=== PATIENT | male | born 1940 | race American Indian/Alaskan Native ===

== ENCOUNTER 2017-05-09 15:19 | Inpatient (IN) | payer OTHER, MEDICARE, BC ==
[~2017-05-09] VITALS: Ht 185.4 cm; Wt 113.6 kg
[~2017-05-09 15:19] MED LIST: ALBU18HF2 INH; ALBU8.5H8 IH; ASPI81TA52 PO; ATOR-2 PO; BECL8.7A7 IH; DILT30TA5 PO; FURO-149 PO; GUAI600T45 PO; IPRA3AMP IH; MOME13HF3 PO; PANT-47 PO; PRED10TA PO
[2017-05-09 15:55] LABS: BASOPHILS # (AUTO) 0.1 X10'3 (0-0.2); BASOPHILS % (AUTO) 0.5 % (0-1); EOSINOPHILS # (AUTO) 0.6 X10'3 (0-0.9); EOSINOPHILS % (AUTO) 5.2 % (0-6); HEMOGLOBIN 15.1 g/dl (14.0-17.9); LYMPHOCYTES # (AUTO) 1.4 X10'3 (1.1-4.8); LYMPHOCYTES % (AUTO) 12.6 % (21-51); MEAN CORPUSCULAR HEMOGLOBIN 33.2 PG (27.0-31.0); MEAN CORPUSCULAR HGB CONC 35.2 % (33.0-36.5); MEAN CORPUSCULAR VOLUME 94.4 FL (78-98); MEAN PLATELET VOLUME 8.4 FL (7.4-10.4); MONOCYTES # (AUTO) 0.8 X10'3 (0-0.9); MONOCYTES % (AUTO) 7.3 % (2-12); NEUTROPHILS # (AUTO) 8.4 X10'3 (1.8-7.7); NEUTROPHILS % (AUTO) 74.4 % (42-75); PLATELET COUNT 335 X10'3 (140-440); RED BLOOD COUNT 4.56 X10'6 (4.70-6.10); RED CELL DISTRIBUTION WIDTH 14.9 % (11.5-14.5); WHITE BLOOD COUNT 11.4 X10'3 (4.5-11.0)
[2017-05-09 16:19] LABS: ALANINE AMINOTRANSFERASE 69 U/L (12-78); ALBUMIN 4.1 G/DL (3.4-5.0); ALBUMIN/GLOBULIN RATIO 1.1 (1.1-1.5); ALKALINE PHOSPHATASE 99 IU/L (46-116); ANION GAP 10 (8-16); ASPARTATE AMINO TRANSFERASE 41 U/L (10-37); BILIRUBIN,TOTAL 0.9 MG/DL (0.1-1.0); BLOOD UREA NITROGEN 12 MG/DL (7-18); BUN/CREATININE RATIO 11.5 (5.4-32.0); CALCIUM 9.4 MG/DL (8.5-10.1); CHLORIDE 100 MMOL/L (99-107); CREATININE 1.04 MG/DL (0.60-1.10); GLUCOSE 112 MG/DL (70-104); MAGNESIUM 1.9 MG/DL (1.5-2.4); PHOSPHORUS 2.4 MG/DL (2.3-4.5); SODIUM 139 MMOL/L (135-145); TOTAL CARBON DIOXIDE 29.1 MMOL/L (24-32); TOTAL PROTEIN 7.7 G/DL (6.4-8.2); eGFR 69 ML/MIN
[2017-05-09 16:27] LABS: INR 0.9 INR; PARTIAL THROMBOPLASTIN TIME 27 SECONDS (22-32); PROTHROMBIN TIME 9.8 SECONDS (9.0-12.0)
[2017-05-09] MEDS ORDERED: potassium Cl 20 mEq SR tablet PO STA (16:31)
[2017-05-09] MEDS ORDERED: ipratropium/albuterol 3ml nebule NEB ONE (16:35)
[2017-05-09] MEDS ORDERED: furosemide 10 MG/1 ML 10ml inj IV ONE (16:35)
[2017-05-09] MEDS ORDERED: furosemide 20 MG/2 ML vial IV ONE (16:35)
[2017-05-09] MEDS ORDERED: methylPREDNISolone sod succ 125mg/2ml vial IV ONE (17:05)
[2017-05-09] MEDS ORDERED: piperacillin/tazo 3.375gm/50ml 50 ML IV ONE (17:29)
[2017-05-09] MEDS ORDERED: ipratropium/albuterol 3ml nebule IH PRN (17:50)
[2017-05-09] MEDS ORDERED: diltiazem 5mg/ml 5ml inj. IV ONE (17:55)
[2017-05-09] MEDS ORDERED: ondansetron/PF 4mg/2ml inj IV PRN (18:00)
[2017-05-09] MEDS ORDERED: mag hydrox/Alum hydrox/simeth 30ml oral suspension PO PRN (18:00)
[2017-05-09] MEDS ORDERED: magnesium hydroxide 30ml (MOM) UD suspension PO PRN (18:00)
[2017-05-09] MEDS ORDERED: acetaminophen 325mg tablet PO PRN (18:00)
[2017-05-09] MEDS ORDERED: DILT120C62 PO (18:22)
[2017-05-09] MEDS ORDERED: MOME0.242 INH (18:34)
[2017-05-09] MEDS ORDERED: POTA20TA19 PO (18:34)
[2017-05-09] MEDS ORDERED: ATOR20TA PO (18:34)
[2017-05-09] MEDS ORDERED: MOME13HF2 INH (18:34)
[2017-05-09] MEDS ORDERED: FURO40TA4 PO (18:34)
[2017-05-09] MEDS ORDERED: ALB0.5UD IH (18:34)
[2017-05-09] MEDS ORDERED: GUAI400T12 PO (18:38)
[2017-05-09] MEDS ORDERED: guaiFENesin 200 MG/10 ML oral syrup UD cup PO PRN (19:05)
[2017-05-09] MEDS ORDERED: albuterol 2.5 MG/3 ML nebule NEB PRN (19:05)
[2017-05-09] MEDS ORDERED: MOMETASONE FUROATE PO SCH (20:00)
[2017-05-09] MEDS ORDERED: guaiFENesin ER 600mg tablet PO SCH (20:00)
[2017-05-09] MEDS ORDERED: diltiazem CD 120mg capsule (once-daily) PO SCH (20:00)
[2017-05-09] MEDS ORDERED: MOMETASONE FUROATE INH SCH (20:00)
[2017-05-09] MEDS ORDERED: iohexol 350MG/ML 100ml bottle IV ONE (20:01)
[2017-05-09] MEDS ORDERED: atorvastatin 20mg tablet PO SCH (21:00)
[2017-05-09 22:35] VITALS: BP 147/94
[2017-05-10] MEDS ORDERED: piperacillin/tazo 3.375gm/50ml 50 ML IV SCH
[2017-05-10] MEDS ORDERED: methylPREDNISolone sod succ 125mg/2ml vial IV SCH
[2017-05-10] MEDS ORDERED: aspirin 81mg tablet.DR PO SCH (08:00)
[2017-05-10] MEDS ORDERED: fluticasone furoate 200 MCG/puff inhaler IH SCH (08:00)
[2017-05-10] MEDS ORDERED: non-formulary drug (Atorvastatin Calcium 1 TABLET) PO SCH (08:00)
[2017-05-10] MEDS ORDERED: furosemide 20 MG/2 ML vial IV SCH (08:00)
[2017-05-10] MEDS ORDERED: furosemide 40mg tablet PO SCH (08:00)
[2017-05-10] MEDS ORDERED: atorvastatin 20mg tablet PO SCH (08:00)
[2017-05-10] MEDS ORDERED: pantoprazole 40mg Tablet.DR PO SCH (08:00)
[2017-05-10] MEDS ORDERED: rivaroxaban 20mg tablet PO SCH (08:00)
== END 2017-05-09 23:23 | disposition left against medical advice (07) | DRG 308 ==
LOC: ER 15:19 → ED HOLD 17:56
PROVIDERS: ADMIT Family Medicine; ATTEND Family Medicine
PROC: B32T1ZZ Computerized Tomography (CT Scan) of Left Pulmonary Artery using Low Osmolar Contrast (ICD-10-PCS; principal; 2017-05-09)
PROC: B3201ZZ Computerized Tomography (CT Scan) of Thoracic Aorta using Low Osmolar Contrast (ICD-10-PCS; 2017-05-09)
PROC: B32S1ZZ Computerized Tomography (CT Scan) of Right Pulmonary Artery using Low Osmolar Contrast (ICD-10-PCS; 2017-05-09)
DX: I48.91 Unspecified atrial fibrillation (principal); J18.9 Pneumonia, unspecified organism; J96.90 Respiratory failure, unspecified, unspecified whether with hypoxia or hypercapnia; I11.0 Hypertensive heart disease with heart failure; I27.20 Pulmonary hypertension, unspecified; I50.9 Heart failure, unspecified; J44.1 Chronic obstructive pulmonary disease with (acute) exacerbation; J44.0 Chronic obstructive pulmonary disease with (acute) lower respiratory infection; E78.00 Pure hypercholesterolemia, unspecified; Z53.21 Procedure and treatment not carried out due to patient leaving prior to being seen by health care provider; Z90.49 Acquired absence of other specified parts of digestive tract; Z88.8 Allergy status to other drugs, medicaments and biological substances; Z79.899 Other long term (current) drug therapy; Z87.891 Personal history of nicotine dependence; Z85.060 Personal history of malignant carcinoid tumor of small intestine
CPT/HCPCS: 36415; 71046; 71275; 80053; 83605; 83735; 83880; 84100; 84484; 85025; 85610; 85730; 87040; 87070; 93005; 94640; 94760; J1940; J2543; J2930; J3490; Q9967

== ENCOUNTER 2017-06-28 12:48 | Emergency (ER) | payer MEDICARE, BC, OTHER ==
[~2017-06-28] VITALS: Ht 180.3 cm; Wt 114.0 kg
[~2017-06-28 12:48] MED LIST changes: +ALB0.5UD IH; -ALBU18HF2 INH; -ALBU8.5H8 IH; -ATOR-2 PO; +ATOR20TA PO; -BECL8.7A7 IH; +DILT120C62 PO; -DILT30TA5 PO; -FURO-149 PO; +FURO40TA4 PO; +GUAI400T12 PO; -GUAI600T45 PO; +MOME0.242 INH; +MOME13HF2 INH; -MOME13HF3 PO; -PANT-47 PO; +POTA20TA19 PO; -PRED10TA PO
[2017-06-28] MEDS ORDERED: normal saline 1000ML IV soln IV ONE (12:50)
[2017-06-28 13:26] LABS: BASOPHILS % (AUTO) 0.3 % (0-1); EOSINOPHILS # (AUTO) 0.3 X10'3 (0-0.9); EOSINOPHILS % (AUTO) 2.8 % (0-6); HEMATOCRIT 40.7 % (42.0-52.0); HEMOGLOBIN 14.1 g/dl (14.0-17.9); LYMPHOCYTES # (AUTO) 1.2 X10'3 (1.1-4.8); LYMPHOCYTES % (AUTO) 13.2 % (21-51); MEAN CORPUSCULAR HEMOGLOBIN 33.5 PG (27.0-31.0); MEAN CORPUSCULAR HGB CONC 34.6 % (33.0-36.5); MEAN CORPUSCULAR VOLUME 96.8 FL (78-98); MEAN PLATELET VOLUME 8.4 FL (7.4-10.4); MONOCYTES # (AUTO) 0.6 X10'3 (0-0.9); NEUTROPHILS # (AUTO) 7.1 X10'3 (1.8-7.7); NEUTROPHILS % (AUTO) 76.7 % (42-75); PLATELET COUNT 241 X10'3 (140-440); RED CELL DISTRIBUTION WIDTH 13.8 % (11.5-14.5); WHITE BLOOD COUNT 9.2 X10'3 (4.5-11.0)
[2017-06-28 13:36] LABS: PARTIAL THROMBOPLASTIN TIME 27 SECONDS (22-32); PROTHROMBIN TIME 10.3 SECONDS (9.0-12.0)
[2017-06-28 13:39] LABS: ALANINE AMINOTRANSFERASE 41 U/L (12-78); ALBUMIN 3.7 G/DL (3.4-5.0); ALBUMIN/GLOBULIN RATIO 1.2 (1.1-1.5); ALKALINE PHOSPHATASE 103 IU/L (46-116); ANION GAP 10 (8-16); ASPARTATE AMINO TRANSFERASE 37 U/L (10-37); BILIRUBIN,TOTAL 0.9 MG/DL (0.1-1.0); BLOOD UREA NITROGEN 14 MG/DL (7-18); BUN/CREATININE RATIO 12.4 (5.4-32.0); CALCIUM 9.1 MG/DL (8.5-10.1); CHLORIDE 100 MMOL/L (99-107); CREATININE 1.13 MG/DL (0.60-1.10); GLUCOSE 110 MG/DL (70-104); MAGNESIUM 1.9 MG/DL (1.5-2.4); POTASSIUM 3.6 MMOL/L (3.5-5.1); SODIUM 140 MMOL/L (135-145); TOTAL CARBON DIOXIDE 29.9 MMOL/L (24-32); TOTAL PROTEIN 6.9 G/DL (6.4-8.2); eGFR 63 ML/MIN
[2017-06-28 15:31] LABS: COLOR,URINE YELLOW (Yellow); GLUCOSE, URINE NEGATIVE (Neg); KETONES,URINE TRACE mg/dl (Neg); LEUKOCYTE ESTERASE ,URINE NEGATIVE (Neg); NITRITES, URINE NEGATIVE (Neg); OCCULT BLOOD,URINE NEGATIVE (Neg); PROTEIN,URINE TRACE mg/dl (Neg)
[2017-06-28 15:35] LABS: CLARITY,URINE SLIGHTLY CLOUDY (Clear)
[2017-06-28 15:38] LABS: BACTERIA,URINE 1+ /HPF (Neg); MUCUS STRANDS MODERATE /LPF (Neg); RBC,URINE 0-2 /HPF (0-2); SQUAMOUS EPITHELIAL CELL,UR FEW /LPF (FEW); WBC,URINE 0-4 /HPF (0-4)
[2017-06-28 15:41] LABS: UA COLLECTION TYPE NON-SPECIFIED
[2017-06-28] MEDS ORDERED: ONDA4TAB12 PO (15:49)
[2017-06-28 16:06] VITALS: BP 120/70
== END 2017-06-28 16:07 | disposition home or self-care (01) ==
LOC: ER 12:48
DX: E86.0 Dehydration (principal); I48.91 Unspecified atrial fibrillation; I10 Essential (primary) hypertension; E78.00 Pure hypercholesterolemia, unspecified; J44.9 Chronic obstructive pulmonary disease, unspecified; Z98.890 Other specified postprocedural states; Z88.8 Allergy status to other drugs, medicaments and biological substances; Z79.82 Long term (current) use of aspirin; Z79.899 Other long term (current) drug therapy
CPT/HCPCS: 36415; 71045; 80053; 81001; 83605; 83735; 84145; 85025; 85610; 85730; 87040; 93005; 96360; 99285; J7030

== ENCOUNTER 2017-08-31 11:57 | Emergency (ER) | payer MEDICARE, BC, OTHER ==
[~2017-08-31] VITALS: Ht 182.9 cm; Wt 108.0 kg
[~2017-08-31 11:57] MED LIST changes: +ONDA4TAB12 PO
[2017-08-31] MEDS ORDERED: nitroGLYCERIN 0.4mg SUBLingual tab SL PRN (12:05)
[2017-08-31 12:20] LABS: BASOPHILS # (AUTO) 0.1 X10'3 (0-0.2); EOSINOPHILS # (AUTO) 0.2 X10'3 (0-0.9); EOSINOPHILS % (AUTO) 1.4 % (0-6); HEMATOCRIT 39.9 % (42.0-52.0); HEMOGLOBIN 13.8 g/dl (14.0-17.9); LYMPHOCYTES # (AUTO) 1.3 X10'3 (1.1-4.8); LYMPHOCYTES % (AUTO) 11.1 % (21-51); MEAN CORPUSCULAR HEMOGLOBIN 33.9 PG (27.0-31.0); MEAN CORPUSCULAR HGB CONC 34.6 % (33.0-36.5); MEAN CORPUSCULAR VOLUME 97.8 FL (78-98); MEAN PLATELET VOLUME 8.9 FL (7.4-10.4); MONOCYTES % (AUTO) 8.9 % (2-12); NEUTROPHILS # (AUTO) 8.8 X10'3 (1.8-7.7); NEUTROPHILS % (AUTO) 77.6 % (42-75); PLATELET COUNT 199 X10'3 (140-440); RED BLOOD COUNT 4.08 X10'6 (4.70-6.10); RED CELL DISTRIBUTION WIDTH 14.5 % (11.5-14.5); WHITE BLOOD COUNT 11.4 X10'3 (4.5-11.0)
[2017-08-31 12:29] LABS: PARTIAL THROMBOPLASTIN TIME 27 SECONDS (22-32); PROTHROMBIN TIME 10.6 SECONDS (9.0-12.0)
[2017-08-31 12:34] LABS: ALANINE AMINOTRANSFERASE 58 U/L (12-78); ALBUMIN 3.4 G/DL (3.4-5.0); ALKALINE PHOSPHATASE 127 IU/L (46-116); ANION GAP 8 (8-16); ASPARTATE AMINO TRANSFERASE 43 U/L (10-37); BLOOD UREA NITROGEN 16 MG/DL (7-18); BUN/CREATININE RATIO 14.8 (5.4-32.0); CALCIUM 9.4 MG/DL (8.5-10.1); CHLORIDE 101 MMOL/L (99-107); CREATININE 1.08 MG/DL (0.60-1.10); GLUCOSE 99 MG/DL (70-104); POTASSIUM 3.4 MMOL/L (3.5-5.1); SODIUM 136 MMOL/L (135-145); TOTAL CARBON DIOXIDE 26.7 MMOL/L (24-32); TOTAL PROTEIN 6.8 G/DL (6.4-8.2); eGFR 66 ML/MIN
[2017-08-31 14:30] VITALS: BP 160/79
== END 2017-08-31 14:32 | disposition home or self-care (01) ==
LOC: ER 11:58
DX: R55 Syncope and collapse (principal); I48.91 Unspecified atrial fibrillation; E78.00 Pure hypercholesterolemia, unspecified; I10 Essential (primary) hypertension; J44.9 Chronic obstructive pulmonary disease, unspecified; Z98.890 Other specified postprocedural states; Z79.82 Long term (current) use of aspirin; Z79.899 Other long term (current) drug therapy
CPT/HCPCS: 36415; 71045; 80053; 84484; 85025; 85610; 85730; 93005; 99285

== ENCOUNTER 2017-09-01 09:40 | Observation (INO) | payer MEDICARE, BC, OTHER ==
[~2017-09-01] VITALS: Ht 188 cm; Wt 109.0 kg
[2017-09-01] MEDS ORDERED: nitroGLYCERIN 0.4mg SUBLingual tab SL PRN ×2 (11:15→12:50)
[2017-09-01] MEDS ORDERED: aspirin 81mg tab.chew PO ONE (11:15)
[2017-09-01 11:40] LABS: BASOPHILS # (AUTO) 0.1 X10'3 (0-0.2); BASOPHILS % (AUTO) 0.9 % (0-1); EOSINOPHILS # (AUTO) 0.2 X10'3 (0-0.9); EOSINOPHILS % (AUTO) 2.3 % (0-6); HEMATOCRIT 39.1 % (42.0-52.0); HEMOGLOBIN 13.7 g/dl (14.0-17.9); LYMPHOCYTES # (AUTO) 1.2 X10'3 (1.1-4.8); LYMPHOCYTES % (AUTO) 12.2 % (21-51); MEAN CORPUSCULAR HEMOGLOBIN 34.2 PG (27.0-31.0); MEAN CORPUSCULAR HGB CONC 35.1 % (33.0-36.5); MEAN CORPUSCULAR VOLUME 97.4 FL (78-98); MEAN PLATELET VOLUME 9.1 FL (7.4-10.4); MONOCYTES # (AUTO) 0.8 X10'3 (0-0.9); MONOCYTES % (AUTO) 8.1 % (2-12); NEUTROPHILS # (AUTO) 7.8 X10'3 (1.8-7.7); NEUTROPHILS % (AUTO) 76.5 % (42-75); PLATELET COUNT 203 X10'3 (140-440); RED BLOOD COUNT 4.01 X10'6 (4.70-6.10); RED CELL DISTRIBUTION WIDTH 14.6 % (11.5-14.5); WHITE BLOOD COUNT 10.2 X10'3 (4.5-11.0)
[2017-09-01 11:55] LABS: ALANINE AMINOTRANSFERASE 60 U/L (12-78); ALBUMIN 3.5 G/DL (3.4-5.0); ALBUMIN/GLOBULIN RATIO 1.1 (1.1-1.5); ALKALINE PHOSPHATASE 126 IU/L (46-116); ANION GAP 9 (8-16); ASPARTATE AMINO TRANSFERASE 46 U/L (10-37); BILIRUBIN,TOTAL 1.3 MG/DL (0.1-1.0); BLOOD UREA NITROGEN 16 MG/DL (7-18); BUN/CREATININE RATIO 13.2 (5.4-32.0); CALCIUM 8.8 MG/DL (8.5-10.1); CHLORIDE 99 MMOL/L (99-107); CREATININE 1.21 MG/DL (0.60-1.10); GLUCOSE 122 MG/DL (70-104); POTASSIUM 3.6 MMOL/L (3.5-5.1); SODIUM 135 MMOL/L (135-145); TOTAL CARBON DIOXIDE 27.1 MMOL/L (24-32); TOTAL PROTEIN 6.7 G/DL (6.4-8.2); eGFR 58 ML/MIN
[2017-09-01 12:02] LABS: MAGNESIUM 1.6 MG/DL (1.5-2.4)
[2017-09-01] MEDS ORDERED: magnesium hydroxide 30ml (MOM) UD suspension PO PRN (12:50)
[2017-09-01] MEDS ORDERED: metoprolol tartrate 1mg/ml inj IV PRN (12:50)
[2017-09-01] MEDS ORDERED: potassium Cl 40MEQ/NS 500ml 500 ML IV PRN ×2 (12:50)
[2017-09-01] MEDS ORDERED: magnesium 4gm in 100ml NS 100 ML IV PRN (12:50)
[2017-09-01] MEDS ORDERED: ondansetron/PF 4mg/2ml inj IV PRN (12:50)
[2017-09-01] MEDS ORDERED: CAFFEINE CITRATE 60 MG/3 ML injection vial IV PRN (12:50)
[2017-09-01] MEDS ORDERED: regadenoson 0.4mg/5ml syringe IV PRN (12:50)
[2017-09-01] MEDS ORDERED: magnesium 1gm/100ml D5W IVPB 100 ML IV PRN (12:50)
[2017-09-01] MEDS ORDERED: mag hydrox/Alum hydrox/simeth 30ml oral suspension PO PRN (12:50)
[2017-09-01] MEDS ORDERED: acetaminophen 325mg tablet PO PRN (12:50)
[2017-09-01] MEDS ORDERED: potassium Cl 20 mEq SR tablet PO PRN (12:50)
[2017-09-01] MEDS ORDERED: GUAIFENESIN PO PRN (12:55)
[2017-09-01] MEDS ORDERED: guaiFENesin ER 600mg tablet PO PRN (13:10)
[2017-09-01] MEDS ORDERED: haloperidol lactate 5mg/ml inj IM PRN (14:10)
[2017-09-01] MEDS ORDERED: haloperidol 5mg tablet PO PRN (14:10)
[2017-09-01] MEDS ORDERED: LORazepam 2 mg/ml vial IV PRN (14:10)
[2017-09-01] MEDS ORDERED: thiamine inj. 100 MG in normal saline 100ml IV soln 100 ML IV ONE (14:10)
[2017-09-01] MEDS: ipratropium/albuterol 3ml nebule IH SCH ×2 (14:18→20:28)
[2017-09-01] MEDS ORDERED: folic acid inj. 2 MG, thiamine inj. 100 MG, MVI, adult No.4 with vit. K 10 ML in dextro... IV SCH ×4 (14:20)
[2017-09-01 18:00] VITALS: BP 131/77
[2017-09-01 20:00] VITALS: BP_SYST 118; BP_SYST 131; BP_SYST 135; BP_DIAS 71; BP_DIAS 77
[2017-09-01] MEDS ORDERED: MOMETASONE FUROATE INH SCH (20:00)
[2017-09-01] MEDS ORDERED: non-formulary drug (Mometasone/Formoterol (Dulera 100 Mcg/5 Mcg Inhaler) 2 PUFFS) INH SCH (20:00)
[2017-09-01] MEDS: budesonide 0.5mg/2ml UD nebule IH SCH (20:28)
[2017-09-01] MEDS: diltiazem SR 60mg capsule (twice daily) PO SCH (20:28)
[2017-09-01] MEDS: MOMETASONE IH SCH (21:00)
[2017-09-01] MEDS ORDERED: atorvastatin 20mg tablet PO SCH (21:00)
[2017-09-01] MEDS: FORMOTEROL IH SCH (21:00)
[2017-09-02] VITALS (11 sets, daily range): BP systolic 120–149; BP diastolic 59–98
[2017-09-02] MEDS: ipratropium/albuterol 3ml nebule IH SCH ×3 (03:03→14:44)
[2017-09-02 05:19] LABS: BASOPHILS # (AUTO) 0.1 X10'3 (0-0.2); EOSINOPHILS # (AUTO) 0.2 X10'3 (0-0.9); EOSINOPHILS % (AUTO) 2.7 % (0-6); HEMATOCRIT 38.1 % (42.0-52.0); HEMOGLOBIN 13.3 g/dl (14.0-17.9); LYMPHOCYTES # (AUTO) 1.4 X10'3 (1.1-4.8); LYMPHOCYTES % (AUTO) 14.7 % (21-51); MEAN CORPUSCULAR HEMOGLOBIN 34.1 PG (27.0-31.0); MEAN CORPUSCULAR VOLUME 97.5 FL (78-98); MEAN PLATELET VOLUME 10.6 FL (7.4-10.4); MONOCYTES # (AUTO) 0.7 X10'3 (0-0.9); MONOCYTES % (AUTO) 7.1 % (2-12); NEUTROPHILS # (AUTO) 6.9 X10'3 (1.8-7.7); NEUTROPHILS % (AUTO) 74.5 % (42-75); PLATELET COUNT 181 X10'3 (140-440); RED BLOOD COUNT 3.91 X10'6 (4.70-6.10); RED CELL DISTRIBUTION WIDTH 14.4 % (11.5-14.5); WHITE BLOOD COUNT 9.3 X10'3 (4.5-11.0)
[2017-09-02 05:45] LABS: ALANINE AMINOTRANSFERASE 50 U/L (12-78); ALBUMIN 3.3 G/DL (3.4-5.0); ALBUMIN/GLOBULIN RATIO 0.9 (1.1-1.5); ALKALINE PHOSPHATASE 125 IU/L (46-116); ANION GAP 10 (8-16); ASPARTATE AMINO TRANSFERASE 38 U/L (10-37); BILIRUBIN,TOTAL 1.3 MG/DL (0.1-1.0); BLOOD UREA NITROGEN 13 MG/DL (7-18); BUN/CREATININE RATIO 12.9 (5.4-32.0); CALCIUM 8.5 MG/DL (8.5-10.1); CHLORIDE 101 MMOL/L (99-107); CHOL/HDL RATIO 4.7 (0.00-4.99); CHOLESTEROL 165 MG/DL (0-200); CREATININE 1.01 MG/DL (0.60-1.10); GLUCOSE 118 MG/DL (70-104); HDL CHOLESTEROL 35 MG/DL (35-60); LDL CHOLESTEROL 111 MG/DL (50-100); MAGNESIUM 1.7 MG/DL (1.5-2.4); PHOSPHORUS 3.1 MG/DL (2.3-4.5); POTASSIUM 3.2 MMOL/L (3.5-5.1); SODIUM 138 MMOL/L (135-145); TOTAL CARBON DIOXIDE 26.8 MMOL/L (24-32); TRIGLYCERIDES 136 MG/DL (20-135); eGFR 72 ML/MIN
[2017-09-02] MEDS: potassium Cl 20 mEq SR tablet PO PRN ×2 (07:11→13:16)
[2017-09-02 07:33] LABS: LARGE PLATELETS FEW; PLATELET ESTIMATE NORMAL
[2017-09-02] MEDS ORDERED: K and/or MAG REPLACEMENT MC SCH (08:00)
[2017-09-02] MEDS ORDERED: folic acid 1mg tablet PO SCH (08:00)
[2017-09-02] MEDS ORDERED: aspirin 81mg tablet.DR PO SCH (08:00)
[2017-09-02] MEDS ORDERED: enoxaparin 40mg/0.4ml syringe SQ SCH (08:00)
[2017-09-02] MEDS ORDERED: furosemide 40mg tablet PO SCH (08:00)
[2017-09-02] MEDS ORDERED: multivitamins, therapeutics tablet PO SCH (08:00)
[2017-09-02] MEDS ORDERED: thiamine 100mg tablet PO SCH (08:00)
[2017-09-02] MEDS: budesonide 0.5mg/2ml UD nebule IH SCH (08:21)
[2017-09-02] MEDS: FORMOTEROL IH SCH (09:00)
[2017-09-02] MEDS: MOMETASONE IH SCH (09:00)
[2017-09-02] MEDS ORDERED: CAFFEINE CITRATE 60 MG/3 ML injection vial IV ONE (09:35)
[2017-09-02] MEDS ORDERED: regadenoson 0.4mg/5ml syringe IV ONE (09:35)
[2017-09-02] MEDS: diltiazem SR 60mg capsule (twice daily) PO SCH (13:16)
[2017-09-02] MEDS ORDERED: atorvastatin 20mg tablet PO SCH (21:00)
[2017-09-03] MEDS ORDERED: LORazepam 1 MG tablet PO PRN (14:10)
[2017-09-03] MEDS ORDERED: LORazepam 2 mg/ml vial IV PRN (14:10)
[2017-09-05] MEDS ORDERED: LORazepam 2 mg/ml vial IV PRN (14:10)
[2017-09-05] MEDS ORDERED: LORazepam 1 MG tablet PO PRN (14:10)
== END 2017-09-02 17:58 | disposition home or self-care (01) ==
LOC: ER 09:41 → ED HOLD 12:46 → SUR 3N 14:22
PROVIDERS: ADMIT Family Medicine; ATTEND Family Medicine
DX: R55 Syncope and collapse (principal); I48.0 Paroxysmal atrial fibrillation; E78.5 Hyperlipidemia, unspecified; J44.9 Chronic obstructive pulmonary disease, unspecified; I11.0 Hypertensive heart disease with heart failure; I50.9 Heart failure, unspecified; E78.00 Pure hypercholesterolemia, unspecified; Z77.120 Contact with and (suspected) exposure to mold (toxic); Z79.51 Long term (current) use of inhaled steroids; Z79.82 Long term (current) use of aspirin; Z79.899 Other long term (current) drug therapy; Z85.068 Personal history of other malignant neoplasm of small intestine; Z85.828 Personal history of other malignant neoplasm of skin
CPT/HCPCS: 36415; 78451; 80053; 80061; 82948; 83735; 83880; 84100; 84484; 85025; 87070; 93005; 93017; 93306; 94640; 94760; 99285; A9500; G0378; J7626; J1650; J3411; J3490; J7030; J7060

== ENCOUNTER 2017-09-15 11:55 | Emergency (ER) | payer MEDICARE, BC, OTHER ==
[~2017-09-15] VITALS: Ht 185.4 cm; Wt 109.5 kg
[~2017-09-15 11:55] MED LIST changes: -ONDA4TAB12 PO
[2017-09-15 12:31] LABS: BASOPHILS # (AUTO) 0.1 X10'3 (0-0.2); BASOPHILS % (AUTO) 0.8 % (0-1); EOSINOPHILS # (AUTO) 0.3 X10'3 (0-0.9); EOSINOPHILS % (AUTO) 2.4 % (0-6); HEMATOCRIT 43.5 % (42.0-52.0); LYMPHOCYTES # (AUTO) 1.8 X10'3 (1.1-4.8); LYMPHOCYTES % (AUTO) 15.1 % (21-51); MEAN CORPUSCULAR HEMOGLOBIN 33.6 PG (27.0-31.0); MEAN CORPUSCULAR HGB CONC 34.4 % (33.0-36.5); MEAN CORPUSCULAR VOLUME 97.7 FL (78-98); MEAN PLATELET VOLUME 9.3 FL (7.4-10.4); MONOCYTES # (AUTO) 0.3 X10'3 (0-0.9); MONOCYTES % (AUTO) 2.5 % (2-12); NEUTROPHILS # (AUTO) 9.4 X10'3 (1.8-7.7); NEUTROPHILS % (AUTO) 79.2 % (42-75); PLATELET COUNT 253 X10'3 (140-440); RED BLOOD COUNT 4.46 X10'6 (4.70-6.10); RED CELL DISTRIBUTION WIDTH 14.8 % (11.5-14.5); WHITE BLOOD COUNT 11.9 X10'3 (4.5-11.0)
[2017-09-15 12:42] LABS: PARTIAL THROMBOPLASTIN TIME 28 SECONDS (22-32); PROTHROMBIN TIME 10.7 SECONDS (9.0-12.0)
[2017-09-15 12:47] LABS: ALANINE AMINOTRANSFERASE 62 U/L (12-78); ALBUMIN 3.8 G/DL (3.4-5.0); ALKALINE PHOSPHATASE 182 IU/L (46-116); ANION GAP 11 (8-16); ASPARTATE AMINO TRANSFERASE 55 U/L (10-37); BLOOD UREA NITROGEN 11 MG/DL (7-18); BUN/CREATININE RATIO 10.1 (5.4-32.0); CALCIUM 9.1 MG/DL (8.5-10.1); CHLORIDE 98 MMOL/L (99-107); CREATININE 1.09 MG/DL (0.60-1.10); GLUCOSE 125 MG/DL (70-104); POTASSIUM 3.5 MMOL/L (3.5-5.1); SODIUM 136 MMOL/L (135-145); TOTAL CARBON DIOXIDE 26.9 MMOL/L (24-32); TOTAL PROTEIN 7.5 G/DL (6.4-8.2); eGFR 66 ML/MIN
[2017-09-15] MEDS ORDERED: albuterol 2.5 MG/3 ML nebule NEB ONE (13:15)
[2017-09-15] MEDS ORDERED: methylPREDNISolone sod succ 125mg/2ml vial IV ONE (13:15)
[2017-09-15] MEDS ORDERED: magnesium oxide 400mg tablet PO ONE (13:15)
[2017-09-15] MEDS ORDERED: diltiazem 5mg/ml 5ml inj. IV ONE (13:15)
[2017-09-15 13:43] LABS: ETHANOL < 0.010 GM/DL (0.0-0.010); MAGNESIUM 1.6 MG/DL (1.5-2.4)
[2017-09-15] MEDS ORDERED: apixaban 5mg tablet PO SCH (14:10)
[2017-09-15] MEDS ORDERED: PRED20TA PO (16:26)
[2017-09-15 16:50] VITALS: BP 152/92
== END 2017-09-15 16:52 | disposition home or self-care (01) ==
LOC: ER 11:56
DX: J44.1 Chronic obstructive pulmonary disease with (acute) exacerbation (principal); I42.6 Alcoholic cardiomyopathy; I48.91 Unspecified atrial fibrillation; E78.00 Pure hypercholesterolemia, unspecified; I10 Essential (primary) hypertension; F10.10 Alcohol abuse, uncomplicated; Z98.890 Other specified postprocedural states; Z88.8 Allergy status to other drugs, medicaments and biological substances; Z79.82 Long term (current) use of aspirin; Z79.899 Other long term (current) drug therapy
CPT/HCPCS: 36415; 71045; 80053; 80320; 83735; 83880; 84484; 85025; 85610; 85730; 93005; 94640; 94760; 96374; 99285; J2930; J3490

== ENCOUNTER 2017-10-04 11:33 | Outpatient (CLI) | payer MEDICARE, BC, OTHER ==
[2017-10-04] VITALS (19 sets, daily range): BP systolic 111–154; BP diastolic 68–106
[~2017-10-04 11:33] MED LIST changes: -IPRA3AMP IH; +IPRA3AMP31 IH; +PRED20TA PO
== END 2017-10-04 23:59 | disposition home or self-care (01) ==
LOC: CARD DIAG 11:33
PROVIDERS: ATTEND Internal Medicine Cardiovascular Disease
DX: R55 Syncope and collapse (principal); J44.9 Chronic obstructive pulmonary disease, unspecified; I10 Essential (primary) hypertension; F10.10 Alcohol abuse, uncomplicated; Z98.890 Other specified postprocedural states; Z79.82 Long term (current) use of aspirin; Z72.89 Other problems related to lifestyle
CPT/HCPCS: 93660

== ENCOUNTER 2017-10-11 10:44 | Outpatient (CLI) | payer MEDICARE, BC, OTHER | END 2017-10-11 23:59 | disposition home or self-care (01) | LOC: RAD 10:44 | PROVIDERS: ATTEND Internal Medicine Cardiovascular Disease | DX: R55 Syncope and collapse (principal); R40.0 Somnolence; F10.10 Alcohol abuse, uncomplicated; I10 Essential (primary) hypertension; J44.9 Chronic obstructive pulmonary disease, unspecified; Z79.82 Long term (current) use of aspirin; Z98.890 Other specified postprocedural states; W19.XXXA Unspecified fall, initial encounter | CPT/HCPCS: 95816 ==

== ENCOUNTER 2017-11-10 19:52 | Emergency (ER) | payer MEDICARE, BC, OTHER ==
[~2017-11-10] VITALS: Ht 185.4 cm; Wt 109.0 kg
[~2017-11-10 19:52] MED LIST changes: -PRED20TA PO
[2017-11-10 23:36] VITALS: BP 113/64
== END 2017-11-10 21:00 | disposition home or self-care (01) ==
LOC: ER 19:52
DX: S51.811A Laceration without foreign body of right forearm, initial encounter (principal); S81.811A Laceration without foreign body, right lower leg, initial encounter; I10 Essential (primary) hypertension; E78.00 Pure hypercholesterolemia, unspecified; I48.91 Unspecified atrial fibrillation; J44.9 Chronic obstructive pulmonary disease, unspecified; Z88.8 Allergy status to other drugs, medicaments and biological substances; Z79.82 Long term (current) use of aspirin; W01.0XXA Fall on same level from slipping, tripping and stumbling without subsequent striking against object, initial encounter; Y93.89 Activity, other specified; Y92.89 Other specified places as the place of occurrence of the external cause; Y99.8 Other external cause status
CPT/HCPCS: 99284; A6255; A6446

== ENCOUNTER 2018-01-30 10:06 | Observation (INO) | payer MEDICARE, BC, OTHER ==
[~2018-01-30] VITALS: Ht 185.4 cm; Wt 106.8 kg
[2018-01-30] MEDS ORDERED: nitroGLYCERIN 0.4mg/hour patch TD ONE (10:50)
[2018-01-30 10:59] LABS: BASOPHILS # (AUTO) 0.1 X10'3 (0-0.2); BASOPHILS % (AUTO) 0.8 % (0-1); EOSINOPHILS # (AUTO) 0.2 X10'3 (0-0.9); EOSINOPHILS % (AUTO) 2.5 % (0-6); HEMATOCRIT 41.9 % (42.0-52.0); HEMOGLOBIN 14.1 g/dl (14.0-17.9); LYMPHOCYTES # (AUTO) 1.4 X10'3 (1.1-4.8); MEAN CORPUSCULAR HEMOGLOBIN 32.8 PG (27.0-31.0); MEAN CORPUSCULAR HGB CONC 33.7 % (33.0-36.5); MEAN CORPUSCULAR VOLUME 97.2 FL (78-98); MEAN PLATELET VOLUME 9.6 FL (7.4-10.4); MONOCYTES # (AUTO) 0.8 X10'3 (0-0.9); MONOCYTES % (AUTO) 8.5 % (2-12); NEUTROPHILS # (AUTO) 6.5 X10'3 (1.8-7.7); NEUTROPHILS % (AUTO) 72.2 % (42-75); PLATELET COUNT 169 X10'3 (140-440); RED BLOOD COUNT 4.31 X10'6 (4.70-6.10); WHITE BLOOD COUNT 9.1 X10'3 (4.5-11.0)
[2018-01-30 11:11] LABS: INR 1.1 INR; PARTIAL THROMBOPLASTIN TIME 33 SECONDS (22-32); PROTHROMBIN TIME 11.2 SECONDS (9.0-12.0)
[2018-01-30 11:13] LABS: ALANINE AMINOTRANSFERASE 40 U/L (12-78); ALBUMIN 3.4 G/DL (3.4-5.0); ALKALINE PHOSPHATASE 161 IU/L (46-116); ANION GAP 12 (8-16); ASPARTATE AMINO TRANSFERASE 41 U/L (10-37); BILIRUBIN,TOTAL 0.6 MG/DL (0.1-1.0); BLOOD UREA NITROGEN 11 MG/DL (7-18); BUN/CREATININE RATIO 10.5 (5.4-32.0); CALCIUM 8.7 MG/DL (8.5-10.1); CHLORIDE 101 MMOL/L (99-107); CREATININE 1.05 MG/DL (0.60-1.10); GLUCOSE 108 MG/DL (70-104); POTASSIUM 3.3 MMOL/L (3.5-5.1); SODIUM 140 MMOL/L (135-145); TOTAL CARBON DIOXIDE 26.9 MMOL/L (24-32); TOTAL PROTEIN 6.9 G/DL (6.4-8.2); eGFR 68 ML/MIN
[2018-01-30] MEDS ORDERED: DOXY-1 PO (11:55)
[2018-01-30] MEDS ORDERED: DILT240C PO (11:55)
[2018-01-30] MEDS ORDERED: MOME13HF2 INH (11:57)
[2018-01-30] MEDS ORDERED: FLEC100T2 PO (11:58)
[2018-01-30] MEDS ORDERED: FURO-150 PO (11:59)
[2018-01-30] MEDS ORDERED: METO-411 PO (12:01)
[2018-01-30] MEDS ORDERED: PANT-47 PO (12:02)
[2018-01-30] MEDS ORDERED: SUCR1TAB PO (12:04)
[2018-01-30] MEDS ORDERED: APIX5TAB3 PO (12:09)
[2018-01-30] MEDS ORDERED: ondansetron/PF 4mg/2ml inj IV PRN (15:20)
[2018-01-30] MEDS ORDERED: mag hydrox/Alum hydrox/simeth 30ml oral suspension PO PRN (15:20)
[2018-01-30] MEDS ORDERED: ipratropium/albuterol 3ml nebule NEB PRN (15:20)
[2018-01-30] MEDS ORDERED: potassium Cl 40MEQ/NS 500ml 500 ML IV PRN ×2 (15:20)
[2018-01-30] MEDS ORDERED: potassium Cl 20 mEq SR tablet PO PRN (15:20)
[2018-01-30] MEDS ORDERED: acetaminophen 325mg tablet PO PRN ×2 (15:20)
[2018-01-30] MEDS ORDERED: magnesium 4gm in 100ml NS 100 ML IV PRN (15:20)
[2018-01-30] MEDS ORDERED: haloperidol lactate 5mg/ml inj IM PRN (16:20)
[2018-01-30] MEDS ORDERED: LORazepam 2 mg/ml vial IV PRN (16:20)
[2018-01-30] MEDS ORDERED: thiamine inj. 100 MG in normal saline 100ml IV soln 100 ML IV ONE (16:20)
[2018-01-30] MEDS ORDERED: LORazepam 1 MG tablet PO PRN (16:20)
[2018-01-30 16:41] VITALS: BP 149/78
[2018-01-30] MEDS: folic acid 1mg tablet PO SCH (17:38)
[2018-01-30] MEDS: thiamine 100mg tablet PO SCH (17:38)
[2018-01-30] MEDS: multivitamins, therapeutics tablet PO SCH (17:38)
[2018-01-30 18:00] VITALS: BP 143/72
[2018-01-30] MEDS: docusate sod 100mg capsule PO SCH (19:44)
[2018-01-30] MEDS: sucralfate 1 gm tablet PO SCH (19:45)
[2018-01-30] MEDS: metoprolol succinate 25mg (24-HOUR) SR. Tablet PO SCH (19:45)
[2018-01-30] MEDS: apixaban 5mg tablet PO SCH (19:46)
[2018-01-30] MEDS: flecainide 50mg tablet PO SCH (19:47)
[2018-01-30] MEDS: furosemide 10 MG/1 ML 10ml inj IV SCH (19:56)
[2018-01-30] MEDS: BUDESONIDE 0.25 MG/2 ML AMPUL.NEB IH SCH (19:58)
[2018-01-30] MEDS ORDERED: atorvastatin 20mg tablet PO SCH (21:00)
[2018-01-30 22:00] VITALS: BP 132/66
[2018-01-30] MEDS: potassium Cl 20 mEq SR tablet PO PRN (23:07)
[2018-01-31 02:00] VITALS: BP 130/65
[2018-01-31 05:34] LABS: BASOPHILS # (AUTO) 0.1 X10'3 (0-0.2); BASOPHILS % (AUTO) 0.7 % (0-1); EOSINOPHILS # (AUTO) 0.3 X10'3 (0-0.9); EOSINOPHILS % (AUTO) 2.7 % (0-6); HEMATOCRIT 41.4 % (42.0-52.0); HEMOGLOBIN 13.9 g/dl (14.0-17.9); LYMPHOCYTES # (AUTO) 1.4 X10'3 (1.1-4.8); LYMPHOCYTES % (AUTO) 14.6 % (21-51); MEAN CORPUSCULAR HEMOGLOBIN 32.6 PG (27.0-31.0); MEAN CORPUSCULAR HGB CONC 33.5 % (33.0-36.5); MEAN CORPUSCULAR VOLUME 97.4 FL (78-98); MEAN PLATELET VOLUME 11.1 FL (7.4-10.4); MONOCYTES # (AUTO) 0.7 X10'3 (0-0.9); MONOCYTES % (AUTO) 7.7 % (2-12); NEUTROPHILS % (AUTO) 74.3 % (42-75); PLATELET COUNT 166 X10'3 (140-440); RED BLOOD COUNT 4.25 X10'6 (4.70-6.10); WHITE BLOOD COUNT 9.4 X10'3 (4.5-11.0)
[2018-01-31 05:58] LABS: ALANINE AMINOTRANSFERASE 34 U/L (12-78); ALBUMIN/GLOBULIN RATIO 0.9 (1.1-1.5); ALKALINE PHOSPHATASE 151 IU/L (46-116); AMYLASE 32 U/L (25-115); ANION GAP 8 (8-16); ASPARTATE AMINO TRANSFERASE 35 U/L (10-37); BILIRUBIN,TOTAL 1.2 MG/DL (0.1-1.0); BLOOD UREA NITROGEN 15 MG/DL (7-18); CALCIUM 8.1 MG/DL (8.5-10.1); CHLORIDE 100 MMOL/L (99-107); CHOL/HDL RATIO 4.8 (0.00-4.99); CHOLESTEROL 182 MG/DL (0-200); CREATININE 1.15 MG/DL (0.60-1.10); GLUCOSE 96 MG/DL (70-104); HDL CHOLESTEROL 38 MG/DL (35-60); LDL CHOLESTEROL 121 MG/DL (50-100); LIPASE 128 U/L (73-393); MAGNESIUM 1.5 MG/DL (1.5-2.4); PHOSPHORUS 2.7 MG/DL (2.3-4.5); POTASSIUM 3.4 MMOL/L (3.5-5.1); SODIUM 137 MMOL/L (135-145); TOTAL CARBON DIOXIDE 28.6 MMOL/L (24-32); TOTAL PROTEIN 6.2 G/DL (6.4-8.2); TRIGLYCERIDES 181 MG/DL (20-135); eGFR 62 ML/MIN
[2018-01-31 06:31] LABS: LARGE PLATELETS FEW; PLATELET ESTIMATE NORMAL
[2018-01-31 07:03] VITALS: BP 140/74
[2018-01-31] MEDS: furosemide 10 MG/1 ML 10ml inj IV SCH (07:50)
[2018-01-31] MEDS: multivitamins, therapeutics tablet PO SCH (07:51)
[2018-01-31] MEDS: thiamine 100mg tablet PO SCH (07:51)
[2018-01-31] MEDS: metoprolol succinate 25mg (24-HOUR) SR. Tablet PO SCH (07:51)
[2018-01-31] MEDS: flecainide 50mg tablet PO SCH (07:51)
[2018-01-31] MEDS: folic acid 1mg tablet PO SCH (07:52)
[2018-01-31] MEDS: sucralfate 1 gm tablet PO SCH (07:52)
[2018-01-31] MEDS: apixaban 5mg tablet PO SCH (07:52)
[2018-01-31] MEDS: potassium Cl 20 mEq SR tablet PO PRN ×2 (07:58→11:46)
[2018-01-31] MEDS: docusate sod 100mg capsule PO SCH (08:00)
[2018-01-31] MEDS ORDERED: pantoprazole 40mg Tablet.DR PO SCH (08:00)
[2018-01-31] MEDS ORDERED: K and/or MAG REPLACEMENT MC SCH (08:00)
[2018-01-31] MEDS ORDERED: diltiazem CD 120mg capsule (once-daily) PO SCH (08:00)
[2018-01-31] MEDS: BUDESONIDE 0.25 MG/2 ML AMPUL.NEB IH SCH (08:35)
[2018-01-31] MEDS ORDERED: ATOR20TA66 PO (09:55)
[2018-01-31 11:00] VITALS: BP 106/67
[2018-01-31] MEDS ORDERED: atorvastatin 20mg tablet PO SCH (21:00)
== END 2018-01-31 12:18 | disposition home or self-care (01) ==
LOC: ER 10:07 → ED HOLD 15:19 → PCU 3S 16:35
PROVIDERS: ADMIT Family Medicine; ATTEND Family Medicine
DX: R07.89 Other chest pain (principal); E78.2 Mixed hyperlipidemia; I11.0 Hypertensive heart disease with heart failure; I50.9 Heart failure, unspecified; J44.9 Chronic obstructive pulmonary disease, unspecified; I48.0 Paroxysmal atrial fibrillation; I48.2 Chronic atrial fibrillation; Z79.01 Long term (current) use of anticoagulants; Z85.068 Personal history of other malignant neoplasm of small intestine; Z85.828 Personal history of other malignant neoplasm of skin; Z90.49 Acquired absence of other specified parts of digestive tract; Z79.51 Long term (current) use of inhaled steroids; Z77.120 Contact with and (suspected) exposure to mold (toxic)
CPT/HCPCS: 36415; 71045; 80053; 80061; 82150; 83690; 83735; 84100; 84484; 85025; 85610; 85730; 87070; 93005; 94640; 94760; 96374; 96376; 99284; G0378; J1940; J3411; J7030

== ENCOUNTER 2018-05-04 20:07 | Emergency (ER) | payer MEDICARE, BC, OTHER ==
[~2018-05-04] VITALS: Ht 185.4 cm; Wt 106.0 kg
[~2018-05-04 20:07] MED LIST changes: +APIX5TAB3 PO; -ASPI81TA52 PO; -ATOR20TA PO; +ATOR20TA66 PO; -DILT120C62 PO; +DILT240C PO; +FLEC100T2 PO; +FURO-150 PO; -GUAI400T12 PO; -IPRA3AMP31 IH; +METO-411 PO
[2018-05-04] MEDS ORDERED: ipratropium/albuterol 3ml nebule NEB ONE (20:25)
[2018-05-04 20:35] LABS: BASOPHILS # (AUTO) 0.1 X10'3 (0-0.2); BASOPHILS % (AUTO) 0.4 % (0-1); EOSINOPHILS # (AUTO) 0.2 X10'3 (0-0.9); EOSINOPHILS % (AUTO) 1.7 % (0-6); HEMATOCRIT 41.1 % (42.0-52.0); HEMOGLOBIN 13.6 g/dl (14.0-17.9); LYMPHOCYTES # (AUTO) 1.8 X10'3 (1.1-4.8); LYMPHOCYTES % (AUTO) 14.1 % (21-51); MEAN CORPUSCULAR HEMOGLOBIN 32.4 PG (27.0-31.0); MEAN CORPUSCULAR HGB CONC 33.2 g/dL (33.0-36.5); MEAN CORPUSCULAR VOLUME 97.7 FL (78-98); MEAN PLATELET VOLUME 10.3 FL (7.4-10.4); MONOCYTES % (AUTO) 7.8 % (2-12); NEUTROPHILS # (AUTO) 9.8 X10'3 (1.8-7.7); PLATELET COUNT 213 X10'3 (140-440); RED BLOOD COUNT 4.21 X10'6 (4.70-6.10); RED CELL DISTRIBUTION WIDTH 14.9 % (11.5-14.5); WHITE BLOOD COUNT 12.9 X10'3 (4.5-11.0)
[2018-05-04 20:48] LABS: ALANINE AMINOTRANSFERASE 31 U/L (12-78); ALBUMIN 3.6 G/DL (3.4-5.0); ALKALINE PHOSPHATASE 177 IU/L (46-116); ANION GAP 11 (8-16); ASPARTATE AMINO TRANSFERASE 37 U/L (10-37); BLOOD UREA NITROGEN 15 MG/DL (7-18); BUN/CREATININE RATIO 11.9 (5.4-32.0); CHLORIDE 99 MMOL/L (99-107); CREATININE 1.26 MG/DL (0.60-1.10); GLUCOSE 110 MG/DL (70-104); INR 1.2 INR; PARTIAL THROMBOPLASTIN TIME 36 SECONDS (22-32); POTASSIUM 4.1 MMOL/L (3.5-5.1); SODIUM 134 MMOL/L (135-145); TOTAL CARBON DIOXIDE 24.2 MMOL/L (24-32); TOTAL PROTEIN 7.1 G/DL (6.4-8.2); eGFR 55 ML/MIN
[2018-05-04 23:43] VITALS: BP 145/80
== END 2018-05-04 23:45 | disposition home or self-care (01) ==
LOC: ER 20:08
DX: R00.1 Bradycardia, unspecified (principal); R53.1 Weakness; R06.02 Shortness of breath; R05 Cough; I49.9 Cardiac arrhythmia, unspecified; I48.91 Unspecified atrial fibrillation; E78.00 Pure hypercholesterolemia, unspecified; I10 Essential (primary) hypertension; J44.9 Chronic obstructive pulmonary disease, unspecified; Z90.49 Acquired absence of other specified parts of digestive tract; Z98.890 Other specified postprocedural states; Z88.8 Allergy status to other drugs, medicaments and biological substances; Z79.899 Other long term (current) drug therapy
CPT/HCPCS: 36415; 71045; 80053; 83880; 84484; 85025; 85610; 85730; 93005; 94640; 94760; 99284

== ENCOUNTER 2018-05-24 11:37 | Inpatient (IN) | payer MEDICARE, BC, OTHER | END 2018-05-27 15:40 | disposition home or self-care (01) | LOC: PCU 3S 05-25 00:47 → ER 11:37 | DX: J18.1 Lobar pneumonia, unspecified organism (principal); J44.0 Chronic obstructive pulmonary disease with (acute) lower respiratory infection; I48.0 Paroxysmal atrial fibrillation ==

== ENCOUNTER 2018-06-29 15:19 | Emergency (ER) | payer MEDICARE, BC, OTHER ==
[~2018-06-29] VITALS: Ht 185.4 cm; Wt 104.5 kg
[~2018-06-29 15:19] MED LIST changes: -ATOR20TA66 PO; +ATOR40TA71 PO; +GUAI600T45 PO; +LEVO750T46 PO
[2018-06-29 16:07] LABS: BASOPHILS # (AUTO) 0.1 X10'3 (0-0.2); BASOPHILS % (AUTO) 0.9 % (0-1); EOSINOPHILS # (AUTO) 0.1 X10'3 (0-0.9); EOSINOPHILS % (AUTO) 0.5 % (0-6); HEMATOCRIT 41.7 % (42.0-52.0); LYMPHOCYTES # (AUTO) 1.6 X10'3 (1.1-4.8); LYMPHOCYTES % (AUTO) 12.1 % (21-51); MEAN CORPUSCULAR HEMOGLOBIN 32.4 PG (27.0-31.0); MEAN CORPUSCULAR HGB CONC 33.5 g/dL (33.0-36.5); MEAN CORPUSCULAR VOLUME 96.7 FL (78-98); MEAN PLATELET VOLUME 10.1 FL (7.4-10.4); MONOCYTES # (AUTO) 1.2 X10'3 (0-0.9); MONOCYTES % (AUTO) 8.7 % (2-12); NEUTROPHILS # (AUTO) 10.4 X10'3 (1.8-7.7); NEUTROPHILS % (AUTO) 77.8 % (42-75); PLATELET COUNT 220 X10'3 (140-440); RED BLOOD COUNT 4.32 X10'6 (4.70-6.10); WHITE BLOOD COUNT 13.3 X10'3 (4.5-11.0)
[2018-06-29 16:19] LABS: ALANINE AMINOTRANSFERASE 28 U/L (12-78); ALBUMIN 3.6 G/DL (3.4-5.0); ALKALINE PHOSPHATASE 200 IU/L (46-116); ANION GAP 10 (8-16); ASPARTATE AMINO TRANSFERASE 37 U/L (10-37); BLOOD UREA NITROGEN 16 MG/DL (7-18); CALCIUM 9.2 MG/DL (8.5-10.1); CHLORIDE 100 MMOL/L (99-107); CREATININE 1.07 MG/DL (0.60-1.10); GLUCOSE 97 MG/DL (70-104); POTASSIUM 4.1 MMOL/L (3.5-5.1); SODIUM 136 MMOL/L (135-145); TOTAL PROTEIN 7.2 G/DL (6.4-8.2); eGFR 67 ML/MIN
[2018-06-29 16:32] LABS: INR 1.1 INR; PARTIAL THROMBOPLASTIN TIME 36 SECONDS (22-32)
[2018-06-29 22:25] VITALS: BP 123/73
--- NOTE | 2018-06-29 22:25 | NUR ---
provider talking with pt and reprots he is ok to be discharged. pt is agreeable to this plan
== END 2018-06-29 22:32 | disposition home or self-care (01) ==
LOC: ER 15:20
DX: R06.02 Shortness of breath (principal); R10.31 Right lower quadrant pain; R53.1 Weakness; I48.91 Unspecified atrial fibrillation; E78.00 Pure hypercholesterolemia, unspecified; I10 Essential (primary) hypertension; J44.9 Chronic obstructive pulmonary disease, unspecified; Z90.49 Acquired absence of other specified parts of digestive tract; Z88.8 Allergy status to other drugs, medicaments and biological substances; Z79.899 Other long term (current) drug therapy; Z98.890 Other specified postprocedural states
CPT/HCPCS: 36415; 71045; 80053; 83880; 84484; 85025; 85610; 85730; 93005; 99284

== ENCOUNTER 2018-07-11 13:03 | Emergency (ER) | payer MEDICARE, BC, OTHER ==
[~2018-07-11] VITALS: Ht 180.3 cm; Wt 105.0 kg
[2018-07-11 13:20] VITALS: BP 140/75
[2018-07-11] MEDS ORDERED: thiamine 100mg/ml 2ml inj. IV ONE (13:25)
[2018-07-11] MEDS ORDERED: normal saline 1000ML IV soln IVB ONE (13:25)
[2018-07-11] MEDS ORDERED: LORazepam 2 mg/ml vial IV ONE ×2 (13:25→14:25)
[2018-07-11] MEDS ORDERED: magnesium 2GM in 50ml NS 50 ML IV ONE (13:25)
[2018-07-11] MEDS ORDERED: folic acid 1mg/0.2ml inj IV ONE (13:25)
[2018-07-11] MEDS ORDERED: potassium Cl oral solution 20 MEQ/15 ML PO ONE (13:25)
[2018-07-11 14:13] LABS: BASOPHILS # (AUTO) 0.1 X10'3 (0-0.2); BASOPHILS % (AUTO) 0.7 % (0-1); EOSINOPHILS # (AUTO) 0.1 X10'3 (0-0.9); EOSINOPHILS % (AUTO) 0.9 % (0-6); HEMATOCRIT 42.3 % (42.0-52.0); LYMPHOCYTES # (AUTO) 0.9 X10'3 (1.1-4.8); LYMPHOCYTES % (AUTO) 9.7 % (21-51); MEAN CORPUSCULAR HEMOGLOBIN 32.2 PG (27.0-31.0); MEAN CORPUSCULAR HGB CONC 33.1 g/dL (33.0-36.5); MEAN CORPUSCULAR VOLUME 97.2 FL (78-98); MEAN PLATELET VOLUME 10.1 FL (7.4-10.4); MONOCYTES # (AUTO) 0.9 X10'3 (0-0.9); MONOCYTES % (AUTO) 8.8 % (2-12); NEUTROPHILS # (AUTO) 7.8 X10'3 (1.8-7.7); NEUTROPHILS % (AUTO) 79.9 % (42-75); PLATELET COUNT 200 X10'3 (140-440); RED BLOOD COUNT 4.35 X10'6 (4.70-6.10); RED CELL DISTRIBUTION WIDTH 14.8 % (11.5-14.5); WHITE BLOOD COUNT 9.7 X10'3 (4.5-11.0)
[2018-07-11 14:20] LABS: ALANINE AMINOTRANSFERASE 40 U/L (12-78); ALBUMIN 3.4 G/DL (3.4-5.0); ALBUMIN/GLOBULIN RATIO 0.9 (1.1-1.5); ALKALINE PHOSPHATASE 184 IU/L (46-116); ANION GAP 10 (8-16); ASPARTATE AMINO TRANSFERASE 54 U/L (10-37); BILIRUBIN,TOTAL 0.8 MG/DL (0.1-1.0); BLOOD UREA NITROGEN 10 MG/DL (7-18); CALCIUM 8.9 MG/DL (8.5-10.1); CHLORIDE 105 MMOL/L (99-107); GLUCOSE 98 MG/DL (70-104); POTASSIUM 4.2 MMOL/L (3.5-5.1); SODIUM 140 MMOL/L (135-145); TOTAL CARBON DIOXIDE 25.1 MMOL/L (24-32); TOTAL PROTEIN 7.1 G/DL (6.4-8.2); eGFR 72 ML/MIN
[2018-07-11 14:23] LABS: ETHANOL < 0.010 GM/DL (0.0-0.010); TROPONIN I < 0.04 NG/ML (0.0-0.05)
--- NOTE | 2018-07-11 14:28 | NUR ---
GLUCOSE 99
[2018-07-11] MEDS ORDERED: LORA-269 PO (14:42)
[2018-07-11] MEDS ORDERED: GABA300C PO (14:42)
[2018-07-11 14:57] LABS: CLARITY,URINE SLIGHTLY CLOUDY (Clear); COLOR,URINE YELLOW (Yellow); GLUCOSE, URINE NEGATIVE (Neg); KETONES,URINE NEGATIVE (Neg); LEUKOCYTE ESTERASE ,URINE NEGATIVE (Neg); NITRITES, URINE NEGATIVE (Neg); OCCULT BLOOD,URINE NEGATIVE (Neg); PROTEIN,URINE NEGATIVE (Neg); UROBILINOGEN,URINE 0.2 E.U/dL (0.2-1.0)
[2018-07-11 14:59] LABS: UA COLLECTION TYPE CLN CATCH MIDSTREAM
[2018-07-11 15:06] LABS: HYALINE CASTS 0-3 /LPF (NEGATIVE); MUCUS STRANDS FEW /LPF (Neg); SQUAMOUS EPITHELIAL CELL,UR FEW /LPF (FEW)
[2018-07-11 15:07] LABS: BACTERIA,URINE FEW /HPF (Neg); RBC,URINE 0-2 /HPF (0-2); SPERM MODERATE /HPF (NEGATIVE); WBC,URINE 0-4 /HPF (0-4)
== END 2018-07-11 16:10 | disposition home or self-care (01) ==
LOC: ER 13:04
DX: F10.239 Alcohol dependence with withdrawal, unspecified (principal); R53.1 Weakness; R25.1 Tremor, unspecified; I48.91 Unspecified atrial fibrillation; I11.0 Hypertensive heart disease with heart failure; I50.9 Heart failure, unspecified; E78.00 Pure hypercholesterolemia, unspecified; J44.9 Chronic obstructive pulmonary disease, unspecified; Z90.49 Acquired absence of other specified parts of digestive tract; Z98.890 Other specified postprocedural states; Z87.01 Personal history of pneumonia (recurrent); Z88.8 Allergy status to other drugs, medicaments and biological substances; Z79.899 Other long term (current) drug therapy; Y90.9 Presence of alcohol in blood, level not specified
CPT/HCPCS: 36415; 71045; 80053; 80320; 81001; 82140; 82948; 84484; 85025; 85610; 93005; 96365; 96375; 96376; 99284; J2060; J3411; J3475; J3490; J7030

== ENCOUNTER 2018-07-21 17:12 | Emergency (ER) | payer MEDICARE, BC, OTHER ==
[~2018-07-21] VITALS: Ht 185.4 cm; Wt 109.1 kg
[~2018-07-21 17:12] MED LIST changes: +GABA300C PO; +LORA-269 PO
[2018-07-21 17:54] LABS: ALANINE AMINOTRANSFERASE 39 U/L (12-78); ALKALINE PHOSPHATASE 194 IU/L (46-116); ANION GAP 11 (8-16); ASPARTATE AMINO TRANSFERASE 53 U/L (10-37); BILIRUBIN,TOTAL 0.8 MG/DL (0.1-1.0); BLOOD UREA NITROGEN 25 MG/DL (7-18); BUN/CREATININE RATIO 12.2 (5.4-32.0); CALCIUM 9.8 MG/DL (8.5-10.1); CHLORIDE 100 MMOL/L (99-107); CREATININE 2.05 MG/DL (0.60-1.10); GLUCOSE 103 MG/DL (70-104); POTASSIUM 4.3 MMOL/L (3.5-5.1); SODIUM 135 MMOL/L (135-145); TOTAL CARBON DIOXIDE 23.7 MMOL/L (24-32); eGFR 32 ML/MIN
[2018-07-21 17:55] LABS: PARTIAL THROMBOPLASTIN TIME 37 SECONDS (22-32)
[2018-07-21 18:00] LABS: BASOPHILS # (AUTO) 0.1 X10'3 (0-0.2); BASOPHILS % (AUTO) 0.9 % (0-1); EOSINOPHILS # (AUTO) 0.2 X10'3 (0-0.9); EOSINOPHILS % (AUTO) 1.8 % (0-6); HEMOGLOBIN 14.3 g/dl (14.0-17.9); LYMPHOCYTES # (AUTO) 1.1 X10'3 (1.1-4.8); LYMPHOCYTES % (AUTO) 11.6 % (21-51); MEAN CORPUSCULAR HEMOGLOBIN 33.2 PG (27.0-31.0); MEAN CORPUSCULAR VOLUME 97.7 FL (78-98); MEAN PLATELET VOLUME 9.8 FL (7.4-10.4); MONOCYTES # (AUTO) 0.8 X10'3 (0-0.9); NEUTROPHILS # (AUTO) 7.4 X10'3 (1.8-7.7); NEUTROPHILS % (AUTO) 77.7 % (42-75); PLATELET COUNT 239 X10'3 (140-440); RED CELL DISTRIBUTION WIDTH 14.4 % (11.5-14.5); WHITE BLOOD COUNT 9.5 X10'3 (4.5-11.0)
[2018-07-21] MEDS ORDERED: LORazepam 1 MG tablet PO ONE (19:30)
[2018-07-21 21:13] VITALS: BP 160/85
== END 2018-07-21 21:22 | disposition home or self-care (01) ==
LOC: ER 17:13
DX: R10.31 Right lower quadrant pain (principal); F10.239 Alcohol dependence with withdrawal, unspecified; R11.2 Nausea with vomiting, unspecified; I48.91 Unspecified atrial fibrillation; E78.00 Pure hypercholesterolemia, unspecified; I10 Essential (primary) hypertension; J44.9 Chronic obstructive pulmonary disease, unspecified; Z98.890 Other specified postprocedural states; Z88.8 Allergy status to other drugs, medicaments and biological substances; Z79.2 Long term (current) use of antibiotics; Z79.899 Other long term (current) drug therapy
CPT/HCPCS: 36415; 71046; 74176; 80053; 84484; 85025; 85610; 85730; 93005; 99284

== ENCOUNTER 2018-09-17 10:58 | Emergency (ER) | payer MEDICARE, BC, OTHER ==
[~2018-09-17] VITALS: Ht 185.4 cm; Wt 104.5 kg
[~2018-09-17 10:58] MED LIST changes: +DILT-96 PO; -DILT240C PO; +HYDR-4383 PO
[2018-09-17 11:38] LABS: BASOPHILS # (AUTO) 0.1 X10'3 (0-0.2); BASOPHILS % (AUTO) 1.1 % (0-1); EOSINOPHILS # (AUTO) 0.2 X10'3 (0-0.9); EOSINOPHILS % (AUTO) 1.7 % (0-6); HEMATOCRIT 41.7 % (42.0-52.0); HEMOGLOBIN 14.2 g/dl (14.0-17.9); LYMPHOCYTES # (AUTO) 1.9 X10'3 (1.1-4.8); LYMPHOCYTES % (AUTO) 17.8 % (21-51); MEAN CORPUSCULAR HEMOGLOBIN 33.3 PG (27.0-31.0); MEAN CORPUSCULAR HGB CONC 33.9 g/dL (33.0-36.5); MEAN CORPUSCULAR VOLUME 98.1 FL (78-98); MONOCYTES # (AUTO) 0.8 X10'3 (0-0.9); MONOCYTES % (AUTO) 7.8 % (2-12); NEUTROPHILS # (AUTO) 7.6 X10'3 (1.8-7.7); NEUTROPHILS % (AUTO) 71.6 % (42-75); PLATELET COUNT 252 X10'3 (140-440); RED BLOOD COUNT 4.25 X10'6 (4.70-6.10); RED CELL DISTRIBUTION WIDTH 14.9 % (11.5-14.5); WHITE BLOOD COUNT 10.5 X10'3 (4.5-11.0)
[2018-09-17 11:52] LABS: ALANINE AMINOTRANSFERASE 38 U/L (12-78); ALBUMIN 3.7 G/DL (3.4-5.0); ALKALINE PHOSPHATASE 216 IU/L (46-116); ANION GAP 13 (8-16); ASPARTATE AMINO TRANSFERASE 39 U/L (10-37); BILIRUBIN,TOTAL 1.1 MG/DL (0.1-1.0); BLOOD UREA NITROGEN 16 MG/DL (7-18); BUN/CREATININE RATIO 14.5 (5.4-32.0); CALCIUM 9.2 MG/DL (8.5-10.1); CHLORIDE 101 MMOL/L (99-107); GLUCOSE 104 MG/DL (70-104); POTASSIUM 4.3 MMOL/L (3.5-5.1); SODIUM 137 MMOL/L (135-145); TOTAL CARBON DIOXIDE 22.8 MMOL/L (24-32); TOTAL PROTEIN 7.5 G/DL (6.4-8.2); eGFR 65 ML/MIN
[2018-09-17 12:20] LABS: PARTIAL THROMBOPLASTIN TIME 34 SECONDS (22-32)
[2018-09-17 12:30] LABS: MAGNESIUM 1.7 MG/DL (1.5-2.4); PHOSPHORUS 2.8 MG/DL (2.3-4.5)
[2018-09-17 13:39] VITALS: BP 129/80
[2018-09-17 14:00] LABS: CLARITY,URINE SLIGHTLY CLOUDY (Clear); COLOR,URINE YELLOW (Yellow); GLUCOSE, URINE NEGATIVE (Neg); KETONES,URINE TRACE mg/dl (Neg); LEUKOCYTE ESTERASE ,URINE NEGATIVE (Neg); NITRITES, URINE NEGATIVE (Neg); OCCULT BLOOD,URINE NEGATIVE (Neg); PROTEIN,URINE 30 mg/dl (Neg)
[2018-09-17 14:01] LABS: UA COLLECTION TYPE CLN CATCH MIDSTREAM
[2018-09-17 14:12] LABS: BACTERIA,URINE FEW /HPF (Neg); MUCUS STRANDS MODERATE /LPF (Neg); RBC,URINE 0-2 /HPF (0-2); SQUAMOUS EPITHELIAL CELL,UR FEW /LPF (FEW)
[2018-09-17 14:13] LABS: CAL OXALATE CRYSTALS FEW /HPF (NEGATIVE); FINE GRANULAR CAST 0-3 /LPF (NEGATIVE); WBC,URINE 0-4 /HPF (0-4)
== END 2018-09-17 15:17 | disposition home or self-care (01) ==
LOC: ER 10:58
DX: R53.1 Weakness (principal); R42 Dizziness and giddiness; R06.02 Shortness of breath; I48.91 Unspecified atrial fibrillation; E78.00 Pure hypercholesterolemia, unspecified; I10 Essential (primary) hypertension; F41.9 Anxiety disorder, unspecified; F32.9 Major depressive disorder, single episode, unspecified; Z90.49 Acquired absence of other specified parts of digestive tract; Z98.890 Other specified postprocedural states; Z85.038 Personal history of other malignant neoplasm of large intestine; Z88.8 Allergy status to other drugs, medicaments and biological substances; Z79.2 Long term (current) use of antibiotics; Z79.899 Other long term (current) drug therapy
CPT/HCPCS: 36415; 71045; 80053; 81001; 83735; 83880; 84100; 84484; 85025; 85610; 85730; 93005; 99284

== ENCOUNTER 2018-09-19 06:44 | Day surgery (SDC) | payer MEDICARE, BC ==
[2018-09-18 10:53] LABS: BASOPHILS # (AUTO) 0.1 X10'3 (0-0.2); BASOPHILS % (AUTO) 0.8 % (0-1); EOSINOPHILS # (AUTO) 0.1 X10'3 (0-0.9); EOSINOPHILS % (AUTO) 1.1 % (0-6); HEMATOCRIT 42.4 % (42.0-52.0); HEMOGLOBIN 14.1 g/dl (14.0-17.9); LYMPHOCYTES # (AUTO) 1.6 X10'3 (1.1-4.8); LYMPHOCYTES % (AUTO) 13.6 % (21-51); MEAN CORPUSCULAR HEMOGLOBIN 32.8 PG (27.0-31.0); MEAN CORPUSCULAR HGB CONC 33.2 g/dL (33.0-36.5); MEAN CORPUSCULAR VOLUME 98.8 FL (78-98); MEAN PLATELET VOLUME 9.9 FL (7.4-10.4); MONOCYTES % (AUTO) 8.3 % (2-12); NEUTROPHILS # (AUTO) 8.9 X10'3 (1.8-7.7); NEUTROPHILS % (AUTO) 76.2 % (42-75); PLATELET COUNT 264 X10'3 (140-440); RED BLOOD COUNT 4.29 X10'6 (4.70-6.10); RED CELL DISTRIBUTION WIDTH 14.7 % (11.5-14.5); WHITE BLOOD COUNT 11.7 X10'3 (4.5-11.0)
[2018-09-18 10:59] LABS: ALBUMIN 3.9 G/DL (3.4-5.0); ANION GAP 9 (8-16); BLOOD UREA NITROGEN 20 MG/DL (7-18); BUN/CREATININE RATIO 16.1 (5.4-32.0); CALCIUM 9.6 MG/DL (8.5-10.1); CHLORIDE 101 MMOL/L (99-107); CREATININE 1.24 MG/DL (0.60-1.10); GLUCOSE 115 MG/DL (70-104); POTASSIUM 4.8 MMOL/L (3.5-5.1); SODIUM 136 MMOL/L (135-145); eGFR 56 ML/MIN
[~2018-09-19] VITALS: Ht 185.4 cm; Wt 107.8 kg
[2018-09-19] VITALS (13 sets, daily range): BP systolic 114–150; BP diastolic 60–91
[2018-09-19] MEDS ORDERED: diphenhydrAMINE 25mg capsule PO ONE (07:05)
[2018-09-19] MEDS ORDERED: normal saline 1000ml 1,000 ML IV SCH (07:05)
[2018-09-19] MEDS ORDERED: LORazepam 0.5 MG tablet PO ONE (07:05)
[2018-09-19] MEDS ORDERED: morphine 10mg/ml inj. IV ONE (08:30)
[2018-09-19] MEDS ORDERED: atropine 0.1mg/ml 10ml syringe IV ONE (08:30)
[2018-09-19] MEDS ORDERED: MIDAZolam 5mg/ml 2ml vial IV ONE (08:30)
[2018-09-19] MEDS ORDERED: amiodarone in dextrose, iso-osm 150mg/100ml bag IV ONE (08:30)
[2018-09-19] MEDS ORDERED: enoxaparin 100mg/ml syringe SQ ONE (08:50)
== END 2018-09-19 13:10 | disposition home or self-care (01) ==
LOC: SSTAY O 06:44
PROVIDERS: ATTEND Internal Medicine Cardiovascular Disease
DX: I48.1 Persistent atrial fibrillation (principal); I10 Essential (primary) hypertension; E78.5 Hyperlipidemia, unspecified; G47.30 Sleep apnea, unspecified; J44.9 Chronic obstructive pulmonary disease, unspecified; Z98.890 Other specified postprocedural states; Z79.899 Other long term (current) drug therapy
CPT/HCPCS: 36415; 80048; 85025; 85610; 92960; 93005; J0282; J0461; J2250; J2270; J7030; J1650

== ENCOUNTER 2018-10-10 14:46 | Emergency (ER) | payer MEDICARE, BC ==
[~2018-10-10] VITALS: Ht 175.3 cm; Wt 90.0 kg
[~2018-10-10 14:46] MED LIST changes: -FURO-150 PO; -GABA300C PO; -GUAI600T45 PO; -HYDR-4383 PO; -LEVO750T46 PO; -LORA-269 PO
[2018-10-10 15:17] LABS: BASOPHILS # (AUTO) 0.1 X10'3 (0-0.2); BASOPHILS % (AUTO) 0.6 % (0-1); EOSINOPHILS # (AUTO) 0.3 X10'3 (0-0.9); EOSINOPHILS % (AUTO) 2.4 % (0-6); HEMATOCRIT 40.4 % (42.0-52.0); HEMOGLOBIN 13.5 g/dl (14.0-17.9); LYMPHOCYTES # (AUTO) 1.5 X10'3 (1.1-4.8); LYMPHOCYTES % (AUTO) 12.9 % (21-51); MEAN CORPUSCULAR HEMOGLOBIN 33.3 PG (27.0-31.0); MEAN CORPUSCULAR HGB CONC 33.3 g/dL (33.0-36.5); MEAN CORPUSCULAR VOLUME 99.9 FL (78-98); MEAN PLATELET VOLUME 10.7 FL (7.4-10.4); MONOCYTES # (AUTO) 1.2 X10'3 (0-0.9); NEUTROPHILS # (AUTO) 8.7 X10'3 (1.8-7.7); NEUTROPHILS % (AUTO) 74.1 % (42-75); PLATELET COUNT 205 X10'3 (140-440); RED BLOOD COUNT 4.04 X10'6 (4.70-6.10); RED CELL DISTRIBUTION WIDTH 14.3 % (11.5-14.5); WHITE BLOOD COUNT 11.8 X10'3 (4.5-11.0)
[2018-10-10 15:27] LABS: ALANINE AMINOTRANSFERASE 32 U/L (12-78); ALBUMIN 3.5 G/DL (3.4-5.0); ALBUMIN/GLOBULIN RATIO 0.9 (1.1-1.5); ALKALINE PHOSPHATASE 234 IU/L (46-116); ANION GAP 11 (8-16); ASPARTATE AMINO TRANSFERASE 45 U/L (10-37); BILIRUBIN,TOTAL 1.3 MG/DL (0.1-1.0); BLOOD UREA NITROGEN 21 MG/DL (7-18); BUN/CREATININE RATIO 15.9 (5.4-32.0); CALCIUM 9.6 MG/DL (8.5-10.1); CHLORIDE 105 MMOL/L (99-107); CREATININE 1.32 MG/DL (0.60-1.10); GLUCOSE 102 MG/DL (70-104); POTASSIUM 4.2 MMOL/L (3.5-5.1); SODIUM 140 MMOL/L (135-145); TOTAL PROTEIN 7.3 G/DL (6.4-8.2); eGFR 52 ML/MIN
[2018-10-10 15:35] LABS: MAGNESIUM 2.1 MG/DL (1.5-2.4)
[2018-10-10] MEDS ORDERED: ondansetron/PF 4mg/2ml inj IV ONE (15:55)
[2018-10-10] MEDS ORDERED: glycopyrrolate 0.2mg/ml inj IV ONE (15:55)
[2018-10-10] MEDS: glucagon, human recombinant 1mg kit IV ONE ×2 (16:06→16:12)
[2018-10-10 19:16] VITALS: BP 142/62
== END 2018-10-10 19:26 | disposition home or self-care (01) ==
LOC: ER 14:46
DX: R00.1 Bradycardia, unspecified (principal); I48.91 Unspecified atrial fibrillation; E78.00 Pure hypercholesterolemia, unspecified; I10 Essential (primary) hypertension; J44.9 Chronic obstructive pulmonary disease, unspecified; F41.9 Anxiety disorder, unspecified; F32.9 Major depressive disorder, single episode, unspecified; Z90.49 Acquired absence of other specified parts of digestive tract; Z98.890 Other specified postprocedural states; Z87.891 Personal history of nicotine dependence; Z88.8 Allergy status to other drugs, medicaments and biological substances; Z79.899 Other long term (current) drug therapy
CPT/HCPCS: 36415; 71045; 80053; 83735; 83880; 84145; 84484; 85025; 93005; 96374; 96375; 99284; J1610; J2405; J3490

== ENCOUNTER 2018-10-18 18:12 | Inpatient (IN) | payer MEDICARE, BC ==
[~2018-10-18] VITALS: Ht 185.4 cm; Wt 109.1 kg
[2018-10-18] MEDS ORDERED: ipratropium/albuterol 3ml nebule NEB ONE (18:55)
[2018-10-18] MEDS ORDERED: furosemide 40mg/4ml inj IV ONE (18:55)
[2018-10-18] MEDS ORDERED: methylPREDNISolone sod succ 125mg/2ml vial IV ONE (18:55)
[2018-10-18 19:34] LABS: BASOPHILS % (AUTO) 0.3 % (0-1); EOSINOPHILS # (AUTO) 0.1 X10'3 (0-0.9); EOSINOPHILS % (AUTO) 1.1 % (0-6); HEMATOCRIT 40.1 % (42.0-52.0); HEMOGLOBIN 13.6 g/dl (14.0-17.9); LYMPHOCYTES # (AUTO) 1.2 X10'3 (1.1-4.8); LYMPHOCYTES % (AUTO) 9.3 % (21-51); MEAN CORPUSCULAR HEMOGLOBIN 33.6 PG (27.0-31.0); MEAN CORPUSCULAR HGB CONC 33.9 g/dL (33.0-36.5); MEAN PLATELET VOLUME 10.6 FL (7.4-10.4); MONOCYTES % (AUTO) 8.1 % (2-12); NEUTROPHILS # (AUTO) 10.2 X10'3 (1.8-7.7); NEUTROPHILS % (AUTO) 81.2 % (42-75); PLATELET COUNT 216 X10'3 (140-440); RED BLOOD COUNT 4.05 X10'6 (4.70-6.10); RED CELL DISTRIBUTION WIDTH 14.1 % (11.5-14.5); WHITE BLOOD COUNT 12.5 X10'3 (4.5-11.0)
[2018-10-18 19:35] LABS: ALANINE AMINOTRANSFERASE 39 U/L (12-78); ALBUMIN 3.9 G/DL (3.4-5.0); ALKALINE PHOSPHATASE 271 IU/L (46-116); ANION GAP 12 (8-16); ASPARTATE AMINO TRANSFERASE 51 U/L (10-37); BLOOD UREA NITROGEN 16 MG/DL (7-18); CALCIUM 9.3 MG/DL (8.5-10.1); CHLORIDE 98 MMOL/L (99-107); CREATININE 1.23 MG/DL (0.60-1.10); GLUCOSE 112 MG/DL (70-104); POTASSIUM 4.3 MMOL/L (3.5-5.1); SODIUM 135 MMOL/L (135-145); TOTAL CARBON DIOXIDE 25.1 MMOL/L (24-32); eGFR 57 ML/MIN
[2018-10-18 19:42] LABS: TROPONIN I < 0.04 NG/ML (0.0-0.05)
[2018-10-18] MEDS ORDERED: CefTRIAXone 2gm/D5W 50ml 50 ML IV ONE (20:05)
[2018-10-18] MEDS ORDERED: normal saline 1000ML IV soln IV ONE (20:05)
[2018-10-18] MEDS ORDERED: azithromycin/NS 500mg/250ml 250 ML IV ONE (20:05)
--- NOTE | 2018-10-18 20:09 | NUR ---
CALLED PT SISTER FOR MED LIST, SHE IS CALLING WARRANTY MANAGER TO CALL AND GIVE US LIST, PT DOES NOT REMEMBER WHAT HE TAKES
--- NOTE | 2018-10-18 20:34 | NUR ---
pt was cardioverted 3 weeks ago, they have been adjusting his medications stopped taking metropolol 7 days ago
[2018-10-18] MEDS ORDERED: acetaminophen 325mg tablet PO PRN ×2 (23:10)
[2018-10-18] MEDS ORDERED: HYDROcodone/acetaminophen 10/325mg tab PO PRN (23:10)
[2018-10-18] MEDS ORDERED: HYDROcodone/acetaminophen 5mg/325mg tablet PO PRN (23:10)
[2018-10-18] MEDS ORDERED: albuterol 2.5 MG/3 ML nebule NEB PRN (23:10)
[2018-10-18] MEDS ORDERED: mag hydrox/Alum hydrox/simeth 30ml oral suspension PO PRN (23:10)
[2018-10-18] MEDS ORDERED: ondansetron/PF 4mg/2ml inj IV PRN (23:10)
--- NOTE | 2018-10-18 23:30 | NUR ---
pt urinated in urinal emptied the urinal 1400 ml output.
--- NOTE | 2018-10-19 00:25 | NUR ---
Received report from ship's electronic warfare officer and patient to foloow shortly.
--- NOTE | 2018-10-19 00:35 | NUR ---
Patient arrive to floor via w/c.Patient A&O,in no pain or respiratory distress at this time. Patient walked to bed using FWW. PATIENT VERY shaky and needed 2 person assist. ONce in bed, VS taken and MRSA swab collected..
[2018-10-19 00:45] VITALS: BP 121/82
[2018-10-19] MEDS: albuterol 2.5 MG/3 ML nebule NEB SCH ×4 (02:51→20:18)
--- NOTE | 2018-10-19 06:11 | NUR ---
Problems reprioritized. Patient report given, questions answered & plan of care reviewed with Lynn GAINES.
[2018-10-19 06:26] LABS: ALBUMIN 3.3 G/DL (3.4-5.0); ANION GAP 11 (8-16); BLOOD UREA NITROGEN 14 MG/DL (7-18); BUN/CREATININE RATIO 14.6 (5.4-32.0); CALCIUM 8.3 MG/DL (8.5-10.1); CHLORIDE 101 MMOL/L (99-107); CREATININE 0.96 MG/DL (0.60-1.10); GLUCOSE 168 MG/DL (70-104); POTASSIUM 4.1 MMOL/L (3.5-5.1); SODIUM 137 MMOL/L (135-145); TOTAL CARBON DIOXIDE 24.6 MMOL/L (24-32); eGFR 76 ML/MIN
[2018-10-19 06:27] LABS: BASOPHILS % (AUTO) 0.1 % (0-1); EOSINOPHILS % (AUTO) 0 % (0-6); HEMATOCRIT 42.8 % (42.0-52.0); HEMOGLOBIN 14.2 g/dl (14.0-17.9); LYMPHOCYTES # (AUTO) 0.4 X10'3 (1.1-4.8); LYMPHOCYTES % (AUTO) 3.5 % (21-51); MEAN CORPUSCULAR HEMOGLOBIN 33.2 PG (27.0-31.0); MEAN CORPUSCULAR HGB CONC 33.3 g/dL (33.0-36.5); MEAN CORPUSCULAR VOLUME 99.7 FL (78-98); MEAN PLATELET VOLUME 10.7 FL (7.4-10.4); MONOCYTES # (AUTO) 0.1 X10'3 (0-0.9); NEUTROPHILS # (AUTO) 11.5 X10'3 (1.8-7.7); NEUTROPHILS % (AUTO) 95.4 % (42-75); PLATELET COUNT 171 X10'3 (140-440); RED CELL DISTRIBUTION WIDTH 14.4 % (11.5-14.5)
--- NOTE | 2018-10-19 06:30 | NUR ---
Problems reprioritized. Patient report given, questions answered & plan of care reviewed with Calderon.
--- NOTE | 2018-10-19 06:57 | NUR ---
Patient in room FRANKO 359. I have received report from Hilary GAINES and had the opportunity to ask questions and assume patient care.
[2018-10-19 07:00] VITALS: BP 128/70
[2018-10-19] MEDS ORDERED: methylPREDNISolone sod succ 125mg/2ml vial IV ONE (08:00)
[2018-10-19] MEDS ORDERED: MOMETASONE FUROATE INH SCH (08:00)
[2018-10-19] MEDS: budesonide 0.5mg/2ml UD nebule IH SCH ×2 (08:34→20:18)
[2018-10-19] MEDS: potassium Cl 20 mEq SR tablet PO SCH (09:36)
[2018-10-19] MEDS: furosemide 40mg tablet PO SCH (09:36)
[2018-10-19] MEDS: apixaban 5mg tablet PO SCH ×2 (09:36→21:59)
[2018-10-19] MEDS: enoxaparin 40mg/0.4ml syringe SUBCUT SCH (09:36)
[2018-10-19] MEDS: flecainide 50mg tablet PO SCH ×2 (09:36→22:00)
--- NOTE | 2018-10-19 10:55 | NUR ---
Positive blood culture result relayed to Dr. Medina in person
[2018-10-19 11:00] VITALS: BP 146/70
[2018-10-19 18:00] VITALS: BP 143/85
--- NOTE | 2018-10-19 18:39 | NUR ---
Patient in room FRANKO 359. I have received report from Lynn GAINES and had the opportunity to ask questions and assume patient care.
--- NOTE | 2018-10-19 18:39 | NUR ---
Problems reprioritized. Patient report given, questions answered & plan of care reviewed with Hilary GAINES.
[2018-10-19] MEDS ORDERED: azithromycin/NS 500mg/250ml 250 ML IV SCH ×2 (20:00→22:24)
[2018-10-19] MEDS ORDERED: CefTRIAXone/D5W-Rocephin 1gm 50 ML IV SCH ×2 (20:00→22:23)
[2018-10-19] MEDS: atorvastatin 20mg tablet PO SCH (22:00)
[2018-10-19] MEDS: lactobacillus rhamnosus 10,000 MMU CELLS/CAPSULE PO SCH (22:00)
[2018-10-19] MEDS ORDERED: azithromycin/NS 500mg/250ml 250 ML IV ONE (23:35)
[2018-10-20 00:43] VITALS: BP 134/65
[2018-10-20] MEDS: albuterol 2.5 MG/3 ML nebule NEB SCH ×4 (02:36→20:50)
--- NOTE | 2018-10-20 06:38 | NUR ---
Patient in room FRANKO 359. I have received report from neal hodges and had the opportunity to ask questions and assume patient care.
[2018-10-20 06:42] LABS: ALBUMIN 3.3 G/DL (3.4-5.0); ANION GAP 13 (8-16); BLOOD UREA NITROGEN 21 MG/DL (7-18); BUN/CREATININE RATIO 20.4 (5.4-32.0); CALCIUM 8.4 MG/DL (8.5-10.1); CHLORIDE 100 MMOL/L (99-107); CREATININE 1.03 MG/DL (0.60-1.10); GLUCOSE 149 MG/DL (70-104); POTASSIUM 4.1 MMOL/L (3.5-5.1); SODIUM 137 MMOL/L (135-145); TOTAL CARBON DIOXIDE 24.1 MMOL/L (24-32); eGFR 70 ML/MIN
--- NOTE | 2018-10-20 06:44 | NUR ---
Patient in room FRANKO 359. I have received report from Hilary GAINES and had the opportunity to ask questions and assume patient care.
[2018-10-20 07:00] VITALS: BP 116/54
[2018-10-20] MEDS: budesonide 0.5mg/2ml UD nebule IH SCH ×2 (07:12→20:50)
[2018-10-20] MEDS: lactobacillus rhamnosus 10,000 MMU CELLS/CAPSULE PO SCH ×2 (07:30→19:57)
[2018-10-20] MEDS: flecainide 50mg tablet PO SCH ×2 (07:31→19:57)
[2018-10-20] MEDS: predniSONE 20 mg tablet PO SCH (07:31)
[2018-10-20] MEDS: furosemide 40mg tablet PO SCH (07:31)
[2018-10-20] MEDS: potassium Cl 20 mEq SR tablet PO SCH (07:31)
[2018-10-20] MEDS: apixaban 5mg tablet PO SCH ×2 (07:31→19:57)
[2018-10-20 09:19] LABS: BASOPHILS % (AUTO) 0.1 % (0-1); EOSINOPHILS % (AUTO) 0 % (0-6); HEMATOCRIT 41.7 % (42.0-52.0); LYMPHOCYTES # (AUTO) 0.8 X10'3 (1.1-4.8); LYMPHOCYTES % (AUTO) 4.2 % (21-51); MEAN CORPUSCULAR HEMOGLOBIN 33.5 PG (27.0-31.0); MEAN CORPUSCULAR HGB CONC 33.6 g/dL (33.0-36.5); MEAN CORPUSCULAR VOLUME 99.7 FL (78-98); MEAN PLATELET VOLUME 10.1 FL (7.4-10.4); MONOCYTES # (AUTO) 0.7 X10'3 (0-0.9); MONOCYTES % (AUTO) 3.5 % (2-12); NEUTROPHILS # (AUTO) 17.8 X10'3 (1.8-7.7); NEUTROPHILS % (AUTO) 92.2 % (42-75); PLATELET COUNT 225 X10'3 (140-440); RED BLOOD COUNT 4.18 X10'6 (4.70-6.10); RED CELL DISTRIBUTION WIDTH 14.3 % (11.5-14.5); WHITE BLOOD COUNT 19.3 X10'3 (4.5-11.0)
[2018-10-20] MEDS: enoxaparin 40mg/0.4ml syringe SUBCUT SCH (10:28)
[2018-10-20 11:00] VITALS: BP 114/60
--- NOTE | 2018-10-20 18:25 | NUR ---
Problems reprioritized. Patient report given, questions answered & plan of care reviewed with Grisel GAINES.
[2018-10-20 19:00] VITALS: BP 131/66
[2018-10-20] MEDS: atorvastatin 20mg tablet PO SCH (19:56)
[2018-10-21] VITALS: BP 118/68
[2018-10-21] MEDS: albuterol 2.5 MG/3 ML nebule NEB SCH ×4 (02:38→20:00)
[2018-10-21 05:38] LABS: BASOPHILS # (AUTO) 0.1 X10'3 (0-0.2); BASOPHILS % (AUTO) 0.6 % (0-1); EOSINOPHILS % (AUTO) 0 % (0-6); HEMATOCRIT 41.1 % (42.0-52.0); HEMOGLOBIN 13.8 g/dl (14.0-17.9); LYMPHOCYTES # (AUTO) 1.2 X10'3 (1.1-4.8); LYMPHOCYTES % (AUTO) 10.8 % (21-51); MEAN CORPUSCULAR HEMOGLOBIN 33.7 PG (27.0-31.0); MEAN CORPUSCULAR HGB CONC 33.4 g/dL (33.0-36.5); MEAN CORPUSCULAR VOLUME 100.7 FL (78-98); MONOCYTES # (AUTO) 0.9 X10'3 (0-0.9); MONOCYTES % (AUTO) 8.1 % (2-12); NEUTROPHILS % (AUTO) 80.5 % (42-75); PLATELET COUNT 144 X10'3 (140-440); RED BLOOD COUNT 4.09 X10'6 (4.70-6.10); WHITE BLOOD COUNT 11.1 X10'3 (4.5-11.0)
[2018-10-21 06:03] LABS: ALBUMIN 3.6 G/DL (3.4-5.0); ANION GAP 9 (8-16); BLOOD UREA NITROGEN 26 MG/DL (7-18); BUN/CREATININE RATIO 24.3 (5.4-32.0); CALCIUM 8.7 MG/DL (8.5-10.1); CHLORIDE 104 MMOL/L (99-107); CREATININE 1.07 MG/DL (0.60-1.10); GLUCOSE 106 MG/DL (70-104); POTASSIUM 3.9 MMOL/L (3.5-5.1); SODIUM 140 MMOL/L (135-145); TOTAL CARBON DIOXIDE 27.4 MMOL/L (24-32); eGFR 67 ML/MIN
--- NOTE | 2018-10-21 06:27 | NUR ---
Patient in room FRANKO 359. I have received report from LIANA Recinos and had the opportunity to ask questions and assume patient care.
--- NOTE | 2018-10-21 06:34 | NUR ---
Problems reprioritized. Patient report given, questions answered & plan of care reviewed with Filomena Simon. Addendum: 10/21/18 at 0634 by Grisel Alaniz RN Amended: Links added.
[2018-10-21 07:00] VITALS: BP 148/83
[2018-10-21] MEDS: budesonide 0.5mg/2ml UD nebule IH SCH ×2 (07:32→20:00)
[2018-10-21] MEDS: predniSONE 20 mg tablet PO SCH (07:41)
[2018-10-21] MEDS: lactobacillus rhamnosus 10,000 MMU CELLS/CAPSULE PO SCH ×2 (07:41→20:21)
[2018-10-21] MEDS: potassium Cl 20 mEq SR tablet PO SCH (07:41)
[2018-10-21] MEDS: apixaban 5mg tablet PO SCH ×2 (07:41→20:21)
[2018-10-21] MEDS: flecainide 50mg tablet PO SCH ×2 (07:41→20:21)
[2018-10-21] MEDS: furosemide 40mg tablet PO SCH (07:41)
[2018-10-21] MEDS: enoxaparin 40mg/0.4ml syringe SUBCUT SCH (07:42)
[2018-10-21] MEDS: magnesium hydroxide 30ml (MOM) UD suspension PO PRN (07:45)
[2018-10-21 11:00] VITALS: BP 131/88
--- NOTE | 2018-10-21 18:32 | NUR ---
Problems reprioritized. Patient report given, questions answered & plan of care reviewed with LIANA Ackerman.
--- NOTE | 2018-10-21 18:42 | NUR ---
Received report from Filomena GAINES pt is awake and alert, on RA, getting ready to go for a walk, in no apparent distress
[2018-10-21 19:15] VITALS: BP 157/83
[2018-10-21] MEDS: atorvastatin 20mg tablet PO SCH (20:20)
[2018-10-22 00:04] VITALS: BP 154/92
[2018-10-22] MEDS: albuterol 2.5 MG/3 ML nebule NEB SCH ×4 (03:04→20:22)
[2018-10-22 05:46] LABS: BASOPHILS % (AUTO) 0.4 % (0-1); EOSINOPHILS % (AUTO) 0.3 % (0-6); HEMATOCRIT 39.7 % (42.0-52.0); HEMOGLOBIN 13.3 g/dl (14.0-17.9); LYMPHOCYTES # (AUTO) 1.2 X10'3 (1.1-4.8); LYMPHOCYTES % (AUTO) 14.2 % (21-51); MEAN CORPUSCULAR HEMOGLOBIN 33.8 PG (27.0-31.0); MEAN CORPUSCULAR HGB CONC 33.6 g/dL (33.0-36.5); MEAN CORPUSCULAR VOLUME 100.8 FL (78-98); MEAN PLATELET VOLUME 9.5 FL (7.4-10.4); MONOCYTES # (AUTO) 0.8 X10'3 (0-0.9); MONOCYTES % (AUTO) 9.9 % (2-12); NEUTROPHILS # (AUTO) 6.3 X10'3 (1.8-7.7); NEUTROPHILS % (AUTO) 75.2 % (42-75); PLATELET COUNT 106 X10'3 (140-440); RED BLOOD COUNT 3.94 X10'6 (4.70-6.10); RED CELL DISTRIBUTION WIDTH 14.1 % (11.5-14.5); WHITE BLOOD COUNT 8.4 X10'3 (4.5-11.0)
--- NOTE | 2018-10-22 06:10 | NUR ---
Problems reprioritized. Patient report given, questions answered & plan of care reviewed with LIANA Velasquez.
[2018-10-22 06:12] LABS: ALBUMIN 3.2 G/DL (3.4-5.0); ANION GAP 8 (8-16); BLOOD UREA NITROGEN 20 MG/DL (7-18); BUN/CREATININE RATIO 22.2 (5.4-32.0); CALCIUM 8.4 MG/DL (8.5-10.1); CHLORIDE 104 MMOL/L (99-107); GLUCOSE 94 MG/DL (70-104); SODIUM 138 MMOL/L (135-145); TOTAL CARBON DIOXIDE 26.1 MMOL/L (24-32); eGFR 82 ML/MIN
--- NOTE | 2018-10-22 06:14 | NUR ---
Gave report to Filomena GAINES pt is resting on RA breaths even and unlabored, call light and items of freq use within reach.
--- NOTE | 2018-10-22 06:28 | NUR ---
Patient in room FRANKO 359. I have received report from LIANA Ackerman and had the opportunity to ask questions and assume patient care.
[2018-10-22 07:00] VITALS: BP 153/72
[2018-10-22] MEDS: budesonide 0.5mg/2ml UD nebule IH SCH ×2 (07:23→20:22)
[2018-10-22] MEDS: potassium Cl 20 mEq SR tablet PO SCH (08:45)
[2018-10-22] MEDS: lactobacillus rhamnosus 10,000 MMU CELLS/CAPSULE PO SCH ×2 (08:45→20:23)
[2018-10-22] MEDS: furosemide 40mg tablet PO SCH (08:45)
[2018-10-22] MEDS: apixaban 5mg tablet PO SCH ×2 (08:45→20:23)
[2018-10-22] MEDS: flecainide 50mg tablet PO SCH ×2 (08:45→20:23)
[2018-10-22] MEDS: predniSONE 20 mg tablet PO SCH (08:46)
[2018-10-22 11:00] VITALS: BP_SYST 142; BP_SYST 157; BP_DIAS 92
[2018-10-22 18:00] VITALS: BP 134/83
--- NOTE | 2018-10-22 18:15 | NUR ---
Received report from LIANA Butt. Patient is awake and alert on room air, in no apparent distress. Call light and items of frequent use within reach. Will continue to monitor.
[2018-10-22] MEDS: atorvastatin 20mg tablet PO SCH (20:23)
[2018-10-22] MEDS: magnesium hydroxide 30ml (MOM) UD suspension PO PRN (20:36)
[2018-10-22] MEDS ORDERED: VANCOMYCIN LEVEL IV ONE (23:30)
[2018-10-23] VITALS: BP 139/86
[2018-10-23] MEDS: albuterol 2.5 MG/3 ML nebule NEB SCH ×2 (03:05→07:24)
[2018-10-23 05:31] LABS: BASOPHILS % (AUTO) 0.1 % (0-1); EOSINOPHILS # (AUTO) 0.1 X10'3 (0-0.9); EOSINOPHILS % (AUTO) 0.6 % (0-6); HEMATOCRIT 40.7 % (42.0-52.0); HEMOGLOBIN 13.7 g/dl (14.0-17.9); LYMPHOCYTES # (AUTO) 1.4 X10'3 (1.1-4.8); LYMPHOCYTES % (AUTO) 14.8 % (21-51); MEAN CORPUSCULAR HEMOGLOBIN 33.7 PG (27.0-31.0); MEAN CORPUSCULAR HGB CONC 33.8 g/dL (33.0-36.5); MEAN CORPUSCULAR VOLUME 99.8 FL (78-98); MEAN PLATELET VOLUME 10.3 FL (7.4-10.4); MONOCYTES # (AUTO) 0.8 X10'3 (0-0.9); NEUTROPHILS # (AUTO) 6.9 X10'3 (1.8-7.7); NEUTROPHILS % (AUTO) 75.5 % (42-75); PLATELET COUNT 114 X10'3 (140-440); RED BLOOD COUNT 4.08 X10'6 (4.70-6.10); RED CELL DISTRIBUTION WIDTH 14.3 % (11.5-14.5); WHITE BLOOD COUNT 9.2 X10'3 (4.5-11.0)
[2018-10-23 05:39] LABS: ALBUMIN 3.3 G/DL (3.4-5.0); ANION GAP 10 (8-16); BLOOD UREA NITROGEN 22 MG/DL (7-18); BUN/CREATININE RATIO 24.7 (5.4-32.0); CALCIUM 8.8 MG/DL (8.5-10.1); CHLORIDE 102 MMOL/L (99-107); CREATININE 0.89 MG/DL (0.60-1.10); GLUCOSE 98 MG/DL (70-104); POTASSIUM 3.8 MMOL/L (3.5-5.1); SODIUM 138 MMOL/L (135-145); eGFR 83 ML/MIN
--- NOTE | 2018-10-23 06:25 | NUR ---
Patient in room FRANKO 359. I have received report from LIANA Velasquez and had the opportunity to ask questions and assume patient care.
[2018-10-23] MEDS: budesonide 0.5mg/2ml UD nebule IH SCH (07:24)
[2018-10-23 08:00] VITALS: BP 132/83
[2018-10-23] MEDS: flecainide 50mg tablet PO SCH (09:05)
[2018-10-23] MEDS: apixaban 5mg tablet PO SCH (09:05)
[2018-10-23] MEDS: potassium Cl 20 mEq SR tablet PO SCH (09:05)
[2018-10-23] MEDS: furosemide 40mg tablet PO SCH (09:05)
[2018-10-23] MEDS: lactobacillus rhamnosus 10,000 MMU CELLS/CAPSULE PO SCH (09:06)
[2018-10-23] MEDS: predniSONE 20 mg tablet PO SCH (09:06)
[2018-10-23] MEDS ORDERED: LINE600T11 PO (10:45)
[2018-10-23 11:00] VITALS: BP 151/81
== END 2018-10-23 14:13 | disposition home or self-care (01) | DRG 871 ==
LOC: ER 18:13 → SUR 3N 10-19 00:55 → CMPBEDREQ 10-19 02:13
PROVIDERS: ADMIT Hospitalist; ATTEND Internal Medicine
DX: A40.9 Streptococcal sepsis, unspecified (principal); J18.1 Lobar pneumonia, unspecified organism; J44.1 Chronic obstructive pulmonary disease with (acute) exacerbation; E87.2 Acidosis; J44.0 Chronic obstructive pulmonary disease with (acute) lower respiratory infection; E78.00 Pure hypercholesterolemia, unspecified; E78.5 Hyperlipidemia, unspecified; F32.9 Major depressive disorder, single episode, unspecified; F41.9 Anxiety disorder, unspecified; I45.81 Long QT syndrome; G47.33 Obstructive sleep apnea (adult) (pediatric); I10 Essential (primary) hypertension; I48.0 Paroxysmal atrial fibrillation; Z79.01 Long term (current) use of anticoagulants; Z79.899 Other long term (current) drug therapy; Z85.038 Personal history of other malignant neoplasm of large intestine; Z90.49 Acquired absence of other specified parts of digestive tract; Z88.8 Allergy status to other drugs, medicaments and biological substances; Z91.018 Allergy to other foods
CPT/HCPCS: 36415; 71046; 80048; 80053; 80202; 82948; 83605; 83880; 84484; 85025; 85610; 87040; 87077; 87081; 87186; 93005; 93306; 94640; 94667; 94668; 94760; 96365; 96375; 99285; G0378; J0456; J0696; J1650; J1940; J2930; J3370; J7512; J7626

== ENCOUNTER 2019-01-07 20:19 | Emergency (ER) | payer MEDICARE, BC ==
[~2019-01-07] VITALS: Ht 185.4 cm; Wt 104.5 kg
[~2019-01-07 20:19] MED LIST changes: -METO-411 PO
[2019-01-07] MEDS ORDERED: furosemide 10 MG/1 ML 10ml inj IV ONE (20:40)
[2019-01-07 21:12] LABS: BASOPHILS # (AUTO) 0.1 X10'3 (0-0.2); BASOPHILS % (AUTO) 0.5 % (0-1); EOSINOPHILS # (AUTO) 0.2 X10'3 (0-0.9); EOSINOPHILS % (AUTO) 2.1 % (0-6); HEMOGLOBIN 13.9 g/dl (14.0-17.9); LYMPHOCYTES # (AUTO) 1.7 X10'3 (1.1-4.8); MEAN CORPUSCULAR HEMOGLOBIN 32.8 PG (27.0-31.0); MEAN CORPUSCULAR HGB CONC 33.8 g/dL (33.0-36.5); MEAN PLATELET VOLUME 11.1 FL (7.4-10.4); MONOCYTES # (AUTO) 0.9 X10'3 (0-0.9); MONOCYTES % (AUTO) 8.5 % (2-12); NEUTROPHILS # (AUTO) 7.8 X10'3 (1.8-7.7); NEUTROPHILS % (AUTO) 72.9 % (42-75); PLATELET COUNT 143 X10'3 (140-440); RED BLOOD COUNT 4.23 X10'6 (4.70-6.10); RED CELL DISTRIBUTION WIDTH 15.7 % (11.5-14.5); WHITE BLOOD COUNT 10.7 X10'3 (4.5-11.0)
[2019-01-07 21:26] LABS: ALANINE AMINOTRANSFERASE 41 U/L (12-78); ALBUMIN 3.6 G/DL (3.4-5.0); ALBUMIN/GLOBULIN RATIO 0.9 (1.1-1.5); ALKALINE PHOSPHATASE 241 IU/L (46-116); ANION GAP 12 (8-16); ASPARTATE AMINO TRANSFERASE 58 U/L (10-37); BILIRUBIN,TOTAL 0.5 MG/DL (0.1-1.0); BLOOD UREA NITROGEN 14 MG/DL (7-18); BUN/CREATININE RATIO 15.4 (5.4-32.0); CALCIUM 8.9 MG/DL (8.5-10.1); CHLORIDE 99 MMOL/L (99-107); CREATININE 0.91 MG/DL (0.60-1.10); GLUCOSE 112 MG/DL (70-104); POTASSIUM 4.1 MMOL/L (3.5-5.1); SODIUM 136 MMOL/L (135-145); TOTAL CARBON DIOXIDE 25.5 MMOL/L (24-32); TOTAL PROTEIN 7.5 G/DL (6.4-8.2); eGFR 81 ML/MIN
[2019-01-07] MEDS ORDERED: POTASSIUM BICARB 20meq eff tab 20 MEQ TABLET.EFF PO ONE (21:50)
[2019-01-07 22:30] VITALS: BP 145/85
== END 2019-01-07 22:30 | disposition home or self-care (01) ==
LOC: ER 20:20
DX: R60.0 Localized edema (principal); J44.9 Chronic obstructive pulmonary disease, unspecified; I48.91 Unspecified atrial fibrillation; E78.00 Pure hypercholesterolemia, unspecified; I10 Essential (primary) hypertension; F41.9 Anxiety disorder, unspecified; F32.9 Major depressive disorder, single episode, unspecified; F17.200 Nicotine dependence, unspecified, uncomplicated; Z88.8 Allergy status to other drugs, medicaments and biological substances; Z79.899 Other long term (current) drug therapy; Z90.49 Acquired absence of other specified parts of digestive tract; Z90.89 Acquired absence of other organs; Z98.890 Other specified postprocedural states; Z85.038 Personal history of other malignant neoplasm of large intestine; Z87.19 Personal history of other diseases of the digestive system
CPT/HCPCS: 36415; 71045; 80053; 83880; 84484; 85025; 93005; 96374; 99284; J1940

== ENCOUNTER 2019-01-20 20:50 | Emergency (ER) | payer MEDICARE, BC ==
[~2019-01-20] VITALS: Ht 185.4 cm; Wt 109.1 kg
[2019-01-20 21:16] LABS: BASOPHILS # (AUTO) 0.1 X10'3 (0-0.2); EOSINOPHILS # (AUTO) 0.1 X10'3 (0-0.9); EOSINOPHILS % (AUTO) 0.5 % (0-6); LYMPHOCYTES # (AUTO) 1.4 X10'3 (1.1-4.8); MEAN CORPUSCULAR HGB CONC 33.6 g/dL (33.0-36.5); MEAN PLATELET VOLUME 11.3 FL (7.4-10.4); RED BLOOD COUNT 4.17 X10'6 (4.70-6.10)
[2019-01-20 21:18] LABS: BASOPHILS % (AUTO) 0.8 % (0-1); HEMATOCRIT 40.8 % (42.0-52.0); HEMOGLOBIN 13.7 g/dl (14.0-17.9); LYMPHOCYTES % (AUTO) 11.5 % (21-51); MEAN CORPUSCULAR HEMOGLOBIN 32.9 PG (27.0-31.0); MEAN CORPUSCULAR VOLUME 97.9 FL (78-98); MONOCYTES # (AUTO) 1.1 X10'3 (0-0.9); MONOCYTES % (AUTO) 9.1 % (2-12); NEUTROPHILS # (AUTO) 9.6 X10'3 (1.8-7.7); NEUTROPHILS % (AUTO) 78.1 % (42-75); PLATELET COUNT 170 X10'3 (140-440); RED CELL DISTRIBUTION WIDTH 16.1 % (11.5-14.5); WHITE BLOOD COUNT 12.3 X10'3 (4.5-11.0)
[2019-01-20 21:21] LABS: ALANINE AMINOTRANSFERASE 48 U/L (12-78); ALBUMIN 3.5 G/DL (3.4-5.0); ALBUMIN/GLOBULIN RATIO 0.9 (1.1-1.5); ALKALINE PHOSPHATASE 249 IU/L (46-116); ANION GAP 10 (8-16); ASPARTATE AMINO TRANSFERASE 66 U/L (10-37); BILIRUBIN,TOTAL 0.7 MG/DL (0.1-1.0); BLOOD UREA NITROGEN 10 MG/DL (7-18); BUN/CREATININE RATIO 8.9 (5.4-32.0); CHLORIDE 101 MMOL/L (99-107); CREATININE 1.12 MG/DL (0.60-1.10); GLUCOSE 124 MG/DL (70-104); POTASSIUM 3.7 MMOL/L (3.5-5.1); SODIUM 138 MMOL/L (135-145); TOTAL CARBON DIOXIDE 27.5 MMOL/L (24-32); TOTAL PROTEIN 7.2 G/DL (6.4-8.2); eGFR 63 ML/MIN
[2019-01-20 21:28] LABS: ETHANOL < 0.010 GM/DL (0.0-0.010)
--- NOTE | 2019-01-20 21:40 | NUR ---
Pt. transferred to CT scan by tech at this time.
--- NOTE | 2019-01-20 21:53 | NUR ---
Pt. back to ED room [address] scan.
[2019-01-20 22:03] LABS: ANISOCYTOSIS 1+; LARGE PLATELETS FEW; PLATELET ESTIMATE NORMAL; TOTAL CELLS COUNTED 100
[2019-01-20 23:53] VITALS: BP 114/58
== END 2019-01-20 23:55 | disposition home or self-care (01) ==
LOC: ER 20:51
DX: K74.69 Other cirrhosis of liver (principal); K76.0 Fatty (change of) liver, not elsewhere classified; F41.9 Anxiety disorder, unspecified; I48.91 Unspecified atrial fibrillation; E78.00 Pure hypercholesterolemia, unspecified; I10 Essential (primary) hypertension; J44.9 Chronic obstructive pulmonary disease, unspecified; F32.9 Major depressive disorder, single episode, unspecified; F10.99 Alcohol use, unspecified with unspecified alcohol-induced disorder; Z86.2 Personal history of diseases of the blood and blood-forming organs and certain disorders involving the immune mechanism; Z90.49 Acquired absence of other specified parts of digestive tract; Z98.890 Other specified postprocedural states; Z90.89 Acquired absence of other organs; Z85.038 Personal history of other malignant neoplasm of large intestine; Z88.8 Allergy status to other drugs, medicaments and biological substances; Z79.899 Other long term (current) drug therapy; Z79.01 Long term (current) use of anticoagulants; Y90.9 Presence of alcohol in blood, level not specified
CPT/HCPCS: 36415; 71045; 74176; 80053; 80320; 83880; 84443; 84484; 85025; 85610; 93005; 99284

== ENCOUNTER 2019-02-13 16:41 | Emergency (ER) | payer MEDICARE, BC ==
[~2019-02-13] VITALS: Ht 185.4 cm; Wt 109.1 kg
[2019-02-13] MEDS ORDERED: normal saline 1000ML IV soln IVB ONE (17:10)
[2019-02-13] MEDS ORDERED: ondansetron/PF 4mg/2ml inj IV ONE (17:10)
[2019-02-13] MEDS ORDERED: FURO40TA4 PO (17:13)
[2019-02-13 18:43] LABS: BASOPHILS # (AUTO) 0.1 X10'3 (0-0.2); BASOPHILS % (AUTO) 0.8 % (0-1); EOSINOPHILS # (AUTO) 0.2 X10'3 (0-0.9); EOSINOPHILS % (AUTO) 1.5 % (0-6); HEMATOCRIT 40.8 % (42.0-52.0); HEMOGLOBIN 13.7 g/dl (14.0-17.9); LYMPHOCYTES # (AUTO) 1.1 X10'3 (1.1-4.8); LYMPHOCYTES % (AUTO) 10.5 % (21-51); MEAN CORPUSCULAR HEMOGLOBIN 32.8 PG (27.0-31.0); MEAN CORPUSCULAR HGB CONC 33.7 g/dL (33.0-36.5); MEAN CORPUSCULAR VOLUME 97.4 FL (78-98); MEAN PLATELET VOLUME 10.3 FL (7.4-10.4); MONOCYTES % (AUTO) 9.3 % (2-12); NEUTROPHILS # (AUTO) 8.1 X10'3 (1.8-7.7); NEUTROPHILS % (AUTO) 77.9 % (42-75); PLATELET COUNT 121 X10'3 (140-440); RED BLOOD COUNT 4.19 X10'6 (4.70-6.10); RED CELL DISTRIBUTION WIDTH 15.1 % (11.5-14.5); WHITE BLOOD COUNT 10.4 X10'3 (4.5-11.0)
[2019-02-13 18:56] LABS: ALANINE AMINOTRANSFERASE 33 U/L (12-78); ALBUMIN 3.5 G/DL (3.4-5.0); ALKALINE PHOSPHATASE 240 IU/L (46-116); ANION GAP 13 (8-16); ASPARTATE AMINO TRANSFERASE 43 U/L (10-37); BILIRUBIN,TOTAL 1.5 MG/DL (0.1-1.0); BLOOD UREA NITROGEN 13 MG/DL (7-18); BUN/CREATININE RATIO 10.7 (5.4-32.0); CHLORIDE 103 MMOL/L (99-107); CREATININE 1.21 MG/DL (0.60-1.10); GLUCOSE 114 MG/DL (70-104); POTASSIUM 3.5 MMOL/L (3.5-5.1); SODIUM 141 MMOL/L (135-145); TOTAL CARBON DIOXIDE 25.5 MMOL/L (24-32); TOTAL PROTEIN 7.1 G/DL (6.4-8.2); eGFR 58 ML/MIN
[2019-02-13 19:04] LABS: MAGNESIUM 1.8 MG/DL (1.5-2.4)
[2019-02-13 19:48] VITALS: BP 120/73
== END 2019-02-13 19:50 | disposition home or self-care (01) ==
LOC: ER 16:41
DX: R06.00 Dyspnea, unspecified (principal); I48.91 Unspecified atrial fibrillation; E78.00 Pure hypercholesterolemia, unspecified; I11.0 Hypertensive heart disease with heart failure; I50.9 Heart failure, unspecified; J44.9 Chronic obstructive pulmonary disease, unspecified; Z87.891 Personal history of nicotine dependence; Z90.49 Acquired absence of other specified parts of digestive tract; Z98.890 Other specified postprocedural states; Z85.038 Personal history of other malignant neoplasm of large intestine; Z88.8 Allergy status to other drugs, medicaments and biological substances; Z79.899 Other long term (current) drug therapy
CPT/HCPCS: 36415; 71045; 80053; 83735; 83880; 84484; 85025; 93005; 96374; 99284; J2405; J7040

== ENCOUNTER 2019-03-06 15:47 | Emergency (ER) | payer MEDICARE, BC ==
[~2019-03-06] VITALS: Ht 185.4 cm; Wt 108.8 kg
[2019-03-06 16:42] LABS: EOSINOPHILS # (AUTO) 0.1 X10'3 (0-0.9); HEMATOCRIT 44.5 % (42.0-52.0); MONOCYTES # (AUTO) 1.1 X10'3 (0-0.9)
[2019-03-06 16:44] LABS: BASOPHILS % (AUTO) 0.2 % (0-1); EOSINOPHILS % (AUTO) 0.5 % (0-6); LYMPHOCYTES # (AUTO) 1.3 X10'3 (1.1-4.8); MEAN CORPUSCULAR HGB CONC 33.8 g/dL (33.0-36.5); MEAN CORPUSCULAR VOLUME 94.8 FL (78-98); MEAN PLATELET VOLUME 10.8 FL (7.4-10.4); MONOCYTES % (AUTO) 8.8 % (2-12); NEUTROPHILS # (AUTO) 10.2 X10'3 (1.8-7.7); NEUTROPHILS % (AUTO) 80.5 % (42-75); PLATELET COUNT 210 X10'3 (140-440); RED BLOOD COUNT 4.69 X10'6 (4.70-6.10); RED CELL DISTRIBUTION WIDTH 15.2 % (11.5-14.5); WHITE BLOOD COUNT 12.7 X10'3 (4.5-11.0)
[2019-03-06 16:58] LABS: ALANINE AMINOTRANSFERASE 48 U/L (12-78); ALBUMIN 4.1 G/DL (3.4-5.0); ALBUMIN/GLOBULIN RATIO 1.1 (1.1-1.5); ALKALINE PHOSPHATASE 322 IU/L (46-116); ANION GAP 12 (8-16); ASPARTATE AMINO TRANSFERASE 76 U/L (10-37); BILIRUBIN,TOTAL 1.5 MG/DL (0.1-1.0); BLOOD UREA NITROGEN 12 MG/DL (7-18); BUN/CREATININE RATIO 10.6 (5.4-32.0); CALCIUM 8.9 MG/DL (8.5-10.1); CHLORIDE 100 MMOL/L (99-107); CREATININE 1.13 MG/DL (0.60-1.10); GLUCOSE 105 MG/DL (70-104); POTASSIUM 3.6 MMOL/L (3.5-5.1); SODIUM 138 MMOL/L (135-145); TOTAL PROTEIN 7.9 G/DL (6.4-8.2); eGFR 63 ML/MIN
[2019-03-06] MEDS ORDERED: LORazepam 2 mg/ml vial IV ONE (18:00)
[2019-03-06 19:17] LABS: CLARITY,URINE CLEAR (Clear); COLOR,URINE YELLOW (Yellow); GLUCOSE, URINE NEGATIVE (Neg); KETONES,URINE NEGATIVE (Neg); LEUKOCYTE ESTERASE ,URINE NEGATIVE (Neg); NITRITES, URINE NEGATIVE (Neg); OCCULT BLOOD,URINE NEGATIVE (Neg); PH,URINE 7.5 (4.8-8.0); PROTEIN,URINE NEGATIVE (Neg)
[2019-03-06 19:23] LABS: UA COLLECTION TYPE URINAL
[2019-03-06] MEDS ORDERED: normal saline 1000ML IV soln IVB ONE (20:00)
[2019-03-06 21:40] VITALS: BP 109/53
[2019-03-07] MEDS ORDERED: HYDR-4383 PO (21:27)
[2019-03-07] MEDS ORDERED: METR500T PO (21:27)
== END 2019-03-06 21:52 | disposition home or self-care (01) ==
LOC: ER 15:48
DX: G89.29 Other chronic pain (principal); R10.9 Unspecified abdominal pain; R06.02 Shortness of breath; R51 Headache; R05 Cough; I48.91 Unspecified atrial fibrillation; E78.00 Pure hypercholesterolemia, unspecified; I10 Essential (primary) hypertension; J44.9 Chronic obstructive pulmonary disease, unspecified; F41.9 Anxiety disorder, unspecified; F32.9 Major depressive disorder, single episode, unspecified; F10.99 Alcohol use, unspecified with unspecified alcohol-induced disorder; Z90.49 Acquired absence of other specified parts of digestive tract; Z98.890 Other specified postprocedural states; Z85.038 Personal history of other malignant neoplasm of large intestine; Z88.8 Allergy status to other drugs, medicaments and biological substances; Z79.899 Other long term (current) drug therapy; Y90.9 Presence of alcohol in blood, level not specified
CPT/HCPCS: 36415; 71045; 80053; 81003; 83605; 83880; 84484; 85025; 85610; 87040; 93005; 96374; 99284; J2060; J7040

== ENCOUNTER 2019-03-07 15:44 | Emergency (ER) | payer MEDICARE, BC ==
[~2019-03-07] VITALS: Ht 185.4 cm; Wt 108.0 kg
[2019-03-07] MEDS ORDERED: LORazepam 2 mg/ml vial IV ONE (18:55)
[2019-03-07] MEDS ORDERED: iohexol 300mg/ml 100ml inj. ONE (19:14)
[2019-03-07 19:23] LABS: EOSINOPHILS # (AUTO) 0.1 X10'3 (0-0.9); HEMATOCRIT 44.4 % (42.0-52.0); LYMPHOCYTES # (AUTO) 1.2 X10'3 (1.1-4.8); MEAN CORPUSCULAR HEMOGLOBIN 32.2 PG (27.0-31.0); MEAN PLATELET VOLUME 11.1 FL (7.4-10.4); MONOCYTES # (AUTO) 0.8 X10'3 (0-0.9)
[2019-03-07 19:24] LABS: BASOPHILS # (AUTO) 0.1 X10'3 (0-0.2); BASOPHILS % (AUTO) 0.6 % (0-1); LYMPHOCYTES % (AUTO) 11.3 % (21-51); MEAN CORPUSCULAR HGB CONC 33.7 g/dL (33.0-36.5); MEAN CORPUSCULAR VOLUME 95.6 FL (78-98); MONOCYTES % (AUTO) 7.8 % (2-12); NEUTROPHILS # (AUTO) 8.4 X10'3 (1.8-7.7); NEUTROPHILS % (AUTO) 79.3 % (42-75); PLATELET COUNT 155 X10'3 (140-440); RED BLOOD COUNT 4.64 X10'6 (4.70-6.10); RED CELL DISTRIBUTION WIDTH 14.7 % (11.5-14.5); WHITE BLOOD COUNT 10.6 X10'3 (4.5-11.0)
[2019-03-07 19:40] LABS: ALANINE AMINOTRANSFERASE 42 U/L (12-78); ALBUMIN 4.2 G/DL (3.4-5.0); ALBUMIN/GLOBULIN RATIO 1.1 (1.1-1.5); ALKALINE PHOSPHATASE 317 IU/L (46-116); ANION GAP 12 (8-16); ASPARTATE AMINO TRANSFERASE 57 U/L (10-37); BILIRUBIN,TOTAL 1.9 MG/DL (0.1-1.0); BLOOD UREA NITROGEN 8 MG/DL (7-18); BUN/CREATININE RATIO 7.8 (5.4-32.0); CHLORIDE 101 MMOL/L (99-107); CREATININE 1.03 MG/DL (0.60-1.10); GLUCOSE 105 MG/DL (70-104); POTASSIUM 3.7 MMOL/L (3.5-5.1); SODIUM 138 MMOL/L (135-145); TOTAL CARBON DIOXIDE 24.9 MMOL/L (24-32); TOTAL PROTEIN 7.9 G/DL (6.4-8.2); eGFR 70 ML/MIN
[2019-03-07 19:42] LABS: ETHANOL < 0.010 GM/DL (0.0-0.010)
[2019-03-07 20:21] LABS: CLARITY,URINE CLEAR (Clear); COLOR,URINE YELLOW (Yellow); GLUCOSE, URINE NEGATIVE (Neg); KETONES,URINE NEGATIVE (Neg); LEUKOCYTE ESTERASE ,URINE NEGATIVE (Neg); NITRITES, URINE NEGATIVE (Neg); OCCULT BLOOD,URINE NEGATIVE (Neg); PROTEIN,URINE NEGATIVE (Neg)
[2019-03-07 20:43] LABS: UA COLLECTION TYPE CLN CATCH MIDSTREAM
[2019-03-07] MEDS ORDERED: morphine 4 MG/ML inj SYRINge IV ONE (21:20)
[2019-03-07] MEDS ORDERED: metroNIDAZOLE-Flagyl 500mg/NS 100 ML IV STA (21:22)
[2019-03-07] MEDS ORDERED: METR500T PO (21:27)
[2019-03-07] MEDS ORDERED: HYDR-4383 PO (21:27)
[2019-03-07] MEDS: ringers solution, lacted 1,000 ML IV ONE ×2 (21:39→21:50)
--- NOTE | 2019-03-07 22:13 | NUR ---
pt employee nayan will pick patient up phone#[phone]
[2019-03-07 23:32] LABS: LARGE PLATELETS FEW; PLATELET ESTIMATE NORMAL
[2019-03-08 00:29] VITALS: BP 120/94
== END 2019-03-08 00:33 | disposition home or self-care (01) ==
LOC: ER 15:46
DX: K52.9 Noninfective gastroenteritis and colitis, unspecified (principal); I48.91 Unspecified atrial fibrillation; E78.00 Pure hypercholesterolemia, unspecified; J44.9 Chronic obstructive pulmonary disease, unspecified; F41.9 Anxiety disorder, unspecified; F32.9 Major depressive disorder, single episode, unspecified; F10.99 Alcohol use, unspecified with unspecified alcohol-induced disorder; Z85.038 Personal history of other malignant neoplasm of large intestine; Z90.49 Acquired absence of other specified parts of digestive tract; Z98.890 Other specified postprocedural states; Z88.8 Allergy status to other drugs, medicaments and biological substances; Z79.01 Long term (current) use of anticoagulants; Z79.899 Other long term (current) drug therapy; Y90.9 Presence of alcohol in blood, level not specified
CPT/HCPCS: 36415; 71045; 74177; 80053; 80320; 81003; 84484; 85025; 93005; 96365; 99284; J2060; J2270; J3490; Q9967; J7120

== ENCOUNTER 2019-04-30 15:31 | Emergency (ER) | payer MEDICARE, BC ==
[~2019-04-30] VITALS: Ht 182.9 cm; Wt 104.5 kg
[~2019-04-30 15:31] MED LIST changes: +HYDR-4383 PO
[2019-04-30 15:55] LABS: BASOPHILS # (AUTO) 0.1 X10'3 (0-0.2); MONOCYTES # (AUTO) 0.7 X10'3 (0-0.9); WHITE BLOOD COUNT 8.8 X10'3 (4.5-11.0)
[2019-04-30 15:57] LABS: BASOPHILS % (AUTO) 0.6 % (0-1); EOSINOPHILS # (AUTO) 0.2 X10'3 (0-0.9); EOSINOPHILS % (AUTO) 1.9 % (0-6); HEMATOCRIT 43.4 % (42.0-52.0); HEMOGLOBIN 14.9 g/dl (14.0-17.9); LYMPHOCYTES # (AUTO) 1.8 X10'3 (1.1-4.8); LYMPHOCYTES % (AUTO) 20.3 % (21-51); MEAN CORPUSCULAR HEMOGLOBIN 31.9 PG (27.0-31.0); MEAN CORPUSCULAR HGB CONC 34.4 g/dL (33.0-36.5); MEAN CORPUSCULAR VOLUME 92.6 FL (78-98); MEAN PLATELET VOLUME 10.1 FL (7.4-10.4); MONOCYTES % (AUTO) 7.4 % (2-12); NEUTROPHILS # (AUTO) 6.1 X10'3 (1.8-7.7); NEUTROPHILS % (AUTO) 69.8 % (42-75); PLATELET COUNT 155 X10'3 (140-440); RED BLOOD COUNT 4.69 X10'6 (4.70-6.10); RED CELL DISTRIBUTION WIDTH 14.9 % (11.5-14.5)
[2019-04-30 16:04] LABS: PARTIAL THROMBOPLASTIN TIME 30 SECONDS (22-32)
[2019-04-30 16:09] LABS: ALANINE AMINOTRANSFERASE 38 U/L (12-78); ALBUMIN 3.6 G/DL (3.4-5.0); ALBUMIN/GLOBULIN RATIO 0.9 (1.1-1.5); ALKALINE PHOSPHATASE 267 IU/L (46-116); ANION GAP 13 (8-16); ASPARTATE AMINO TRANSFERASE 69 U/L (10-37); BILIRUBIN,TOTAL 1.1 MG/DL (0.1-1.0); BLOOD UREA NITROGEN 11 MG/DL (7-18); CALCIUM 9.1 MG/DL (8.5-10.1); CHLORIDE 101 MMOL/L (99-107); CREATININE 0.92 MG/DL (0.60-1.10); GLUCOSE 96 MG/DL (70-104); POTASSIUM 3.2 MMOL/L (3.5-5.1); SODIUM 137 MMOL/L (135-145); TOTAL PROTEIN 7.4 G/DL (6.4-8.2); eGFR 80 ML/MIN
[2019-04-30] MEDS ORDERED: potassium Cl 20 mEq SR tablet PO ONE (17:55)
[2019-04-30] MEDS ORDERED: magnesium oxide 400mg tablet PO ONE (18:10)
[2019-04-30 19:07] VITALS: BP 163/94
== END 2019-04-30 19:10 | disposition home or self-care (01) ==
LOC: ER 15:32
DX: I44.0 Atrioventricular block, first degree (principal); E87.6 Hypokalemia; R06.00 Dyspnea, unspecified; R53.1 Weakness; R42 Dizziness and giddiness; I48.91 Unspecified atrial fibrillation; E78.00 Pure hypercholesterolemia, unspecified; I10 Essential (primary) hypertension; J44.9 Chronic obstructive pulmonary disease, unspecified; F41.9 Anxiety disorder, unspecified; F32.9 Major depressive disorder, single episode, unspecified; Z85.038 Personal history of other malignant neoplasm of large intestine; Z90.89 Acquired absence of other organs; Z98.890 Other specified postprocedural states; Z72.89 Other problems related to lifestyle; Z88.8 Allergy status to other drugs, medicaments and biological substances; Z79.899 Other long term (current) drug therapy
CPT/HCPCS: 71045; 80053; 83880; 85025; 85610; 85730; 87502; 87503; 93005; 99285

== ENCOUNTER 2019-05-05 19:31 | Emergency (ER) | payer MEDICARE, BC ==
[~2019-05-05] VITALS: Ht 185.4 cm; Wt 100.9 kg
[2019-05-05 20:02] LABS: BASOPHILS # (AUTO) 0.1 X10'3 (0-0.2); BASOPHILS % (AUTO) 0.6 % (0-1); EOSINOPHILS % (AUTO) 0.1 % (0-6); HEMATOCRIT 43.9 % (42.0-52.0); HEMOGLOBIN 15.2 g/dl (14.0-17.9); LYMPHOCYTES # (AUTO) 1.2 X10'3 (1.1-4.8); LYMPHOCYTES % (AUTO) 9.5 % (21-51); MEAN CORPUSCULAR HEMOGLOBIN 31.8 PG (27.0-31.0); MEAN CORPUSCULAR HGB CONC 34.5 g/dL (33.0-36.5); MEAN CORPUSCULAR VOLUME 92.1 FL (78-98); MEAN PLATELET VOLUME 10.4 FL (7.4-10.4); MONOCYTES # (AUTO) 1.2 X10'3 (0-0.9); MONOCYTES % (AUTO) 9.7 % (2-12); NEUTROPHILS # (AUTO) 10.3 X10'3 (1.8-7.7); NEUTROPHILS % (AUTO) 80.1 % (42-75); PLATELET COUNT 141 X10'3 (140-440); RED BLOOD COUNT 4.77 X10'6 (4.70-6.10); RED CELL DISTRIBUTION WIDTH 14.9 % (11.5-14.5); WHITE BLOOD COUNT 12.9 X10'3 (4.5-11.0)
[2019-05-05 20:06] LABS: ALANINE AMINOTRANSFERASE 40 U/L (12-78); ALBUMIN 3.8 G/DL (3.4-5.0); ALKALINE PHOSPHATASE 271 IU/L (46-116); ANION GAP 9 (8-16); ASPARTATE AMINO TRANSFERASE 69 U/L (10-37); BILIRUBIN,TOTAL 1.9 MG/DL (0.1-1.0); BLOOD UREA NITROGEN 16 MG/DL (7-18); BUN/CREATININE RATIO 12.5 (5.4-32.0); CALCIUM 8.7 MG/DL (8.5-10.1); CHLORIDE 100 MMOL/L (99-107); CREATININE 1.28 MG/DL (0.60-1.10); GLUCOSE 115 MG/DL (70-104); LIPASE 157 U/L (73-393); POTASSIUM 3.8 MMOL/L (3.5-5.1); SODIUM 137 MMOL/L (135-145); TOTAL CARBON DIOXIDE 28.3 MMOL/L (24-32); TOTAL PROTEIN 7.6 G/DL (6.4-8.2); eGFR 54 ML/MIN
[2019-05-05] MEDS ORDERED: ondansetron/PF 4mg/2ml inj IV ONE (20:15)
[2019-05-05] MEDS ORDERED: normal saline 1000ML IV soln IVB ONE (20:15)
[2019-05-05 20:51] LABS: CLARITY,URINE CLEAR (Clear); COLOR,URINE AMBER (Yellow); GLUCOSE, URINE NEGATIVE (Neg); KETONES,URINE NEGATIVE (Neg); LEUKOCYTE ESTERASE ,URINE NEGATIVE (Neg); NITRITES, URINE NEGATIVE (Neg); OCCULT BLOOD,URINE NEGATIVE (Neg); PH,URINE 8.5 (4.8-8.0); PROTEIN,URINE NEGATIVE (Neg); UROBILINOGEN,URINE >=8.0 E.U/dL (0.2-1.0)
[2019-05-05 21:00] LABS: UA COLLECTION TYPE CLN CATCH MIDSTREAM
[2019-05-05] MEDS ORDERED: PROC-8 PO (21:15)
[2019-05-05 21:50] VITALS: BP 151/74
== END 2019-05-05 21:51 | disposition home or self-care (01) ==
LOC: ER 19:31
DX: E86.0 Dehydration (principal); R19.7 Diarrhea, unspecified; R10.31 Right lower quadrant pain; I10 Essential (primary) hypertension; E78.00 Pure hypercholesterolemia, unspecified; I48.91 Unspecified atrial fibrillation; J44.9 Chronic obstructive pulmonary disease, unspecified; D64.9 Anemia, unspecified; F41.9 Anxiety disorder, unspecified; F32.9 Major depressive disorder, single episode, unspecified; Z90.89 Acquired absence of other organs; Z93.3 Colostomy status; Z88.8 Allergy status to other drugs, medicaments and biological substances; Z79.899 Other long term (current) drug therapy
CPT/HCPCS: 36415; 74176; 80053; 81003; 83690; 85025; 96361; 96374; 99284; J2405; J7030

== ENCOUNTER 2019-06-01 12:29 | Emergency (ER) | payer MEDICARE, BC ==
[~2019-06-01] VITALS: Ht 182.9 cm; Wt 85.3 kg
[~2019-06-01 12:29] MED LIST changes: +PROC-8 PO
[2019-06-01 15:25] LABS: ALANINE AMINOTRANSFERASE 38 U/L (12-78); ALBUMIN 3.9 G/DL (3.4-5.0); ALKALINE PHOSPHATASE 314 IU/L (46-116); ANION GAP 9 (8-16); ASPARTATE AMINO TRANSFERASE 61 U/L (10-37); BILIRUBIN,TOTAL 2.7 MG/DL (0.1-1.0); BLOOD UREA NITROGEN 16 MG/DL (7-18); BUN/CREATININE RATIO 14.2 (5.4-32.0); CALCIUM 9.4 MG/DL (8.5-10.1); CHLORIDE 97 MMOL/L (99-107); CREATININE 1.13 MG/DL (0.60-1.10); GLUCOSE 106 MG/DL (70-104); POTASSIUM 3.3 MMOL/L (3.5-5.1); SODIUM 134 MMOL/L (135-145); TOTAL CARBON DIOXIDE 28.1 MMOL/L (24-32); TOTAL PROTEIN 7.7 G/DL (6.4-8.2); eGFR 63 ML/MIN
[2019-06-01 15:33] LABS: ETHANOL < 0.010 GM/DL (0.0-0.010)
--- NOTE | 2019-06-01 16:08 | NUR ---
pt gave stool sample was sent to lab, will continue to monitor
[2019-06-01 16:16] LABS: HEMATOCRIT 46.1 % (42.0-52.0); HEMOGLOBIN 15.3 g/dl (14.0-17.9); MEAN CORPUSCULAR HEMOGLOBIN 31.9 PG (27.0-31.0); MEAN CORPUSCULAR HGB CONC 33.1 g/dL (33.0-36.5); MEAN CORPUSCULAR VOLUME 96.3 FL (78-98); RED BLOOD COUNT 4.78 X10'6 (4.70-6.10); RED CELL DISTRIBUTION WIDTH 15.3 % (11.5-14.5)
[2019-06-01 16:17] LABS: MEAN PLATELET VOLUME 8.1 FL (7.4-10.4); PLATELET COUNT 121 X10'3 (140-440); WHITE BLOOD COUNT 10.2 X10'3 (4.5-11.0)
[2019-06-01 16:44] LABS: ANISOCYTOSIS FEW; PLATELET ESTIMATE DECREASED; TOTAL CELLS COUNTED 100
--- NOTE | 2019-06-01 16:49 | NUR ---
UPdated provider that stool sample was collected and sent to lab, just awaiting results
[2019-06-01 17:11] VITALS: BP 139/58
[2019-06-02 10:11] LABS: C DIFF ANTIGEN NEGATIVE (NEGATIVE); C DIFF SPECIMEN=DIARRHEA? ACCEPTABLE; C DIFFICILE TOXINS A&B NEGATIVE (Neg)
== END 2019-06-01 17:36 | disposition home or self-care (01) ==
LOC: ER 12:29
DX: R19.7 Diarrhea, unspecified (principal); K74.60 Unspecified cirrhosis of liver; R74.8 Abnormal levels of other serum enzymes; I48.91 Unspecified atrial fibrillation; E78.00 Pure hypercholesterolemia, unspecified; I10 Essential (primary) hypertension; J44.9 Chronic obstructive pulmonary disease, unspecified; F41.9 Anxiety disorder, unspecified; F32.9 Major depressive disorder, single episode, unspecified; Z85.038 Personal history of other malignant neoplasm of large intestine; Z90.49 Acquired absence of other specified parts of digestive tract; Z98.890 Other specified postprocedural states; Z88.8 Allergy status to other drugs, medicaments and biological substances; Z79.01 Long term (current) use of anticoagulants; Z79.899 Other long term (current) drug therapy
CPT/HCPCS: 36415; 80053; 80320; 85025; 87324; 87449; 99283

== ENCOUNTER 2019-07-19 12:36 | Emergency (ER) | payer MEDICARE, BC ==
[~2019-07-19] VITALS: Ht 185.4 cm; Wt 100.3 kg
[2019-07-19 13:34] LABS: BASOPHILS % (AUTO) 0.4 % (0-1); EOSINOPHILS % (AUTO) 0.4 % (0-6); HEMOGLOBIN 13.8 g/dl (14.0-17.9); LYMPHOCYTES % (AUTO) 12.8 % (21-51); MEAN CORPUSCULAR HEMOGLOBIN 32.4 PG (27.0-31.0); MEAN CORPUSCULAR HGB CONC 33.7 g/dL (33.0-36.5); MEAN PLATELET VOLUME 11.3 FL (7.4-10.4); MONOCYTES # (AUTO) 0.7 X10'3 (0-0.9); MONOCYTES % (AUTO) 9.7 % (2-12); NEUTROPHILS # (AUTO) 5.8 X10'3 (1.8-7.7); NEUTROPHILS % (AUTO) 76.7 % (42-75); PLATELET COUNT 157 X10'3 (140-440); RED BLOOD COUNT 4.27 X10'6 (4.70-6.10); RED CELL DISTRIBUTION WIDTH 13.9 % (11.5-14.5); WHITE BLOOD COUNT 7.5 X10'3 (4.5-11.0)
[2019-07-19 13:49] LABS: ALANINE AMINOTRANSFERASE 40 U/L (12-78); ALBUMIN 3.6 G/DL (3.4-5.0); ALBUMIN/GLOBULIN RATIO 1.1 (1.1-1.5); ALKALINE PHOSPHATASE 290 IU/L (46-116); ANION GAP 11 (8-16); ASPARTATE AMINO TRANSFERASE 59 U/L (10-37); BLOOD UREA NITROGEN 11 MG/DL (7-18); BUN/CREATININE RATIO 10.5 (5.4-32.0); CHLORIDE 104 MMOL/L (99-107); CREATININE 1.05 MG/DL (0.60-1.10); GLUCOSE 112 MG/DL (70-104); LIPASE 140 U/L (73-393); POTASSIUM 4.2 MMOL/L (3.5-5.1); SODIUM 138 MMOL/L (135-145); TOTAL CARBON DIOXIDE 22.9 MMOL/L (24-32); eGFR 68 ML/MIN
[2019-07-19 13:58] LABS: LARGE PLATELETS FEW; PLATELET ESTIMATE NORMAL
[2019-07-19] MEDS ORDERED: LIDOcaine Viscous 15ml cup MM STA (14:11)
[2019-07-19] MEDS ORDERED: mag hydrox/Alum hydrox/simeth 30ml oral suspension PO ONE (14:15)
[2019-07-19] MEDS ORDERED: famotidine 20mg tablet PO ONE (14:15)
[2019-07-19 14:51] VITALS: BP 130/71
--- NOTE | 2019-07-19 14:52 | NUR ---
pt states his abd feels better after the GI Cocktail.
[2019-07-19] MEDS ORDERED: DICY10CA88 PO (15:39)
[2019-07-19] MEDS ORDERED: MAG355OR18 PO (15:39)
[2019-07-19] MEDS ORDERED: OMEP40CA13 PO (15:39)
== END 2019-07-19 15:48 | disposition home or self-care (01) ==
LOC: ER 12:37
DX: R10.31 Right lower quadrant pain (principal); R19.7 Diarrhea, unspecified; I48.91 Unspecified atrial fibrillation; E78.00 Pure hypercholesterolemia, unspecified; I10 Essential (primary) hypertension; J44.9 Chronic obstructive pulmonary disease, unspecified; F41.9 Anxiety disorder, unspecified; F32.9 Major depressive disorder, single episode, unspecified; Z87.01 Personal history of pneumonia (recurrent); Z86.2 Personal history of diseases of the blood and blood-forming organs and certain disorders involving the immune mechanism; Z85.038 Personal history of other malignant neoplasm of large intestine; Z90.89 Acquired absence of other organs; Z98.890 Other specified postprocedural states; Z88.8 Allergy status to other drugs, medicaments and biological substances; Z79.899 Other long term (current) drug therapy
CPT/HCPCS: 36415; 80053; 83690; 85025; 99284

== ENCOUNTER 2019-07-23 08:46 | Day surgery (SDC) | payer MEDICARE, BC ==
[~2019-07-23] VITALS: Ht 182.9 cm; Wt 97.7 kg
[2019-07-23] VITALS (8 sets, daily range): BP systolic 125–164; BP diastolic 55–78
[~2019-07-23 08:46] MED LIST changes: +DICY10CA88 PO; +MAG355OR18 PO; +OMEP40CA13 PO
[2019-07-23] MEDS ORDERED: normal saline 1000ml 1,000 ML IV SCH ×2 (09:55→11:55)
[2019-07-23] MEDS ORDERED: fentaNYL/PF 50MCG/1 ML 2ML syringe IV ONE (09:55)
[2019-07-23] MEDS ORDERED: MIDAZolam 1mg/ml 10ml vial IV ONE (09:55)
--- NOTE | 2019-07-23 12:30 | NUR ---
Pt bx completed, pt did not have sedation medication, local only.
[2019-07-23] MEDS ORDERED: morphine 2 MG/ML inj. syringe IV ONE (12:40)
[2019-07-23] MEDS ORDERED: morphine 2 MG/ML inj. syringe IV PRN (12:45)
== END 2019-07-23 14:50 | disposition home or self-care (01) ==
LOC: SSTAY O 08:46
PROVIDERS: ATTEND Radiology Diagnostic Radiology
DX: K76.0 Fatty (change of) liver, not elsewhere classified (principal); K74.69 Other cirrhosis of liver; K74.0 Hepatic fibrosis; I48.91 Unspecified atrial fibrillation; E78.00 Pure hypercholesterolemia, unspecified; I10 Essential (primary) hypertension; J44.9 Chronic obstructive pulmonary disease, unspecified; D64.9 Anemia, unspecified; F41.9 Anxiety disorder, unspecified; F32.9 Major depressive disorder, single episode, unspecified; Z11.59 Encounter for screening for other viral diseases; Z85.038 Personal history of other malignant neoplasm of large intestine; Z87.01 Personal history of pneumonia (recurrent); Z72.89 Other problems related to lifestyle; Z88.8 Allergy status to other drugs, medicaments and biological substances; Z79.899 Other long term (current) drug therapy
CPT/HCPCS: 36415; 47000; 76942; U0003; 88307; 88313

== ENCOUNTER 2019-08-13 16:10 | Emergency (ER) | payer OTHER, MEDICARE, BC ==
[~2019-08-13] VITALS: Ht 185.4 cm; Wt 98.0 kg
[~2019-08-13 16:10] MED LIST changes: -DICY10CA88 PO; -HYDR-4383 PO; -MAG355OR18 PO; -OMEP40CA13 PO; -PROC-8 PO
[2019-08-13] MEDS ORDERED: ondansetron/PF 4mg/2ml inj IV ONE (16:25)
[2019-08-13] MEDS ORDERED: normal saline 1000ML IV soln IVB ONE ×2 (16:25→17:45)
[2019-08-13 16:54] LABS: BASOPHILS % (AUTO) 0.5 % (0-1); EOSINOPHILS % (AUTO) 0.4 % (0-6); HEMATOCRIT 44.4 % (42.0-52.0); HEMOGLOBIN 14.9 g/dl (14.0-17.9); LYMPHOCYTES # (AUTO) 0.9 X10'3 (1.1-4.8); LYMPHOCYTES % (AUTO) 11.1 % (21-51); MEAN CORPUSCULAR HEMOGLOBIN 32.2 PG (27.0-31.0); MEAN CORPUSCULAR HGB CONC 33.6 g/dL (33.0-36.5); MEAN CORPUSCULAR VOLUME 95.8 FL (78-98); MEAN PLATELET VOLUME 10.4 FL (7.4-10.4); MONOCYTES # (AUTO) 0.6 X10'3 (0-0.9); MONOCYTES % (AUTO) 7.3 % (2-12); NEUTROPHILS # (AUTO) 6.7 X10'3 (1.8-7.7); NEUTROPHILS % (AUTO) 80.7 % (42-75); PLATELET COUNT 136 X10'3 (140-440); RED BLOOD COUNT 4.63 X10'6 (4.70-6.10); RED CELL DISTRIBUTION WIDTH 13.9 % (11.5-14.5); WHITE BLOOD COUNT 8.4 X10'3 (4.5-11.0)
--- NOTE | 2019-08-13 16:55 | NUR ---
Patient up to bedside commode at this time, instructed to provide urine sample per MD order, verbalized understanding.
[2019-08-13 17:05] LABS: ALANINE AMINOTRANSFERASE 42 U/L (12-78); ALBUMIN 3.7 G/DL (3.4-5.0); ALKALINE PHOSPHATASE 269 IU/L (46-116); ANION GAP 15 (8-16); ASPARTATE AMINO TRANSFERASE 89 U/L (10-37); BILIRUBIN,TOTAL 1.4 MG/DL (0.1-1.0); BLOOD UREA NITROGEN 10 MG/DL (7-18); BUN/CREATININE RATIO 10.6 (5.4-32.0); CALCIUM 8.7 MG/DL (8.5-10.1); CHLORIDE 104 MMOL/L (99-107); CREATININE 0.94 MG/DL (0.60-1.10); GLUCOSE 119 MG/DL (70-104); LIPASE 183 U/L (73-393); POTASSIUM 3.9 MMOL/L (3.5-5.1); SODIUM 142 MMOL/L (135-145); TOTAL PROTEIN 7.3 G/DL (6.4-8.2); eGFR 78 ML/MIN
[2019-08-13] MEDS ORDERED: ONDA4TAB6 PO (17:45)
[2019-08-13 17:49] LABS: CLARITY,URINE CLEAR (Clear); COLOR,URINE STRAW (Yellow); GLUCOSE, URINE NEGATIVE (Neg); KETONES,URINE NEGATIVE (Neg); LEUKOCYTE ESTERASE ,URINE NEGATIVE (Neg); NITRITES, URINE NEGATIVE (Neg); OCCULT BLOOD,URINE NEGATIVE (Neg); PH,URINE 7.5 (4.8-8.0); PROTEIN,URINE NEGATIVE (Neg)
[2019-08-13 17:50] LABS: UA COLLECTION TYPE VOIDED
[2019-08-13 18:51] VITALS: BP 155/80
== END 2019-08-13 18:50 | disposition home or self-care (01) ==
LOC: ER 16:11
DX: R11.2 Nausea with vomiting, unspecified (principal); R53.1 Weakness; R19.7 Diarrhea, unspecified; R06.02 Shortness of breath; I48.91 Unspecified atrial fibrillation; E78.00 Pure hypercholesterolemia, unspecified; I10 Essential (primary) hypertension; J44.9 Chronic obstructive pulmonary disease, unspecified; F41.9 Anxiety disorder, unspecified; F32.9 Major depressive disorder, single episode, unspecified; Z90.49 Acquired absence of other specified parts of digestive tract; Z90.89 Acquired absence of other organs; Z98.890 Other specified postprocedural states; Z88.8 Allergy status to other drugs, medicaments and biological substances; Z79.01 Long term (current) use of anticoagulants; Z79.899 Other long term (current) drug therapy
CPT/HCPCS: 36415; 74176; 80053; 81003; 83690; 84145; 85025; 85610; 93005; 96361; 96374; 99285; J2405; J7030

== ENCOUNTER 2019-09-13 13:50 | Emergency (ER) | payer OTHER, MEDICARE, BC ==
[~2019-09-13] VITALS: Ht 185.4 cm; Wt 98.0 kg
[~2019-09-13 13:50] MED LIST changes: +ONDA4TAB6 PO
--- NOTE | 2019-09-13 14:06 | NUR ---
assisting RN with pt care, pt is in CT
[2019-09-13 14:38] LABS: BASOPHILS # (AUTO) 0.1 X10'3 (0-0.2); BASOPHILS % (AUTO) 0.9 % (0-1); EOSINOPHILS # (AUTO) 0.1 X10'3 (0-0.9); EOSINOPHILS % (AUTO) 1.4 % (0-6); HEMATOCRIT 42.9 % (42.0-52.0); HEMOGLOBIN 14.4 g/dl (14.0-17.9); LYMPHOCYTES # (AUTO) 1.8 X10'3 (1.1-4.8); LYMPHOCYTES % (AUTO) 21.3 % (21-51); MEAN CORPUSCULAR HEMOGLOBIN 31.8 PG (27.0-31.0); MEAN CORPUSCULAR HGB CONC 33.6 g/dL (33.0-36.5); MEAN CORPUSCULAR VOLUME 94.8 FL (78-98); MEAN PLATELET VOLUME 10.3 FL (7.4-10.4); MONOCYTES # (AUTO) 0.7 X10'3 (0-0.9); MONOCYTES % (AUTO) 8.1 % (2-12); NEUTROPHILS # (AUTO) 5.6 X10'3 (1.8-7.7); NEUTROPHILS % (AUTO) 68.3 % (42-75); PLATELET COUNT 276 X10'3 (140-440); RED BLOOD COUNT 4.52 X10'6 (4.70-6.10); WHITE BLOOD COUNT 8.2 X10'3 (4.5-11.0)
[2019-09-13 14:59] LABS: ALBUMIN 3.9 G/DL (3.4-5.0); ANION GAP 11 (8-16); BLOOD UREA NITROGEN 18 MG/DL (7-18); CHLORIDE 102 MMOL/L (99-107); GLUCOSE 90 MG/DL (70-104); POTASSIUM 4.3 MMOL/L (3.5-5.1); SODIUM 138 MMOL/L (135-145); TOTAL CARBON DIOXIDE 24.8 MMOL/L (24-32); TROPONIN I < 0.04 NG/ML (0.0-0.05); eGFR 81 ML/MIN
--- NOTE | 2019-09-13 15:28 | NUR ---
SENT PACEMAKER REPORT FOR PT. VIDES TALKING ON PHONE WITH CASSIA FROM [facility]
[2019-09-13 15:36] LABS: ETHANOL 0.132 GM/DL (0.0-0.010)
--- NOTE | 2019-09-13 15:47 | NUR ---
updated pts vitals and gathered supplies to dress pts wounds
--- NOTE | 2019-09-13 16:07 | NUR ---
pacemaker tech is in with pt
[2019-09-13] MEDS ORDERED: METO100T7 PO (16:32)
[2019-09-13] MEDS ORDERED: BUDE10.2 INH (16:32)
[2019-09-13] MEDS ORDERED: FLEC50TA28 PO (16:32)
[2019-09-13] MEDS ORDERED: CARB15DR58 EACHEYE (16:32)
[2019-09-13] MEDS ORDERED: TIOT4MIS5 IH (16:32)
[2019-09-13] MEDS ORDERED: ROSU40TA PO (16:32)
[2019-09-13] MEDS ORDERED: CEPH-571 PO (16:32)
[2019-09-13 16:50] VITALS: BP 167/78
== END 2019-09-13 16:55 | disposition home or self-care (01) ==
LOC: ER 13:51
DX: F10.129 Alcohol abuse with intoxication, unspecified (principal); R55 Syncope and collapse; I48.91 Unspecified atrial fibrillation; E78.00 Pure hypercholesterolemia, unspecified; I10 Essential (primary) hypertension; J44.9 Chronic obstructive pulmonary disease, unspecified; F41.9 Anxiety disorder, unspecified; F32.9 Major depressive disorder, single episode, unspecified; Z90.49 Acquired absence of other specified parts of digestive tract; Z90.89 Acquired absence of other organs; Z85.9 Personal history of malignant neoplasm, unspecified; Z98.890 Other specified postprocedural states; Z88.8 Allergy status to other drugs, medicaments and biological substances; Z79.01 Long term (current) use of anticoagulants; Z79.899 Other long term (current) drug therapy; Y90.0 Blood alcohol level of less than 20 mg/100 ml
CPT/HCPCS: 36415; 70450; 71046; 72125; 80048; 80320; 84484; 85025; 85610; 93005; 99285

== ENCOUNTER 2019-10-15 13:04 | Emergency (ER) | payer OTHER, MEDICARE, BC ==
[~2019-10-15] VITALS: Ht 185.4 cm; Wt 95.0 kg
[~2019-10-15 13:04] MED LIST changes: -ATOR40TA71 PO; +ATOR80TA PO; +BUDE10.2 INH; +CARB15DR58 EACHEYE; -DILT-96 PO; -FLEC100T2 PO; +FLEC50TA28 PO; -FURO40TA4 PO; +METO100T7 PO; -MOME0.242 INH; -MOME13HF2 INH; -ONDA4TAB6 PO; -POTA20TA19 PO; +TIOT4MIS5 IH
[2019-10-15] MEDS ORDERED: ondansetron/PF 4mg/2ml inj IV ONE (13:15)
[2019-10-15] MEDS ORDERED: normal saline 1000ML IV soln IVB ONE (13:15)
[2019-10-15 13:41] LABS: BASOPHILS # (AUTO) 0.1 X10'3 (0-0.2); BASOPHILS % (AUTO) 0.9 % (0-1); EOSINOPHILS # (AUTO) 0.1 X10'3 (0-0.9); EOSINOPHILS % (AUTO) 1.9 % (0-6); HEMOGLOBIN 12.4 g/dl (14.0-17.9); LYMPHOCYTES # (AUTO) 1.1 X10'3 (1.1-4.8); LYMPHOCYTES % (AUTO) 15.3 % (21-51); MEAN CORPUSCULAR HGB CONC 33.7 g/dL (33.0-36.5); MEAN PLATELET VOLUME 10.3 FL (7.4-10.4); MONOCYTES # (AUTO) 0.9 X10'3 (0-0.9); MONOCYTES % (AUTO) 12.2 % (2-12); NEUTROPHILS % (AUTO) 69.7 % (42-75); PLATELET COUNT 200 X10'3 (140-440); RED BLOOD COUNT 3.89 X10'6 (4.70-6.10); WHITE BLOOD COUNT 7.2 X10'3 (4.5-11.0)
--- NOTE | 2019-10-15 13:48 | NUR ---
interrogated pacemaker.
[2019-10-15 14:05] LABS: ALANINE AMINOTRANSFERASE 51 U/L (12-78); ALBUMIN 3.4 G/DL (3.4-5.0); ALKALINE PHOSPHATASE 292 IU/L (46-116); ANION GAP 11 (8-16); ASPARTATE AMINO TRANSFERASE 75 U/L (10-37); BILIRUBIN,TOTAL 0.5 MG/DL (0.1-1.0); BLOOD UREA NITROGEN 23 MG/DL (7-18); BUN/CREATININE RATIO 12.5 (5.4-32.0); CALCIUM 8.2 MG/DL (8.5-10.1); CHLORIDE 110 MMOL/L (99-107); CREATININE 1.84 MG/DL (0.60-1.10); GLUCOSE 116 MG/DL (70-104); SODIUM 140 MMOL/L (135-145); TOTAL CARBON DIOXIDE 19.4 MMOL/L (24-32); TOTAL PROTEIN 6.7 G/DL (6.4-8.2); eGFR 36 ML/MIN
[2019-10-15 14:11] LABS: POTASSIUM 2.7 MMOL/L (3.5-5.1)
[2019-10-15] MEDS ORDERED: potassium Cl 20 mEq SR tablet PO STA (14:21)
[2019-10-15] MEDS ORDERED: magnesium 2GM in 50ml NS 50 ML IV ONE (14:25)
[2019-10-15] MEDS ORDERED: potassium Cl 10 mEq/100mL bag IV ONE (14:25)
[2019-10-15 16:32] VITALS: BP 141/75
== END 2019-10-15 16:34 | disposition home or self-care (01) ==
LOC: ER 13:04
DX: F10.229 Alcohol dependence with intoxication, unspecified (principal); N28.9 Disorder of kidney and ureter, unspecified; E87.6 Hypokalemia; R55 Syncope and collapse; I48.91 Unspecified atrial fibrillation; E78.00 Pure hypercholesterolemia, unspecified; I10 Essential (primary) hypertension; J44.9 Chronic obstructive pulmonary disease, unspecified; F41.9 Anxiety disorder, unspecified; F32.9 Major depressive disorder, single episode, unspecified; Z90.49 Acquired absence of other specified parts of digestive tract; Z95.0 Presence of cardiac pacemaker; Z98.890 Other specified postprocedural states; Z88.8 Allergy status to other drugs, medicaments and biological substances; Z79.01 Long term (current) use of anticoagulants; Z79.899 Other long term (current) drug therapy; Y90.0 Blood alcohol level of less than 20 mg/100 ml
CPT/HCPCS: 36415; 70450; 71045; 80053; 80320; 83880; 84484; 85025; 93005; 96365; 96366; 96368; 99285; J3475; J3480; J7030

== ENCOUNTER 2019-11-15 09:30 | Emergency (ER) | payer OTHER, MEDICARE, BC ==
[~2019-11-15] VITALS: Ht 185.4 cm; Wt 91.8 kg
[~2019-11-15 09:30] MED LIST changes: +ATI1T PO; +MULT-25 PO; +SERT25TA PO; +folic acid tablet PO; +thiamine tablet PO
[2019-11-15] MEDS ORDERED: normal saline 1000ML IV soln IVB ONE (10:05)
[2019-11-15] MEDS ORDERED: ondansetron/PF 4mg/2ml inj IV ONE (10:05)
[2019-11-15 10:32] LABS: ALANINE AMINOTRANSFERASE 42 U/L (12-78); ALBUMIN 3.5 G/DL (3.4-5.0); ALBUMIN/GLOBULIN RATIO 1.1 (1.1-1.5); ALKALINE PHOSPHATASE 279 IU/L (46-116); ANION GAP 11 (8-16); ASPARTATE AMINO TRANSFERASE 45 U/L (10-37); BILIRUBIN,TOTAL 2.3 MG/DL (0.1-1.0); BLOOD UREA NITROGEN 13 MG/DL (7-18); BUN/CREATININE RATIO 10.7 (5.4-32.0); CALCIUM 8.8 MG/DL (8.5-10.1); CHLORIDE 99 MMOL/L (99-107); CREATININE 1.21 MG/DL (0.60-1.10); GLUCOSE 110 MG/DL (70-104); POTASSIUM 3.6 MMOL/L (3.5-5.1); SODIUM 132 MMOL/L (135-145); TOTAL CARBON DIOXIDE 22.3 MMOL/L (24-32); TOTAL PROTEIN 6.7 G/DL (6.4-8.2); eGFR 58 ML/MIN
[2019-11-15 10:46] VITALS: BP 132/74
[2019-11-15 10:58] LABS: BASOPHILS % (AUTO) 0.6 % (0-1); EOSINOPHILS % (AUTO) 0.4 % (0-6); HEMATOCRIT 36.4 % (42.0-52.0); HEMOGLOBIN 12.3 g/dl (14.0-17.9); LYMPHOCYTES # (AUTO) 0.6 X10'3 (1.1-4.8); LYMPHOCYTES % (AUTO) 10.4 % (21-51); MEAN CORPUSCULAR HEMOGLOBIN 32.7 PG (27.0-31.0); MEAN CORPUSCULAR HGB CONC 33.8 g/dL (33.0-36.5); MEAN CORPUSCULAR VOLUME 96.8 FL (78-98); MEAN PLATELET VOLUME 10.5 FL (7.4-10.4); MONOCYTES # (AUTO) 0.6 X10'3 (0-0.9); MONOCYTES % (AUTO) 10.2 % (2-12); NEUTROPHILS # (AUTO) 4.7 X10'3 (1.8-7.7); NEUTROPHILS % (AUTO) 78.4 % (42-75); RED BLOOD COUNT 3.76 X10'6 (4.70-6.10); RED CELL DISTRIBUTION WIDTH 15.6 % (11.5-14.5)
[2019-11-15 11:01] LABS: PLATELET COUNT 118 X10'3 (140-440)
[2019-11-15] MEDS ORDERED: AMOX-422 PO (11:19)
[2019-11-15] MEDS ORDERED: TRAM50TA2 PO (11:19)
[2019-11-15] MEDS ORDERED: ONDA4TAB6 PO (11:19)
== END 2019-11-15 12:09 | disposition home or self-care (01) ==
LOC: ER 09:30
DX: K52.9 Noninfective gastroenteritis and colitis, unspecified (principal); R11.2 Nausea with vomiting, unspecified; I48.91 Unspecified atrial fibrillation; E78.00 Pure hypercholesterolemia, unspecified; I10 Essential (primary) hypertension; J44.9 Chronic obstructive pulmonary disease, unspecified; F41.9 Anxiety disorder, unspecified; F32.9 Major depressive disorder, single episode, unspecified; Z90.49 Acquired absence of other specified parts of digestive tract; Z95.0 Presence of cardiac pacemaker; Z98.890 Other specified postprocedural states; Z88.8 Allergy status to other drugs, medicaments and biological substances; Z79.01 Long term (current) use of anticoagulants; Z79.899 Other long term (current) drug therapy
CPT/HCPCS: 36415; 71045; 74176; 80053; 83880; 84484; 85025; 93005; 96361; 96374; 99285; J2405; J7030

== ENCOUNTER 2019-11-24 17:38 | Emergency (ER) | payer OTHER, MEDICARE, BC ==
[~2019-11-24] VITALS: Ht 185.4 cm; Wt 91.8 kg
[~2019-11-24 17:38] MED LIST changes: +AMOX-422 PO; +ONDA4TAB6 PO; +TRAM50TA2 PO
[2019-11-24] MEDS ORDERED: LORazepam 2 mg/ml vial IV ONE (18:15)
[2019-11-24 18:36] LABS: BASOPHILS % (AUTO) 0.7 % (0-1); EOSINOPHILS % (AUTO) 0.1 % (0-6); HEMATOCRIT 39.8 % (42.0-52.0); HEMOGLOBIN 13.1 g/dl (14.0-17.9); LYMPHOCYTES # (AUTO) 0.8 X10'3 (1.1-4.8); MEAN CORPUSCULAR HEMOGLOBIN 31.6 PG (27.0-31.0); MEAN CORPUSCULAR HGB CONC 32.9 g/dL (33.0-36.5); MEAN CORPUSCULAR VOLUME 95.9 FL (78-98); MEAN PLATELET VOLUME 11.4 FL (7.4-10.4); MONOCYTES # (AUTO) 0.9 X10'3 (0-0.9); MONOCYTES % (AUTO) 12.6 % (2-12); NEUTROPHILS # (AUTO) 5.1 X10'3 (1.8-7.7); NEUTROPHILS % (AUTO) 74.6 % (42-75); PLATELET COUNT 118 X10'3 (140-440); RED BLOOD COUNT 4.15 X10'6 (4.70-6.10); RED CELL DISTRIBUTION WIDTH 15.4 % (11.5-14.5); WHITE BLOOD COUNT 6.8 X10'3 (4.5-11.0)
[2019-11-24 18:46] LABS: ALANINE AMINOTRANSFERASE 47 U/L (12-78); ALBUMIN 3.7 G/DL (3.4-5.0); ALKALINE PHOSPHATASE 303 IU/L (46-116); ANION GAP 11 (8-16); ASPARTATE AMINO TRANSFERASE 77 U/L (10-37); BILIRUBIN,TOTAL 1.2 MG/DL (0.1-1.0); BLOOD UREA NITROGEN 12 MG/DL (7-18); BUN/CREATININE RATIO 9.8 (5.4-32.0); CALCIUM 9.4 MG/DL (8.5-10.1); CHLORIDE 102 MMOL/L (99-107); CREATININE 1.22 MG/DL (0.60-1.10); GLUCOSE 124 MG/DL (70-104); POTASSIUM 3.9 MMOL/L (3.5-5.1); SODIUM 138 MMOL/L (135-145); TOTAL CARBON DIOXIDE 25.3 MMOL/L (24-32); TOTAL PROTEIN 7.4 G/DL (6.4-8.2); eGFR 57 ML/MIN
[2019-11-24 19:15] LABS: TROPONIN I < 0.04 NG/ML (0.0-0.05)
[2019-11-24 19:42] LABS: CLARITY,URINE CLEAR (Clear); COLOR,URINE YELLOW (Yellow); GLUCOSE, URINE NEGATIVE (Neg); KETONES,URINE TRACE mg/dl (Neg); LEUKOCYTE ESTERASE ,URINE NEGATIVE (Neg); NITRITES, URINE NEGATIVE (Neg); OCCULT BLOOD,URINE NEGATIVE (Neg); PH,URINE >=9.0 (4.8-8.0); PROTEIN,URINE 30 mg/dl (Neg)
[2019-11-24 19:49] LABS: UA COLLECTION TYPE URINAL
[2019-11-24 19:50] LABS: BACTERIA,URINE FEW /HPF (Neg); RBC,URINE 0-2 /HPF (0-2); SQUAMOUS EPITHELIAL CELL,UR FEW /LPF (FEW); WBC,URINE 0-4 /HPF (0-4)
[2019-11-24 22:00] VITALS: BP 169/78
== END 2019-11-24 22:01 | disposition home or self-care (01) ==
LOC: ER 17:39
DX: R25.1 Tremor, unspecified (principal); R53.1 Weakness; K59.00 Constipation, unspecified; I48.91 Unspecified atrial fibrillation; I10 Essential (primary) hypertension; J44.9 Chronic obstructive pulmonary disease, unspecified; F41.9 Anxiety disorder, unspecified; F32.9 Major depressive disorder, single episode, unspecified; Z87.01 Personal history of pneumonia (recurrent); Z86.2 Personal history of diseases of the blood and blood-forming organs and certain disorders involving the immune mechanism; Z85.038 Personal history of other malignant neoplasm of large intestine; Z90.89 Acquired absence of other organs; Z95.0 Presence of cardiac pacemaker; Z98.890 Other specified postprocedural states; Z88.8 Allergy status to other drugs, medicaments and biological substances; Z79.2 Long term (current) use of antibiotics; Z79.899 Other long term (current) drug therapy
CPT/HCPCS: 36415; 71045; 80053; 81001; 82948; 84484; 85025; 93005; 96374; 99285; J2060

== ENCOUNTER 2019-12-15 12:49 | Emergency (ER) | payer OTHER, MEDICARE, BC ==
[~2019-12-15] VITALS: Ht 185.4 cm; Wt 94.7 kg
[~2019-12-15 12:49] MED LIST changes: -AMOX-422 PO
[2019-12-15 13:37] VITALS: BP 139/78
--- NOTE | 2019-12-15 14:16 | NUR ---
Pt to CT
== END 2019-12-15 15:15 | disposition home or self-care (01) ==
LOC: ER 12:49
DX: S46.221A Laceration of muscle, fascia and tendon of other parts of biceps, right arm, initial encounter (principal); I48.91 Unspecified atrial fibrillation; E78.00 Pure hypercholesterolemia, unspecified; I10 Essential (primary) hypertension; J44.9 Chronic obstructive pulmonary disease, unspecified; F41.9 Anxiety disorder, unspecified; F32.9 Major depressive disorder, single episode, unspecified; Z90.49 Acquired absence of other specified parts of digestive tract; Z95.0 Presence of cardiac pacemaker; Z98.890 Other specified postprocedural states; Z88.8 Allergy status to other drugs, medicaments and biological substances; Z79.01 Long term (current) use of anticoagulants; Z79.899 Other long term (current) drug therapy; W01.0XXA Fall on same level from slipping, tripping and stumbling without subsequent striking against object, initial encounter; Y93.89 Activity, other specified; Y92.89 Other specified places as the place of occurrence of the external cause; Y99.8 Other external cause status
CPT/HCPCS: 70450; 72125; 99285

== ENCOUNTER 2019-12-28 20:56 | Emergency (ER) | payer OTHER, MEDICARE, BC ==
[~2019-12-28] VITALS: Ht 185.4 cm; Wt 95.0 kg
[~2019-12-28 20:56] MED LIST changes: -TRAM50TA2 PO
[2019-12-28 22:05] LABS: ALANINE AMINOTRANSFERASE 43 U/L (12-78); ALBUMIN 3.7 G/DL (3.4-5.0); ALKALINE PHOSPHATASE 280 IU/L (46-116); ANION GAP 14 (8-16); ASPARTATE AMINO TRANSFERASE 105 U/L (10-37); BILIRUBIN,TOTAL 1.1 MG/DL (0.1-1.0); CALCIUM 8.9 MG/DL (8.5-10.1); CHLORIDE 103 MMOL/L (99-107); CREATININE 1.05 MG/DL (0.60-1.10); GLUCOSE 99 MG/DL (70-104); POTASSIUM 3.5 MMOL/L (3.5-5.1); SODIUM 139 MMOL/L (135-145); TOTAL CARBON DIOXIDE 21.8 MMOL/L (24-32); TOTAL PROTEIN 7.4 G/DL (6.4-8.2); eGFR 68 ML/MIN
[2019-12-28 22:09] LABS: BLOOD UREA NITROGEN 13 MG/DL (7-18); BUN/CREATININE RATIO 12.4 (5.4-32.0)
[2019-12-28] MEDS ORDERED: iohexol 350MG/ML 100ml bottle IV ONE (23:05)
[2019-12-28 23:51] LABS: BASOPHILS % (AUTO) 0.6 % (0-1); EOSINOPHILS # (AUTO) 0.1 X10'3 (0-0.9); HEMATOCRIT 40.5 % (42.0-52.0); HEMOGLOBIN 13.4 g/dl (14.0-17.9); LYMPHOCYTES # (AUTO) 1.1 X10'3 (1.1-4.8); LYMPHOCYTES % (AUTO) 14.5 % (21-51); MEAN CORPUSCULAR HEMOGLOBIN 32.2 PG (27.0-31.0); MEAN CORPUSCULAR HGB CONC 33.1 g/dL (33.0-36.5); MEAN CORPUSCULAR VOLUME 97.1 FL (78-98); MONOCYTES # (AUTO) 0.8 X10'3 (0-0.9); MONOCYTES % (AUTO) 10.3 % (2-12); NEUTROPHILS # (AUTO) 5.8 X10'3 (1.8-7.7); NEUTROPHILS % (AUTO) 73.6 % (42-75); RED BLOOD COUNT 4.17 X10'6 (4.70-6.10); RED CELL DISTRIBUTION WIDTH 15.1 % (11.5-14.5); WHITE BLOOD COUNT 7.9 X10'3 (4.5-11.0)
[2019-12-29 00:40] LABS: MEAN PLATELET VOLUME 8.4 FL (7.4-10.4); PLATELET COUNT 145 X10'3 (140-440)
[2019-12-29 02:55] VITALS: BP 138/85
== END 2019-12-29 03:02 | disposition home or self-care (01) ==
LOC: ER 20:57
DX: R06.02 Shortness of breath (principal); I48.91 Unspecified atrial fibrillation; E78.00 Pure hypercholesterolemia, unspecified; I10 Essential (primary) hypertension; F41.9 Anxiety disorder, unspecified; F32.9 Major depressive disorder, single episode, unspecified; J44.9 Chronic obstructive pulmonary disease, unspecified; Z87.01 Personal history of pneumonia (recurrent); Z86.2 Personal history of diseases of the blood and blood-forming organs and certain disorders involving the immune mechanism; Z85.038 Personal history of other malignant neoplasm of large intestine; Z90.89 Acquired absence of other organs; Z95.0 Presence of cardiac pacemaker; Z98.890 Other specified postprocedural states; Z88.8 Allergy status to other drugs, medicaments and biological substances; Z79.899 Other long term (current) drug therapy
CPT/HCPCS: 36415; 71045; 71275; 80053; 83880; 84484; 85025; 85379; 93005; 99285; Q9967

== ENCOUNTER 2020-01-09 12:09 | Emergency (ER) | payer OTHER, MEDICARE, BC ==
[~2020-01-09] VITALS: Ht 185.4 cm; Wt 209.0 kg
[2020-01-09] MEDS ORDERED: LORazepam 2 mg/ml vial IV ONE (13:05)
[2020-01-09 13:57] LABS: PARTIAL THROMBOPLASTIN TIME 29 SECONDS (22-32)
[2020-01-09 14:09] LABS: ALANINE AMINOTRANSFERASE 40 U/L (12-78); ALBUMIN 3.8 G/DL (3.4-5.0); ALKALINE PHOSPHATASE 299 IU/L (46-116); ANION GAP 14 (8-16); ASPARTATE AMINO TRANSFERASE 98 U/L (10-37); BILIRUBIN,TOTAL 1.4 MG/DL (0.1-1.0); BLOOD UREA NITROGEN 15 MG/DL (7-18); BUN/CREATININE RATIO 15.6 (5.4-32.0); CALCIUM 9.1 MG/DL (8.5-10.1); CHLORIDE 104 MMOL/L (99-107); CREATININE 0.96 MG/DL (0.60-1.10); GLUCOSE 110 MG/DL (70-104); MAGNESIUM 1.5 MG/DL (1.5-2.4); POTASSIUM 3.8 MMOL/L (3.5-5.1); SODIUM 141 MMOL/L (135-145); TOTAL CARBON DIOXIDE 23.5 MMOL/L (24-32); TOTAL PROTEIN 7.6 G/DL (6.4-8.2); eGFR 76 ML/MIN
[2020-01-09 14:20] LABS: ETHANOL < 0.010 GM/DL (0.0-0.010)
[2020-01-09] MEDS ORDERED: folic acid 1mg tablet PO ONE (14:25)
[2020-01-09] MEDS ORDERED: normal saline 1000ml 1,000 ML IV ONE (14:25)
[2020-01-09] MEDS ORDERED: thiamine 100mg/ml 2ml inj. IV ONE (14:25)
[2020-01-09 14:36] LABS: BASOPHILS % (AUTO) 0.4 % (0-1); EOSINOPHILS % (AUTO) 0 % (0-6); HEMATOCRIT 42.9 % (42.0-52.0); HEMOGLOBIN 14.5 g/dl (14.0-17.9); LYMPHOCYTES # (AUTO) 0.7 X10'3 (1.1-4.8); LYMPHOCYTES % (AUTO) 8.7 % (21-51); MEAN CORPUSCULAR HEMOGLOBIN 32.4 PG (27.0-31.0); MEAN CORPUSCULAR HGB CONC 33.7 g/dL (33.0-36.5); MEAN CORPUSCULAR VOLUME 96.1 FL (78-98); MONOCYTES # (AUTO) 0.5 X10'3 (0-0.9); MONOCYTES % (AUTO) 6.3 % (2-12); NEUTROPHILS # (AUTO) 6.9 X10'3 (1.8-7.7); NEUTROPHILS % (AUTO) 84.6 % (42-75); RED BLOOD COUNT 4.47 X10'6 (4.70-6.10); RED CELL DISTRIBUTION WIDTH 14.6 % (11.5-14.5); WHITE BLOOD COUNT 8.1 X10'3 (4.5-11.0)
[2020-01-09 14:48] LABS: PLATELET COUNT 147.4 X10'3 (140-440)
[2020-01-09 14:50] LABS: MEAN PLATELET VOLUME 8.7 FL (7.4-10.4)
--- NOTE | 2020-01-09 15:09 | NUR ---
PATIENT RECEIVED IN BED 16 FROM FAST TRACK.
[2020-01-09] MEDS ORDERED: ondansetron/PF 4mg/2ml inj IV ONE (15:20)
[2020-01-09] MEDS ORDERED: ONDA4TAB6 PO (15:27)
[2020-01-09 16:11] VITALS: BP 167/84
== END 2020-01-09 16:13 | disposition home or self-care (01) ==
LOC: ER 12:09
DX: R25.1 Tremor, unspecified (principal); R11.2 Nausea with vomiting, unspecified; R19.7 Diarrhea, unspecified; R06.02 Shortness of breath; Z88.8 Allergy status to other drugs, medicaments and biological substances; Z79.899 Other long term (current) drug therapy; E78.00 Pure hypercholesterolemia, unspecified; I10 Essential (primary) hypertension; J44.9 Chronic obstructive pulmonary disease, unspecified; F41.9 Anxiety disorder, unspecified; F32.9 Major depressive disorder, single episode, unspecified; D64.9 Anemia, unspecified
CPT/HCPCS: 36415; 71045; 80053; 80320; 83735; 83880; 84484; 85025; 85610; 85730; 93005; 96361; 96374; 96375; 99285; J2060; J3411; J7030

== ENCOUNTER 2020-01-12 20:19 | Emergency (ER) | payer OTHER, MEDICARE, BC ==
[~2020-01-12] VITALS: Ht 185.4 cm; Wt 95.5 kg
[2020-01-12] MEDS ORDERED: LORazepam 1 MG tablet PO ONE ×2 (21:25→22:30)
--- NOTE | 2020-01-12 21:44 | NUR ---
MAGIGE BURT AT BEDSIDE, ORDER FOR ATIVAN.
[2020-01-12] MEDS ORDERED: ONDA4TAB6 PO (21:50)
[2020-01-12] MEDS ORDERED: LORA-269 PO (22:22)
--- NOTE | 2020-01-12 22:36 | NUR ---
MAGGIE BURT TO DC PT AFTER ANOTHER DOSE OF ATIVAN 1 MG TAB. PT TO BE PROVIDED A HOSPITAL PAY CAB RIDE HOME. HE REPORTS HE WILL HAVE A CAREGIVER COME SEE HIM A FEW TIMES A WEEK, HE HAS A NEW WC RAMP AT HIS HOME AND THAT HE USES A WALKE AND A CARE TO GET AROUND HIS HOUSE. HE LIVES ALONE. STATES HIS NEIGHBORS CHECK ON HIM ALSO. PT IS AGREEABLE TO THE DC PLAN. GAIT TESTED USING WALKER WITH NO ASSISTANCE. VSS.
--- NOTE | 2020-01-12 22:48 | NUR ---
CALLED [facility] FOR RIDE HOME ETA 30 MINS
--- NOTE | 2020-01-12 23:08 | NUR ---
PT STATES HE FEELS LIKE HIS FIRST DOSE OF ATIVAN IS STARTING TO KICK IN. HE APPEARS MORE RELAXED, IS NO LONGER TREMBLING. 2ND DOSE HELD. PT AGREEABLE TO FILLING PRESCRIPTION AND TAKING ANOTHER DOSE TOMORROW IF NEEDED.
[2020-01-12 23:09] VITALS: BP 141/76
== END 2020-01-12 23:10 | disposition home or self-care (01) ==
LOC: ER 20:20
DX: F41.9 Anxiety disorder, unspecified (principal); I48.91 Unspecified atrial fibrillation; E78.00 Pure hypercholesterolemia, unspecified; I10 Essential (primary) hypertension; J44.9 Chronic obstructive pulmonary disease, unspecified; D64.9 Anemia, unspecified; F32.9 Major depressive disorder, single episode, unspecified; Z88.8 Allergy status to other drugs, medicaments and biological substances; Z79.899 Other long term (current) drug therapy
CPT/HCPCS: 99284

== ENCOUNTER 2020-01-23 15:21 | Emergency (ER) | payer OTHER, MEDICARE, BC ==
[~2020-01-23] VITALS: Ht 185.4 cm; Wt 95.5 kg
[~2020-01-23 15:21] MED LIST changes: +LORA-269 PO
[2020-01-23] MEDS ORDERED: HYDROcodone/acetaminophen 5mg/325mg tablet PO ONE (16:35)
[2020-01-23] MEDS ORDERED: LORazepam 1 MG tablet PO ONE (16:35)
[2020-01-23 16:40] LABS: ALANINE AMINOTRANSFERASE 52 U/L (12-78); ALKALINE PHOSPHATASE 356 IU/L (46-116); ANION GAP 16 (8-16); ASPARTATE AMINO TRANSFERASE 132 U/L (10-37); BILIRUBIN,TOTAL 1.4 MG/DL (0.1-1.0); BLOOD UREA NITROGEN 15 MG/DL (7-18); BUN/CREATININE RATIO 14.2 (5.4-32.0); CALCIUM 9.2 MG/DL (8.5-10.1); CHLORIDE 106 MMOL/L (99-107); CREATININE 1.06 MG/DL (0.60-1.10); GLUCOSE 98 MG/DL (70-104); POTASSIUM 3.8 MMOL/L (3.5-5.1); SODIUM 143 MMOL/L (135-145); TOTAL CARBON DIOXIDE 21.1 MMOL/L (24-32); TOTAL PROTEIN 8.1 G/DL (6.4-8.2); eGFR 67 ML/MIN
[2020-01-23 16:51] LABS: ETHANOL 0.203 GM/DL (0.0-0.010)
--- NOTE | 2020-01-23 17:45 | NUR ---
pt is speaking with [facility]
--- NOTE | 2020-01-23 17:57 | NUR ---
LAB CALLED, PT NEEDS TO BE REDRAWN DUE TO BEING A PLATELETT CLUMPER. PT'S RN NOTIFIED
[2020-01-23] MEDS ORDERED: LORA-269 PO (18:01)
[2020-01-23] MEDS ORDERED: SERT25TA PO (18:02)
[2020-01-23] MEDS ORDERED: MULT-1074 PO (18:04)
[2020-01-23] MEDS ORDERED: folic acid PO (18:06)
[2020-01-23] MEDS ORDERED: THIA100T70 PO (18:06)
[2020-01-23] MEDS ORDERED: FOLI0.4T14 PO (18:44)
[2020-01-23] MEDS ORDERED: albuterol 2.5 MG/3 ML nebule NEB PRN (18:45)
[2020-01-23] MEDS ORDERED: PEG 400/HYPROMELLOSE/GLYCERIN 15ml bottle EACHEYE PRN (18:45)
[2020-01-23 19:00] LABS: BASOPHILS % (AUTO) 0.6 % (0-1); EOSINOPHILS % (AUTO) 0.6 % (0-6); HEMATOCRIT 41.7 % (42.0-52.0); HEMOGLOBIN 14.1 g/dl (14.0-17.9); LYMPHOCYTES # (AUTO) 1.2 X10'3 (1.1-4.8); LYMPHOCYTES % (AUTO) 16.7 % (21-51); MEAN CORPUSCULAR HGB CONC 33.9 g/dL (33.0-36.5); MEAN CORPUSCULAR VOLUME 97.3 FL (78-98); MONOCYTES # (AUTO) 0.5 X10'3 (0-0.9); MONOCYTES % (AUTO) 6.7 % (2-12); NEUTROPHILS # (AUTO) 5.4 X10'3 (1.8-7.7); NEUTROPHILS % (AUTO) 75.4 % (42-75); RED BLOOD COUNT 4.28 X10'6 (4.70-6.10); RED CELL DISTRIBUTION WIDTH 14.7 % (11.5-14.5); WHITE BLOOD COUNT 7.2 X10'3 (4.5-11.0)
[2020-01-23 19:01] LABS: MEAN PLATELET VOLUME 7.5 FL (7.4-10.4)
[2020-01-23 19:04] LABS: PLATELET COUNT 154 X10'3 (140-440)
--- NOTE | 2020-01-23 19:14 | NUR ---
pt sitting on edge of bed eating dinner. [facility] came and assessed pt and stated they will reassess pt in am due to current etoh level >0.08. pt calm and cooperative, talkitive and interacting with staff appropriately.
--- NOTE | 2020-01-23 19:41 | NUR ---
pt is resting comfortably in bed with no complaints. pt denies any si/sh/hi/avh at this time. pt reports recent loss of support system as pt has had many friends pass away recently. 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 also reports chronic neck and right shoulder pain which has recently been getting worse "probably from getting old." pt reports feeling depressed and lonely as COVID has made him have to isolate at home and has been unable to participate in his normal group activities with his friends.
[2020-01-23] MEDS: apixaban 5mg tablet PO SCH (20:35)
[2020-01-23] MEDS: flecainide 50mg tablet PO SCH (20:35)
[2020-01-23] MEDS: metoprolol succinate 25mg (24-HOUR) SR. Tablet PO SCH (20:36)
[2020-01-23] MEDS: LORazepam 1 MG tablet PO SCH (20:39)
--- NOTE | 2020-01-23 20:50 | NUR ---
spoke with pt sister juana ([phone]) who states that she lives next door to pt and has been acting as caregiver for pt up until 2 weeks ago due to pt becoming verbally aggressive towards her and threatening to hit her. sister states that one of the pt's close friends from [facility] committed suicide 6 months ago and since then pt behavior and affect has changed dramatically. states pt began drinking more than usual, seeing more doctors to obtain more medications, has become verbally aggressive, has not been eating, and pt sister is scared to help pt any more due to his aggression. states they have had multiple caregivers attempt to provide care to pt but have all quit. she reports that pt has multiple loaded guns at his house but has never made any statements of intent to hurt himself or others regarding the guns. sister said she is availble for calls to provide information if necessary
[2020-01-23] MEDS ORDERED: atorvastatin 20mg tablet PO SCH (21:00)
[2020-01-23] MEDS: budesonide 0.5mg/2ml UD nebule IH SCH (21:15)
[2020-01-23 21:31] LABS: CLARITY,URINE CLEAR (Clear); GLUCOSE, URINE NEGATIVE (Neg); KETONES,URINE TRACE mg/dl (Neg); LEUKOCYTE ESTERASE ,URINE NEGATIVE (Neg); NITRITES, URINE NEGATIVE (Neg); OCCULT BLOOD,URINE TRACE-INTACT (Neg); PROTEIN,URINE 100 mg/dl (Neg)
[2020-01-23 21:32] LABS: COLOR,URINE Amber (Yellow); UA COLLECTION TYPE VOIDED
[2020-01-23 21:41] LABS: BACTERIA,URINE FEW /HPF (Neg); MUCUS STRANDS MANY /LPF (Neg); RBC,URINE 0-2 /HPF (0-2); SQUAMOUS EPITHELIAL CELL,UR MODERATE /LPF (FEW)
[2020-01-23 21:42] LABS: FINE GRANULAR CAST 0-3 /LPF (NEGATIVE); WBC,URINE 0-4 /HPF (0-4)
[2020-01-23 22:23] LABS: URINE AMPHETAMINE SCREEN NEGATIVE (Neg); URINE BARBITUATE SCREEN NEGATIVE (Neg); URINE BENZODIAZEPINES SCREEN NEGATIVE (Neg); URINE CANNABINOID SCREEN POSITIVE (Neg); URINE COCAINE SCREEN NEGATIVE (Neg); URINE METHADONE SCREEN NEGATIVE (Neg); URINE OPIATE SCREEN POSITIVE (Neg); URINE PHENCYCLIDINE SCREEN NEGATIVE (Neg)
--- NOTE | 2020-01-23 23:56 | NUR ---
PATIENT MOVED OVER FROM OVERFLOW TO BED # 10 DUE TO STAFF SHORTAGE
[2020-01-24] MEDS ORDERED: multivitamins, therapeutics tablet PO SCH (08:00)
[2020-01-24] MEDS ORDERED: sertraline 25mg tablet PO SCH (08:00)
[2020-01-24] MEDS ORDERED: ipratropium 0.5 MG/2.5ML nebule NEB PRN (08:00)
[2020-01-24] MEDS ORDERED: folic acid 1mg tablet PO SCH (08:00)
[2020-01-24] MEDS ORDERED: thiamine 100mg tablet PO SCH (08:00)
[2020-01-24] MEDS: metoprolol succinate 25mg (24-HOUR) SR. Tablet PO SCH (08:29)
[2020-01-24] MEDS: LORazepam 1 MG tablet PO SCH (08:29)
[2020-01-24] MEDS: apixaban 5mg tablet PO SCH (08:32)
[2020-01-24] MEDS: flecainide 50mg tablet PO SCH (08:32)
[2020-01-24] MEDS ORDERED: ondansetron 4mg rapidly disintigrating tab PO ONE (08:40)
--- NOTE | 2020-01-24 08:40 | NUR ---
[facility] bedside beginning psychosocial assessment. Discussed pt' nausea w/ edmd baehr; new order for Zofran odt received.
--- NOTE | 2020-01-24 09:20 | NUR ---
BEDSIDE REPORT FROM LIANA DELGADILLO PATIENT MOVED TO ER OVERFLOW ROOM 24 PER MENTAL TESTER. PATIENT DENIES SI/HI.
--- NOTE | 2020-01-24 09:21 | NUR ---
RILEY MOVED TO ROOM 24 IN HIS BED
--- NOTE | 2020-01-24 10:00 | NUR ---
[facility] IN ROOM WITH PATIENT. AND PATIENT IS OK TO GO HOME. PATIENT'S FRIEND JENNIFER [phone] TOLD [facility] THAT HE WILL TAKE ALL OF THE PATIENTS GUNS FROM HIS HOME TODAY.
--- NOTE | 2020-01-24 10:15 | NUR ---
CALLED PATIENT'S CAREGIVER CELESTINO AND LEFT MESSAGE [phone]
--- NOTE | 2020-01-24 10:35 | NUR ---
PAGED RESPIRATORY TO ADMINISTER PATIENT NEBULIZER CAITLIN STATES THAT "I WOULD FEEL BETTER AFTER" A NEBULIZER
--- NOTE | 2020-01-24 11:00 | NUR ---
PATIENT ORIENTED X 4, DENIES HI/SI. AFFECT FLAT, PATIENT IS EAGER TO GO HOME.
[2020-01-24] MEDS: budesonide 0.5mg/2ml UD nebule IH SCH (11:04)
--- NOTE | 2020-01-24 11:12 | NUR ---
SPOKE WITH MD JOAQUIN ABOUT PATIENT'S TREMORS. MD WILL SEE PATIENT PRIOR TO DISCHARGE. RESPIRATORY TREATMENT IN PROGRESS
[2020-01-24] MEDS ORDERED: LORazepam 1 MG tablet PO ONE (11:15)
--- NOTE | 2020-01-24 11:28 | NUR ---
Dr. Dawn at bedside,passed gait test,ambulated 60 feet using personal cane.
--- NOTE | 2020-01-24 11:32 | NUR ---
called [facility] cab,spoke to Daily,30-minute eta.
[2020-01-24 11:46] VITALS: BP 145/82
== END 2020-01-24 11:42 ==
LOC: ER 15:22
DX: F41.9 Anxiety disorder, unspecified (principal); F43.10 Post-traumatic stress disorder, unspecified; F32.9 Major depressive disorder, single episode, unspecified; M54.5 Low back pain; G89.29 Other chronic pain; I48.91 Unspecified atrial fibrillation; I10 Essential (primary) hypertension; E78.00 Pure hypercholesterolemia, unspecified; J44.9 Chronic obstructive pulmonary disease, unspecified; Z86.2 Personal history of diseases of the blood and blood-forming organs and certain disorders involving the immune mechanism; Z85.038 Personal history of other malignant neoplasm of large intestine; Z88.8 Allergy status to other drugs, medicaments and biological substances; Z79.899 Other long term (current) drug therapy
CPT/HCPCS: 36415; 80053; 80305; 80320; 81001; 84443; 85025; 94640; 94760; 99285; J7626

== ENCOUNTER 2020-04-25 12:31 | Emergency (ER) | payer OTHER, MEDICARE, BC ==
[~2020-04-25] VITALS: Ht 185.4 cm; Wt 90.9 kg
[~2020-04-25 12:31] MED LIST changes: -ATI1T PO; +ESOM40CA54 PO; +FOLI0.4T14 PO; +MULT-1074 PO; -MULT-25 PO; -ONDA4TAB6 PO; +THIA100T70 PO; -folic acid tablet PO; -thiamine tablet PO
[2020-04-25] MEDS ORDERED: ROSU20TA2 PO (13:03)
[2020-04-25 13:17] LABS: ALANINE AMINOTRANSFERASE 47 U/L (12-78); ALBUMIN 3.3 G/DL (3.4-5.0); ALBUMIN/GLOBULIN RATIO 0.9 (1.1-1.5); ALKALINE PHOSPHATASE 489 IU/L (46-116); ANION GAP 15 (8-16); ASPARTATE AMINO TRANSFERASE 146 U/L (10-37); BILIRUBIN,TOTAL 2.8 MG/DL (0.1-1.0); BLOOD UREA NITROGEN 17 MG/DL (7-18); CALCIUM 8.5 MG/DL (8.5-10.1); CHLORIDE 102 MMOL/L (99-107); CREATININE 1.06 MG/DL (0.60-1.10); GLUCOSE 95 MG/DL (70-104); POTASSIUM 3.1 MMOL/L (3.5-5.1); SODIUM 138 MMOL/L (135-145); TOTAL CARBON DIOXIDE 21.1 MMOL/L (24-32); eGFR 67 ML/MIN
[2020-04-25 13:26] LABS: BASOPHILS # (AUTO) 0.1 X10'3 (0-0.2); BASOPHILS % (AUTO) 0.9 % (0-1); EOSINOPHILS # (AUTO) 0.1 X10'3 (0-0.9); EOSINOPHILS % (AUTO) 0.7 % (0-6); HEMATOCRIT 40.6 % (42.0-52.0); HEMOGLOBIN 13.9 g/dl (14.0-17.9); LYMPHOCYTES # (AUTO) 1.7 X10'3 (1.1-4.8); LYMPHOCYTES % (AUTO) 22.5 % (21-51); MEAN CORPUSCULAR HEMOGLOBIN 33.5 PG (27.0-31.0); MEAN CORPUSCULAR HGB CONC 34.1 g/dL (33.0-36.5); MEAN CORPUSCULAR VOLUME 98.2 FL (78-98); MONOCYTES # (AUTO) 0.6 X10'3 (0-0.9); MONOCYTES % (AUTO) 7.7 % (2-12); NEUTROPHILS # (AUTO) 5.1 X10'3 (1.8-7.7); NEUTROPHILS % (AUTO) 68.2 % (42-75); RED BLOOD COUNT 4.14 X10'6 (4.70-6.10); RED CELL DISTRIBUTION WIDTH 14.6 % (11.5-14.5); WHITE BLOOD COUNT 7.5 X10'3 (4.5-11.0)
[2020-04-25 13:28] LABS: MEAN PLATELET VOLUME 8.3 FL (7.4-10.4); PLATELET COUNT 122 X10'3 (140-440)
[2020-04-25 13:30] VITALS: BP 120/69
[2020-04-25 13:54] LABS: TROPONIN I < 0.04 NG/ML (0.0-0.05)
== END 2020-04-25 14:23 | disposition home or self-care (01) ==
LOC: ER 12:32
DX: R19.7 Diarrhea, unspecified (principal); R53.1 Weakness; R06.02 Shortness of breath; E78.00 Pure hypercholesterolemia, unspecified; I10 Essential (primary) hypertension; J44.9 Chronic obstructive pulmonary disease, unspecified; I48.91 Unspecified atrial fibrillation; F41.9 Anxiety disorder, unspecified; F32.9 Major depressive disorder, single episode, unspecified; F10.10 Alcohol abuse, uncomplicated; Z86.2 Personal history of diseases of the blood and blood-forming organs and certain disorders involving the immune mechanism; Z90.49 Acquired absence of other specified parts of digestive tract; Z95.0 Presence of cardiac pacemaker; Z85.038 Personal history of other malignant neoplasm of large intestine; Z88.8 Allergy status to other drugs, medicaments and biological substances; Z79.01 Long term (current) use of anticoagulants; Z79.899 Other long term (current) drug therapy; Y90.9 Presence of alcohol in blood, level not specified
CPT/HCPCS: 36415; 71045; 80053; 83880; 84484; 85025; 85610; 93005; 99285

== ENCOUNTER 2020-05-29 00:19 | Emergency (ER) | payer OTHER, MEDICARE, BC ==
[~2020-05-29] VITALS: Ht 188 cm; Wt 91.2 kg
[~2020-05-29 00:19] MED LIST changes: -ATOR80TA PO; +ROSU20TA2 PO
[2020-05-29 02:00] LABS: ALANINE AMINOTRANSFERASE 48 U/L (12-78); ALBUMIN 3.1 G/DL (3.4-5.0); ALBUMIN/GLOBULIN RATIO 0.8 (1.1-1.5); ALKALINE PHOSPHATASE 533 IU/L (46-116); ANION GAP 15 (8-16); ASPARTATE AMINO TRANSFERASE 157 U/L (10-37); BILIRUBIN,TOTAL 1.1 MG/DL (0.1-1.0); BLOOD UREA NITROGEN 11 MG/DL (7-18); BUN/CREATININE RATIO 10.9 (5.4-32.0); CALCIUM 8.2 MG/DL (8.5-10.1); CHLORIDE 103 MMOL/L (99-107); CREATININE 1.01 MG/DL (0.60-1.10); GLUCOSE 97 MG/DL (70-104); POTASSIUM 3.1 MMOL/L (3.5-5.1); SODIUM 141 MMOL/L (135-145); TOTAL CARBON DIOXIDE 22.6 MMOL/L (24-32); eGFR 71 ML/MIN
[2020-05-29 02:03] LABS: TROPONIN I < 0.04 NG/ML (0.0-0.05)
[2020-05-29 03:16] LABS: BASOPHILS # (AUTO) 0.1 X10'3 (0-0.2); EOSINOPHILS # (AUTO) 0.1 X10'3 (0-0.9); LYMPHOCYTES # (AUTO) 1.9 X10'3 (1.1-4.8); RED BLOOD COUNT 4.04 X10'6 (4.70-6.10)
[2020-05-29 03:17] LABS: BASOPHILS % (AUTO) 0.7 % (0-1); HEMATOCRIT 39.9 % (42.0-52.0); HEMOGLOBIN 13.7 g/dl (14.0-17.9); LYMPHOCYTES % (AUTO) 21.6 % (21-51); MEAN CORPUSCULAR HEMOGLOBIN 33.9 PG (27.0-31.0); MEAN CORPUSCULAR HGB CONC 34.2 g/dL (33.0-36.5); MEAN PLATELET VOLUME 10.4 FL (7.4-10.4); MONOCYTES # (AUTO) 0.9 X10'3 (0-0.9); NEUTROPHILS % (AUTO) 66.7 % (42-75); RED CELL DISTRIBUTION WIDTH 15.1 % (11.5-14.5)
[2020-05-29 03:24] LABS: PLATELET COUNT 202 X10'3 (140-440)
--- NOTE | 2020-05-29 05:10 | NUR ---
Called Pt sister, Daphne, no answer at this time.
--- NOTE | 2020-05-29 05:11 | NUR ---
Pt showed he could safely ambulate down the [place] and back.
[2020-05-29 05:51] VITALS: BP 134/78
--- NOTE | 2020-05-29 05:57 | NUR ---
Called Pt's sister to come get him. No answer, left a message.
--- NOTE | 2020-05-29 06:17 | NUR ---
Pt sister Daphne states she does not want to come get him becuase he is violent with her because she is hard on him about his drinking. She states she will call his friends and call us back in 15 minutes.
--- NOTE | 2020-05-29 06:33 | NUR ---
pt daughter called back stated there is no one to pick him up. pt wants us to call a taxi for him. taxi called 30 min eta.
== END 2020-05-29 07:12 | disposition home or self-care (01) ==
LOC: ER 00:20
DX: S09.90XA Unspecified injury of head, initial encounter (principal); S60.511A Abrasion of right hand, initial encounter; S80.211A Abrasion, right knee, initial encounter; F10.129 Alcohol abuse with intoxication, unspecified; I48.91 Unspecified atrial fibrillation; E78.00 Pure hypercholesterolemia, unspecified; I10 Essential (primary) hypertension; J44.9 Chronic obstructive pulmonary disease, unspecified; F41.9 Anxiety disorder, unspecified; F32.9 Major depressive disorder, single episode, unspecified; Z86.2 Personal history of diseases of the blood and blood-forming organs and certain disorders involving the immune mechanism; Z87.01 Personal history of pneumonia (recurrent); Z85.038 Personal history of other malignant neoplasm of large intestine; Z90.89 Acquired absence of other organs; Z95.0 Presence of cardiac pacemaker; Z98.890 Other specified postprocedural states; Z72.89 Other problems related to lifestyle; Z88.8 Allergy status to other drugs, medicaments and biological substances; Z79.899 Other long term (current) drug therapy; W19.XXXA Unspecified fall, initial encounter; Y93.89 Activity, other specified; Y92.89 Other specified places as the place of occurrence of the external cause; Y99.8 Other external cause status; Y90.0 Blood alcohol level of less than 20 mg/100 ml
CPT/HCPCS: 36415; 70450; 72125; 80053; 80320; 82948; 84484; 85025; 93005; 99285

== ENCOUNTER 2020-06-04 09:49 | Emergency (ER) | payer OTHER, MEDICARE, BC ==
[~2020-06-04] VITALS: Ht 185.4 cm; Wt 90.9 kg
[2020-06-04] MEDS ORDERED: gabapentin 300mg capsule PO ONE (11:55)
[2020-06-04] MEDS ORDERED: GABA300C PO (12:01)
[2020-06-04 12:22] VITALS: BP 145/79
== END 2020-06-04 12:25 | disposition home or self-care (01) ==
LOC: ER 09:50
DX: F10.239 Alcohol dependence with withdrawal, unspecified (principal); I48.91 Unspecified atrial fibrillation; E78.00 Pure hypercholesterolemia, unspecified; I10 Essential (primary) hypertension; J44.9 Chronic obstructive pulmonary disease, unspecified; R42 Dizziness and giddiness; F32.9 Major depressive disorder, single episode, unspecified; F41.9 Anxiety disorder, unspecified; Z86.2 Personal history of diseases of the blood and blood-forming organs and certain disorders involving the immune mechanism; Z90.49 Acquired absence of other specified parts of digestive tract; Z90.89 Acquired absence of other organs; Z95.0 Presence of cardiac pacemaker; Z98.890 Other specified postprocedural states; Z85.038 Personal history of other malignant neoplasm of large intestine; Z88.8 Allergy status to other drugs, medicaments and biological substances; Z79.01 Long term (current) use of anticoagulants; Z79.899 Other long term (current) drug therapy; Y90.9 Presence of alcohol in blood, level not specified
CPT/HCPCS: 99284

== ENCOUNTER 2020-06-20 11:54 | Emergency (ER) | payer OTHER, MEDICARE, BC ==
[~2020-06-20] VITALS: Ht 185.4 cm; Wt 90.9 kg
[~2020-06-20 11:54] MED LIST changes: +GABA300C PO
[2020-06-20] MEDS ORDERED: pantoprazole 40 MG vial IV ONE (12:40)
[2020-06-20] MEDS ORDERED: diazepam inj 5 MG/ML inj. IV ONE ×2 (12:45→14:15)
[2020-06-20 13:23] LABS: BASOPHILS % (AUTO) 0.2 % (0-1); EOSINOPHILS % (AUTO) 0.1 % (0-6); HEMATOCRIT 42.2 % (42.0-52.0); HEMOGLOBIN 14.1 g/dl (14.0-17.9); LYMPHOCYTES # (AUTO) 0.4 X10'3 (1.1-4.8); LYMPHOCYTES % (AUTO) 5.1 % (21-51); MEAN CORPUSCULAR HEMOGLOBIN 33.1 PG (27.0-31.0); MEAN CORPUSCULAR HGB CONC 33.4 g/dL (33.0-36.5); MEAN CORPUSCULAR VOLUME 98.9 FL (78-98); MONOCYTES # (AUTO) 0.4 X10'3 (0-0.9); MONOCYTES % (AUTO) 4.9 % (2-12); NEUTROPHILS # (AUTO) 7.5 X10'3 (1.8-7.7); NEUTROPHILS % (AUTO) 89.7 % (42-75); RED BLOOD COUNT 4.27 X10'6 (4.70-6.10); RED CELL DISTRIBUTION WIDTH 15.4 % (11.5-14.5); WHITE BLOOD COUNT 8.3 X10'3 (4.5-11.0)
[2020-06-20 13:25] LABS: MEAN PLATELET VOLUME 8.8 FL (7.4-10.4); PLATELET COUNT 205 X10'3 (140-440)
[2020-06-20 13:31] LABS: ALANINE AMINOTRANSFERASE 38 U/L (12-78); ALBUMIN 3.4 G/DL (3.4-5.0); ALBUMIN/GLOBULIN RATIO 0.9 (1.1-1.5); ALKALINE PHOSPHATASE 449 IU/L (46-116); ANION GAP 14 (8-16); ASPARTATE AMINO TRANSFERASE 84 U/L (10-37); BLOOD UREA NITROGEN 14 MG/DL (7-18); CALCIUM 8.9 MG/DL (8.5-10.1); CHLORIDE 101 MMOL/L (99-107); CREATININE 1.08 MG/DL (0.60-1.10); GLUCOSE 116 MG/DL (70-104); LIPASE 106 U/L (73-393); SODIUM 139 MMOL/L (135-145); TOTAL CARBON DIOXIDE 23.8 MMOL/L (24-32); TOTAL PROTEIN 7.3 G/DL (6.4-8.2); eGFR 66 ML/MIN
[2020-06-20 13:33] LABS: ETHANOL < 0.010 GM/DL (0.0-0.010); POTASSIUM 4.1 MMOL/L (3.5-5.1)
--- NOTE | 2020-06-20 13:38 | NUR ---
PATIENT UP TO BEDSIDE COMMODE AT THIS TIME, 1 PERSON STANDBY ASSIST NEEDED, PATIENT MALLY, UNABLE TO PROVIDE UA SAMPLE, SAFELY TRANSFERED INDEPENDENTLY BACK TO BED.
[2020-06-20] MEDS ORDERED: CHLO25CA10 PO (17:39)
[2020-06-20 17:49] VITALS: BP 139/72
== END 2020-06-20 17:50 | disposition home or self-care (01) ==
LOC: ER 11:55
DX: F10.239 Alcohol dependence with withdrawal, unspecified (principal); R53.1 Weakness; I48.91 Unspecified atrial fibrillation; E78.00 Pure hypercholesterolemia, unspecified; I10 Essential (primary) hypertension; J44.9 Chronic obstructive pulmonary disease, unspecified; F41.9 Anxiety disorder, unspecified; F32.9 Major depressive disorder, single episode, unspecified; Z87.01 Personal history of pneumonia (recurrent); Z86.2 Personal history of diseases of the blood and blood-forming organs and certain disorders involving the immune mechanism; Z85.038 Personal history of other malignant neoplasm of large intestine; Z90.89 Acquired absence of other organs; Z95.0 Presence of cardiac pacemaker; Z98.890 Other specified postprocedural states; Z72.89 Other problems related to lifestyle; Z88.8 Allergy status to other drugs, medicaments and biological substances; Z79.899 Other long term (current) drug therapy; Y90.0 Blood alcohol level of less than 20 mg/100 ml
CPT/HCPCS: 36415; 71045; 80053; 80320; 82140; 83690; 84484; 85025; 85610; 96374; 96375; 96376; 99285; C9113; J3360

== ENCOUNTER 2020-06-30 08:24 | Emergency (ER) | payer OTHER, MEDICARE, BC ==
[~2020-06-30] VITALS: Ht 182.9 cm; Wt 100.0 kg
[~2020-06-30 08:24] MED LIST changes: +CHLO25CA10 PO
[2020-06-30 09:36] LABS: BASOPHILS % (AUTO) 0.5 % (0-1); EOSINOPHILS # (AUTO) 0.2 X10'3 (0-0.9); HEMATOCRIT 40.5 % (42.0-52.0); HEMOGLOBIN 13.4 g/dl (14.0-17.9); LYMPHOCYTES # (AUTO) 1.5 X10'3 (1.1-4.8); LYMPHOCYTES % (AUTO) 19.4 % (21-51); MEAN CORPUSCULAR HEMOGLOBIN 33.4 PG (27.0-31.0); MONOCYTES # (AUTO) 0.8 X10'3 (0-0.9); NEUTROPHILS % (AUTO) 66.1 % (42-75); RED CELL DISTRIBUTION WIDTH 15.9 % (11.5-14.5); WHITE BLOOD COUNT 7.6 X10'3 (4.5-11.0)
[2020-06-30 09:43] LABS: PARTIAL THROMBOPLASTIN TIME 32 SECONDS (22-32)
[2020-06-30 09:45] LABS: ALANINE AMINOTRANSFERASE 33 U/L (12-78); ALBUMIN 3.3 G/DL (3.4-5.0); ALBUMIN/GLOBULIN RATIO 0.8 (1.1-1.5); ALKALINE PHOSPHATASE 273 IU/L (46-116); ANION GAP 12 (8-16); ASPARTATE AMINO TRANSFERASE 70 U/L (10-37); BLOOD UREA NITROGEN 17 MG/DL (7-18); BUN/CREATININE RATIO 18.3 (5.4-32.0); CHLORIDE 105 MMOL/L (99-107); CREATININE 0.93 MG/DL (0.60-1.10); GLUCOSE 100 MG/DL (70-104); POTASSIUM 3.6 MMOL/L (3.5-5.1); SODIUM 141 MMOL/L (135-145); TOTAL CARBON DIOXIDE 24.3 MMOL/L (24-32); TOTAL PROTEIN 7.3 G/DL (6.4-8.2); eGFR 78 ML/MIN
[2020-06-30 09:53] LABS: ETHANOL 0.134 GM/DL (0.0-0.010)
[2020-06-30 10:47] VITALS: BP 118/76
== END 2020-06-30 10:50 | disposition home or self-care (01) ==
LOC: ER 08:25
DX: M25.552 Pain in left hip (principal); M54.5 Low back pain; R42 Dizziness and giddiness; R22.43 Localized swelling, mass and lump, lower limb, bilateral; I48.91 Unspecified atrial fibrillation; E78.00 Pure hypercholesterolemia, unspecified; I10 Essential (primary) hypertension; J44.9 Chronic obstructive pulmonary disease, unspecified; Z85.038 Personal history of other malignant neoplasm of large intestine; Z86.2 Personal history of diseases of the blood and blood-forming organs and certain disorders involving the immune mechanism; Z87.01 Personal history of pneumonia (recurrent); Z90.49 Acquired absence of other specified parts of digestive tract; Z79.899 Other long term (current) drug therapy; Z95.5 Presence of coronary angioplasty implant and graft; Z98.890 Other specified postprocedural states; Z88.8 Allergy status to other drugs, medicaments and biological substances; W19.XXXA Unspecified fall, initial encounter; Y93.89 Activity, other specified; Y92.89 Other specified places as the place of occurrence of the external cause; Y99.8 Other external cause status
CPT/HCPCS: 36415; 71045; 73502; 80053; 80320; 83735; 83880; 84484; 85025; 85610; 85730; 93005; 99285

== ENCOUNTER 2020-07-28 14:22 | Emergency (ER) | payer OTHER, MEDICARE, BC ==
[~2020-07-28] VITALS: Ht 185.4 cm; Wt 100.0 kg
[2020-07-28 14:24] VITALS: BP 120/59
[2020-07-28 15:27] LABS: BASOPHILS # (AUTO) 0.1 X10'3 (0-0.2); EOSINOPHILS # (AUTO) 0.1 X10'3 (0-0.9); EOSINOPHILS % (AUTO) 0.6 % (0-6); HEMOGLOBIN 12.1 g/dl (14.0-17.9); LYMPHOCYTES # (AUTO) 1.1 X10'3 (1.1-4.8); LYMPHOCYTES % (AUTO) 13.3 % (21-51); MEAN CORPUSCULAR HEMOGLOBIN 32.9 PG (27.0-31.0); MEAN CORPUSCULAR HGB CONC 33.5 g/dL (33.0-36.5); MEAN CORPUSCULAR VOLUME 98.2 FL (78-98); MEAN PLATELET VOLUME 11.1 FL (7.4-10.4); MONOCYTES # (AUTO) 1.1 X10'3 (0-0.9); MONOCYTES % (AUTO) 13.1 % (2-12); NEUTROPHILS # (AUTO) 6.2 X10'3 (1.8-7.7); RED BLOOD COUNT 3.67 X10'6 (4.70-6.10); RED CELL DISTRIBUTION WIDTH 14.6 % (11.5-14.5); WHITE BLOOD COUNT 8.6 X10'3 (4.5-11.0)
[2020-07-28 15:45] LABS: ALANINE AMINOTRANSFERASE 30 U/L (12-78); ALBUMIN 3.3 G/DL (3.4-5.0); ALBUMIN/GLOBULIN RATIO 0.8 (1.1-1.5); ALKALINE PHOSPHATASE 282 IU/L (46-116); ANION GAP 9 (8-16); ASPARTATE AMINO TRANSFERASE 62 U/L (10-37); BILIRUBIN,TOTAL 1.9 MG/DL (0.1-1.0); BLOOD UREA NITROGEN 18 MG/DL (7-18); CALCIUM 8.5 MG/DL (8.5-10.1); CHLORIDE 101 MMOL/L (99-107); CREATININE 1.29 MG/DL (0.60-1.10); GLUCOSE 109 MG/DL (70-104); POTASSIUM 3.9 MMOL/L (3.5-5.1); SODIUM 139 MMOL/L (135-145); TOTAL CARBON DIOXIDE 29.4 MMOL/L (24-32); TOTAL PROTEIN 7.2 G/DL (6.4-8.2); eGFR 54 ML/MIN
[2020-07-28 15:47] LABS: ETHANOL < 0.010 GM/DL (0.0-0.010); LIPASE 151 U/L (73-393)
[2020-07-28 15:53] LABS: LARGE PLATELETS FEW
[2020-07-28 15:59] LABS: PLATELET COUNT 190 X10'3 (140-440)
[2020-07-28 16:00] LABS: PLATELET ESTIMATE NORMAL
== END 2020-07-28 16:28 | disposition home or self-care (01) ==
LOC: ER 14:23
DX: F10.20 Alcohol dependence, uncomplicated (principal); K70.30 Alcoholic cirrhosis of liver without ascites; I50.9 Heart failure, unspecified; S41.111D Laceration without foreign body of right upper arm, subsequent encounter; I48.91 Unspecified atrial fibrillation; E78.00 Pure hypercholesterolemia, unspecified; I11.0 Hypertensive heart disease with heart failure; J44.9 Chronic obstructive pulmonary disease, unspecified; Z85.038 Personal history of other malignant neoplasm of large intestine; Z90.49 Acquired absence of other specified parts of digestive tract; Z79.899 Other long term (current) drug therapy; Z95.5 Presence of coronary angioplasty implant and graft; Z72.89 Other problems related to lifestyle; Z87.01 Personal history of pneumonia (recurrent); Z88.8 Allergy status to other drugs, medicaments and biological substances; Y90.5 Blood alcohol level of 100-119 mg/100 ml; W19.XXXD Unspecified fall, subsequent encounter
CPT/HCPCS: 36415; 71045; 80053; 80320; 83690; 83880; 85008; 85025; 99284

== ENCOUNTER 2020-08-31 09:53 | Inpatient (IN) | payer OTHER, MEDICARE, BC ==
[~2020-08-31] VITALS: Ht 175.3 cm; Wt 109.1 kg
[~2020-08-31 09:53] MED LIST changes: +AMIT50TA3 PO; +CEFD300C3 PO; -CHLO25CA10 PO; +CHOL10006 PO; +CLON0.1T51 PO; +CYAN-51 PO; -ESOM40CA54 PO; +FURO40TA4 PO; +HYDR50TA65 PO; +LORA-268 PO; -LORA-269 PO; +NALT50TA PO; +PANT40TA54 PO; +POLY1DRO2 OP; +POTA10TA36 PO; -SERT25TA PO
[2020-08-31] MEDS ORDERED: HYDROcodone/acetaminophen 5mg/325mg tablet PO ONE (10:25)
[2020-08-31] MEDS ORDERED: ondansetron 4mg rapidly disintigrating tab PO ONE (10:25)
[2020-08-31] MEDS ORDERED: normal saline 1000ML IV soln IVB ONE (11:10)
--- NOTE | 2020-08-31 11:11 | NUR ---
DR MERA MADE AWARE PATIENT UNABLE TO GET UP TO BEDSIDE COMMODE ON OWN, PAT IS TWO PERSON ASSIST.
[2020-08-31 11:58] LABS: MEAN CORPUSCULAR HGB CONC 33.2 g/dL (33.0-36.5); WHITE BLOOD COUNT 8.1 X10'3 (4.5-11.0)
[2020-08-31 11:59] LABS: BASOPHILS # (AUTO) 0.1 X10'3 (0-0.2); EOSINOPHILS # (AUTO) 0.1 X10'3 (0-0.9); EOSINOPHILS % (AUTO) 0.9 % (0-6); HEMATOCRIT 42.6 % (42.0-52.0); HEMOGLOBIN 14.2 g/dl (14.0-17.9); LYMPHOCYTES # (AUTO) 1.2 X10'3 (1.1-4.8); MEAN CORPUSCULAR HEMOGLOBIN 31.4 PG (27.0-31.0); MEAN CORPUSCULAR VOLUME 94.6 FL (78-98); MONOCYTES # (AUTO) 0.5 X10'3 (0-0.9); MONOCYTES % (AUTO) 5.9 % (2-12); NEUTROPHILS # (AUTO) 6.2 X10'3 (1.8-7.7); NEUTROPHILS % (AUTO) 77.2 % (42-75); RED BLOOD COUNT 4.51 X10'6 (4.70-6.10); RED CELL DISTRIBUTION WIDTH 15.3 % (11.5-14.5)
[2020-08-31 12:07] LABS: PLATELET COUNT 243 X10'3 (140-440)
[2020-08-31 12:17] LABS: ALANINE AMINOTRANSFERASE 46 U/L (12-78); ALBUMIN 3.7 G/DL (3.4-5.0); ALBUMIN/GLOBULIN RATIO 0.9 (1.1-1.5); ALKALINE PHOSPHATASE 399 IU/L (46-116); ANION GAP 17 (8-16); ASPARTATE AMINO TRANSFERASE 94 U/L (10-37); BLOOD UREA NITROGEN 12 MG/DL (7-18); BUN/CREATININE RATIO 8.3 (5.4-32.0); CALCIUM 8.7 MG/DL (8.5-10.1); CHLORIDE 100 MMOL/L (99-107); CREATININE 1.44 MG/DL (0.60-1.10); GLUCOSE 103 MG/DL (70-104); POTASSIUM 3.3 MMOL/L (3.5-5.1); SODIUM 140 MMOL/L (135-145); TOTAL CARBON DIOXIDE 22.9 MMOL/L (24-32); TOTAL PROTEIN 7.9 G/DL (6.4-8.2); eGFR 47 ML/MIN
[2020-08-31 13:19] LABS: ETHANOL 0.161 GM/DL (0.0-0.010)
[2020-08-31] MEDS ORDERED: haloperidol 5mg tablet PO PRN (13:30)
[2020-08-31] MEDS ORDERED: LORazepam 2 mg/ml vial IV PRN (13:30)
[2020-08-31] MEDS ORDERED: haloperidol lactate 5mg/ml inj IM PRN (13:30)
[2020-08-31] MEDS ORDERED: magnesium 4gm in 100ml NS 100 ML IV PRN (13:35)
[2020-08-31] MEDS ORDERED: docusate sod 100mg capsule PO PRN (13:35)
[2020-08-31] MEDS ORDERED: acetaminophen 325mg tablet PO PRN (13:35)
[2020-08-31] MEDS ORDERED: potassium Cl 40MEQ/1/2NS 520ml 520 ML IV PRN ×2 (13:35)
[2020-08-31] MEDS ORDERED: ondansetron/PF 4mg/2ml inj IV PRN (13:35)
[2020-08-31] MEDS ORDERED: potassium Cl 20 mEq SR tablet PO PRN (13:35)
[2020-08-31] MEDS ORDERED: albuterol 2.5 MG/3 ML nebule NEB PRN ×2 (13:35→14:35)
[2020-08-31] MEDS ORDERED: magnesium 2GM in 50ml NS 50 ML IV PRN (13:35)
[2020-08-31] MEDS ORDERED: ipratropium/albuterol 3ml nebule NEB PRN (13:35)
[2020-08-31] MEDS ORDERED: PEG 400/HYPROMELLOSE/GLYCERIN 15ml bottle EACHEYE PRN (14:15)
[2020-08-31] MEDS ORDERED: hydrOXYzine 25 MG tablet PO PRN (14:15)
[2020-08-31] MEDS ORDERED: cloNIDine 0.1 mg tablet PO PRN (14:15)
[2020-08-31] MEDS ORDERED: POVIDONE OP PRN (14:15)
[2020-08-31] MEDS ORDERED: amitriptyline 50mg tablet PO PRN (14:15)
[2020-08-31] MEDS ORDERED: POLYVINYL ALCOHOL OP PRN (14:15)
[2020-08-31] MEDS: albuterol 2.5 MG/3 ML nebule NEB SCH ×2 (15:57→21:19)
[2020-08-31] MEDS: gabapentin 300mg capsule PO SCH ×2 (16:57→23:58)
[2020-08-31] MEDS: K and/or MAG REPLACEMENT MC SCH (20:00)
[2020-08-31] MEDS ORDERED: non-formulary drug (Budesonide/Formoterol Fumarate (Symbicort 160-4.5 Mcg Inhaler) 2 PUFFS INH SCH (20:00)
[2020-08-31] MEDS ORDERED: furosemide 40mg tablet PO SCH (20:00)
[2020-08-31] MEDS: cholecalciferol (vitamin D3) 1,000 unit (25mcg) tablet PO SCH (20:20)
[2020-08-31] MEDS: metoprolol succinate 25mg (24-HOUR) SR. Tablet PO SCH (20:20)
[2020-08-31] MEDS: flecainide 50mg tablet PO SCH (20:21)
[2020-08-31] MEDS: enoxaparin 40mg/0.4ml syringe SQ SCH (20:22)
[2020-08-31] MEDS: budesonide 0.5mg/2ml UD nebule IH SCH (21:19)
[2020-09-01] MEDS: albuterol 2.5 MG/3 ML nebule NEB SCH ×4 (02:10→21:39)
[2020-09-01 07:53] LABS: ALANINE AMINOTRANSFERASE 32 U/L (12-78); ALBUMIN 3.1 G/DL (3.4-5.0); ALBUMIN/GLOBULIN RATIO 0.8 (1.1-1.5); ALKALINE PHOSPHATASE 329 IU/L (46-116); AMYLASE 33 U/L (25-115); ANION GAP 11 (8-16); ASPARTATE AMINO TRANSFERASE 55 U/L (10-37); BILIRUBIN,TOTAL 1.6 MG/DL (0.1-1.0); BLOOD UREA NITROGEN 15 MG/DL (7-18); BUN/CREATININE RATIO 11.7 (5.4-32.0); CALCIUM 8.1 MG/DL (8.5-10.1); CHLORIDE 103 MMOL/L (99-107); CREATININE 1.28 MG/DL (0.60-1.10); GLUCOSE 94 MG/DL (70-104); LIPASE 97 U/L (73-393); MAGNESIUM 1.6 MG/DL (1.5-2.4); PHOSPHORUS 3.7 MG/DL (2.3-4.5); SODIUM 140 MMOL/L (135-145); TOTAL CARBON DIOXIDE 26.4 MMOL/L (24-32); TOTAL PROTEIN 6.8 G/DL (6.4-8.2); eGFR 54 ML/MIN
[2020-09-01 08:00] VITALS: BP 127/60
[2020-09-01] MEDS: K and/or MAG REPLACEMENT MC SCH ×2 (08:00→20:00)
[2020-09-01] MEDS ORDERED: non-formulary drug (Thiamine Mononitrate (Vitamin B-1) 1 TAB) PO SCH (08:00)
[2020-09-01] MEDS ORDERED: multivitamins, therapeutics tablet PO SCH (08:00)
[2020-09-01] MEDS ORDERED: folic acid 1mg tablet PO SCH (08:00)
[2020-09-01 08:05] LABS: POTASSIUM 2.8 MMOL/L (3.5-5.1)
--- NOTE | 2020-09-01 08:08 | NUR ---
Page Sent PAGER ID: [phone] MESSAGE: Rica Montanez [phone] Regarding 4020a, Pepito Nicolas K+ 2.8. Will replace per protocol.
[2020-09-01] MEDS: potassium Cl 20 mEq SR tablet PO PRN ×3 (08:24→16:42)
[2020-09-01] MEDS: multivitamins, therapeutics tablet PO SCH (08:26)
[2020-09-01] MEDS: cyanocobalamin 500mcg tablet PO SCH (08:26)
[2020-09-01] MEDS: thiamine 100mg tablet PO SCH (08:26)
[2020-09-01] MEDS: folic acid 1mg tablet PO SCH (08:27)
[2020-09-01] MEDS: gabapentin 300mg capsule PO SCH ×3 (08:27→23:48)
[2020-09-01] MEDS: pantoprazole 40mg Tablet.DR PO SCH (08:27)
[2020-09-01] MEDS: atorvastatin 20mg tablet PO SCH (08:28)
[2020-09-01] MEDS: cholecalciferol (vitamin D3) 1,000 unit (25mcg) tablet PO SCH ×2 (08:28→20:08)
[2020-09-01] MEDS: metoprolol succinate 25mg (24-HOUR) SR. Tablet PO SCH ×2 (08:28→20:08)
[2020-09-01] MEDS: budesonide 0.5mg/2ml UD nebule IH SCH ×2 (09:00→21:38)
[2020-09-01 09:12] LABS: BASOPHILS # (AUTO) 0.1 X10'3 (0-0.2); BASOPHILS % (AUTO) 0.9 % (0-1); EOSINOPHILS # (AUTO) 0.1 X10'3 (0-0.9); EOSINOPHILS % (AUTO) 1.1 % (0-6); HEMATOCRIT 41.2 % (42.0-52.0); HEMOGLOBIN 13.4 g/dl (14.0-17.9); LYMPHOCYTES # (AUTO) 1.4 X10'3 (1.1-4.8); LYMPHOCYTES % (AUTO) 15.7 % (21-51); MEAN CORPUSCULAR HGB CONC 32.6 g/dL (33.0-36.5); MEAN CORPUSCULAR VOLUME 95.2 FL (78-98); MEAN PLATELET VOLUME 11.5 FL (7.4-10.4); MONOCYTES # (AUTO) 0.8 X10'3 (0-0.9); MONOCYTES % (AUTO) 8.7 % (2-12); NEUTROPHILS # (AUTO) 6.4 X10'3 (1.8-7.7); NEUTROPHILS % (AUTO) 73.6 % (42-75); RED BLOOD COUNT 4.33 X10'6 (4.70-6.10); RED CELL DISTRIBUTION WIDTH 15.6 % (11.5-14.5); WHITE BLOOD COUNT 8.7 X10'3 (4.5-11.0)
[2020-09-01 09:14] LABS: PLATELET COUNT 160 X10'3 (140-440)
[2020-09-01 10:00] VITALS: BP 109/54
[2020-09-01] MEDS: flecainide 50mg tablet PO SCH ×2 (12:48→20:08)
[2020-09-01] MEDS ORDERED: magnesium 2GM in 50ml NS 50 ML IV ONE (12:50)
--- NOTE | 2020-09-01 12:58 | NUR ---
Paged EKG for 09/01 and 09/[address] sal.
[2020-09-01] MEDS ORDERED: ondansetron 4mg rapidly disintigrating tab PO PRN (15:45)
--- NOTE | 2020-09-01 17:23 | NUR ---
Orthostatic vitals not done this shift due to pt not being stable and very shaky. Will await physical therapy assessment.
--- NOTE | 2020-09-01 17:59 | NUR ---
Orientee documentation: I have reviewed and agree with all interventions, assessments performed and documented by LIANA Strauss.
[2020-09-01 18:00] VITALS: BP 105/58
--- NOTE | 2020-09-01 18:18 | NUR ---
Problems reprioritized. Patient report given LIANA BHAT questions answered & plan of care reviewed with .
--- NOTE | 2020-09-01 18:20 | NUR ---
Patient in room ORTHO 4020. I have received report from Pretty RN and had the opportunity to ask questions and assume patient care.
[2020-09-01 20:06] VITALS: BP 110/59
[2020-09-01] MEDS: enoxaparin 40mg/0.4ml syringe SQ SCH (20:08)
[2020-09-01 22:00] VITALS: BP 126/67
[2020-09-01 22:43] LABS: MAGNESIUM 1.7 MG/DL (1.5-2.4)
[2020-09-01 23:03] LABS: POTASSIUM 4.8 MMOL/L (3.5-5.1)
[2020-09-01] MEDS: magnesium Cl slow-release 64mg tablet PO PRN (23:49)
[2020-09-02] MEDS: albuterol 2.5 MG/3 ML nebule NEB SCH ×4 (03:00→21:31)
[2020-09-02 06:00] VITALS: BP 118/70
--- NOTE | 2020-09-02 06:26 | NUR ---
Problems reprioritized. Patient report given, questions answered & plan of care reviewed with Pretty RN's.
--- NOTE | 2020-09-02 06:31 | NUR ---
Patient in room ORTHO 4020. I have received report from LIANA BHAT and had the opportunity to ask questions and assume patient care.
--- NOTE | 2020-09-02 06:34 | NUR ---
Patient in room ORTHO 4020A. I have received report from LIANA BHAT and had the opportunity to ask questions and assume patient care. LEONARD RICHARDS RN WILL PROVIDE PRIMARY CARE. I WILL MONITOR ALL CARE AND ASSIST WHEN NEEDED.
[2020-09-02 07:06] LABS: BASOPHILS % (AUTO) 0.6 % (0-1); EOSINOPHILS # (AUTO) 0.3 X10'3 (0-0.9); EOSINOPHILS % (AUTO) 4.5 % (0-6); HEMATOCRIT 41.1 % (42.0-52.0); HEMOGLOBIN 13.6 g/dl (14.0-17.9); LYMPHOCYTES # (AUTO) 1.7 X10'3 (1.1-4.8); LYMPHOCYTES % (AUTO) 25.8 % (21-51); MEAN CORPUSCULAR HEMOGLOBIN 31.3 PG (27.0-31.0); MEAN CORPUSCULAR HGB CONC 33.2 g/dL (33.0-36.5); MEAN CORPUSCULAR VOLUME 94.4 FL (78-98); MEAN PLATELET VOLUME 12.7 FL (7.4-10.4); MONOCYTES # (AUTO) 0.4 X10'3 (0-0.9); MONOCYTES % (AUTO) 6.8 % (2-12); NEUTROPHILS # (AUTO) 4.1 X10'3 (1.8-7.7); NEUTROPHILS % (AUTO) 62.3 % (42-75); RED BLOOD COUNT 4.35 X10'6 (4.70-6.10); RED CELL DISTRIBUTION WIDTH 15.4 % (11.5-14.5); WHITE BLOOD COUNT 6.6 X10'3 (4.5-11.0)
[2020-09-02 07:07] LABS: PLATELET COUNT 132 X10'3 (140-440)
[2020-09-02 07:23] LABS: ANION GAP 10 (8-16); BLOOD UREA NITROGEN 15 MG/DL (7-18); BUN/CREATININE RATIO 11.3 (5.4-32.0); CALCIUM 8.7 MG/DL (8.5-10.1); CHLORIDE 102 MMOL/L (99-107); CREATININE 1.33 MG/DL (0.60-1.10); GLUCOSE 86 MG/DL (70-104); POTASSIUM 4.7 MMOL/L (3.5-5.1); SODIUM 138 MMOL/L (135-145); eGFR 52 ML/MIN
[2020-09-02 07:24] LABS: ALANINE AMINOTRANSFERASE 27 U/L (12-78); ALBUMIN 3.2 G/DL (3.4-5.0); ALBUMIN/GLOBULIN RATIO 0.9 (1.1-1.5); ALKALINE PHOSPHATASE 330 IU/L (46-116); AMYLASE 44 U/L (25-115); ASPARTATE AMINO TRANSFERASE 55 U/L (10-37); BILIRUBIN,TOTAL 1.9 MG/DL (0.1-1.0); LIPASE 172 U/L (73-393); MAGNESIUM 1.9 MG/DL (1.5-2.4); PHOSPHORUS 2.5 MG/DL (2.3-4.5); TOTAL PROTEIN 6.9 G/DL (6.4-8.2)
[2020-09-02] MEDS: folic acid 1mg tablet PO SCH (07:54)
[2020-09-02] MEDS: cholecalciferol (vitamin D3) 1,000 unit (25mcg) tablet PO SCH ×2 (07:54→20:21)
[2020-09-02] MEDS: gabapentin 300mg capsule PO SCH (07:54)
[2020-09-02] MEDS: multivitamins, therapeutics tablet PO SCH (07:54)
[2020-09-02] MEDS: metoprolol succinate 25mg (24-HOUR) SR. Tablet PO SCH ×2 (07:55→20:20)
[2020-09-02] MEDS: atorvastatin 20mg tablet PO SCH (07:55)
[2020-09-02] MEDS: flecainide 50mg tablet PO SCH ×2 (07:55→20:20)
[2020-09-02] MEDS: pantoprazole 40mg Tablet.DR PO SCH (07:55)
[2020-09-02] MEDS: cyanocobalamin 500mcg tablet PO SCH (07:56)
[2020-09-02] MEDS: thiamine 100mg tablet PO SCH (07:56)
[2020-09-02 08:00] VITALS: BP_SYST 108; BP_SYST 112; BP_SYST 120; BP_DIAS 100; BP_DIAS 54; BP_DIAS 63
[2020-09-02] MEDS: K and/or MAG REPLACEMENT MC SCH ×2 (08:00→20:00)
[2020-09-02] MEDS: budesonide 0.5mg/2ml UD nebule IH SCH ×2 (09:22→21:31)
[2020-09-02 10:00] VITALS: BP 102/59
[2020-09-02] MEDS: magnesium Cl slow-release 64mg tablet PO PRN ×2 (11:17→20:20)
[2020-09-02] MEDS ORDERED: LORazepam 1 MG tablet PO PRN (13:30)
[2020-09-02] MEDS ORDERED: LORazepam 2 mg/ml vial IV PRN (13:30)
--- NOTE | 2020-09-02 16:29 | NUR ---
Page Sent PAGER ID: [phone] MESSAGE: Rica [id number]- [id number] Pepito Nicolas Pt did well with PT, ambulated around fourth floor w/out issue, contact guard.
[2020-09-02 18:00] VITALS: BP 99/50
--- NOTE | 2020-09-02 18:31 | NUR ---
Problems reprioritized. Patient report given to LIANA MAHAN questions answered & plan of care reviewed with .
--- NOTE | 2020-09-02 18:34 | NUR ---
Orientee documentation: I have reviewed and agree with all interventions, assessments performed and documented by LIANA Strauss.
--- NOTE | 2020-09-02 19:27 | NUR ---
PAGER ID: [phone] MESSAGE: Mariyl [phone]- Niko Fidencio [id number]. c/o new onset R arm weak and numb. hx afib, off eloquis because he is here for a fall to R side.
--- NOTE | 2020-09-02 19:31 | NUR ---
CALL BACK FROM DR. MITCHELL. STAT CT CANDICE ORDERED.
[2020-09-02 20:00] VITALS: BP_SYST 119; BP_SYST 120; BP_SYST 99; BP_DIAS 50; BP_DIAS 65; BP_DIAS 68
[2020-09-02] MEDS: gabapentin 400mg capsule PO SCH (20:20)
[2020-09-02] MEDS: enoxaparin 40mg/0.4ml syringe SQ SCH (20:21)
[2020-09-02 22:00] VITALS: BP 115/65
[2020-09-03] MEDS: albuterol 2.5 MG/3 ML nebule NEB SCH ×2 (05:08→08:40)
[2020-09-03 05:58] LABS: BASOPHILS # (AUTO) 0.1 X10'3 (0-0.2); BASOPHILS % (AUTO) 1.1 % (0-1); EOSINOPHILS # (AUTO) 0.6 X10'3 (0-0.9); EOSINOPHILS % (AUTO) 7.5 % (0-6); HEMATOCRIT 38.2 % (42.0-52.0); HEMOGLOBIN 12.7 g/dl (14.0-17.9); LYMPHOCYTES # (AUTO) 1.6 X10'3 (1.1-4.8); LYMPHOCYTES % (AUTO) 20.7 % (21-51); MEAN CORPUSCULAR HEMOGLOBIN 31.3 PG (27.0-31.0); MEAN CORPUSCULAR HGB CONC 33.2 g/dL (33.0-36.5); MEAN CORPUSCULAR VOLUME 94.3 FL (78-98); MEAN PLATELET VOLUME 11.9 FL (7.4-10.4); MONOCYTES # (AUTO) 0.6 X10'3 (0-0.9); MONOCYTES % (AUTO) 7.2 % (2-12); NEUTROPHILS % (AUTO) 63.5 % (42-75); RED BLOOD COUNT 4.06 X10'6 (4.70-6.10); RED CELL DISTRIBUTION WIDTH 15.1 % (11.5-14.5); WHITE BLOOD COUNT 7.9 X10'3 (4.5-11.0)
[2020-09-03 06:00] VITALS: BP 147/78
[2020-09-03 06:28] LABS: ALBUMIN 3.2 G/DL (3.4-5.0); BILIRUBIN,TOTAL 1.5 MG/DL (0.1-1.0); BLOOD UREA NITROGEN 16 MG/DL (7-18); BUN/CREATININE RATIO 15.1 (5.4-32.0); CALCIUM 8.8 MG/DL (8.5-10.1); CREATININE 1.06 MG/DL (0.60-1.10); GLUCOSE 83 MG/DL (70-104); MAGNESIUM 1.7 MG/DL (1.5-2.4); PHOSPHORUS 2.2 MG/DL (2.3-4.5); TOTAL CARBON DIOXIDE 24.2 MMOL/L (24-32); TOTAL PROTEIN 6.7 G/DL (6.4-8.2); eGFR 67 ML/MIN
[2020-09-03 06:29] LABS: ALANINE AMINOTRANSFERASE 27 U/L (12-78); ALBUMIN/GLOBULIN RATIO 0.9 (1.1-1.5); ALKALINE PHOSPHATASE 303 IU/L (46-116); AMYLASE 49 U/L (25-115); ASPARTATE AMINO TRANSFERASE 48 U/L (10-37); LIPASE 191 U/L (73-393)
[2020-09-03 06:51] LABS: ANION GAP 10 (8-16); CHLORIDE 101 MMOL/L (99-107); POTASSIUM 4.7 MMOL/L (3.5-5.1); SODIUM 135 MMOL/L (135-145)
[2020-09-03 07:03] LABS: PLATELET COUNT 141 X10'3 (140-440)
[2020-09-03] MEDS: K and/or MAG REPLACEMENT MC SCH (08:00)
[2020-09-03] MEDS: budesonide 0.5mg/2ml UD nebule IH SCH (08:40)
[2020-09-03] MEDS: gabapentin 400mg capsule PO SCH (10:19)
[2020-09-03] MEDS: thiamine 100mg tablet PO SCH (10:19)
[2020-09-03] MEDS: metoprolol succinate 25mg (24-HOUR) SR. Tablet PO SCH (10:19)
[2020-09-03] MEDS: pantoprazole 40mg Tablet.DR PO SCH (10:19)
[2020-09-03] MEDS: folic acid 1mg tablet PO SCH (10:19)
[2020-09-03] MEDS: multivitamins, therapeutics tablet PO SCH (10:19)
[2020-09-03] MEDS: cyanocobalamin 500mcg tablet PO SCH (10:19)
[2020-09-03] MEDS: flecainide 50mg tablet PO SCH (10:19)
[2020-09-03] MEDS: cholecalciferol (vitamin D3) 1,000 unit (25mcg) tablet PO SCH (10:20)
[2020-09-03] MEDS: atorvastatin 20mg tablet PO SCH (13:45)
[2020-09-03 14:49] VITALS: BP 101/51
== END 2020-09-03 14:10 | DRG 683 ==
LOC: ER 09:54 → ED HOLD 13:33 → EDBEDREQ 09-01 06:40 → ORTHO 4S 09-01 07:30
PROVIDERS: ADMIT Family Medicine; ATTEND Family Medicine
DX: N17.9 Acute kidney failure, unspecified (principal); F10.231 Alcohol dependence with withdrawal delirium; I42.0 Dilated cardiomyopathy; E86.0 Dehydration; E87.6 Hypokalemia; E78.00 Pure hypercholesterolemia, unspecified; E78.5 Hyperlipidemia, unspecified; I10 Essential (primary) hypertension; I48.0 Paroxysmal atrial fibrillation; J44.9 Chronic obstructive pulmonary disease, unspecified; E83.39 Other disorders of phosphorus metabolism; F32.9 Major depressive disorder, single episode, unspecified; Z60.2 Problems related to living alone; W08.XXXA Fall from other furniture, initial encounter; I49.5 Sick sinus syndrome; R29.6 Repeated falls; G47.33 Obstructive sleep apnea (adult) (pediatric); F41.9 Anxiety disorder, unspecified; Y90.6 Blood alcohol level of 120-199 mg/100 ml; Z85.038 Personal history of other malignant neoplasm of large intestine; Z85.068 Personal history of other malignant neoplasm of small intestine; Z90.49 Acquired absence of other specified parts of digestive tract; Z95.0 Presence of cardiac pacemaker; Y93.89 Activity, other specified; Y92.098 Other place in other non-institutional residence as the place of occurrence of the external cause; Y99.8 Other external cause status; Z88.8 Allergy status to other drugs, medicaments and biological substances; Z79.899 Other long term (current) drug therapy; Z71.41 Alcohol abuse counseling and surveillance of alcoholic
CPT/HCPCS: 36415; 70450; 71045; 80053; 80320; 82150; 82948; 83690; 83735; 83880; 84100; 84132; 84443; 84484; 85025; 85610; 87081; 93005; 94640; 94760; 97116; 97161; 97530; 99285; G0378; J1650; J2060; J2405; J3475; J7030; J7626

== ENCOUNTER 2021-12-27 10:38 | Emergency (ER) | payer OTHER, MEDICARE, BC ==
[~2021-12-27] VITALS: Ht 185.4 cm; Wt 90.9 kg
[~2021-12-27 10:38] MED LIST changes: -CEFD300C3 PO; -LORA-268 PO; +POTA-206 PO; -POTA10TA36 PO
--- NOTE | 2021-12-27 11:28 | NUR ---
PT HAS A PACEMAKER
[2021-12-27 11:55] LABS: ALANINE AMINOTRANSFERASE 28 U/L (12-78); ALBUMIN 4.1 G/DL (3.4-5.0); ALBUMIN/GLOBULIN RATIO 1.1 (1.1-1.5); ALKALINE PHOSPHATASE 100 IU/L (46-116); ANION GAP 15 (8-16); ASPARTATE AMINO TRANSFERASE 35 U/L (10-37); BILIRUBIN,TOTAL 1.1 MG/DL (0.1-1.0); BLOOD UREA NITROGEN 19 MG/DL (7-18); BUN/CREATININE RATIO 19.6 (5.4-32.0); CHLORIDE 103 MMOL/L (99-107); CREATININE 0.97 MG/DL (0.60-1.10); GLUCOSE 115 MG/DL (70-104); POTASSIUM 3.8 MMOL/L (3.5-5.1); SODIUM 140 MMOL/L (135-145); TOTAL CARBON DIOXIDE 21.8 MMOL/L (24-32); TOTAL PROTEIN 7.8 G/DL (6.4-8.2); eGFR 74 ML/MIN
[2021-12-27 13:23] LABS: HEMOGLOBIN 15.4 g/dl (14.0-17.9); MONOCYTES # (AUTO) 0.3 X10'3 (0-0.9)
[2021-12-27 13:25] LABS: BASOPHILS % (AUTO) 0.4 % (0-1); EOSINOPHILS % (AUTO) 0.2 % (0-6); HEMATOCRIT 44.9 % (42.0-52.0); LYMPHOCYTES # (AUTO) 1.3 X10'3 (1.1-4.8); LYMPHOCYTES % (AUTO) 18.8 % (21-51); MEAN CORPUSCULAR HEMOGLOBIN 29.5 PG (27.0-31.0); MEAN CORPUSCULAR HGB CONC 34.2 g/dL (33.0-36.5); MEAN CORPUSCULAR VOLUME 86.3 FL (78-98); MONOCYTES % (AUTO) 4.9 % (2-12); NEUTROPHILS # (AUTO) 5.2 X10'3 (1.8-7.7); NEUTROPHILS % (AUTO) 75.7 % (42-75)
[2021-12-27 13:34] LABS: MEAN PLATELET VOLUME 7.7 FL (7.4-10.4); PLATELET COUNT 160 X10'3 (140-440)
[2021-12-27 13:35] LABS: WHITE BLOOD COUNT 6.4 X10'3 (4.5-11.0)
[2021-12-27 15:47] LABS: CLARITY,URINE CLEAR (Clear); COLOR,URINE YELLOW (Yellow); GLUCOSE, URINE NEGATIVE (Neg); KETONES,URINE 15 mg/dl (Neg); LEUKOCYTE ESTERASE ,URINE NEGATIVE (Neg); NITRITES, URINE NEGATIVE (Neg); OCCULT BLOOD,URINE TRACE-INTACT (Neg); PROTEIN,URINE 30 mg/dl (Neg); UROBILINOGEN,URINE 0.2 E.U/dL (0.2-1.0)
[2021-12-27 15:59] LABS: UA COLLECTION TYPE CLN CATCH MIDSTREAM
[2021-12-27 16:00] LABS: RBC,URINE 0-2 /HPF (0-2); WBC,URINE NONE SEEN /HPF (0-4)
[2021-12-27 16:01] LABS: BACTERIA,URINE NONE SEEN /HPF (Neg); MUCUS STRANDS FEW /LPF (Neg); SQUAMOUS EPITHELIAL CELL,UR NONE SEEN /LPF (FEW)
[2021-12-27] MEDS ORDERED: LORazepam 2 mg/ml vial IV ONE (16:45)
[2021-12-27] MEDS ORDERED: normal saline 1000ml 1,000 ML IV ONE (16:45)
[2021-12-27 16:54] LABS: ETHANOL 0.06 GM/DL (0.0-0.010)
[2021-12-27 17:07] LABS: URINE AMPHETAMINE SCREEN NEGATIVE (Neg); URINE BARBITUATE SCREEN NEGATIVE (Neg); URINE BENZODIAZEPINES SCREEN NEGATIVE (Neg); URINE CANNABINOID SCREEN POSITIVE (Neg); URINE COCAINE SCREEN NEGATIVE (Neg); URINE METHADONE SCREEN NEGATIVE (Neg); URINE OPIATE SCREEN NEGATIVE (Neg); URINE PHENCYCLIDINE SCREEN NEGATIVE (Neg)
[2021-12-27] MEDS ORDERED: ATI1T PO (17:31)
[2021-12-27] MEDS ORDERED: ONDA4TAB12 PO (17:31)
[2021-12-27 17:46] VITALS: BP 144/77
== END 2021-12-27 17:55 | disposition home or self-care (01) ==
LOC: ER 10:39
DX: F10.129 Alcohol abuse with intoxication, unspecified (principal); Z20.822 Contact with and (suspected) exposure to COVID-19; H93.19 Tinnitus, unspecified ear; E78.00 Pure hypercholesterolemia, unspecified; I10 Essential (primary) hypertension; J44.9 Chronic obstructive pulmonary disease, unspecified; Y90.9 Presence of alcohol in blood, level not specified; Z88.8 Allergy status to other drugs, medicaments and biological substances; Z98.890 Other specified postprocedural states
CPT/HCPCS: 36415; 71045; 80053; 80305; 80320; 81001; 83880; 84145; 84484; 85025; 87502; 87503; 87635; 93005; 96374; 99285; C9803; J2060; J7030

== ENCOUNTER 2022-02-28 11:31 | Emergency (ER) | payer OTHER, MEDICARE, BC ==
[~2022-02-28] VITALS: Ht 185.4 cm; Wt 96.4 kg
[~2022-02-28 11:31] MED LIST changes: +ATI1T PO; +ONDA4TAB12 PO
[2022-02-28 14:15] LABS: APTT 34 SECONDS (22-32)
[2022-02-28 14:25] LABS: CLARITY,URINE CLEAR (Clear); COLOR,URINE YELLOW (Yellow); GLUCOSE, URINE NEGATIVE (Neg); KETONES,URINE 15 mg/dl (Neg); LEUKOCYTE ESTERASE ,URINE NEGATIVE (Neg); NITRITES, URINE NEGATIVE (Neg); OCCULT BLOOD,URINE NEGATIVE (Neg); PROTEIN,URINE NEGATIVE (Neg)
[2022-02-28 14:26] LABS: ALANINE AMINOTRANSFERASE 25 U/L (12-78); ALBUMIN 4.6 G/DL (3.4-5.0); ALBUMIN/GLOBULIN RATIO 1.4 (1.1-1.5); ALKALINE PHOSPHATASE 86 IU/L (46-116); ANION GAP 9 (8-16); ASPARTATE AMINO TRANSFERASE 28 U/L (10-37); BILIRUBIN,TOTAL 2.2 MG/DL (0.1-1.0); BLOOD UREA NITROGEN 24 MG/DL (7-18); CHLORIDE 100 MMOL/L (99-107); ETHANOL < 0.010 GM/DL (0.0-0.010); GLUCOSE 100 MG/DL (70-104); MAGNESIUM 2.1 MG/DL (1.5-2.4); SODIUM 135 MMOL/L (135-145); TOTAL CARBON DIOXIDE 25.9 MMOL/L (24-32); TOTAL PROTEIN 7.8 G/DL (6.4-8.2); eGFR 72 ML/MIN
[2022-02-28 14:27] LABS: UA COLLECTION TYPE NON-SPECIFIED
[2022-02-28 14:52] LABS: BASOPHILS % (AUTO) 0.3 % (0-1); EOSINOPHILS # (AUTO) 0.1 X10'3 (0-0.9); EOSINOPHILS % (AUTO) 0.8 % (0-6); HEMOGLOBIN 14.7 g/dl (14.0-17.9); LYMPHOCYTES % (AUTO) 15.4 % (21-51); MEAN CORPUSCULAR HEMOGLOBIN 31.2 PG (27.0-31.0); MEAN CORPUSCULAR HGB CONC 33.3 g/dL (33.0-36.5); MEAN CORPUSCULAR VOLUME 93.7 FL (78-98); MONOCYTES # (AUTO) 0.6 X10'3 (0-0.9); MONOCYTES % (AUTO) 8.9 % (2-12); NEUTROPHILS % (AUTO) 74.6 % (42-75); RED CELL DISTRIBUTION WIDTH 17.6 % (11.5-14.5); WHITE BLOOD COUNT 6.7 X10'3 (4.5-11.0)
[2022-02-28 14:55] LABS: MEAN PLATELET VOLUME 7.2 FL (7.4-10.4); PLATELET COUNT 108 X10'3 (140-440)
[2022-02-28 16:30] VITALS: BP 148/96
== END 2022-02-28 16:32 | disposition home or self-care (01) ==
LOC: ER 11:31
DX: R53.1 Weakness (principal); R42 Dizziness and giddiness; R10.30 Lower abdominal pain, unspecified; J44.9 Chronic obstructive pulmonary disease, unspecified; I10 Essential (primary) hypertension; E78.00 Pure hypercholesterolemia, unspecified; F41.9 Anxiety disorder, unspecified; F32.9 Major depressive disorder, single episode, unspecified; Z90.49 Acquired absence of other specified parts of digestive tract; Z98.890 Other specified postprocedural states; Z72.89 Other problems related to lifestyle; Z60.2 Problems related to living alone; Z88.8 Allergy status to other drugs, medicaments and biological substances; Z79.899 Other long term (current) drug therapy
CPT/HCPCS: 36415; 71045; 80053; 80320; 81003; 83735; 83880; 84484; 85025; 85610; 85730; 93005; 99285

== ENCOUNTER 2022-06-22 09:08 | Emergency (ER) | payer OTHER, MEDICARE, BC ==
[~2022-06-22] VITALS: Ht 185.4 cm; Wt 90.9 kg
[2022-06-22 09:48] LABS: ALBUMIN 4.6 G/DL (3.4-5.0); ALBUMIN/GLOBULIN RATIO 1.4 (1.1-1.5); TOTAL PROTEIN 7.9 G/DL (6.4-8.2)
[2022-06-22 10:01] LABS: CLARITY,URINE CLEAR (Clear); COLOR,URINE YELLOW (Yellow); GLUCOSE, URINE 100 mg/dl (Neg); KETONES,URINE 15 mg/dl (Neg); LEUKOCYTE ESTERASE ,URINE NEGATIVE (Neg); NITRITES, URINE NEGATIVE (Neg); OCCULT BLOOD,URINE TRACE-INTACT (Neg); PH,URINE 8.5 (4.8-8.0); PROTEIN,URINE 100 mg/dl (Neg)
[2022-06-22 10:01] LABS: ALANINE AMINOTRANSFERASE 28 U/L (12-78); ALKALINE PHOSPHATASE 90 IU/L (46-116); ANION GAP 17 (8-16); ASPARTATE AMINO TRANSFERASE 33 U/L (10-37); BILIRUBIN,TOTAL 1.8 MG/DL (0.1-1.0); BLOOD UREA NITROGEN 22 MG/DL (7-18); BUN/CREATININE RATIO 21.2 (10.0-20.0); CALCIUM 9.4 MG/DL (8.5-10.1); CHLORIDE 99 MMOL/L (99-107); CREATININE 1.04 MG/DL (0.60-1.10); GLUCOSE 200 MG/DL (70-104); LIPASE 102 U/L (73-393); POTASSIUM 3.9 MMOL/L (3.5-5.1); SODIUM 140 MMOL/L (135-145); eGFR 69 ML/MIN
[2022-06-22 10:06] LABS: EOSINOPHILS % (AUTO) 0.1 % (0-6); HEMATOCRIT 43.4 % (42.0-52.0); HEMOGLOBIN 14.6 g/dl (14.0-17.9); LYMPHOCYTES # (AUTO) 0.4 X10'3 (1.1-4.8); MEAN CORPUSCULAR HEMOGLOBIN 31.2 PG (27.0-31.0); MEAN CORPUSCULAR VOLUME 92.7 FL (78-98); MONOCYTES # (AUTO) 0.2 X10'3 (0-0.9); NEUTROPHILS # (AUTO) 4.6 X10'3 (1.8-7.7)
[2022-06-22 10:08] LABS: BASOPHILS % (AUTO) 0.1 % (0-1); LYMPHOCYTES % (AUTO) 8.2 % (21-51); MEAN CORPUSCULAR HGB CONC 33.7 g/dL (33.0-36.5); MEAN PLATELET VOLUME 9.4 FL (7.4-10.4); MONOCYTES % (AUTO) 3.8 % (2-12); NEUTROPHILS % (AUTO) 87.8 % (42-75); RED BLOOD COUNT 4.68 X10'6 (4.70-6.10); RED CELL DISTRIBUTION WIDTH 16.5 % (11.5-14.5)
[2022-06-22 10:12] LABS: PLATELET COUNT 117 X10'3 (140-440)
[2022-06-22 10:13] LABS: WHITE BLOOD COUNT 4.8 X10'3 (4.5-11.0)
[2022-06-22 10:25] LABS: UA COLLECTION TYPE VOIDED
[2022-06-22 10:26] LABS: MUCUS STRANDS FEW /LPF (Neg); SQUAMOUS EPITHELIAL CELL,UR FEW /LPF (FEW); TRANSITIONAL EPI CELLS,URINE FEW /HPF
[2022-06-22 10:27] LABS: BACTERIA,URINE FEW /HPF (Neg)
[2022-06-22 10:28] LABS: AMORPHOUS PHOSPHATES 1+; WBC,URINE 0-4 /HPF (0-4)
[2022-06-22] MEDS ORDERED: LORazepam 2 mg/ml vial IV ONE ×2 (10:50→12:20)
[2022-06-22] MEDS ORDERED: ondansetron/PF 4mg/2ml inj IV ONE (10:50)
[2022-06-22] MEDS ORDERED: folic acid 1mg/0.2ml inj IV ONE (10:50)
[2022-06-22] MEDS ORDERED: thiamine 100mg/ml 2ml inj. IV ONE (10:50)
[2022-06-22] MEDS ORDERED: normal saline 1000ML IV soln IV ONE (10:50)
[2022-06-22] MEDS ORDERED: ketorolac trometh. 30mg/ml inj. IV ONE (12:20)
[2022-06-22] MEDS ORDERED: ONDA4TAB12 PO (12:39)
[2022-06-22] MEDS ORDERED: LORA-269 PO (12:39)
[2022-06-22 16:47] VITALS: BP 126/81
== END 2022-06-22 16:52 | disposition home or self-care (01) ==
LOC: ER 09:08
DX: K29.20 Alcoholic gastritis without bleeding (principal); F10.239 Alcohol dependence with withdrawal, unspecified; F10.229 Alcohol dependence with intoxication, unspecified; Y90.9 Presence of alcohol in blood, level not specified; I11.9 Hypertensive heart disease without heart failure; E78.00 Pure hypercholesterolemia, unspecified; J44.9 Chronic obstructive pulmonary disease, unspecified; F31.9 Bipolar disorder, unspecified; Z90.49 Acquired absence of other specified parts of digestive tract; Z98.890 Other specified postprocedural states; Z79.899 Other long term (current) drug therapy; Z88.8 Allergy status to other drugs, medicaments and biological substances; Z79.1 Long term (current) use of non-steroidal anti-inflammatories (NSAID); Z79.2 Long term (current) use of antibiotics
CPT/HCPCS: 36415; 74176; 80053; 81001; 83690; 85025; 96361; 96374; 96375; 96376; 99285; J1885; J2060; J3411; J3490; J7030; J7040

== ENCOUNTER 2022-09-07 18:49 | Emergency (ER) | payer OTHER, MEDICARE, BC ==
[~2022-09-07] VITALS: Ht 185.4 cm; Wt 95.5 kg
[~2022-09-07 18:49] MED LIST changes: +CYAN-104 PO; -CYAN-51 PO; +LORA-269 PO
[2022-09-07 19:28] VITALS: TEMP 98.2
[2022-09-07 19:50] LABS: ALANINE AMINOTRANSFERASE 29 U/L (12-78); ALBUMIN 4.4 G/DL (3.4-5.0); ALBUMIN/GLOBULIN RATIO 1.3 (1.1-1.5); ALKALINE PHOSPHATASE 75 IU/L (46-116); ANION GAP 16 (8-16); ASPARTATE AMINO TRANSFERASE 27 U/L (10-37); BILIRUBIN,TOTAL 1.8 MG/DL (0.1-1.0); BLOOD UREA NITROGEN 33 MG/DL (7-18); BUN/CREATININE RATIO 31.7 (10.0-20.0); CALCIUM 10.2 MG/DL (8.5-10.1); CHLORIDE 101 MMOL/L (99-107); CREATININE 1.04 MG/DL (0.60-1.10); GLUCOSE 136 MG/DL (70-104); SODIUM 141 MMOL/L (135-145); TOTAL CARBON DIOXIDE 23.9 MMOL/L (24-32); TOTAL PROTEIN 7.7 G/DL (6.4-8.2); eGFR 68 ML/MIN
[2022-09-07 20:28] LABS: EOSINOPHILS % (AUTO) 0.1 % (0-6); HEMOGLOBIN 13.9 g/dl (14.0-17.9); LYMPHOCYTES # (AUTO) 0.7 X10'3 (1.1-4.8); MONOCYTES # (AUTO) 0.4 X10'3 (0-0.9)
[2022-09-07 20:30] LABS: BASOPHILS % (AUTO) 0.3 % (0-1); LYMPHOCYTES % (AUTO) 12.9 % (21-51); MEAN CORPUSCULAR HEMOGLOBIN 31.5 PG (27.0-31.0); MEAN CORPUSCULAR VOLUME 92.5 FL (78-98); MEAN PLATELET VOLUME 8.4 FL (7.4-10.4); MONOCYTES % (AUTO) 7.4 % (2-12); NEUTROPHILS # (AUTO) 4.5 X10'3 (1.8-7.7); NEUTROPHILS % (AUTO) 79.3 % (42-75); RED BLOOD COUNT 4.43 X10'6 (4.70-6.10); RED CELL DISTRIBUTION WIDTH 14.5 % (11.5-14.5); WHITE BLOOD COUNT 5.6 X10'3 (4.5-11.0)
[2022-09-07 20:41] LABS: PLATELET COUNT 94 X10'3 (140-440)
[2022-09-07 21:52] LABS: GLUCOSE, URINE NEGATIVE (Neg); KETONES,URINE 15 mg/dl (Neg); LEUKOCYTE ESTERASE ,URINE NEGATIVE (Neg); OCCULT BLOOD,URINE TRACE-INTACT (Neg); PROTEIN,URINE 100 mg/dl (Neg)
[2022-09-07 21:57] LABS: COLOR,URINE DARK YELLOW (Yellow); UA COLLECTION TYPE CLN CATCH MIDSTREAM
[2022-09-07 21:58] LABS: CLARITY,URINE SLIGHTLY CLOUDY (Clear); NITRITES, URINE NEGATIVE (Neg)
[2022-09-07 22:00] LABS: BACTERIA,URINE FEW /HPF (Neg); SQUAMOUS EPITHELIAL CELL,UR FEW /LPF (FEW); WBC,URINE 0-4 /HPF (0-4)
[2022-09-07 22:01] LABS: FINE GRANULAR CAST 0-3 /LPF (NEGATIVE)
[2022-09-07 23:09] VITALS: BP 134/88; PULSE 79; RESP 14; O2SAT 97
== END 2022-09-07 23:15 | disposition home or self-care (01) ==
LOC: ER 18:50
DX: R53.1 Weakness (principal); I10 Essential (primary) hypertension; J44.9 Chronic obstructive pulmonary disease, unspecified; Z88.8 Allergy status to other drugs, medicaments and biological substances; Z79.899 Other long term (current) drug therapy; Z98.890 Other specified postprocedural states
CPT/HCPCS: 36415; 71045; 80053; 81001; 83880; 84484; 85025; 93005; 99285

== ENCOUNTER 2022-11-12 21:14 | Inpatient (IN) | payer OTHER, MEDICARE, BC ==
[~2022-11-12] VITALS: Ht 185.4 cm; Wt 96.4 kg
[~2022-11-12 21:14] MED LIST changes: -ALB0.5UD IH; -AMIT50TA3 PO; -ATI1T PO; -BUDE10.2 INH; -CARB15DR58 EACHEYE; -CHOL10006 PO; -CLON0.1T51 PO; -CYAN-104 PO; -FLEC50TA28 PO; -FOLI0.4T14 PO; -FURO40TA4 PO; -GABA300C PO; -HYDR50TA65 PO; -LORA-269 PO; +METO-539 PO; -METO100T7 PO; -MULT-1074 PO; -NALT50TA PO; -ONDA4TAB12 PO; -PANT40TA54 PO; -POLY1DRO2 OP; -POTA-206 PO; +QUET25TA36 PO; -THIA100T70 PO; -TIOT4MIS5 IH
[2022-11-13] MEDS ORDERED: chlordiazePOXIDE 25mg capsule PO ONE (01:15)
--- NOTE | 2022-11-13 01:28 | NUR ---
PATIENT EXTREMELY TREMULOUS MEDICATIONS ADMINISTERED PER ORDERS PATIENT IS WITHIN VIEW OF TRIAGE NURSE FOR MONITORING PURPOSES.
[2022-11-13 02:16] LABS: ALANINE AMINOTRANSFERASE 40 U/L (12-78); ALBUMIN 4.7 G/DL (3.4-5.0); ALBUMIN/GLOBULIN RATIO 1.3 (1.1-1.5); ALKALINE PHOSPHATASE 90 IU/L (46-116); ANION GAP 14 (8-16); ASPARTATE AMINO TRANSFERASE 39 U/L (10-37); BILIRUBIN,TOTAL 1.4 MG/DL (0.1-1.0); BLOOD UREA NITROGEN 22 MG/DL (7-18); CHLORIDE 99 MMOL/L (99-107); CREATININE 1.05 MG/DL (0.60-1.10); GLUCOSE 115 MG/DL (70-104); MAGNESIUM 1.8 MG/DL (1.5-2.4); POTASSIUM 3.6 MMOL/L (3.5-5.1); SODIUM 138 MMOL/L (135-145); TOTAL CARBON DIOXIDE 25.5 MMOL/L (24-32); TOTAL PROTEIN 8.3 G/DL (6.4-8.2); eCRCL 61 ML/MIN; eGFR 68 ML/MIN
[2022-11-13] MEDS ORDERED: LORazepam 2 mg/ml vial IV ONE (02:25)
[2022-11-13] MEDS ORDERED: pantoprazole 40 MG vial IV ONE (02:30)
[2022-11-13] MEDS ORDERED: ondansetron/PF 4mg/2ml inj IV ONE (02:30)
[2022-11-13] MEDS ORDERED: normal saline 1000ML IV soln IVB ONE (02:30)
[2022-11-13] MEDS ORDERED: multivitamins, therapeutics tablet PO ONE (02:35)
[2022-11-13] MEDS ORDERED: folic acid 1mg/0.2ml inj IV ONE (02:35)
[2022-11-13] MEDS ORDERED: pantoprazole 40MG/NS 100ML BAG 100 ML IV ONE (02:35)
[2022-11-13] MEDS ORDERED: thiamine 100mg/ml 2ml inj. IV SCH ×2 (03:00→08:00)
[2022-11-13 03:03] LABS: CREATINE KINASE 224 U/L (39-308); ETHANOL 70 MG/DL (<10); LIPASE 103 U/L (73-393)
[2022-11-13] MEDS ORDERED: magnesium 4gm in 100ml NS 100 ML IV PRN (03:20)
[2022-11-13] MEDS ORDERED: magnesium hydroxide 30ml (MOM) UD suspension PO PRN (03:20)
[2022-11-13] MEDS ORDERED: potassium Cl 20 mEq SR tablet PO PRN ×2 (03:20)
[2022-11-13] MEDS ORDERED: magnesium 2GM in 50ml NS 50 ML IV PRN (03:20)
[2022-11-13] MEDS ORDERED: potassium Cl 40MEQ/1/2NS 520ml 520 ML IV PRN (03:20)
[2022-11-13] MEDS ORDERED: LORazepam 2 mg/ml vial IV PRN (03:20)
[2022-11-13] MEDS ORDERED: acetaminophen 325mg tablet PO PRN (03:20)
[2022-11-13] MEDS ORDERED: magnesium Cl slow-release 64mg tablet PO PRN (03:20)
[2022-11-13] MEDS ORDERED: ondansetron/PF 4mg/2ml inj IV PRN (03:20)
[2022-11-13] MEDS ORDERED: mag hydrox/Alum hydrox/simeth 30ml oral suspension PO PRN (03:20)
[2022-11-13] MEDS: K and/or MAG REPLACEMENT MC SCH ×2 (04:02→20:05)
[2022-11-13 04:29] LABS: APTT 33 SECONDS (22-32); INR 1.1 INR; PROTHROMBIN TIME 11.4 SECONDS (9.0-12.0)
[2022-11-13 04:31] LABS: EOSINOPHILS % (AUTO) 0.1 % (0-6); HEMOGLOBIN 13.4 g/dl (14.0-17.9); LYMPHOCYTES # (AUTO) 0.5 X10'3 (1.1-4.8); MEAN CORPUSCULAR VOLUME 94.5 FL (78-98); MONOCYTES # (AUTO) 0.4 X10'3 (0-0.9); NEUTROPHILS % (AUTO) 84.2 % (42-75)
[2022-11-13 04:33] LABS: BASOPHILS % (AUTO) 0.3 % (0-1); HEMATOCRIT 39.5 % (42.0-52.0); LYMPHOCYTES % (AUTO) 8.6 % (21-51); MEAN CORPUSCULAR HGB CONC 33.9 g/dL (33.0-36.5); MEAN PLATELET VOLUME 8.3 FL (7.4-10.4); MONOCYTES % (AUTO) 6.8 % (2-12); NEUTROPHILS # (AUTO) 4.9 X10'3 (1.8-7.7); RED BLOOD COUNT 4.19 X10'6 (4.70-6.10); RED CELL DISTRIBUTION WIDTH 16.3 % (11.5-14.5); WHITE BLOOD COUNT 5.8 X10'3 (4.5-11.0)
[2022-11-13 05:10] LABS: PLATELET COUNT 74 X10'3 (140-440)
[2022-11-13] MEDS ORDERED: diltiazem 5mg/ml 5ml inj. IV ONE ×2 (05:15)
--- NOTE | 2022-11-13 05:24 | NUR ---
Dr Holley at bedside for new onset Afibb. Verbal order for Cardizem drip given. Jessica stated not to give bolus based on BP.
[2022-11-13] MEDS: diltiazem-NS 100mg/100ml 125 ML IV SCH ×2 (05:25→18:10)
[2022-11-13] MEDS: metoprolol tartrate 1mg/ml inj IV SCH ×3 (06:05→06:35)
--- NOTE | 2022-11-13 06:09 | NUR ---
Pt A-fib not responding to cardizem. HR 130's to 140's w/ SBO 103. notified. New orders to turn Cardizem down to 5 mg/hr and to early admin oral metoprolol from apr, and to administer metoprolol 5 mg IV Q 15 min x 3, but to keep SPB in a safe zone
[2022-11-13] MEDS ORDERED: metoprolol tartrate 25mg tablet PO SCH (08:00)
[2022-11-13] MEDS ORDERED: metoprolol succinate 25mg (24-HOUR) SR. Tablet PO ONE (08:45)
--- NOTE | 2022-11-13 09:30 | NUR ---
NOTIFIED DR CLAY ABOUT HOLDING METOPROLO. PT'S BP-95/68, HR-108
[2022-11-13] MEDS: docusate sod 100mg capsule PO SCH ×2 (09:47→20:00)
[2022-11-13] MEDS: heparin, porcine 5000 units/ml vial SQ SCH ×2 (09:48→20:00)
[2022-11-13] MEDS: ROSUVASTATIN CALCIUM 5 MG TABLET PO SCH (10:27)
--- NOTE | 2022-11-13 11:56 | NUR ---
PAGED DR CLAY ABOUT NPO ORDERS FOR PT
[2022-11-13 12:17] LABS: URINE AMPHETAMINE SCREEN NEGATIVE (Neg); URINE BARBITUATE SCREEN NEGATIVE (Neg); URINE BENZODIAZEPINES SCREEN POSITIVE (Neg); URINE CANNABINOID SCREEN POSITIVE (Neg); URINE COCAINE SCREEN NEGATIVE (Neg); URINE METHADONE SCREEN NEGATIVE (Neg); URINE OPIATE SCREEN NEGATIVE (Neg); URINE PHENCYCLIDINE SCREEN NEGATIVE (Neg)
--- NOTE | 2022-11-13 17:46 | NUR ---
Paged Dr. Cha PAGER ID: [phone] MESSAGE: VETO Bailey RN RE: Prince Nicolas . Pt currently on Cardizem drip @ 5 mg/hr. There are 2 orders for Metoprolol PO - 25 mg BID and a 25 mg PO daily. Do you want all of them active orders? HR 80's to 90's BP 101/54 currently Addendum: 11/13/22 at [address] Cha called me and gave instructions as follows: D/c Metoprolol 25 mg PO BID order Keep Metoprolol 25 mg PO daily Keep Cardizem drip order until 1 hour after the dose of metoprolol in the morning This was communicated with the primary nurse XIN Quintero
--- NOTE | 2022-11-13 18:19 | NUR ---
CALLED TO GIVE REPORT BUT NURSE WAS IN MIDDLE OF REPORT AND SAID SHE WOULD CALL BACK.
--- NOTE | 2022-11-13 18:28 | NUR ---
CHARGE NURSE SAID THAT THEY DONT TAKE FRANCOIS HAIDER ON ORTHO AND THAT SHE WOULD CALL ME BACK. SHE WAS GOING TO CALL THE AIRVEYOR OPERATOR AND GET BACK TO ME.
--- NOTE | 2022-11-13 19:06 | NUR ---
SPOKE WITH PTS NEIGHBOR, SAMIRA, WHO WAS REQUESTING AN UPDATE ON THE PTS CONDITION. PT GIVE PERMISSION TO SHARE INFORMATION WITH SAMIRA.
--- NOTE | 2022-11-13 20:16 | NUR ---
PER MD PIERCE HOLD THE EVENING DOSE OF SQ HEPARIN D/T PLT COUNT OF 74.
[2022-11-13] MEDS: QUEtiapine 25mg tablet PO SCH (20:27)
[2022-11-14] VITALS (14 sets, daily range): BP systolic 87–133; BP diastolic 50–83; PULSE 66–91; RESP 11–20; TEMP 97.3–98.7; O2SAT 94–100
--- NOTE | 2022-11-14 01:14 | NUR ---
Per [employer], pt converted to NSR at 0114.
--- NOTE | 2022-11-14 06:16 | NUR ---
Problems reprioritized. Patient report given, questions answered & plan of care reviewed with Bc (RN).
[2022-11-14 06:39] LABS: ALANINE AMINOTRANSFERASE 30 U/L (12-78); ALBUMIN 3.6 G/DL (3.4-5.0); ALBUMIN/GLOBULIN RATIO 1.3 (1.1-1.5); ALKALINE PHOSPHATASE 71 IU/L (46-116); ANION GAP 4 (8-16); ASPARTATE AMINO TRANSFERASE 32 U/L (10-37); BILIRUBIN,TOTAL 2.2 MG/DL (0.1-1.0); BLOOD UREA NITROGEN 25 MG/DL (7-18); BUN/CREATININE RATIO 27.5 (10.0-20.0); CALCIUM 8.8 MG/DL (8.5-10.1); CHLORIDE 101 MMOL/L (99-107); CREATININE 0.91 MG/DL (0.60-1.10); GLUCOSE 96 MG/DL (70-104); POTASSIUM 3.6 MMOL/L (3.5-5.1); SODIUM 135 MMOL/L (135-145); TOTAL PROTEIN 6.4 G/DL (6.4-8.2); eCRCL 71 ML/MIN; eGFR 80 ML/MIN
--- NOTE | 2022-11-14 06:46 | NUR ---
Patient in room U 3025. I have received report from Ramses and had the opportunity to ask questions and assume patient care. Addendum: 11/14/22 at 0648 by Bc Prieto RN Amended: Links added.
[2022-11-14] MEDS: docusate sod 100mg capsule PO SCH ×2 (07:39→20:00)
[2022-11-14] MEDS: ROSUVASTATIN CALCIUM 5 MG TABLET PO SCH (07:39)
[2022-11-14] MEDS: metoprolol succinate 25mg (24-HOUR) SR. Tablet PO SCH (07:39)
[2022-11-14] MEDS: heparin, porcine 5000 units/ml vial SQ SCH ×2 (08:00→20:00)
[2022-11-14] MEDS: K and/or MAG REPLACEMENT MC SCH ×2 (08:00→20:00)
[2022-11-14 08:50] LABS: BASOPHILS % (AUTO) 0.3 % (0-1); EOSINOPHILS # (AUTO) 0.1 X10'3 (0-0.9); MONOCYTES # (AUTO) 0.4 X10'3 (0-0.9)
[2022-11-14 08:52] LABS: EOSINOPHILS % (AUTO) 1.9 % (0-6); HEMATOCRIT 40.5 % (42.0-52.0); LYMPHOCYTES # (AUTO) 0.9 X10'3 (1.1-4.8); MEAN CORPUSCULAR HEMOGLOBIN 32.7 PG (27.0-31.0); MEAN CORPUSCULAR HGB CONC 34.6 g/dL (33.0-36.5); MEAN CORPUSCULAR VOLUME 94.5 FL (78-98); MONOCYTES % (AUTO) 7.1 % (2-12); NEUTROPHILS # (AUTO) 3.8 X10'3 (1.8-7.7); NEUTROPHILS % (AUTO) 72.7 % (42-75); RED BLOOD COUNT 4.28 X10'6 (4.70-6.10); RED CELL DISTRIBUTION WIDTH 16.7 % (11.5-14.5); WHITE BLOOD COUNT 5.3 X10'3 (4.5-11.0)
[2022-11-14 09:00] LABS: MEAN PLATELET VOLUME 8.8 FL (7.4-10.4)
[2022-11-14 09:01] LABS: PLATELET COUNT 72 X10'3 (140-440)
[2022-11-14] MEDS: QUEtiapine 25mg tablet PO SCH (20:25)
[2022-11-15] VITALS (7 sets, daily range): BP systolic 108–155; BP diastolic 60–80; PULSE 70–84; RESP 15–19; TEMP 97.8–98.5; O2SAT 95–99
[2022-11-15] MEDS ORDERED: LORazepam 1 MG tablet PO PRN (03:20)
[2022-11-15] MEDS ORDERED: LORazepam 2 mg/ml vial IV PRN ×2 (03:20→18:55)
--- NOTE | 2022-11-15 06:23 | NUR ---
Patient in room PCU 3025. I have received report from Jesusita GAINES and had the opportunity to ask questions and assume patient care.
--- NOTE | 2022-11-15 06:24 | NUR ---
Problems reprioritized. Patient report given, questions answered & plan of care reviewed with Lottie.
--- NOTE | 2022-11-15 07:09 | NUR ---
Patient in room PCU 3025. I have received report from LIANA HIGGINBOTHAM, and had the opportunity to ask questions and assume patient care.
[2022-11-15 07:11] LABS: ALANINE AMINOTRANSFERASE 29 U/L (12-78); ALBUMIN 3.6 G/DL (3.4-5.0); ALBUMIN/GLOBULIN RATIO 1.2 (1.1-1.5); ALKALINE PHOSPHATASE 77 IU/L (46-116); ANION GAP 10 (8-16); ASPARTATE AMINO TRANSFERASE 32 U/L (10-37); BILIRUBIN,TOTAL 1.7 MG/DL (0.1-1.0); BLOOD UREA NITROGEN 13 MG/DL (7-18); BUN/CREATININE RATIO 14.1 (10.0-20.0); CALCIUM 8.9 MG/DL (8.5-10.1); CHLORIDE 103 MMOL/L (99-107); CREATININE 0.92 MG/DL (0.60-1.10); GLUCOSE 98 MG/DL (70-104); POTASSIUM 3.5 MMOL/L (3.5-5.1); SODIUM 138 MMOL/L (135-145); TOTAL CARBON DIOXIDE 25.4 MMOL/L (24-32); TOTAL PROTEIN 6.6 G/DL (6.4-8.2); eCRCL 70 ML/MIN; eGFR 79 ML/MIN
[2022-11-15] MEDS: K and/or MAG REPLACEMENT MC SCH ×2 (07:25→20:00)
[2022-11-15] MEDS: heparin, porcine 5000 units/ml vial SQ SCH ×2 (08:00→20:00)
[2022-11-15] MEDS: docusate sod 100mg capsule PO SCH ×2 (08:00→20:00)
[2022-11-15] MEDS: metoprolol succinate 25mg (24-HOUR) SR. Tablet PO SCH (08:21)
[2022-11-15] MEDS: ROSUVASTATIN CALCIUM 5 MG TABLET PO SCH (08:22)
[2022-11-15 09:43] LABS: BASOPHILS % (AUTO) 0.3 % (0-1); EOSINOPHILS # (AUTO) 0.1 X10'3 (0-0.9); EOSINOPHILS % (AUTO) 2.9 % (0-6); HEMATOCRIT 38.6 % (42.0-52.0); HEMOGLOBIN 13.1 g/dl (14.0-17.9); LYMPHOCYTES # (AUTO) 0.9 X10'3 (1.1-4.8); MEAN CORPUSCULAR HEMOGLOBIN 32.6 PG (27.0-31.0); MEAN CORPUSCULAR HGB CONC 33.9 g/dL (33.0-36.5); MEAN CORPUSCULAR VOLUME 96.1 FL (78-98); MEAN PLATELET VOLUME 9.3 FL (7.4-10.4); MONOCYTES # (AUTO) 0.4 X10'3 (0-0.9); MONOCYTES % (AUTO) 8.3 % (2-12); NEUTROPHILS # (AUTO) 3.6 X10'3 (1.8-7.7); NEUTROPHILS % (AUTO) 71.5 % (42-75); RED BLOOD COUNT 4.02 X10'6 (4.70-6.10); RED CELL DISTRIBUTION WIDTH 16.5 % (11.5-14.5)
[2022-11-15 09:44] LABS: PLATELET COUNT 68 X10'3 (140-440)
--- NOTE | 2022-11-15 18:17 | NUR ---
ORIENTEE documentation: I have reviewed and agree with all interventions, assessments performed and documented by . ORIENTCLINT Medication Administration: For this medication-pass time frame, all medication were reviewed, dispensed, administered and documented per hospital policy by . Problems reprioritized. Patient report given, questions answered & plan of care reviewed with LIANA HIGGINBOTHAM.
--- NOTE | 2022-11-15 18:19 | NUR ---
Problems reprioritized. Patient report given, questions answered & plan of care reviewed with Jesusita GAINES.
[2022-11-15] MEDS ORDERED: LORazepam 0.5 MG tablet PO PRN (18:55)
[2022-11-15] MEDS: QUEtiapine 25mg tablet PO SCH (21:34)
[2022-11-16 02:00] VITALS: BP 110/69; PULSE 78; RESP 15; TEMP 97.2; O2SAT 98
--- NOTE | 2022-11-16 06:20 | NUR ---
Patient in room PCU 3025. I have received report from Jesusita GAINES and had the opportunity to ask questions and assume patient care.
--- NOTE | 2022-11-16 06:35 | NUR ---
Problems reprioritized. Patient report given, questions answered & plan of care reviewed with Nataliia
[2022-11-16 07:14] LABS: EOSINOPHILS # (AUTO) 0.2 X10'3 (0-0.9); LYMPHOCYTES # (AUTO) 1.1 X10'3 (1.1-4.8); RED BLOOD COUNT 4.05 X10'6 (4.70-6.10)
[2022-11-16 07:16] LABS: BASOPHILS % (AUTO) 0.4 % (0-1); EOSINOPHILS % (AUTO) 3.6 % (0-6); HEMATOCRIT 38.6 % (42.0-52.0); LYMPHOCYTES % (AUTO) 22.5 % (21-51); MEAN CORPUSCULAR HGB CONC 33.6 g/dL (33.0-36.5); MEAN CORPUSCULAR VOLUME 95.3 FL (78-98); MEAN PLATELET VOLUME 7.8 FL (7.4-10.4); MONOCYTES # (AUTO) 0.6 X10'3 (0-0.9); MONOCYTES % (AUTO) 11.6 % (2-12); NEUTROPHILS # (AUTO) 3.1 X10'3 (1.8-7.7); NEUTROPHILS % (AUTO) 61.9 % (42-75); RED CELL DISTRIBUTION WIDTH 16.3 % (11.5-14.5)
[2022-11-16 07:17] LABS: PLATELET COUNT 59 X10'3 (140-440); WHITE BLOOD COUNT 4.8 X10'3 (4.5-11.0)
[2022-11-16 08:00] VITALS: RESP 17; O2SAT 98
[2022-11-16 08:04] LABS: ALANINE AMINOTRANSFERASE 30 U/L (12-78); ALBUMIN 3.6 G/DL (3.4-5.0); ALBUMIN/GLOBULIN RATIO 1.2 (1.1-1.5); ALKALINE PHOSPHATASE 78 IU/L (46-116); ANION GAP 9 (8-16); ASPARTATE AMINO TRANSFERASE 28 U/L (10-37); BILIRUBIN,TOTAL 1.6 MG/DL (0.1-1.0); BLOOD UREA NITROGEN 10 MG/DL (7-18); BUN/CREATININE RATIO 10.1 (10.0-20.0); CALCIUM 9.2 MG/DL (8.5-10.1); CHLORIDE 103 MMOL/L (99-107); CREATININE 0.99 MG/DL (0.60-1.10); GLUCOSE 93 MG/DL (70-104); POTASSIUM 3.7 MMOL/L (3.5-5.1); SODIUM 138 MMOL/L (135-145); TOTAL PROTEIN 6.7 G/DL (6.4-8.2); eCRCL 65 ML/MIN; eGFR 72 ML/MIN
[2022-11-16] MEDS ORDERED: NALT50TA PO (09:52)
--- NOTE | 2022-11-16 15:07 | NUR ---
Pt stable for discharge per Dr. Wyatt. All discharge instructions reviewed with patient and all questions answered, pt verbalized understanding. [facility] PIV discontinued, cannula intact. Tele discontinued. All belongings collected and sent with patient. Wheeled to lobby via nursing staff and picked up by friend.
[2022-11-17] MEDS ORDERED: LORazepam 1 MG tablet PO PRN (03:20)
[2022-11-17] MEDS ORDERED: thiamine 100mg tablet PO SCH (08:00)
== END 2022-11-16 10:35 | disposition home or self-care (01) | DRG 189 ==
LOC: ER 21:14 → ED HOLD 11-13 03:20 → CANBEDREQ 11-13 18:31 → PCU 3S 11-13 23:50
PROVIDERS: ADMIT Internal Medicine; ATTEND Family Medicine
DX: J96.01 Acute respiratory failure with hypoxia (principal); F10.239 Alcohol dependence with withdrawal, unspecified; I48.91 Unspecified atrial fibrillation; Y90.3 Blood alcohol level of 60-79 mg/100 ml; D69.6 Thrombocytopenia, unspecified; I10 Essential (primary) hypertension; I95.9 Hypotension, unspecified; F10.229 Alcohol dependence with intoxication, unspecified; E78.5 Hyperlipidemia, unspecified; F32.A Depression, unspecified; J44.9 Chronic obstructive pulmonary disease, unspecified; Z79.899 Other long term (current) drug therapy; Z95.0 Presence of cardiac pacemaker; Z88.8 Allergy status to other drugs, medicaments and biological substances
CPT/HCPCS: 36415; 71045; 80053; 80305; 80320; 82550; 82948; 83690; 83735; 84132; 84484; 85025; 85610; 85730; 87081; 93005; 99285; A4615; A5200; C9113; G0378; J1644; J2060; J2405; J3411; J3490; J7030

== ENCOUNTER 2022-12-26 13:14 | Inpatient (IN) | payer OTHER, MEDICARE, BC ==
[~2022-12-26] VITALS: Ht 185.4 cm; Wt 97.0 kg
[~2022-12-26 13:14] MED LIST changes: -APIX5TAB3 PO; +NALT50TA PO
[2022-12-26] MEDS ORDERED: LORazepam 2 mg/ml vial IV ONE ×2 (13:25→14:25)
[2022-12-26] MEDS ORDERED: ondansetron/PF 4mg/2ml inj IV ONE (13:30)
[2022-12-26] MEDS ORDERED: pantoprazole 40 MG vial IV ONE (13:30)
[2022-12-26] MEDS ORDERED: normal saline 1000ML IV soln IVB ONE (13:30)
[2022-12-26] MEDS ORDERED: diltiazem 5mg/ml 5ml inj. IV ONE (13:35)
[2022-12-26] MEDS ORDERED: diltiazem-NS 100mg/100ml 100 ML IV ONE (13:35)
[2022-12-26 14:14] LABS: ALANINE AMINOTRANSFERASE 38 U/L (12-78); ALBUMIN 4.6 G/DL (3.4-5.0); ALBUMIN/GLOBULIN RATIO 1.4 (1.1-1.5); ALKALINE PHOSPHATASE 114 IU/L (46-116); ANION GAP 17 (8-16); ASPARTATE AMINO TRANSFERASE 44 U/L (10-37); BILIRUBIN,TOTAL 1.6 MG/DL (0.1-1.0); BLOOD UREA NITROGEN 23 MG/DL (7-18); BUN/CREATININE RATIO 22.3 (10.0-20.0); CALCIUM 9.5 MG/DL (8.5-10.1); CHLORIDE 100 MMOL/L (99-107); CREATININE 1.03 MG/DL (0.60-1.10); GLUCOSE 157 MG/DL (70-104); POTASSIUM 3.7 MMOL/L (3.5-5.1); SODIUM 139 MMOL/L (135-145); TOTAL CARBON DIOXIDE 21.9 MMOL/L (24-32); eCRCL 62 ML/MIN; eGFR 69 ML/MIN
[2022-12-26 14:19] LABS: ETHANOL < 10 MG/DL (<10); LIPASE 34 U/L (16-77); MAGNESIUM 1.8 MG/DL (1.5-2.4)
[2022-12-26 14:55] LABS: BASOPHILS % (AUTO) 0.2 % (0-1); EOSINOPHILS % (AUTO) 0 % (0-6); HEMATOCRIT 44.9 % (42.0-52.0); LYMPHOCYTES # (AUTO) 0.4 X10'3 (1.1-4.8); LYMPHOCYTES % (AUTO) 5.2 % (21-51); MEAN CORPUSCULAR HEMOGLOBIN 31.3 PG (27.0-31.0); MEAN CORPUSCULAR HGB CONC 33.3 g/dL (33.0-36.5); MEAN PLATELET VOLUME 8.6 FL (7.4-10.4); MONOCYTES # (AUTO) 0.2 X10'3 (0-0.9); MONOCYTES % (AUTO) 2.4 % (2-12); NEUTROPHILS # (AUTO) 6.8 X10'3 (1.8-7.7); NEUTROPHILS % (AUTO) 92.2 % (42-75); RED BLOOD COUNT 4.78 X10'6 (4.70-6.10); RED CELL DISTRIBUTION WIDTH 14.9 % (11.5-14.5); WHITE BLOOD COUNT 7.4 X10'3 (4.5-11.0)
[2022-12-26 15:14] LABS: PLATELET COUNT 110 X10'3 (140-440)
[2022-12-26] MEDS ORDERED: magnesium hydroxide 30ml (MOM) UD suspension PO PRN ×2 (15:20)
[2022-12-26] MEDS ORDERED: potassium Cl 20 mEq SR tablet PO PRN ×2 (15:20)
[2022-12-26] MEDS ORDERED: morphine 2 MG/ML inj. syringe IV PRN ×2 (15:20)
[2022-12-26] MEDS ORDERED: dextrose 50%-water 50ml dispensing syringe IV PRN ×2 (15:20)
[2022-12-26] MEDS ORDERED: potassium Cl 40MEQ/1/2NS 520ml 520 ML IV PRN (15:20)
[2022-12-26] MEDS ORDERED: magnesium 4gm in 100ml NS 100 ML IV PRN (15:20)
[2022-12-26] MEDS ORDERED: LORazepam 2 mg/ml vial IV PRN ×2 (15:20)
[2022-12-26] MEDS ORDERED: acetaminophen 325mg tablet PO PRN ×4 (15:20)
[2022-12-26] MEDS ORDERED: haloperidol lactate 5mg/ml inj IM PRN ×2 (15:20)
[2022-12-26] MEDS ORDERED: LORazepam 1 MG tablet PO PRN (15:20)
[2022-12-26] MEDS ORDERED: magnesium Cl slow-release 64mg tablet PO PRN (15:20)
[2022-12-26] MEDS ORDERED: haloperidol 5mg tablet PO PRN (15:20)
[2022-12-26] MEDS ORDERED: mag hydrox/Alum hydrox/simeth 30ml oral suspension PO PRN ×2 (15:20)
[2022-12-26] MEDS ORDERED: magnesium 2GM in 50ml NS 50 ML IV PRN (15:20)
[2022-12-26] MEDS ORDERED: HYDROcodone/acetaminophen 5mg/325mg tablet PO PRN (15:20)
[2022-12-26] MEDS ORDERED: ondansetron/PF 4mg/2ml inj IV PRN ×2 (15:20)
[2022-12-26] MEDS ORDERED: normal saline 1000ml 1,000 ML IV SCH (15:30)
[2022-12-26] MEDS: folic acid 1mg/0.2ml inj IV SCH (15:39)
[2022-12-26] MEDS: thiamine 100mg/ml 2ml inj. IV SCH ×2 (15:44→20:27)
[2022-12-26] MEDS: normal saline 1000ml 1,000 ML IV SCH (16:00)
[2022-12-26 16:02] LABS: PROTHROMBIN TIME 10.9 SECONDS (9.0-12.0)
[2022-12-26] MEDS ORDERED: FOLI1TAB27 PO (16:07)
[2022-12-26] MEDS ORDERED: LACT1CAP65 PO (16:07)
[2022-12-26] MEDS ORDERED: THIA50TA10 PO (16:07)
[2022-12-26] MEDS ORDERED: APIX5TAB3 PO (16:07)
[2022-12-26] MEDS ORDERED: MULT-1085 PO (16:07)
[2022-12-26] MEDS ORDERED: SENN-263 PO (16:07)
[2022-12-26] MEDS ORDERED: GABA-530 PO (16:07)
[2022-12-26] MEDS ORDERED: ONDA4TAB12 PO (16:08)
[2022-12-26 16:38] LABS: HEMOGLOBIN A1C 5.3 % (4.5-6.2)
[2022-12-26 16:43] LABS: POTASSIUM 4.1 MMOL/L (3.5-5.1)
[2022-12-26 16:43] LABS: URINE AMPHETAMINE SCREEN NEGATIVE (Neg); URINE BARBITUATE SCREEN NEGATIVE (Neg); URINE BENZODIAZEPINES SCREEN NEGATIVE (Neg); URINE CANNABINOID SCREEN POSITIVE (Neg); URINE COCAINE SCREEN NEGATIVE (Neg); URINE METHADONE SCREEN NEGATIVE (Neg); URINE OPIATE SCREEN NEGATIVE (Neg); URINE PHENCYCLIDINE SCREEN NEGATIVE (Neg)
[2022-12-26 16:48] LABS: BILIRUBIN,URINE NEGATIVE (Neg); CLARITY,URINE CLEAR (Clear); COLOR,URINE YELLOW (Yellow); GLUCOSE, URINE NEGATIVE (Neg); KETONES,URINE 40 mg/dl (Neg); LEUKOCYTE ESTERASE ,URINE NEGATIVE (Neg); NITRITES, URINE NEGATIVE (Neg); OCCULT BLOOD,URINE SMALL (Neg); PROTEIN,URINE 100 mg/dl (Neg); UROBILINOGEN,URINE 0.2 E.U/dL (0.2-1.0)
[2022-12-26 16:53] LABS: UA COLLECTION TYPE STRAIGHT CATH
[2022-12-26 16:54] LABS: HYALINE CASTS 0-3 /LPF (NEGATIVE); MUCUS STRANDS FEW /LPF (Neg); SQUAMOUS EPITHELIAL CELL,UR FEW /LPF (FEW)
[2022-12-26 16:55] LABS: BACTERIA,URINE FEW /HPF (Neg); RENAL CELLS, URINE FEW /HPF; TRANSITIONAL EPI CELLS,URINE FEW /HPF; WBC,URINE 0-4 /HPF (0-4)
[2022-12-26] MEDS ORDERED: sennosides 8.6mg tablet PO PRN (17:40)
[2022-12-26] MEDS: docusate sod 100mg capsule PO SCH (19:39)
[2022-12-26] MEDS: K and/or MAG REPLACEMENT MC SCH (19:39)
[2022-12-26] MEDS ORDERED: heparin, porcine 5000 units/ml vial SQ SCH (20:00)
[2022-12-26] MEDS: apixaban 5mg tablet PO SCH (20:27)
[2022-12-26] MEDS: QUEtiapine 25mg tablet PO SCH (20:27)
[2022-12-26] MEDS ORDERED: thiamine 100mg/ml 2ml inj. IV SCH (21:00)
--- NOTE | 2022-12-26 23:00 | NUR ---
pt placed on hospital bed for comfort
--- NOTE | 2022-12-26 23:38 | NUR ---
NOTIFIED ODILIA VIDES THAT CARDIZEM GTT WAS ONE TIME ONLY ORDER, PER ODILIA STILL D/C CARDIZEM GTT WHEN FINISHED, NO PO CARDIZEM, & GIVE PT HOME MED OF METOPROLOL STARTING NOW RATHER THAN IN AM. METOPROLOL ORDER UPDATED TO START NOW.
[2022-12-26] MEDS: metoprolol succinate 25mg (24-HOUR) SR. Tablet PO SCH (23:43)
[2022-12-26] MEDS: gabapentin 300mg capsule PO SCH (23:43)
[2022-12-26] MEDS: lactobacillus rhamnosus 10,000 MMU CELLS/CAPSULE PO SCH (23:43)
[2022-12-27] MEDS: normal saline 1000ml 1,000 ML IV SCH ×3 (01:34→23:13)
[2022-12-27 03:27] LABS: ANION GAP 8 (8-16); CHLORIDE 103 MMOL/L (99-107); POTASSIUM 3.5 MMOL/L (3.5-5.1); SODIUM 138 MMOL/L (135-145); TOTAL CARBON DIOXIDE 26.7 MMOL/L (24-32)
[2022-12-27 03:47] LABS: LYMPHOCYTES # (AUTO) 1.2 X10'3 (1.1-4.8)
[2022-12-27 03:49] LABS: BASOPHILS % (AUTO) 0.4 % (0-1); EOSINOPHILS % (AUTO) 0.5 % (0-6); HEMATOCRIT 37.6 % (42.0-52.0); HEMOGLOBIN 12.5 g/dl (14.0-17.9); LYMPHOCYTES % (AUTO) 20.4 % (21-51); MEAN CORPUSCULAR HEMOGLOBIN 31.4 PG (27.0-31.0); MEAN CORPUSCULAR HGB CONC 33.3 g/dL (33.0-36.5); MONOCYTES # (AUTO) 0.4 X10'3 (0-0.9); MONOCYTES % (AUTO) 7.6 % (2-12); NEUTROPHILS # (AUTO) 4.1 X10'3 (1.8-7.7); NEUTROPHILS % (AUTO) 71.1 % (42-75); RED BLOOD COUNT 3.99 X10'6 (4.70-6.10); RED CELL DISTRIBUTION WIDTH 15.1 % (11.5-14.5)
[2022-12-27 03:56] LABS: ALANINE AMINOTRANSFERASE 28 U/L (12-78); ALBUMIN 3.3 G/DL (3.4-5.0); ALBUMIN/GLOBULIN RATIO 1.3 (1.1-1.5); ALKALINE PHOSPHATASE 84 IU/L (46-116); ASPARTATE AMINO TRANSFERASE 32 U/L (10-37); BILIRUBIN,TOTAL 1.4 MG/DL (0.1-1.0); BLOOD UREA NITROGEN 23 MG/DL (7-18); BUN/CREATININE RATIO 26.7 (10.0-20.0); CALCIUM 8.2 MG/DL (8.5-10.1); CHOL/HDL RATIO 2.4 (0.00-4.99); CHOLESTEROL 170 MG/DL (0-200); CREATININE 0.86 MG/DL (0.60-1.10); GLUCOSE 101 MG/DL (70-104); HDL CHOLESTEROL 70 MG/DL (35-60); LDL CHOLESTEROL 87 MG/DL (50-100); MAGNESIUM 2.2 MG/DL (1.5-2.4); PHOSPHORUS 1.8 MG/DL (2.3-4.5); TOTAL PROTEIN 5.9 G/DL (6.4-8.2); TRIGLYCERIDES 69 MG/DL (20-135); eCRCL 75 ML/MIN; eGFR 85 ML/MIN
--- NOTE | 2022-12-27 04:07 | NUR ---
AWARE OF PTS PLT 60.5 NO NEW ORDERS
[2022-12-27] MEDS: apixaban 5mg tablet PO SCH ×2 (08:00→23:01)
[2022-12-27] MEDS ORDERED: metoprolol succinate 25mg (24-HOUR) SR. Tablet PO SCH (08:00)
[2022-12-27] MEDS: multivitamins, therapeutics tablet PO SCH ×2 (08:00→08:43)
[2022-12-27] MEDS: docusate sod 100mg capsule PO SCH ×3 (08:00→23:18)
[2022-12-27] MEDS ORDERED: folic acid 1mg/0.2ml inj IV SCH (08:00)
[2022-12-27] MEDS: nicotine 14mg patch - 24hr TD SCH (08:00)
[2022-12-27] MEDS: K and/or MAG REPLACEMENT MC SCH ×2 (08:00→23:01)
[2022-12-27] MEDS: folic acid 1mg/0.2ml inj IV SCH (08:42)
[2022-12-27] MEDS: thiamine 100mg/ml 2ml inj. IV SCH ×3 (08:43→23:08)
[2022-12-27] MEDS: lactobacillus rhamnosus 10,000 MMU CELLS/CAPSULE PO SCH ×3 (08:44→23:37)
[2022-12-27] MEDS: gabapentin 300mg capsule PO SCH ×2 (08:44→16:14)
[2022-12-27] MEDS: metoprolol succinate 25mg (24-HOUR) SR. Tablet PO SCH (08:44)
[2022-12-27] MEDS: naltrexone 50mg tablet PO SCH (08:45)
[2022-12-27] MEDS: ROSUVASTATIN CALCIUM 5 MG TABLET PO SCH (08:45)
[2022-12-27] MEDS: LORazepam 1 MG tablet PO PRN ×3 (10:12→20:31)
--- NOTE | 2022-12-27 10:30 | NUR ---
pt ambulated to the bathroom with walker and standby
[2022-12-27 15:24] LABS: % IRON SATURATION 55 % (11-46); IRON 142 UG/DL (53-167); TOTAL IRON BINDING CAPACITY 259 UG/DL (259-388)
--- NOTE | 2022-12-27 16:44 | NUR ---
pt is having hallucination and shaking. 1 mg ativan given
[2022-12-27] MEDS: LORazepam 2 mg/ml vial IV PRN (20:57)
--- NOTE | 2022-12-27 23:24 | NUR ---
SPOKE WITH MD HARTLEY REGARDING PLT COUNT. STATES TO NON ADMIN ELIQUIS.
[2022-12-27] MEDS: QUEtiapine 25mg tablet PO SCH (23:37)
--- NOTE | 2022-12-27 23:55 | NUR ---
PT ARRIVED TO THE FLOOR VIA GURNEY, PT AWAKE BUT CONFUSED, EASY TO REORIENTATE TO SITUATION. PT SHOWED UNDERSTANDING OF CALL LIGHT. TELE PLACED ON PT, VITALS AND ASSESSMENT COMPLETED.
[2022-12-28] VITALS (16 sets, daily range): BP systolic 95–137; BP diastolic 63–94; PULSE 71–133; RESP 12–19; TEMP 96.8–98.4; O2SAT 90–100
--- NOTE | 2022-12-28 01:00 | NUR ---
PTS HOME MEDICATIONS TAKEN TO PHARMACY FOR STORAGE.
[2022-12-28] MEDS: LORazepam 2 mg/ml vial IV PRN (01:07)
--- NOTE | 2022-12-28 06:00 | NUR ---
Problems reprioritized. Patient report given, questions answered & plan of care reviewed with Yumi GAINES, patient stable at transfer of care.
[2022-12-28] MEDS: multivitamins, therapeutics tablet PO SCH ×2 (07:44→08:05)
[2022-12-28] MEDS: lactobacillus rhamnosus 10,000 MMU CELLS/CAPSULE PO SCH ×3 (07:44→21:45)
[2022-12-28] MEDS: docusate sod 100mg capsule PO SCH ×2 (07:44→21:46)
[2022-12-28] MEDS: gabapentin 300mg capsule PO SCH ×2 (07:44→16:47)
[2022-12-28] MEDS: metoprolol succinate 25mg (24-HOUR) SR. Tablet PO SCH (07:44)
[2022-12-28] MEDS: nicotine 14mg patch - 24hr TD SCH (07:46)
[2022-12-28] MEDS: thiamine 100mg/ml 2ml inj. IV SCH ×3 (07:46→21:45)
[2022-12-28] MEDS: apixaban 5mg tablet PO SCH (07:48)
[2022-12-28] MEDS: ROSUVASTATIN CALCIUM 5 MG TABLET PO SCH (08:00)
[2022-12-28] MEDS: naltrexone 50mg tablet PO SCH (08:00)
[2022-12-28] MEDS: K and/or MAG REPLACEMENT MC SCH ×2 (08:00→20:00)
[2022-12-28] MEDS: normal saline 1000ml 1,000 ML IV SCH (08:04)
[2022-12-28 09:26] LABS: BASOPHILS % (AUTO) 0.6 % (0-1); EOSINOPHILS # (AUTO) 0.1 X10'3 (0-0.9); EOSINOPHILS % (AUTO) 2.2 % (0-6); HEMATOCRIT 40.2 % (42.0-52.0); HEMOGLOBIN 13.3 g/dl (14.0-17.9); LYMPHOCYTES # (AUTO) 1.1 X10'3 (1.1-4.8); LYMPHOCYTES % (AUTO) 25.1 % (21-51); MEAN CORPUSCULAR HEMOGLOBIN 31.5 PG (27.0-31.0); MEAN CORPUSCULAR HGB CONC 33.2 g/dL (33.0-36.5); MONOCYTES # (AUTO) 0.3 X10'3 (0-0.9); MONOCYTES % (AUTO) 7.4 % (2-12); NEUTROPHILS # (AUTO) 2.8 X10'3 (1.8-7.7); NEUTROPHILS % (AUTO) 64.7 % (42-75); RED BLOOD COUNT 4.23 X10'6 (4.70-6.10); WHITE BLOOD COUNT 4.4 X10'3 (4.5-11.0)
[2022-12-28 09:32] LABS: ALANINE AMINOTRANSFERASE 25 U/L (12-78); ALBUMIN 3.3 G/DL (3.4-5.0); ALBUMIN/GLOBULIN RATIO 1.2 (1.1-1.5); ALKALINE PHOSPHATASE 84 IU/L (46-116); ANION GAP 6 (8-16); ASPARTATE AMINO TRANSFERASE 30 U/L (10-37); BILIRUBIN,TOTAL 1.1 MG/DL (0.1-1.0); BLOOD UREA NITROGEN 19 MG/DL (7-18); BUN/CREATININE RATIO 18.4 (10.0-20.0); CALCIUM 8.1 MG/DL (8.5-10.1); CHLORIDE 103 MMOL/L (99-107); CREATININE 1.03 MG/DL (0.60-1.10); GLUCOSE 109 MG/DL (70-104); MAGNESIUM 2.2 MG/DL (1.5-2.4); PHOSPHORUS 2.2 MG/DL (2.3-4.5); POTASSIUM 3.7 MMOL/L (3.5-5.1); SODIUM 137 MMOL/L (135-145); TOTAL CARBON DIOXIDE 28.2 MMOL/L (24-32); eCRCL 62 ML/MIN; eGFR 69 ML/MIN
[2022-12-28 09:41] LABS: PLATELET COUNT 37 X10'3 (140-440)
--- NOTE | 2022-12-28 09:46 | NUR ---
Message: [id number], Fidencio Amaya. Pts platelets are 37 this morning, I tried to call the resident but her phone isn't accepting calls at this time. Nataliia [facility] [id number].
[2022-12-28] MEDS ORDERED: diltiazem 5mg/ml 5ml inj. IV ONE (11:00)
[2022-12-28] MEDS ORDERED: metoprolol succinate 25mg (24-HOUR) SR. Tablet PO ONE (11:10)
[2022-12-28] MEDS: folic acid 1mg/0.2ml inj IV SCH (11:19)
[2022-12-28] MEDS: diltiazem-NS 100mg/100ml 100 ML IV SCH (11:48)
--- NOTE | 2022-12-28 15:41 | NUR ---
Received order for consult. Tried to meet with patient in regards to alcohol use. I was unable to wake patient. A list of resources at patient's bedside.
[2022-12-28 16:18] LABS: PLATELET COUNT 61 X10'3 (140-440)
[2022-12-28 16:58] LABS: MEAN CORPUSCULAR VOLUME 94.2 FL (78-98); WHITE BLOOD COUNT 5.8 X10'3 (4.5-11.0)
[2022-12-28] MEDS: QUEtiapine 25mg tablet PO SCH (21:45)
[2022-12-29] VITALS (7 sets, daily range): BP systolic 105–136; BP diastolic 64–81; PULSE 61–80; RESP 14–20; TEMP 97.7–98.2; O2SAT 92–96
[2022-12-29] MEDS: gabapentin 300mg capsule PO SCH ×2 (02:09→08:00)
[2022-12-29] MEDS: normal saline 1000ml 1,000 ML IV SCH ×3 (03:20→13:20)
[2022-12-29] MEDS: diltiazem-NS 100mg/100ml 100 ML IV SCH (03:53)
--- NOTE | 2022-12-29 06:24 | NUR ---
Problems reprioritized. Patient report given, questions answered & plan of care reviewed with Maxx GAINES. Pt stable at transfer of care
--- NOTE | 2022-12-29 06:28 | NUR ---
Patient in room PCU 3015. I have received report from Yumi GAINES and had the opportunity to ask questions and assume patient care.
[2022-12-29] MEDS ORDERED: metoprolol succinate 25mg (24-HOUR) SR. Tablet PO SCH (07:15)
[2022-12-29] MEDS: docusate sod 100mg capsule PO SCH (08:00)
[2022-12-29] MEDS: nicotine 14mg patch - 24hr TD SCH (08:00)
[2022-12-29] MEDS: K and/or MAG REPLACEMENT MC SCH (08:00)
[2022-12-29] MEDS: naltrexone 50mg tablet PO SCH (08:00)
[2022-12-29 08:06] LABS: ALANINE AMINOTRANSFERASE 25 U/L (12-78); ALBUMIN 3.5 G/DL (3.4-5.0); ALBUMIN/GLOBULIN RATIO 1.3 (1.1-1.5); ALKALINE PHOSPHATASE 86 IU/L (46-116); ANION GAP 7 (8-16); ASPARTATE AMINO TRANSFERASE 27 U/L (10-37); BLOOD UREA NITROGEN 20 MG/DL (7-18); BUN/CREATININE RATIO 21.7 (10.0-20.0); CALCIUM 8.9 MG/DL (8.5-10.1); CHLORIDE 104 MMOL/L (99-107); CREATININE 0.92 MG/DL (0.60-1.10); GLUCOSE 93 MG/DL (70-104); MAGNESIUM 2.1 MG/DL (1.5-2.4); PHOSPHORUS 2.9 MG/DL (2.3-4.5); SODIUM 138 MMOL/L (135-145); TOTAL CARBON DIOXIDE 27.5 MMOL/L (24-32); TOTAL PROTEIN 6.2 G/DL (6.4-8.2); eCRCL 70 ML/MIN; eGFR 79 ML/MIN
[2022-12-29] MEDS: ROSUVASTATIN CALCIUM 5 MG TABLET PO SCH (08:21)
[2022-12-29] MEDS: multivitamins, therapeutics tablet PO SCH (08:21)
[2022-12-29] MEDS: lactobacillus rhamnosus 10,000 MMU CELLS/CAPSULE PO SCH ×2 (08:22→13:00)
[2022-12-29] MEDS: thiamine 100mg/ml 2ml inj. IV SCH ×2 (08:26→13:00)
[2022-12-29] MEDS: folic acid 1mg/0.2ml inj IV SCH (08:27)
[2022-12-29 09:49] LABS: EOSINOPHILS # (AUTO) 0.1 X10'3 (0-0.9); MONOCYTES # (AUTO) 0.4 X10'3 (0-0.9)
[2022-12-29 09:51] LABS: BASOPHILS % (AUTO) 0.4 % (0-1); EOSINOPHILS % (AUTO) 2.5 % (0-6); HEMATOCRIT 41.3 % (42.0-52.0); HEMOGLOBIN 13.9 g/dl (14.0-17.9); LYMPHOCYTES % (AUTO) 20.8 % (21-51); MEAN CORPUSCULAR HGB CONC 33.6 g/dL (33.0-36.5); MEAN CORPUSCULAR VOLUME 95.2 FL (78-98); MONOCYTES % (AUTO) 7.4 % (2-12); NEUTROPHILS # (AUTO) 3.4 X10'3 (1.8-7.7); NEUTROPHILS % (AUTO) 68.9 % (42-75); RED BLOOD COUNT 4.34 X10'6 (4.70-6.10); RED CELL DISTRIBUTION WIDTH 15.3 % (11.5-14.5)
[2022-12-29 10:16] LABS: PLATELET COUNT 72 X10'3 (140-440)
[2022-12-29] MEDS ORDERED: METO-539 PO (11:53)
--- NOTE | 2022-12-29 16:12 | NUR ---
Pt was DC'd as per Dr's orders. Pt was unhooked from all IV and tele. Pt was educated at bedside with friend and all questions were answered. Pt will schedule a follow up appointment and poultry picker their meds. Pt gathered all of their belongings and took with them. Pt was wheeled down to lobby by care staff and left in a private vehicle destined for home.
[2022-12-30] MEDS ORDERED: thiamine 100mg tablet PO SCH (08:00)
[2022-12-31] MEDS ORDERED: thiamine 100mg tablet PO SCH (08:00)
[2022-12-31] MEDS ORDERED: folic acid 1mg tablet PO SCH ×2 (08:00)
== END 2022-12-29 15:32 | disposition home health service (06) | DRG 309 ==
LOC: ER 13:15 → ED HOLD 15:28 → EDBEDREQ 12-27 22:42 → PCU 3S 12-27 23:55
PROVIDERS: ADMIT Internal Medicine; ATTEND Student in an Organized Health Care Education/Training Program
DX: I48.91 Unspecified atrial fibrillation (principal); E87.20 Acidosis, unspecified; F10.139 Alcohol abuse with withdrawal, unspecified; R44.0 Auditory hallucinations; F41.9 Anxiety disorder, unspecified; E78.00 Pure hypercholesterolemia, unspecified; I10 Essential (primary) hypertension; J44.9 Chronic obstructive pulmonary disease, unspecified; F32.A Depression, unspecified; Y90.0 Blood alcohol level of less than 20 mg/100 ml; D69.59 Other secondary thrombocytopenia; D53.9 Nutritional anemia, unspecified; Z79.01 Long term (current) use of anticoagulants; L98.9 Disorder of the skin and subcutaneous tissue, unspecified; Z87.01 Personal history of pneumonia (recurrent); Z95.0 Presence of cardiac pacemaker; Z85.038 Personal history of other malignant neoplasm of large intestine; Z90.49 Acquired absence of other specified parts of digestive tract; Z88.8 Allergy status to other drugs, medicaments and biological substances; Z79.899 Other long term (current) drug therapy; Z87.891 Personal history of nicotine dependence; D69.6 Thrombocytopenia, unspecified
CPT/HCPCS: 36415; 71045; 80053; 80061; 80305; 80320; 81001; 82140; 82607; 82728; 82948; 83036; 83540; 83550; 83690; 83735; 83880; 84100; 84132; 84443; 84484; 85025; 85610; 87040; 87081; 92508; 92616; 93306; 96365; 96375; 97110; 97161; 97530; 99285; A4615; A6446; A6449; C1758; C9113; G0378; J2060; J2405; J3411; J3490; J7030; J7040

== ENCOUNTER 2023-01-11 12:40 | Observation (INO) | payer OTHER, MEDICARE, BC ==
[~2023-01-11] VITALS: Ht 185.4 cm; Wt 95.5 kg
[~2023-01-11 12:40] MED LIST changes: +APIX5TAB3 PO; +FOLI1TAB27 PO; +GABA-530 PO; +LACT1CAP65 PO; +MULT-1085 PO; +ONDA4TAB12 PO; +SENN-263 PO; +THIA50TA10 PO
[2023-01-11 13:15] LABS: ALANINE AMINOTRANSFERASE 39 U/L (12-78); ALBUMIN 4.4 G/DL (3.4-5.0); ALBUMIN/GLOBULIN RATIO 1.3 (1.1-1.5); ALKALINE PHOSPHATASE 116 IU/L (46-116); ANION GAP 14 (8-16); ASPARTATE AMINO TRANSFERASE 55 U/L (10-37); BILIRUBIN,TOTAL 1.2 MG/DL (0.1-1.0); BLOOD UREA NITROGEN 22 MG/DL (7-18); CALCIUM 9.1 MG/DL (8.5-10.1); CHLORIDE 98 MMOL/L (99-107); GLUCOSE 132 MG/DL (70-104); POTASSIUM 3.6 MMOL/L (3.5-5.1); SODIUM 136 MMOL/L (135-145); TOTAL CARBON DIOXIDE 23.8 MMOL/L (24-32); TOTAL PROTEIN 7.7 G/DL (6.4-8.2); eGFR 64 ML/MIN
[2023-01-11 13:20] LABS: PRO BRAIN NATRIURETIC PEPTIDE 552 PG/ML (0-450)
[2023-01-11 14:48] LABS: BASOPHILS % (AUTO) 0.5 % (0-1); EOSINOPHILS % (AUTO) 0.1 % (0-6); HEMOGLOBIN 14.7 g/dl (14.0-17.9); LYMPHOCYTES # (AUTO) 0.6 X10'3 (1.1-4.8); LYMPHOCYTES % (AUTO) 9.1 % (21-51); MEAN CORPUSCULAR HEMOGLOBIN 31.3 PG (27.0-31.0); MEAN CORPUSCULAR HGB CONC 33.3 g/dL (33.0-36.5); MEAN CORPUSCULAR VOLUME 93.9 FL (78-98); MEAN PLATELET VOLUME 9.4 FL (7.4-10.4); MONOCYTES # (AUTO) 0.3 X10'3 (0-0.9); MONOCYTES % (AUTO) 4.7 % (2-12); NEUTROPHILS # (AUTO) 5.8 X10'3 (1.8-7.7); NEUTROPHILS % (AUTO) 85.6 % (42-75); RED BLOOD COUNT 4.68 X10'6 (4.70-6.10); RED CELL DISTRIBUTION WIDTH 15.7 % (11.5-14.5)
[2023-01-11 14:50] LABS: WHITE BLOOD COUNT 5.8 X10'3 (4.5-11.0)
[2023-01-11 14:52] LABS: PLATELET COUNT 139 X10'3 (140-440)
[2023-01-11 16:13] LABS: BILIRUBIN,URINE SMALL (Neg); CLARITY,URINE CLEAR (Clear); GLUCOSE, URINE NEGATIVE (Neg); KETONES,URINE TRACE mg/dl (Neg); LEUKOCYTE ESTERASE ,URINE NEGATIVE (Neg); OCCULT BLOOD,URINE TRACE-INTACT (Neg); PROTEIN,URINE 100 mg/dl (Neg); UROBILINOGEN,URINE 0.2 E.U/dL (0.2-1.0)
[2023-01-11 16:24] LABS: UA COLLECTION TYPE CLN CATCH MIDSTREAM
[2023-01-11 16:27] LABS: MUCUS STRANDS MANY /LPF (Neg); NITRITES, URINE NEGATIVE (Neg); SQUAMOUS EPITHELIAL CELL,UR FEW /LPF (FEW)
[2023-01-11 16:28] LABS: BACTERIA,URINE NONE SEEN /HPF (Neg); COLOR,URINE DARK YELLOW (Yellow); WBC,URINE 0-4 /HPF (0-4)
[2023-01-11] MEDS ORDERED: thiamine 100mg tablet PO ONE (19:35)
[2023-01-11] MEDS ORDERED: folic acid 1mg tablet PO ONE (19:35)
[2023-01-11 20:13] LABS: ETHANOL < 10 MG/DL (<10); MAGNESIUM 1.7 MG/DL (1.5-2.4); PRO BRAIN NATRIURETIC PEPTIDE 952 PG/ML (0-450); THYROID STIMULATING HORMONE 2.62 ulU/ml (0.34-4.50)
[2023-01-11 20:29] LABS: URINE AMPHETAMINE SCREEN NEGATIVE (Neg); URINE BARBITUATE SCREEN NEGATIVE (Neg); URINE BENZODIAZEPINES SCREEN NEGATIVE (Neg); URINE CANNABINOID SCREEN POSITIVE (Neg); URINE COCAINE SCREEN NEGATIVE (Neg); URINE METHADONE SCREEN NEGATIVE (Neg); URINE OPIATE SCREEN NEGATIVE (Neg); URINE PHENCYCLIDINE SCREEN NEGATIVE (Neg)
[2023-01-11] MEDS ORDERED: magnesium Cl slow-release 64mg tablet PO PRN (22:40)
[2023-01-11] MEDS ORDERED: potassium Cl 20 mEq SR tablet PO PRN ×2 (22:40)
[2023-01-11] MEDS ORDERED: magnesium 2GM in 50ml NS 50 ML IV PRN (22:40)
[2023-01-11] MEDS ORDERED: acetaminophen 325mg tablet PO PRN (22:40)
[2023-01-11] MEDS ORDERED: magnesium hydroxide 30ml (MOM) UD suspension PO PRN (22:40)
[2023-01-11] MEDS ORDERED: magnesium 4gm in 100ml NS 100 ML IV PRN (22:40)
[2023-01-11] MEDS ORDERED: normal saline 1000ml 1,000 ML IV SCH (22:40)
[2023-01-11] MEDS ORDERED: ondansetron/PF 4mg/2ml inj IV PRN (22:40)
[2023-01-11] MEDS ORDERED: mag hydrox/Alum hydrox/simeth 30ml oral suspension PO PRN (22:40)
[2023-01-11] MEDS ORDERED: potassium Cl 40MEQ/1/2NS 520ml 520 ML IV PRN (22:40)
[2023-01-12] MEDS: LORazepam 2 mg/ml vial IV PRN ×3 (00:45→09:35)
[2023-01-12 00:49] VITALS: BP 147/90; PULSE 95; RESP 20; TEMP 98.2; O2SAT 99
[2023-01-12 02:00] VITALS: BP 134/85; PULSE 87; RESP 19; TEMP 98.2; O2SAT 96
[2023-01-12 06:27] LABS: INR 1.1 INR; PROTHROMBIN TIME 11.9 SECONDS (9.0-12.0)
[2023-01-12 06:35] LABS: MAGNESIUM 1.6 MG/DL (1.5-2.4); PHOSPHORUS 2.3 MG/DL (2.3-4.5); POTASSIUM 3.3 MMOL/L (3.5-5.1)
[2023-01-12 07:00] VITALS: RESP 21; O2SAT 97
[2023-01-12 07:36] VITALS: BP 108/76; PULSE 83; RESP 21; TEMP 97.8; O2SAT 97
[2023-01-12] MEDS ORDERED: multivitamins, therapeutics tablet PO SCH (08:00)
[2023-01-12] MEDS ORDERED: K and/or MAG REPLACEMENT MC SCH (08:00)
[2023-01-12] MEDS ORDERED: docusate sod 100mg capsule PO SCH (08:00)
[2023-01-12] MEDS ORDERED: metoprolol succinate 25mg (24-HOUR) SR. Tablet PO ONE (08:20)
[2023-01-12] MEDS ORDERED: apixaban 5mg tablet PO ONE (08:20)
[2023-01-12] MEDS ORDERED: thiamine 100mg/ml 2ml inj. IV ONE (08:35)
[2023-01-12 11:37] VITALS: BP 113/69; PULSE 80; RESP 16; TEMP 97.7; O2SAT 99
[2023-01-12] MEDS ORDERED: LORA-269 PO (13:16)
[2023-01-15] MEDS ORDERED: LORazepam 1 MG tablet PO PRN (22:35)
[2023-01-16] MEDS ORDERED: folic acid 1mg tablet PO SCH (08:00)
[2023-01-16] MEDS ORDERED: thiamine 100mg tablet PO SCH (08:00)
== END 2023-01-12 15:30 | disposition home health service (06) ==
LOC: ER 12:40 → ED HOLD 22:39 → PCU 3S 01-12 00:20
PROVIDERS: ADMIT Internal Medicine; ATTEND Family Medicine
DX: F10.229 Alcohol dependence with intoxication, unspecified (principal); R26.81 Unsteadiness on feet; I48.91 Unspecified atrial fibrillation; E78.5 Hyperlipidemia, unspecified; R45.1 Restlessness and agitation; E78.00 Pure hypercholesterolemia, unspecified; J44.9 Chronic obstructive pulmonary disease, unspecified; K74.60 Unspecified cirrhosis of liver; F41.8 Other specified anxiety disorders; Z85.038 Personal history of other malignant neoplasm of large intestine; Z90.49 Acquired absence of other specified parts of digestive tract; Z79.899 Other long term (current) drug therapy
CPT/HCPCS: 36415; 71045; 80053; 80305; 80320; 81001; 83735; 83880; 84100; 84132; 84443; 84484; 85025; 85610; 87081; 93005; 96374; 96375; 96376; 97116; 97161; 97530; 99285; G0378; J2060; J3411; J7030

== ENCOUNTER 2023-03-05 10:46 | Observation (INO) | payer OTHER, MEDICARE, BC ==
[~2023-03-05] VITALS: Ht 185.4 cm; Wt 87.0 kg
[~2023-03-05 10:46] MED LIST changes: +LORA-269 PO
[2023-03-05 13:06] LABS: BASOPHILS % (AUTO) 0.4 % (0-1); EOSINOPHILS % (AUTO) 0.1 % (0-6); HEMATOCRIT 48.4 % (42.0-52.0); HEMOGLOBIN 16.1 g/dl (14.0-17.9); LYMPHOCYTES # (AUTO) 0.9 X10'3 (1.1-4.8); LYMPHOCYTES % (AUTO) 11.9 % (21-51); MEAN CORPUSCULAR HEMOGLOBIN 30.7 PG (27.0-31.0); MEAN CORPUSCULAR HGB CONC 33.2 g/dL (33.0-36.5); MEAN CORPUSCULAR VOLUME 92.5 FL (78-98); MEAN PLATELET VOLUME 10.5 FL (7.4-10.4); MONOCYTES # (AUTO) 0.3 X10'3 (0-0.9); MONOCYTES % (AUTO) 4.3 % (2-12); NEUTROPHILS # (AUTO) 6.6 X10'3 (1.8-7.7); NEUTROPHILS % (AUTO) 83.3 % (42-75); RED BLOOD COUNT 5.23 X10'6 (4.70-6.10); RED CELL DISTRIBUTION WIDTH 14.6 % (11.5-14.5); WHITE BLOOD COUNT 7.9 X10'3 (4.5-11.0)
[2023-03-05] MEDS ORDERED: normal saline 1000ML IV soln IVB ONE (13:15)
[2023-03-05 13:22] LABS: ALANINE AMINOTRANSFERASE 24 U/L (12-78); ALBUMIN/GLOBULIN RATIO 1.1 (1.1-1.5); ALKALINE PHOSPHATASE 92 IU/L (46-116); ANION GAP 15 (8-16); ASPARTATE AMINO TRANSFERASE 33 U/L (10-37); BILIRUBIN,TOTAL 2.4 MG/DL (0.1-1.0); BLOOD UREA NITROGEN 18 MG/DL (7-18); BUN/CREATININE RATIO 15.4 (10.0-20.0); CALCIUM 8.6 MG/DL (8.5-10.1); CHLORIDE 97 MMOL/L (99-107); CREATININE 1.17 MG/DL (0.60-1.10); GLUCOSE 100 MG/DL (70-104); LIPASE 26 U/L (16-77); POTASSIUM 3.7 MMOL/L (3.5-5.1); SODIUM 137 MMOL/L (135-145); TOTAL CARBON DIOXIDE 25.4 MMOL/L (24-32); TOTAL PROTEIN 7.8 G/DL (6.4-8.2); eCRCL 55 ML/MIN; eGFR 60 ML/MIN
[2023-03-05 13:29] LABS: PLATELET COUNT 122 X10'3 (140-440)
[2023-03-05 15:21] LABS: BILIRUBIN,URINE SMALL (Neg); CLARITY,URINE CLEAR (Clear); COLOR,URINE YELLOW (Yellow); GLUCOSE, URINE NEGATIVE (Neg); KETONES,URINE >=80 mg/dl (Neg); LEUKOCYTE ESTERASE ,URINE NEGATIVE (Neg); NITRITES, URINE NEGATIVE (Neg); OCCULT BLOOD,URINE TRACE-INTACT (Neg); PROTEIN,URINE TRACE mg/dl (Neg)
[2023-03-05 15:29] LABS: UA COLLECTION TYPE CLN CATCH MIDSTREAM
[2023-03-05 15:30] LABS: BACTERIA,URINE NONE SEEN /HPF (Neg); MUCUS STRANDS FEW /LPF (Neg); RBC,URINE 0-2 /HPF (0-2); SQUAMOUS EPITHELIAL CELL,UR NONE SEEN /LPF (FEW); WBC,URINE NONE SEEN /HPF (0-4)
[2023-03-05] MEDS ORDERED: potassium Cl 40MEQ/1/2NS 520ml 520 ML IV PRN (19:35)
[2023-03-05] MEDS ORDERED: magnesium Cl slow-release 64mg tablet PO PRN (19:35)
[2023-03-05] MEDS ORDERED: morphine 2 MG/ML inj. syringe IV PRN (19:35)
[2023-03-05] MEDS ORDERED: magnesium 2GM in 50ml NS 50 ML IV PRN (19:35)
[2023-03-05] MEDS ORDERED: ondansetron/PF 4mg/2ml inj IV PRN (19:35)
[2023-03-05] MEDS ORDERED: potassium Cl 20 mEq SR tablet PO PRN ×2 (19:35)
[2023-03-05] MEDS ORDERED: magnesium 4gm in 100ml NS 100 ML IV PRN (19:35)
[2023-03-05] MEDS: K and/or MAG REPLACEMENT MC SCH (20:00)
[2023-03-05 21:20] VITALS: BP 140/87; PULSE 48; RESP 16; TEMP 97.3; O2SAT 96
[2023-03-05 22:00] VITALS: RESP 16; O2SAT 96
[2023-03-05] MEDS: normal saline 1000ml 1,000 ML IV SCH (22:21)
[2023-03-06] VITALS (7 sets, daily range): BP systolic 130–140; BP diastolic 76–90; PULSE 77–82; RESP 16–18; TEMP 92.9–97.7; O2SAT 96–98
[2023-03-06] MEDS: normal saline 1000ml 1,000 ML IV SCH ×4 (05:35→11:05)
[2023-03-06 06:04] LABS: ALBUMIN 3.3 G/DL (3.4-5.0); ANION GAP 8 (8-16); BLOOD UREA NITROGEN 20 MG/DL (7-18); CALCIUM 7.6 MG/DL (8.5-10.1); CHLORIDE 103 MMOL/L (99-107); CREATININE 0.87 MG/DL (0.60-1.10); GLUCOSE 87 MG/DL (70-104); MAGNESIUM 1.5 MG/DL (1.5-2.4); POTASSIUM 3.3 MMOL/L (3.5-5.1); SODIUM 136 MMOL/L (135-145); TOTAL CARBON DIOXIDE 24.9 MMOL/L (24-32); eCRCL 74 ML/MIN; eGFR 84 ML/MIN
[2023-03-06] MEDS: K and/or MAG REPLACEMENT MC SCH ×2 (08:00→21:16)
[2023-03-06] MEDS ORDERED: thiamine 100mg tablet PO SCH (08:02)
[2023-03-06] MEDS: naltrexone 50mg tablet PO SCH (09:07)
[2023-03-06] MEDS: folic acid 1mg tablet PO SCH (09:07)
[2023-03-06] MEDS: metoprolol succinate 25mg (24-HOUR) SR. Tablet PO SCH (09:08)
[2023-03-06] MEDS: gabapentin 300mg capsule PO SCH ×2 (09:09→17:43)
[2023-03-06] MEDS: LORazepam 1 MG tablet PO SCH ×2 (09:10→17:33)
[2023-03-06] MEDS: lactobacillus rhamnosus 10,000 MMU CELLS/CAPSULE PO SCH ×2 (09:10→17:32)
[2023-03-06] MEDS: atorvastatin 20mg tablet PO SCH (09:10)
[2023-03-06 09:21] LABS: BASOPHILS % (AUTO) 0.3 % (0-1); EOSINOPHILS % (AUTO) 0.8 % (0-6); HEMATOCRIT 42.9 % (42.0-52.0); HEMOGLOBIN 14.4 g/dl (14.0-17.9); LYMPHOCYTES # (AUTO) 0.6 X10'3 (1.1-4.8); MEAN CORPUSCULAR HEMOGLOBIN 30.8 PG (27.0-31.0); MEAN CORPUSCULAR HGB CONC 33.6 g/dL (33.0-36.5); MEAN CORPUSCULAR VOLUME 91.7 FL (78-98); MONOCYTES # (AUTO) 0.2 X10'3 (0-0.9); MONOCYTES % (AUTO) 5.3 % (2-12); NEUTROPHILS # (AUTO) 3.1 X10'3 (1.8-7.7); NEUTROPHILS % (AUTO) 77.6 % (42-75); RED BLOOD COUNT 4.68 X10'6 (4.70-6.10); RED CELL DISTRIBUTION WIDTH 14.6 % (11.5-14.5)
[2023-03-06 09:31] LABS: MEAN PLATELET VOLUME 8.4 FL (7.4-10.4); PLATELET COUNT 109 X10'3 (140-440)
[2023-03-06 09:34] LABS: APTT 31 SECONDS (22-32); INR 1.1 INR; PROTHROMBIN TIME 12.1 SECONDS (9.0-12.0)
[2023-03-06 09:39] LABS: ALANINE AMINOTRANSFERASE 21 U/L (12-78); ALBUMIN 3.3 G/DL (3.4-5.0); ALBUMIN/GLOBULIN RATIO 1.1 (1.1-1.5); ALKALINE PHOSPHATASE 68 IU/L (46-116); ANION GAP 11 (8-16); ASPARTATE AMINO TRANSFERASE 22 U/L (10-37); BILIRUBIN,TOTAL 2.5 MG/DL (0.1-1.0); BLOOD UREA NITROGEN 20 MG/DL (7-18); BUN/CREATININE RATIO 24.4 (10.0-20.0); CALCIUM 7.5 MG/DL (8.5-10.1); CHLORIDE 102 MMOL/L (99-107); CREATININE 0.82 MG/DL (0.60-1.10); GLUCOSE 95 MG/DL (70-104); POTASSIUM 3.3 MMOL/L (3.5-5.1); SODIUM 136 MMOL/L (135-145); TOTAL CARBON DIOXIDE 22.8 MMOL/L (24-32); TOTAL PROTEIN 6.2 G/DL (6.4-8.2); eCRCL 78 ML/MIN; eGFR 90 ML/MIN
[2023-03-06] MEDS ORDERED: FLU VACC QS2023-24(6MOS UP)/PF 60 MCG/0.5 ML SYRINGE IM ONE (10:00)
[2023-03-06] MEDS ORDERED: pneumococcal 23-VAL P-sac vacc 25 mcg/0.5ml vial IMVAC ONE (10:00)
[2023-03-06] MEDS: multivitamins, therapeutics tablet PO SCH (17:33)
[2023-03-06] MEDS ORDERED: QUEtiapine 25mg tablet PO SCH (21:00)
[2023-03-06] MEDS: apixaban 5mg tablet PO SCH (21:15)
[2023-03-07 06:31] LABS: BASOPHILS % (AUTO) 0.3 % (0-1); EOSINOPHILS # (AUTO) 0.1 X10'3 (0-0.9); EOSINOPHILS % (AUTO) 2.4 % (0-6); HEMATOCRIT 42.6 % (42.0-52.0); HEMOGLOBIN 14.3 g/dl (14.0-17.9); LYMPHOCYTES # (AUTO) 1.2 X10'3 (1.1-4.8); LYMPHOCYTES % (AUTO) 24.1 % (21-51); MEAN CORPUSCULAR HGB CONC 33.5 g/dL (33.0-36.5); MEAN CORPUSCULAR VOLUME 92.5 FL (78-98); MEAN PLATELET VOLUME 8.6 FL (7.4-10.4); MONOCYTES # (AUTO) 0.4 X10'3 (0-0.9); MONOCYTES % (AUTO) 7.6 % (2-12); NEUTROPHILS # (AUTO) 3.2 X10'3 (1.8-7.7); NEUTROPHILS % (AUTO) 65.6 % (42-75); RED CELL DISTRIBUTION WIDTH 14.7 % (11.5-14.5)
[2023-03-07 06:41] VITALS: BP 146/91; PULSE 81; RESP 18; TEMP 97.6; O2SAT 98
[2023-03-07 06:55] LABS: PLATELET COUNT 105 X10'3 (140-440)
[2023-03-07 06:56] LABS: WHITE BLOOD COUNT 5.3 X10'3 (4.5-11.0)
[2023-03-07 07:05] LABS: ALANINE AMINOTRANSFERASE 17 U/L (12-78); ALBUMIN 3.4 G/DL (3.4-5.0); ALBUMIN/GLOBULIN RATIO 1.2 (1.1-1.5); ALKALINE PHOSPHATASE 66 IU/L (46-116); ANION GAP 8 (8-16); ASPARTATE AMINO TRANSFERASE 23 U/L (10-37); BILIRUBIN,TOTAL 1.5 MG/DL (0.1-1.0); BLOOD UREA NITROGEN 16 MG/DL (7-18); BUN/CREATININE RATIO 17.6 (10.0-20.0); CALCIUM 8.3 MG/DL (8.5-10.1); CHLORIDE 105 MMOL/L (99-107); CREATININE 0.91 MG/DL (0.60-1.10); GLUCOSE 97 MG/DL (70-104); POTASSIUM 3.9 MMOL/L (3.5-5.1); SODIUM 138 MMOL/L (135-145); TOTAL CARBON DIOXIDE 24.8 MMOL/L (24-32); TOTAL PROTEIN 6.2 G/DL (6.4-8.2); eCRCL 71 ML/MIN; eGFR 80 ML/MIN
[2023-03-07 07:13] LABS: CHOLESTEROL 201 MG/DL (0-200); HDL CHOLESTEROL 50 MG/DL (35-60); LDL CHOLESTEROL 119 MG/DL (50-100); MAGNESIUM 1.8 MG/DL (1.5-2.4); PRO BRAIN NATRIURETIC PEPTIDE 3519 PG/ML (0-450); TRIGLYCERIDES 105 MG/DL (20-135)
[2023-03-07 08:00] VITALS: RESP 18; O2SAT 98
[2023-03-07] MEDS: apixaban 5mg tablet PO SCH (08:00)
[2023-03-07] MEDS: K and/or MAG REPLACEMENT MC SCH (08:00)
[2023-03-07] MEDS: LORazepam 1 MG tablet PO SCH ×2 (08:00)
[2023-03-07] MEDS: metoprolol succinate 25mg (24-HOUR) SR. Tablet PO SCH (09:42)
[2023-03-07] MEDS: lactobacillus rhamnosus 10,000 MMU CELLS/CAPSULE PO SCH ×2 (09:43)
[2023-03-07] MEDS: folic acid 1mg tablet PO SCH (09:44)
[2023-03-07] MEDS: atorvastatin 20mg tablet PO SCH (09:45)
[2023-03-07] MEDS: gabapentin 300mg capsule PO SCH ×2 (09:46)
[2023-03-07] MEDS: naltrexone 50mg tablet PO SCH (09:46)
[2023-03-07] MEDS: multivitamins, therapeutics tablet PO SCH (09:46)
[2023-03-07 10:00] VITALS: BP 132/72; PULSE 81; RESP 15; TEMP 97.2; O2SAT 100
[2023-03-07] MEDS ORDERED: FURO-150 PO (11:51)
== END 2023-03-07 14:25 | disposition home or self-care (01) ==
LOC: ER 10:49 → ED HOLD 19:39 → EDBEDREQ 20:44 → ORTHO 4S 21:41
PROVIDERS: ADMIT Internal Medicine; ATTEND Internal Medicine
DX: K80.20 Calculus of gallbladder without cholecystitis without obstruction (principal); K42.9 Umbilical hernia without obstruction or gangrene; K57.30 Diverticulosis of large intestine without perforation or abscess without bleeding; I48.91 Unspecified atrial fibrillation; E78.00 Pure hypercholesterolemia, unspecified; E87.6 Hypokalemia; I10 Essential (primary) hypertension; E78.5 Hyperlipidemia, unspecified; J44.9 Chronic obstructive pulmonary disease, unspecified; F41.8 Other specified anxiety disorders; I27.81 Cor pulmonale (chronic); Z85.038 Personal history of other malignant neoplasm of large intestine; Z87.891 Personal history of nicotine dependence; Z90.49 Acquired absence of other specified parts of digestive tract; Z95.0 Presence of cardiac pacemaker; Z79.899 Other long term (current) drug therapy
CPT/HCPCS: 36415; 74176; 80048; 80053; 80061; 81001; 83605; 83690; 83735; 83880; 84145; 85025; 85610; 85730; 87081; 96360; 96361; 99284; G0378; J7030

== ENCOUNTER 2024-02-22 11:21 | Inpatient (IN) | payer MEDICARE, BC, OTHER ==
[~2024-02-22] VITALS: Ht 182.9 cm; Wt 103.2 kg
[~2024-02-22 11:21] MED LIST changes: +FURO-150 PO; -LORA-269 PO; -METO-539 PO; -NALT50TA PO; +NALT50TA5 PO; +ONDA-243 PO; -ONDA4TAB12 PO; -SENN-263 PO; +SENN-360 PO
[2024-02-22] MEDS: chlordiazePOXIDE 25mg capsule PO ONE (12:52)
[2024-02-22 13:01] LABS: ALBUMIN 3.8 G/DL (3.4-5.0); ANION GAP 9 (8-16); BLOOD UREA NITROGEN 15 MG/DL (7-18); BUN/CREATININE RATIO 14.3 (10.0-20.0); CHLORIDE 99 MMOL/L (99-107); CREATININE 1.05 MG/DL (0.60-1.10); ETHANOL < 10 MG/DL (<10); GLUCOSE 125 MG/DL (70-104); POTASSIUM 3.8 MMOL/L (3.5-5.1); SODIUM 136 MMOL/L (135-145); TOTAL CARBON DIOXIDE 27.6 MMOL/L (24-32); eCRCL 59 ML/MIN; eGFR 67 ML/MIN
[2024-02-22] MEDS: LORazepam 2 mg/ml vial IV ONE (13:09)
[2024-02-22] MEDS: ondansetron/PF 4mg/2ml inj IV ONE (13:09)
[2024-02-22] MEDS: normal saline 1000ML IV soln IVB ONE (13:10)
[2024-02-22 13:47] LABS: ALANINE AMINOTRANSFERASE 23 U/L (12-78); ALBUMIN/GLOBULIN RATIO 1.2 (1.1-1.5); ALKALINE PHOSPHATASE 99 IU/L (46-116); ASPARTATE AMINO TRANSFERASE 26 U/L (10-37); BILIRUBIN,TOTAL 2.7 MG/DL (0.1-1.0); TOTAL PROTEIN 6.9 G/DL (6.4-8.2)
[2024-02-22 13:52] LABS: LYMPHOCYTES # (AUTO) 0.7 X10'3 (1.1-4.8); MONOCYTES # (AUTO) 0.4 X10'3 (0-0.9)
[2024-02-22 13:54] LABS: BASOPHILS % (AUTO) 0.3 % (0-1); EOSINOPHILS % (AUTO) 0.2 % (0-6); HEMATOCRIT 41.4 % (42.0-52.0); HEMOGLOBIN 14.1 g/dl (14.0-17.9); MEAN PLATELET VOLUME 9.3 FL (7.4-10.4); MONOCYTES % (AUTO) 6.5 % (2-12); NEUTROPHILS # (AUTO) 4.6 X10'3 (1.8-7.7); RED BLOOD COUNT 4.55 X10'6 (4.70-6.10); RED CELL DISTRIBUTION WIDTH 14.4 % (11.5-14.5); WHITE BLOOD COUNT 5.6 X10'3 (4.5-11.0)
[2024-02-22 14:11] LABS: PLATELET COUNT 98 X10'3 (140-440)
[2024-02-22] MEDS ORDERED: magnesium hydroxide 30ml (MOM) UD suspension PO PRN (17:45)
[2024-02-22] MEDS ORDERED: mag hydrox/Alum hydrox/simeth 30ml oral suspension PO PRN (17:45)
[2024-02-22] MEDS ORDERED: ondansetron/PF 4mg/2ml inj IV PRN (17:45)
[2024-02-22] MEDS ORDERED: morphine 2 MG/ML inj. syringe IV PRN (17:45)
[2024-02-22] MEDS ORDERED: potassium Cl 40MEQ/1/2NS 520ml 520 ML IV PRN (17:45)
[2024-02-22] MEDS ORDERED: potassium Cl 20 mEq SR tablet PO PRN (17:45)
[2024-02-22] MEDS ORDERED: magnesium Cl slow-release 64mg tablet PO PRN (17:45)
[2024-02-22] MEDS ORDERED: HYDROcodone/acetaminophen 5mg/325mg tablet PO PRN (17:45)
[2024-02-22] MEDS ORDERED: acetaminophen 325mg tablet PO PRN (17:45)
[2024-02-22] MEDS ORDERED: magnesium sulf-water 4G/100mL 100 ML IV PRN (17:45)
[2024-02-22] MEDS ORDERED: magnesium sulf-water 2g/50mL 50 ML IV PRN (17:45)
[2024-02-22 17:52] LABS: BILIRUBIN,URINE SMALL (Neg); CLARITY,URINE CLEAR (Clear); GLUCOSE, URINE 100 mg/dl (Neg); KETONES,URINE NEGATIVE (Neg); LEUKOCYTE ESTERASE ,URINE NEGATIVE (Neg); OCCULT BLOOD,URINE TRACE-INTACT (Neg); PROTEIN,URINE 100 mg/dl (Neg)
[2024-02-22 18:05] LABS: URINE AMPHETAMINE SCREEN NEGATIVE (Neg); URINE BARBITUATE SCREEN NEGATIVE (Neg); URINE BENZODIAZEPINES SCREEN NEGATIVE (Neg); URINE CANNABINOID SCREEN POSITIVE (Neg); URINE COCAINE SCREEN NEGATIVE (Neg); URINE METHADONE SCREEN NEGATIVE (Neg); URINE OPIATE SCREEN NEGATIVE (Neg); URINE PHENCYCLIDINE SCREEN NEGATIVE (Neg)
[2024-02-22 18:07] LABS: NITRITES, URINE NEGATIVE (Neg)
[2024-02-22 18:08] LABS: COLOR,URINE AMBER (Yellow); UA COLLECTION TYPE URINAL
[2024-02-22 18:10] LABS: AMORPHOUS PHOSPHATES 1+; BACTERIA,URINE FEW /HPF (Neg); SQUAMOUS EPITHELIAL CELL,UR FEW /LPF (FEW); WBC,URINE 0-4 /HPF (0-4)
[2024-02-22] MEDS ORDERED: haloperidol 5mg tablet PO PRN (19:55)
[2024-02-22] MEDS ORDERED: haloperidol lactate 5mg/ml inj IM PRN (19:55)
[2024-02-22] MEDS: heparin, porcine 5000 units/ml vial SQ SCH (20:00)
[2024-02-22] MEDS: LORazepam 2 mg/ml vial IV PRN (20:27)
[2024-02-22] MEDS: docusate sod 100mg capsule PO SCH (20:27)
[2024-02-22] MEDS: normal saline 1000ml 1,000 ML IV SCH (20:27)
[2024-02-22] MEDS: thiamine 100mg/ml 2ml inj. IV SCH (20:27)
[2024-02-23] VITALS (7 sets, daily range): BP systolic 107–126; BP diastolic 73–80; PULSE 71–90; RESP 16–18; TEMP 97.6–98.2; O2SAT 96–97
[2024-02-23] MEDS: acetaminophen 325mg tablet PO SCH
[2024-02-23] MEDS ORDERED: NALT50TA5 PO (01:28)
[2024-02-23] MEDS ORDERED: FURO-150 PO (01:28)
[2024-02-23 07:14] LABS: BASOPHILS % (AUTO) 0.4 % (0-1); EOSINOPHILS # (AUTO) 0.1 X10'3 (0-0.9); LYMPHOCYTES # (AUTO) 1.2 X10'3 (1.1-4.8); MONOCYTES # (AUTO) 0.4 X10'3 (0-0.9); NEUTROPHILS # (AUTO) 3.1 X10'3 (1.8-7.7)
[2024-02-23 07:15] LABS: EOSINOPHILS % (AUTO) 1.8 % (0-6); LYMPHOCYTES % (AUTO) 24.3 % (21-51); MEAN CORPUSCULAR HGB CONC 33.8 g/dL (33.0-36.5); MEAN CORPUSCULAR VOLUME 91.8 FL (78-98); MEAN PLATELET VOLUME 10.1 FL (7.4-10.4); NEUTROPHILS % (AUTO) 64.5 % (42-75); RED CELL DISTRIBUTION WIDTH 14.5 % (11.5-14.5)
[2024-02-23 07:23] LABS: WHITE BLOOD COUNT 4.2 X10'3 (4.5-11.0)
[2024-02-23 07:24] LABS: HEMATOCRIT 49.1 % (42.0-52.0); HEMOGLOBIN 16.4 g/dl (14.0-17.9)
[2024-02-23 07:26] LABS: PLATELET COUNT 65 X10'3 (140-440)
[2024-02-23 07:37] LABS: ALANINE AMINOTRANSFERASE 21 U/L (12-78); ALBUMIN 3.2 G/DL (3.4-5.0); ALBUMIN/GLOBULIN RATIO 1.1 (1.1-1.5); ALKALINE PHOSPHATASE 87 IU/L (46-116); ANION GAP 11 (8-16); ASPARTATE AMINO TRANSFERASE 31 U/L (10-37); BILIRUBIN,TOTAL 1.9 MG/DL (0.1-1.0); BLOOD UREA NITROGEN 22 MG/DL (7-18); BUN/CREATININE RATIO 20.8 (10.0-20.0); CHLORIDE 101 MMOL/L (99-107); CREATININE 1.06 MG/DL (0.60-1.10); GLUCOSE 108 MG/DL (70-104); MAGNESIUM 1.7 MG/DL (1.5-2.4); PHOSPHORUS 3.2 MG/DL (2.3-4.5); POTASSIUM 3.4 MMOL/L (3.5-5.1); SODIUM 137 MMOL/L (135-145); TOTAL CARBON DIOXIDE 24.9 MMOL/L (24-32); TOTAL PROTEIN 6.1 G/DL (6.4-8.2); eCRCL 58 ML/MIN; eGFR 67 ML/MIN
[2024-02-23] MEDS: folic acid 1mg/0.2ml inj IV SCH (08:03)
[2024-02-23] MEDS ORDERED: LORazepam 1 MG tablet PO PRN (20:25)
[2024-02-23] MEDS ORDERED: LORazepam 2 mg/ml vial IV PRN (20:25)
[2024-02-23] MEDS: potassium Cl 20 mEq SR tablet PO PRN (21:13)
[2024-02-24 06:30] VITALS: BP 127/84; PULSE 68; RESP 16; TEMP 98; O2SAT 93
[2024-02-24] MEDS: thiamine 100mg tablet PO SCH (07:47)
[2024-02-24 07:48] LABS: BASOPHILS % (AUTO) 0.3 % (0-1); EOSINOPHILS # (AUTO) 0.1 X10'3 (0-0.9); EOSINOPHILS % (AUTO) 2.2 % (0-6); HEMATOCRIT 45.2 % (42.0-52.0); HEMOGLOBIN 15.2 g/dl (14.0-17.9); LYMPHOCYTES # (AUTO) 1.2 X10'3 (1.1-4.8); MEAN CORPUSCULAR HEMOGLOBIN 31.2 PG (27.0-31.0); MEAN CORPUSCULAR HGB CONC 33.6 g/dL (33.0-36.5); MEAN CORPUSCULAR VOLUME 92.7 FL (78-98); MONOCYTES # (AUTO) 0.4 X10'3 (0-0.9); MONOCYTES % (AUTO) 8.6 % (2-12); NEUTROPHILS # (AUTO) 3.1 X10'3 (1.8-7.7); NEUTROPHILS % (AUTO) 63.9 % (42-75); RED BLOOD COUNT 4.88 X10'6 (4.70-6.10); RED CELL DISTRIBUTION WIDTH 15.3 % (11.5-14.5); WHITE BLOOD COUNT 4.8 X10'3 (4.5-11.0)
[2024-02-24 07:56] LABS: MEAN PLATELET VOLUME 8.9 FL (7.4-10.4)
[2024-02-24 07:57] LABS: PLATELET COUNT 88 X10'3 (140-440)
[2024-02-24 08:00] VITALS: RESP 15; O2SAT 96
[2024-02-24 08:15] LABS: ALANINE AMINOTRANSFERASE 24 U/L (12-78); ALBUMIN 3.6 G/DL (3.4-5.0); ALBUMIN/GLOBULIN RATIO 1.1 (1.1-1.5); ALKALINE PHOSPHATASE 93 IU/L (46-116); ANION GAP 8 (8-16); ASPARTATE AMINO TRANSFERASE 29 U/L (10-37); BILIRUBIN,TOTAL 1.7 MG/DL (0.1-1.0); BLOOD UREA NITROGEN 18 MG/DL (7-18); BUN/CREATININE RATIO 17.3 (10.0-20.0); CALCIUM 8.5 MG/DL (8.5-10.1); CHLORIDE 102 MMOL/L (99-107); CREATININE 1.04 MG/DL (0.60-1.10); GLUCOSE 97 MG/DL (70-104); MAGNESIUM 1.9 MG/DL (1.5-2.4); SODIUM 136 MMOL/L (135-145); TOTAL CARBON DIOXIDE 25.9 MMOL/L (24-32); TOTAL PROTEIN 6.9 G/DL (6.4-8.2); eCRCL 59 ML/MIN; eGFR 68 ML/MIN
[2024-02-24 10:37] VITALS: BP 122/78; PULSE 85; RESP 18; TEMP 98.7; O2SAT 97
[2024-02-24] MEDS ORDERED: LORazepam 1 MG tablet PO PRN (19:55)
[2024-02-24] MEDS ORDERED: LORazepam 2 mg/ml vial IV PRN (19:55)
[2024-02-26] MEDS ORDERED: LORazepam 1 MG tablet PO PRN (19:55)
[2024-02-26] MEDS ORDERED: LORazepam 2 mg/ml vial IV PRN (19:55)
== END 2024-02-24 14:45 | disposition home or self-care (01) | DRG 309 ==
LOC: ER 11:21 → ED HOLD 17:46 → ORTHO 4S 02-23 01:56
PROVIDERS: ADMIT Internal Medicine; ATTEND Internal Medicine
DX: I48.91 Unspecified atrial fibrillation (principal); F10.239 Alcohol dependence with withdrawal, unspecified; D69.59 Other secondary thrombocytopenia; E78.00 Pure hypercholesterolemia, unspecified; I10 Essential (primary) hypertension; J44.9 Chronic obstructive pulmonary disease, unspecified; F32.A Depression, unspecified; F41.9 Anxiety disorder, unspecified; D69.6 Thrombocytopenia, unspecified; R79.89 Other specified abnormal findings of blood chemistry; Z85.038 Personal history of other malignant neoplasm of large intestine; Z87.891 Personal history of nicotine dependence; Z90.49 Acquired absence of other specified parts of digestive tract; Z79.01 Long term (current) use of anticoagulants; Z91.81 History of falling; Z88.8 Allergy status to other drugs, medicaments and biological substances
CPT/HCPCS: 36415; 71045; 80053; 80305; 80320; 81001; 82948; 83735; 84100; 84484; 85025; 87081; 93005; 97161; 97530; 99285; A4565; A6222; A6258; A6446; A6449; G0378; J2060; J2405; J3411; J3490; J7030

== ENCOUNTER 2024-04-08 12:47 | Emergency (ER) | payer MEDICARE, BC, OTHER ==
[~2024-04-08] VITALS: Ht 185.4 cm; Wt 104.0 kg
[2024-04-08 16:04] LABS: ALANINE AMINOTRANSFERASE 24 U/L (12-78); ALBUMIN 3.6 G/DL (3.4-5.0); ALKALINE PHOSPHATASE 92 IU/L (46-116); ANION GAP 6 (8-16); ASPARTATE AMINO TRANSFERASE 22 U/L (10-37); BILIRUBIN,TOTAL 1.7 MG/DL (0.1-1.0); BLOOD UREA NITROGEN 15 MG/DL (7-18); BUN/CREATININE RATIO 15.3 (10.0-20.0); CALCIUM 8.9 MG/DL (8.5-10.1); CHLORIDE 101 MMOL/L (99-107); CREATININE 0.98 MG/DL (0.60-1.10); GLUCOSE 101 MG/DL (70-104); POTASSIUM 3.8 MMOL/L (3.5-5.1); SODIUM 136 MMOL/L (135-145); TOTAL CARBON DIOXIDE 29.2 MMOL/L (24-32); TOTAL PROTEIN 7.1 G/DL (6.4-8.2); eCRCL 65 ML/MIN; eGFR 73 ML/MIN
[2024-04-08 16:12] LABS: PRO BRAIN NATRIURETIC PEPTIDE 2433 PG/ML (0-450)
[2024-04-08] MEDS ORDERED: PRED20TA PO (16:20)
[2024-04-08] MEDS ORDERED: AMOX-580 PO (16:20)
[2024-04-08 16:38] VITALS: BP 134/99; TEMP 98.7
[2024-04-08] MEDS: amox tr/potassium clavulanate 875/125mg TAB PO ONE (16:39)
[2024-04-08] MEDS: predniSONE 20 mg tablet PO ONE (16:40)
[2024-04-08] MEDS: albuterol 2.5 MG/3 ML nebule NEB ONE (16:43)
[2024-04-08 16:46] VITALS: PULSE 94; RESP 20; O2SAT 97
[2024-04-08 16:48] VITALS: PULSE 112; RESP 20; O2SAT 100
[2024-04-08 16:53] LABS: EOSINOPHILS # (AUTO) 0.1 X10'3 (0-0.9); EOSINOPHILS % (AUTO) 0.5 % (0-6); HEMOGLOBIN 14.3 g/dl (14.0-17.9); MEAN CORPUSCULAR VOLUME 92.2 FL (78-98); MONOCYTES # (AUTO) 0.7 X10'3 (0-0.9)
[2024-04-08 16:55] LABS: BASOPHILS # (AUTO) 0.1 X10'3 (0-0.2); BASOPHILS % (AUTO) 0.6 % (0-1); HEMATOCRIT 42.3 % (42.0-52.0); LYMPHOCYTES # (AUTO) 1.4 X10'3 (1.1-4.8); LYMPHOCYTES % (AUTO) 14.2 % (21-51); MEAN CORPUSCULAR HEMOGLOBIN 31.2 PG (27.0-31.0); MEAN CORPUSCULAR HGB CONC 33.8 g/dL (33.0-36.5); MEAN PLATELET VOLUME 10.8 FL (7.4-10.4); MONOCYTES % (AUTO) 7.1 % (2-12); NEUTROPHILS # (AUTO) 7.6 X10'3 (1.8-7.7); NEUTROPHILS % (AUTO) 77.6 % (42-75); RED BLOOD COUNT 4.58 X10'6 (4.70-6.10); RED CELL DISTRIBUTION WIDTH 15.6 % (11.5-14.5); WHITE BLOOD COUNT 9.9 X10'3 (4.5-11.0)
[2024-04-08 17:06] LABS: PLATELET COUNT 90 X10'3 (140-440)
== END 2024-04-08 16:58 | disposition home or self-care (01) ==
LOC: ER 12:48
DX: J44.1 Chronic obstructive pulmonary disease with (acute) exacerbation (principal); J06.9 Acute upper respiratory infection, unspecified; I10 Essential (primary) hypertension; E78.00 Pure hypercholesterolemia, unspecified; I48.91 Unspecified atrial fibrillation; D64.9 Anemia, unspecified; F41.9 Anxiety disorder, unspecified; F32.A Depression, unspecified; F10.90 Alcohol use, unspecified, uncomplicated; Z95.0 Presence of cardiac pacemaker; Z90.49 Acquired absence of other specified parts of digestive tract; Z98.890 Other specified postprocedural states; Z88.8 Allergy status to other drugs, medicaments and biological substances; Z79.52 Long term (current) use of systemic steroids; Z79.899 Other long term (current) drug therapy; Z60.2 Problems related to living alone; Z85.038 Personal history of other malignant neoplasm of large intestine; Y90.9 Presence of alcohol in blood, level not specified
CPT/HCPCS: 36415; 71045; 80053; 83880; 85025; 93005; 94640; 99285; J7512; 94760

== ENCOUNTER 2024-04-09 11:55 | Emergency (ER) | payer MEDICARE, OTHER, BC ==
[~2024-04-09] VITALS: Ht 185.4 cm; Wt 102.3 kg
[~2024-04-09 11:55] MED LIST changes: +AMOX-580 PO; +PRED20TA PO
[2024-04-09 12:50] LABS: ALBUMIN 3.7 G/DL (3.4-5.0); ANION GAP 10 (8-16); BLOOD UREA NITROGEN 22 MG/DL (7-18); BUN/CREATININE RATIO 23.2 (10.0-20.0); CALCIUM 8.9 MG/DL (8.5-10.1); CHLORIDE 103 MMOL/L (99-107); CREATININE 0.95 MG/DL (0.60-1.10); GLUCOSE 88 MG/DL (70-104); POTASSIUM 3.4 MMOL/L (3.5-5.1); SODIUM 141 MMOL/L (135-145); TOTAL CARBON DIOXIDE 28.2 MMOL/L (24-32); eCRCL 67 ML/MIN; eGFR 76 ML/MIN
[2024-04-09] MEDS: normal saline 1000ML IV soln IVB ONE (13:04)
[2024-04-09 13:05] LABS: HEMOGLOBIN 14.8 g/dl (14.0-17.9); LYMPHOCYTES # (AUTO) 1.5 X10'3 (1.1-4.8); MEAN CORPUSCULAR HEMOGLOBIN 30.9 PG (27.0-31.0); RED BLOOD COUNT 4.79 X10'6 (4.70-6.10)
[2024-04-09 13:07] LABS: BASOPHILS % (AUTO) 0.3 % (0-1); EOSINOPHILS % (AUTO) 0.2 % (0-6); HEMATOCRIT 44.1 % (42.0-52.0); LYMPHOCYTES % (AUTO) 15.3 % (21-51); MEAN CORPUSCULAR HGB CONC 33.5 g/dL (33.0-36.5); MEAN CORPUSCULAR VOLUME 92.1 FL (78-98); MEAN PLATELET VOLUME 9.7 FL (7.4-10.4); MONOCYTES # (AUTO) 0.7 X10'3 (0-0.9); MONOCYTES % (AUTO) 7.2 % (2-12); NEUTROPHILS # (AUTO) 7.6 X10'3 (1.8-7.7); RED CELL DISTRIBUTION WIDTH 15.7 % (11.5-14.5); WHITE BLOOD COUNT 9.9 X10'3 (4.5-11.0)
[2024-04-09 13:13] LABS: PLATELET COUNT 125 X10'3 (140-440)
[2024-04-09] MEDS: potassium Cl 20 mEq SR tablet PO STA (14:11)
[2024-04-09 17:17] VITALS: BP 147/97; PULSE 88; RESP 16; TEMP 98.1; O2SAT 98
[2024-04-10] MEDS ORDERED: AMOX-117 PO (12:19)
[2024-04-10] MEDS ORDERED: METO100T7 PO (12:19)
== END 2024-04-09 17:18 | disposition home or self-care (01) ==
LOC: ER 11:55
DX: J44.1 Chronic obstructive pulmonary disease with (acute) exacerbation (principal); I48.91 Unspecified atrial fibrillation; I10 Essential (primary) hypertension; E78.00 Pure hypercholesterolemia, unspecified; Z85.038 Personal history of other malignant neoplasm of large intestine; F10.90 Alcohol use, unspecified, uncomplicated; Z88.8 Allergy status to other drugs, medicaments and biological substances; Z88.0 Allergy status to penicillin; Z88.1 Allergy status to other antibiotic agents; Z90.49 Acquired absence of other specified parts of digestive tract; Z90.89 Acquired absence of other organs; Z95.0 Presence of cardiac pacemaker; Z98.890 Other specified postprocedural states; Y90.9 Presence of alcohol in blood, level not specified
CPT/HCPCS: 36415; 71045; 80048; 84145; 84484; 85025; 93005; 96360; 99285; J7030

== ENCOUNTER 2024-04-10 09:03 | Inpatient (IN) | payer OTHER, MEDICARE, BC ==
[~2024-04-10] VITALS: Ht 185.4 cm; Wt 104.4 kg
[2024-04-10 09:31] LABS: BASOPHILS % (AUTO) 0.3 % (0-1); LYMPHOCYTES # (AUTO) 0.7 X10'3 (1.1-4.8); MONOCYTES # (AUTO) 0.3 X10'3 (0-0.9)
[2024-04-10 09:32] LABS: EOSINOPHILS % (AUTO) 0.5 % (0-6); HEMATOCRIT 43.3 % (42.0-52.0); HEMOGLOBIN 14.5 g/dl (14.0-17.9); LYMPHOCYTES % (AUTO) 8.4 % (21-51); MEAN CORPUSCULAR HGB CONC 33.4 g/dL (33.0-36.5); MEAN CORPUSCULAR VOLUME 92.8 FL (78-98); MEAN PLATELET VOLUME 9.5 FL (7.4-10.4); MONOCYTES % (AUTO) 4.1 % (2-12); NEUTROPHILS # (AUTO) 7.3 X10'3 (1.8-7.7); NEUTROPHILS % (AUTO) 86.7 % (42-75); RED BLOOD COUNT 4.67 X10'6 (4.70-6.10); RED CELL DISTRIBUTION WIDTH 15.8 % (11.5-14.5); WHITE BLOOD COUNT 8.4 X10'3 (4.5-11.0)
[2024-04-10] MEDS: CefTRIAXone/D5W-Rocephin 1gm 50 ML IV ONE (09:36)
[2024-04-10 09:40] LABS: PLATELET COUNT 150 X10'3 (140-440)
[2024-04-10 09:55] LABS: ALANINE AMINOTRANSFERASE 27 U/L (12-78); ALBUMIN 3.6 G/DL (3.4-5.0); ALBUMIN/GLOBULIN RATIO 1.1 (1.1-1.5); ALKALINE PHOSPHATASE 92 IU/L (46-116); ANION GAP 10 (8-16); ASPARTATE AMINO TRANSFERASE 22 U/L (10-37); BILIRUBIN,TOTAL 0.9 MG/DL (0.1-1.0); BLOOD UREA NITROGEN 20 MG/DL (7-18); CALCIUM 8.5 MG/DL (8.5-10.1); CHLORIDE 104 MMOL/L (99-107); CREATININE 0.91 MG/DL (0.60-1.10); GLUCOSE 120 MG/DL (70-104); POTASSIUM 4.3 MMOL/L (3.5-5.1); PRO BRAIN NATRIURETIC PEPTIDE 3817 PG/ML (0-450); SODIUM 138 MMOL/L (135-145); TOTAL CARBON DIOXIDE 24.3 MMOL/L (24-32); TOTAL PROTEIN 6.9 G/DL (6.4-8.2); eCRCL 70 ML/MIN; eGFR 80 ML/MIN
[2024-04-10] MEDS: furosemide 10 MG/1 ML 10ml inj IV ONE (10:12)
[2024-04-10 10:57] LABS: ETHANOL < 10 MG/DL (<10)
[2024-04-10 11:08] LABS: URINE AMPHETAMINE SCREEN NEGATIVE (Neg); URINE BARBITUATE SCREEN NEGATIVE (Neg); URINE BENZODIAZEPINES SCREEN NEGATIVE (Neg); URINE CANNABINOID SCREEN POSITIVE (Neg); URINE COCAINE SCREEN NEGATIVE (Neg); URINE METHADONE SCREEN NEGATIVE (Neg); URINE OPIATE SCREEN NEGATIVE (Neg); URINE PHENCYCLIDINE SCREEN NEGATIVE (Neg)
[2024-04-10] MEDS ORDERED: METO100T7 PO (12:19)
[2024-04-10] MEDS ORDERED: AMOX-117 PO (12:19)
[2024-04-10] MEDS: methylPREDNISolone sod succ 125mg/2ml vial IV ONE (12:23)
[2024-04-10 15:13] VITALS: BP 97/65; PULSE 92; RESP 15; TEMP 98.3; O2SAT 96
[2024-04-10] MEDS ORDERED: magnesium sulf-water 2g/50mL 50 ML IV PRN (15:45)
[2024-04-10] MEDS ORDERED: acetaminophen 325mg tablet PO PRN (15:45)
[2024-04-10] MEDS ORDERED: mag hydrox/Alum hydrox/simeth 30ml oral suspension PO PRN (15:45)
[2024-04-10] MEDS ORDERED: potassium Cl 20 mEq SR tablet PO PRN ×2 (15:45)
[2024-04-10] MEDS ORDERED: magnesium sulf-water 4G/100mL 100 ML IV PRN (15:45)
[2024-04-10] MEDS ORDERED: magnesium Cl slow-release 64mg tablet PO PRN (15:45)
[2024-04-10] MEDS ORDERED: ondansetron/PF 4mg/2ml inj IV PRN (15:45)
[2024-04-10] MEDS ORDERED: magnesium hydroxide 30ml (MOM) UD suspension PO PRN (15:45)
[2024-04-10] MEDS ORDERED: potassium Cl 40MEQ/1/2NS 520ml 520 ML IV PRN (15:45)
[2024-04-10] MEDS: metoprolol succinate 25mg (24-HOUR) SR. Tablet PO ONE (16:41)
[2024-04-10 17:23] VITALS: RESP 15; O2SAT 97
[2024-04-10 18:00] VITALS: BP 125/72; PULSE 90; RESP 22; O2SAT 96
[2024-04-10] MEDS: K and/or MAG REPLACEMENT MC SCH (19:05)
[2024-04-10 19:11] LABS: HEMOGLOBIN A1C 5.7 % (4.5-6.2); PHOSPHORUS 2.9 MG/DL (2.3-4.5)
[2024-04-10 19:23] LABS: ETHANOL < 10 MG/DL (<10)
[2024-04-10 20:00] VITALS: RESP 22; O2SAT 96
[2024-04-10] MEDS: QUEtiapine 25mg tablet PO SCH (21:32)
[2024-04-10] MEDS: apixaban 5mg tablet PO SCH (21:33)
[2024-04-10] MEDS: furosemide 40mg/4ml inj IV SCH (21:35)
[2024-04-10 22:00] VITALS: BP 117/72; PULSE 90; RESP 18; TEMP 97.7; O2SAT 97
[2024-04-10] MEDS: PNEUMOC 20-VAL CONJ-DIP CRM/PF 0.5 ML SYRINGE IMVAC ONE (23:17)
[2024-04-11] VITALS (8 sets, daily range): BP systolic 76–151; BP diastolic 46–94; PULSE 64–95; RESP 12–18; TEMP 97.3–98.7; O2SAT 95–100
[2024-04-11 07:20] LABS: BASOPHILS % (AUTO) 0.3 % (0-1); EOSINOPHILS % (AUTO) 0 % (0-6); HEMATOCRIT 45.6 % (42.0-52.0); HEMOGLOBIN 15.2 g/dl (14.0-17.9); LYMPHOCYTES # (AUTO) 0.7 X10'3 (1.1-4.8); LYMPHOCYTES % (AUTO) 5.7 % (21-51); MEAN CORPUSCULAR HEMOGLOBIN 30.6 PG (27.0-31.0); MEAN CORPUSCULAR HGB CONC 33.3 g/dL (33.0-36.5); MEAN CORPUSCULAR VOLUME 91.9 FL (78-98); MEAN PLATELET VOLUME 10.5 FL (7.4-10.4); MONOCYTES # (AUTO) 0.5 X10'3 (0-0.9); MONOCYTES % (AUTO) 3.9 % (2-12); NEUTROPHILS # (AUTO) 11.1 X10'3 (1.8-7.7); NEUTROPHILS % (AUTO) 90.1 % (42-75); RED BLOOD COUNT 4.96 X10'6 (4.70-6.10); RED CELL DISTRIBUTION WIDTH 16.2 % (11.5-14.5); WHITE BLOOD COUNT 12.3 X10'3 (4.5-11.0)
[2024-04-11 07:28] LABS: PLATELET COUNT 149 X10'3 (140-440)
[2024-04-11] MEDS: metoprolol succinate 25mg (24-HOUR) SR. Tablet PO SCH (07:45)
[2024-04-11] MEDS: predniSONE 20 mg tablet PO SCH (07:46)
[2024-04-11] MEDS: folic acid 1mg tablet PO SCH (07:46)
[2024-04-11] MEDS: thiamine 100mg tablet PO SCH (07:46)
[2024-04-11] MEDS: atorvastatin 20mg tablet PO SCH (07:47)
[2024-04-11 07:51] LABS: ALBUMIN 3.6 G/DL (3.4-5.0); ANION GAP 12 (8-16); BLOOD UREA NITROGEN 27 MG/DL (7-18); BUN/CREATININE RATIO 26.7 (10.0-20.0); CHLORIDE 100 MMOL/L (99-107); CHOL/HDL RATIO 3.8 (0.00-4.99); CHOLESTEROL 208 MG/DL (0-200); CREATININE 1.01 MG/DL (0.60-1.10); GLUCOSE 139 MG/DL (70-104); HDL CHOLESTEROL 55 MG/DL (35-60); LDL CHOLESTEROL 132 MG/DL (50-100); SODIUM 133 MMOL/L (135-145); TOTAL CARBON DIOXIDE 21.1 MMOL/L (24-32); TRIGLYCERIDES 87 MG/DL (20-135); eCRCL 63 ML/MIN; eGFR 71 ML/MIN
[2024-04-11] MEDS ORDERED: methylPREDNISolone sod succ/PF 40mg inj. IV SCH (08:00)
[2024-04-11] MEDS ORDERED: enoxaparin 40mg/0.4ml syringe SUBCUT SCH (08:00)
[2024-04-11 08:06] LABS: POTASSIUM 4.3 MMOL/L (3.5-5.1)
[2024-04-12 02:00] VITALS: BP 106/70; PULSE 70; RESP 14; TEMP 97; O2SAT 96
[2024-04-12 06:00] VITALS: BP 132/85; PULSE 69; RESP 12; TEMP 97.8; O2SAT 95
[2024-04-12 07:05] LABS: BASOPHILS # (AUTO) 0.1 X10'3 (0-0.2); BASOPHILS % (AUTO) 0.6 % (0-1); EOSINOPHILS % (AUTO) 0.1 % (0-6); HEMATOCRIT 47.6 % (42.0-52.0); HEMOGLOBIN 15.9 g/dl (14.0-17.9); LYMPHOCYTES # (AUTO) 1.9 X10'3 (1.1-4.8); LYMPHOCYTES % (AUTO) 16.9 % (21-51); MEAN CORPUSCULAR HGB CONC 33.5 g/dL (33.0-36.5); MEAN CORPUSCULAR VOLUME 92.5 FL (78-98); MEAN PLATELET VOLUME 10.4 FL (7.4-10.4); MONOCYTES # (AUTO) 1.1 X10'3 (0-0.9); MONOCYTES % (AUTO) 9.5 % (2-12); NEUTROPHILS # (AUTO) 8.2 X10'3 (1.8-7.7); NEUTROPHILS % (AUTO) 72.9 % (42-75); RED BLOOD COUNT 5.14 X10'6 (4.70-6.10); RED CELL DISTRIBUTION WIDTH 16.4 % (11.5-14.5); WHITE BLOOD COUNT 11.2 X10'3 (4.5-11.0)
[2024-04-12 07:11] LABS: ALBUMIN 3.7 G/DL (3.4-5.0); ANION GAP 12 (8-16); BLOOD UREA NITROGEN 37 MG/DL (7-18); BUN/CREATININE RATIO 35.6 (10.0-20.0); CALCIUM 8.9 MG/DL (8.5-10.1); CHLORIDE 100 MMOL/L (99-107); CREATININE 1.04 MG/DL (0.60-1.10); GLUCOSE 102 MG/DL (70-104); POTASSIUM 3.6 MMOL/L (3.5-5.1); SODIUM 136 MMOL/L (135-145); TOTAL CARBON DIOXIDE 24.3 MMOL/L (24-32); eCRCL 61 ML/MIN; eGFR 68 ML/MIN
[2024-04-12 07:43] LABS: PLATELET COUNT 168 X10'3 (140-440)
[2024-04-12 08:00] VITALS: RESP 12; O2SAT 95
== END 2024-04-12 11:30 | disposition home health service (06) | DRG 291 ==
LOC: ER 09:03 → ED HOLD 12:04 → PCU 3S 14:40
PROVIDERS: ADMIT Internal Medicine; ATTEND Internal Medicine
DX: I11.0 Hypertensive heart disease with heart failure (principal); I50.33 Acute on chronic diastolic (congestive) heart failure; I48.91 Unspecified atrial fibrillation; E78.00 Pure hypercholesterolemia, unspecified; J44.9 Chronic obstructive pulmonary disease, unspecified; F32.A Depression, unspecified; F41.9 Anxiety disorder, unspecified; Z90.49 Acquired absence of other specified parts of digestive tract; Z85.038 Personal history of other malignant neoplasm of large intestine; Z87.891 Personal history of nicotine dependence; Z88.8 Allergy status to other drugs, medicaments and biological substances; Z79.01 Long term (current) use of anticoagulants; Z79.899 Other long term (current) drug therapy
CPT/HCPCS: 36415; 71045; 80048; 80053; 80061; 80305; 80320; 83036; 83735; 83880; 84100; 84145; 84484; 85025; 87081; 90677; 93005; 93306; 96365; 96375; 99285; A6258; G0378; J0696; J1940; J2919; J7512

== ENCOUNTER 2024-05-29 08:05 | Emergency (ER) | payer OTHER, MEDICARE, BC ==
[~2024-05-29] VITALS: Ht 185.4 cm; Wt 103.0 kg
[~2024-05-29 08:05] MED LIST changes: +AMOX-117 PO; -AMOX-580 PO; -GABA-530 PO; -LACT1CAP65 PO; +METO100T7 PO; -MULT-1085 PO; -NALT50TA5 PO; -ONDA-243 PO; -PRED20TA PO; -SENN-360 PO
[2024-05-29 08:13] VITALS: TEMP 98.7
[2024-05-29] MEDS ORDERED: PRED5TAB PO (08:36)
[2024-05-29] MEDS ORDERED: GABA-530 PO (08:36)
[2024-05-29 08:43] LABS: BASOPHILS % (AUTO) 0.3 % (0-1); EOSINOPHILS % (AUTO) 0.7 % (0-6); HEMATOCRIT 43.4 % (42.0-52.0); HEMOGLOBIN 14.6 g/dl (14.0-17.9); LYMPHOCYTES # (AUTO) 0.8 X10'3 (1.1-4.8); LYMPHOCYTES % (AUTO) 12.2 % (21-51); MEAN CORPUSCULAR HEMOGLOBIN 30.5 PG (27.0-31.0); MEAN CORPUSCULAR HGB CONC 33.6 g/dL (33.0-36.5); MEAN CORPUSCULAR VOLUME 90.8 FL (78-98); MEAN PLATELET VOLUME 10.6 FL (7.4-10.4); MONOCYTES # (AUTO) 0.3 X10'3 (0-0.9); MONOCYTES % (AUTO) 4.9 % (2-12); NEUTROPHILS # (AUTO) 5.2 X10'3 (1.8-7.7); NEUTROPHILS % (AUTO) 81.9 % (42-75); RED BLOOD COUNT 4.78 X10'6 (4.70-6.10); RED CELL DISTRIBUTION WIDTH 14.8 % (11.5-14.5); WHITE BLOOD COUNT 6.3 X10'3 (4.5-11.0)
[2024-05-29 08:45] LABS: PLATELET COUNT 113 X10'3 (140-440)
[2024-05-29 09:00] LABS: BLOOD UREA NITROGEN 19 MG/DL (7-18); CHLORIDE 104 MMOL/L (99-107); GLUCOSE 141 MG/DL (70-104); POTASSIUM 3.8 MMOL/L (3.5-5.1); SODIUM 139 MMOL/L (135-145); eCRCL 63 ML/MIN; eGFR 71 ML/MIN
[2024-05-29] MEDS ORDERED: iohexol 300mg/ml 100ml inj. ONE (09:02)
[2024-05-29 09:09] LABS: ALANINE AMINOTRANSFERASE 27 U/L (12-78); ALBUMIN 3.7 G/DL (3.4-5.0); ALBUMIN/GLOBULIN RATIO 1.4 (1.1-1.5); ALKALINE PHOSPHATASE 69 IU/L (46-116); ANION GAP 9 (8-16); ASPARTATE AMINO TRANSFERASE 20 U/L (10-37); BILIRUBIN,TOTAL 1.3 MG/DL (0.1-1.0); LIPASE 42 U/L (16-77); TOTAL CARBON DIOXIDE 25.9 MMOL/L (24-32); TOTAL PROTEIN 6.4 G/DL (6.4-8.2)
[2024-05-29 10:37] LABS: BILIRUBIN,URINE NEGATIVE (Neg); CLARITY,URINE CLEAR (Clear); COLOR,URINE YELLOW (Yellow); GLUCOSE, URINE NEGATIVE (Neg); KETONES,URINE NEGATIVE (Neg); LEUKOCYTE ESTERASE ,URINE NEGATIVE (Neg); NITRITES, URINE NEGATIVE (Neg); OCCULT BLOOD,URINE TRACE-INTACT (Neg); PH,URINE 7.5 (4.8-8.0); PROTEIN,URINE NEGATIVE (Neg)
[2024-05-29 10:38] LABS: UA COLLECTION TYPE URINAL
[2024-05-29 10:46] LABS: WBC,URINE 0-4 /HPF (0-4)
[2024-05-29 10:47] LABS: BACTERIA,URINE 1+ /HPF (Neg); MUCUS STRANDS FEW /LPF (Neg); SQUAMOUS EPITHELIAL CELL,UR FEW /LPF (FEW); TRANSITIONAL EPI CELLS,URINE FEW /HPF
[2024-05-29 11:42] VITALS: BP 124/69; PULSE 84; RESP 16; O2SAT 97
== END 2024-05-29 11:45 | disposition home or self-care (01) ==
LOC: ER 08:06
DX: A05.9 Bacterial foodborne intoxication, unspecified (principal); E78.00 Pure hypercholesterolemia, unspecified; I10 Essential (primary) hypertension; I48.91 Unspecified atrial fibrillation; J44.9 Chronic obstructive pulmonary disease, unspecified; Z88.0 Allergy status to penicillin; Z88.8 Allergy status to other drugs, medicaments and biological substances; Z90.49 Acquired absence of other specified parts of digestive tract; Z90.89 Acquired absence of other organs; Z95.0 Presence of cardiac pacemaker
CPT/HCPCS: 36415; 74177; 80053; 81001; 83690; 85025; 93005; 99285; Q9967

== ENCOUNTER 2024-06-21 02:30 | Inpatient (IN) | payer OTHER, MEDICARE, BC ==
[~2024-06-21] VITALS: Ht 185.4 cm; Wt 81.5 kg
[~2024-06-21 02:30] MED LIST changes: +GABA-530 PO; +PRED5TAB PO
[2024-06-21 03:03] LABS: BASOPHILS % (AUTO) 0.3 % (0-1); EOSINOPHILS # (AUTO) 0.2 X10'3 (0-0.9); EOSINOPHILS % (AUTO) 1.3 % (0-6); HEMATOCRIT 48.9 % (42.0-52.0); HEMOGLOBIN 16.5 g/dl (14.0-17.9); LYMPHOCYTES # (AUTO) 1.4 X10'3 (1.1-4.8); LYMPHOCYTES % (AUTO) 10.3 % (21-51); MEAN CORPUSCULAR HEMOGLOBIN 30.7 PG (27.0-31.0); MEAN CORPUSCULAR HGB CONC 33.8 g/dL (33.0-36.5); MEAN CORPUSCULAR VOLUME 90.9 FL (78-98); MEAN PLATELET VOLUME 11.5 FL (7.4-10.4); MONOCYTES # (AUTO) 0.8 X10'3 (0-0.9); NEUTROPHILS # (AUTO) 10.9 X10'3 (1.8-7.7); NEUTROPHILS % (AUTO) 82.1 % (42-75); PLATELET COUNT 148 X10'3 (140-440); RED BLOOD COUNT 5.38 X10'6 (4.70-6.10); WHITE BLOOD COUNT 13.3 X10'3 (4.5-11.0)
--- NOTE | 2024-06-21 03:04 | Physician Documentation ---
History of Present Illness Chief Complaint: Abdominal Pain Stated Complaint: ABDOMINAL PAIN Time Seen by MD: 02:46 Primary Medical Doctor: MOR KIRKPATRICK This is an 83-year-old gentleman who presents for evaluation of upper abdominal pain that he describes as burning, that began sometime within the last 24 hours without any obvious trigger, trauma provocation. No particular palliating or aggravating factors. Attempted to treat it with Tums without any success. This has not happened in the past. Reports severe nausea. Denies chest pain or difficulty breathing. Denies concerns for tobacco, alcohol or illicit substances use Medication Reconciliation Allergies: Coded Allergies: gabapentin (Verified Adverse Reaction, Unknown, HALLUCINATIONS, 06/21/24) Scheduled Amox Tr/Potassium Clavulanate (Augmentin 875-125 Tablet), 1 TAB PO Q12H, (Reported) Apixaban (Eliquis), 1 TAB PO Q12H, (Reported) Folic Acid* (Folic Acid*), 1 TAB PO DAILY, (Reported) Furosemide (Lasix), 1 TAB PO BID, (Reported) Gabapentin (Gabapentin), 3 CAP PO DAILY, (Reported) Metoprolol Succinate* (Toprol Xl*), 1 TAB PO DAILY, (Reported) Prednisone* (Prednisone*), 4 TAB PO DAILY, (Reported) Quetiapine Fumarate (Quetiapine Fumarate), 1 TAB PO HS, (Reported) Rosuvastatin Calcium* (Crestor*), 1 TAB PO DAILY, (Reported) Thiamine HCl (Vitamin B-1), 2 TAB PO DAILY, (Reported) Past Medical History Past Medical History: Arrhythmia, Atrial Fibrillation, High Cholesterol, Hypertension, Bronchitis, COPD, Pneumonia, Bowel Obstruction, Diverticulitis, Anemia, Colon Cancer, Anxiety, Depression Past Surgical History: appendectomy, cancer surgery, colectomy, orthopedic surgeries, pacemaker, tonsillectomy Alcohol Use: Alcoholic Drug Use: none Lives with: Alone Lives In: Home Occupation: retired Review of Systems ROS 10 point review of systems was performed and unless noted above in HPI is negative for acute process/complaint. Physical Exam Vital Signs: Temperature: 97.6, Source: Temporal, Heart Rate: 68, Respiratory Rate: 15, BP: 156/98, Pulse Oximetry: 96, Weight: 81.500 Physical Exam GENERAL: Awake, alert, oriented, GCS 15, no apparent distress, non-toxic appearing, answers questions, follows commands appropriately. HEENT: Atraumatic, normocephalic, pupils equal, extraocular muscles intact, sclerae anicteric, mucus membranes moist, oropharynx is clear, no stridor. NECK: supple, full active range of motion, trachea midline, no thyromegaly, no lymphadenopathy, no JVD. CARDIOVASCULAR: regular rate/rhythm, no murmurs/gallops/rubs, Pulses are 2+ in all extremities and symmetric. Capillary refill less than 2 seconds. PULMONARY: Nonlabored, good air movement ,no respiratory distress, speaking in full sentences, clear to auscultation bilaterally, no wheezing, no ronchi, no rales, no accessory muscle use. GASTROINTESTINAL: Soft, non-tender, non-distended, normal active bowel sounds, no organomegaly, no pulsatile masses, no CVA tenderness. NEUROLOGIC: Lucid with normal mental status. Normal facial symmetry. Moves all extremities symmetrically and with purpose. No truncal ataxia. Speech is fluid without evidence of dysarthria or aphasia, no focal deficits appreciated. MUSCULOSKELETAL: There is full range of motion of all extremities. There is no joint pain or joint swelling or joint erythema. There is no muscle pain or tenderness or swelling. EXTREMITIES: warm, well-perfused, no cyanosis, no clubbing, no edema, no acute deformities. Skin: warm, dry, no rashes or lesions, no jaundice, no petechiae orpurpura. No ecchymosis. PSYCHIATRIC: Normal affect, normal insight, normal concentration. Focused exam: [] Progress Progress Note Doctor Nahed I received this patient in sign-out, acute onset abdominal pain vomiting and diarrhea. Symptoms began around 1 in the morning. No prior history of similar. Remote surgical history includes appendectomy as a child. Former heavy alcohol use has not had drink in several months. He also has history of AFib he is on Eliquis. Signed out pending CT abdomen pelvis I independently interpreted CT abdomen and pelvis shows partial small bowel obstruction. I evaluated the patient at bedside he is actively retching and vomiting with distended abdomen. I discussed plan for admission and NG tube decompression which he is amenable to. 7:13 a.m. discussed case with general surgeon Dr. Zelaya who agrees with plan for NG tube decompression admission to the hospitalist 7:13 a.m. discussed case with hospitalist team who agree with plan for admission Results/Orders Reviewed/noted all lab results: Yes Results/Orders Orders - CHAZ HANEY DO Urinalysis, Cult If Indicated (06/21/24 02:35) Cbc/Diff (06/21/24 02:35) BMP (06/21/24 02:35) Lipase (06/21/24 02:35) CMP (06/21/24 02:35) Electrocardiogram (06/21/24 02:43) Ct Abdomen Pelvis (06/21/24 02:43) Hs Troponin I W Calculations (06/21/24 02:43) Hs Troponin I W Calculations (06/21/24 04:43) Diatr Meglu/Diatrizoate 30ml (Gastrograf (06/21/24 02:45) Completed Orders - CHAZ HANEY DO Pantoprazole 40mg Iv (Protonix 40mg Iv) (06/21/24 02:45) Ondansetron Inj. (Zofran 4mg/2ml Vial) (06/21/24 02:45) Vital Signs 06/21/24 02:32 Temp 97.6 Pulse 68 Resp 15 B/P (MAP) 156/98 Pulse Ox 96 Laboratory Tests Test 06/21/24 02:48 CBC Comment Chemistry Comments EKG/XRAY/CT/US/VASC/MRI EKG : Additional Comment EKG was obtained at my request and interpreted by myself shows what appears to be atrial fibrillation, rate of 124, narrow QRS, no QT prolongation, normal axis, no STEMI. Medical Decision Making Findings Facility Status: ED Holds, [facility] process The plan was discussed with the patient, who demonstrates clear understanding of the plan and is in agreement with the plan unless otherwise noted in the chart. All questions have been answered, all concerns were addressed unless otherwise documented. I was available throughout their ED stay for frequent reassessment and questions. Differential Diagnoses (considered and possible or likely): Differential diagnosis considered includes acute appendicitis, acute cholecystitis, pancreatitis, gastritis, ACS, pneumonia, PUD, diverticulitis, mesenteric ischemia, abdominal aortic aneurysm, bowel obstruction, enteritis, colitis, fecal impaction, volvulus, IBS, inflammatory bowel disease, specific food intolerance, peritonitis, perforated viscous, malignancy, UTI, abscess, and abdominal pain NOS. History, physical exam, and workup exclude many of the more serious causes listed above. ??Differential Diagnoses (considered and unlikely, not requiring evaluation currently): [Aortic/great vessels dissection was considered but it is unlikely based on absence of ripping, tearing, migratory chest pain, absence of syncope or focal neurologic deficits, physical examination indicating equal and symmetric pulses.] MDM Data Please see [facility] for the following: Independent Historians and external Records Review. Historian: [Patient] Independent Historians: ?[Record review] Medication Management: [Reviewed medication list] Social History and determinants: [Reviewed] Please see the body of the note for the following: Any independent interpretations of ECG, imaging studies. All vitals signs/haemodynamics, ordered tests were independently reviewed and interpreted by myself. Nursing triage complaint and vitals reviewed, additional nursing notes were reviewed as available and I agree unless otherwise noted or documented in contradiction in the chart Vital Signs: Independently reviewed Labs: Independently interpreted Imaging: Independently interpreted Old Medical Records: Independently reviewed, see [facility] for relevant summary and information Pulse Oximetry: [97%] interpreted as [normal on room air] by me [Case Briefer: [Regular Rate, Regular rhythm, no ectopy, NSR] reviewed and interpreted by me] Additionally notably showing: [] Tests considered but not ordered include: [] Social Determinants of Health Impact: Patient was evaluated in [facility], or [facility] [place] with limited access to healthcare due to below par ratio of patient to medical providers. [] Comorbid Conditions Impacting Present Evaluation and Care/Treatment: [] Management Discussions with other Healthcare Providers: [] Treatment and Disposition Medication Management (Given or considered): []. See EMR for details Consideration for Hospitalization/Escalation/Deescalation of Care: Admission for observation has been considered, [however the patient is able to tolerate p.o., their symptoms are controlled, they are able to rely on oral medications, and their chief complaint/diagnosis can be managed on outpatient basis.] ?ED Course:?[] ?Shared decision making:?[] Code status:?FULL Please see the full Electronic Medical Record for full details of nursing documentation, medications list, other records of complete past medical history and conditions, vital signs, laboratory studies, and any radiologic study interpretations by radiologists. Portions of this note were completed using Device[employer] software and as a result there may exist minor errors in spe lling. I have reviewed elements of past family and social history and agree as included in note. Differential Dx:Considerations: Include: Appendicitis, Bowel obstruction, Cholangitis Departure Disposition: ADMITTED INPATIENT Admitted to Inpatient Unit: to hospitalist Impression: Primary Impression: Epigastric abdominal pain Additional Impressions: Nausea Atrial fibrillation with rapid ventricular response Small bowel obstruction Referrals: NO PRIMARY CARE PROVIDER (PCP) Critical Care Note Total Time (mins): 30 Critical Care Note The very real possibility of a deterioration of this patient's condition required the highest level of my preparedness for sudden, emergent intervention. I provided critical care services, which included medication orders, frequent reevaluations of the patient's condition and response to treatment, ordering and reviewing test results, and discussing the case with various consultants. Excludes time spent performing separately billable procedures. The critical care time associated with the care of the patient was 30 minutes in the management of atrial fibrillation with RVR Signature Scribe Signature: No scribe Attestation: This note accurately reflects clinical decisions, work performed by myself, DO MEDINA Potter NICHOLAS M DO June 21, 2024 03:04 CHAZ BORJA MD June 21, 2024 06:41
[2024-06-21] MEDS ORDERED: iohexol 300mg/ml 100ml inj. ONE (03:12)
[2024-06-21 03:13] LABS: ALANINE AMINOTRANSFERASE 20 U/L (12-78); ALBUMIN 4.5 G/DL (3.4-5.0); ALBUMIN/GLOBULIN RATIO 1.5 (1.1-1.5); ALKALINE PHOSPHATASE 84 IU/L (46-116); ANION GAP 12 (8-16); ASPARTATE AMINO TRANSFERASE 25 U/L (10-37); BILIRUBIN,TOTAL 1.3 MG/DL (0.1-1.0); BLOOD UREA NITROGEN 14 MG/DL (7-18); BUN/CREATININE RATIO 10.4 (10.0-20.0); CALCIUM 10.4 MG/DL (8.5-10.1); CHLORIDE 103 MMOL/L (99-107); CREATININE 1.34 MG/DL (0.60-1.10); GLUCOSE 140 MG/DL (70-104); LIPASE 30 U/L (16-77); POTASSIUM 3.8 MMOL/L (3.5-5.1); SODIUM 141 MMOL/L (135-145); TOTAL CARBON DIOXIDE 25.9 MMOL/L (24-32); TOTAL PROTEIN 7.5 G/DL (6.4-8.2); eCRCL 47 ML/MIN; eGFR 51 ML/MIN
--- NOTE | 2024-06-21 03:19 | ELECTROCARDIOGRAPH REPORT ---
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 Chandan Briseno Measurements Intervals [place] Rate: 124 P: 0 TX: 0 QRS: 53 QRSD: 79 T: 260 QT: 293 QTc: 421 Interpretive Statements Atrial fibrillation Borderline repolarization abnormality Electronically Signed On 06-21-2024 17:20:[address] Chandan Briseno Please click the below link to view image of tracing.
[2024-06-21] MEDS: ondansetron/PF 4mg/2ml inj IV ONE (03:33)
[2024-06-21] MEDS: pantoprazole 40 MG vial IV ONE (03:34)
[2024-06-21] MEDS: metoprolol tartrate 1mg/ml inj IV ONE (03:44)
[2024-06-21] MEDS: magnesium sulf-water 2g/50mL 50 ML IV ONE (03:49)
[2024-06-21] MEDS: mag hydrox/Alum hydrox/simeth 30ml oral suspension PO ONE (03:51)
[2024-06-21] MEDS: LIDOcaine 2% Viscous 15ml cup MM ONE (03:51)
[2024-06-21] MEDS: diatr meglu/diatrizoate 30ml oral sol.-(3 dose) bottle PO SCH (03:53)
[2024-06-21] MEDS: normal saline 500ml IV soln 500 ML IV ONE (03:55)
[2024-06-21 06:03] LABS: ETHANOL < 10 MG/DL (<10)
--- NOTE | 2024-06-21 06:08 | RADIOLOGY REPORT ---
EXAM: CT Abdomen and Pelvis With Intravenous Contrast CLINICAL INDICATION: Upper abdominal pain ORAL AND IV CONTRAST TECHNIQUE: Axial computed tomography images of the abdomen and pelvis with intravenous contrast. [facility] CT exam was performed using one or more of the following dose reduction techniques: automated exp osure control, adjustment of the mA and/or kV according to patient size, and/or use of iterative ericka nstruction technique. CONTRAST: COMPARISON: CT CT ABDOMEN PELVIS W/ IV CONTRAST on DOS: 05/29/24, CT CT ABDOMEN PELVIS on DOS: , CT ABDOMEN PELVIS on DOS: 06/22/22 FINDINGS: LUNG BASES: Unremarkable. No mass. No consolidation. ABDOMEN: LIVER: Cirrhosis with fatty infiltration and ascites. GALLBLADDER AND BILE DUCTS: Unremarkable. No calcified stones. No ductal dilation. PANCREAS: Unremarkable. No mass. No ductal dilation. SPLEEN: Unremarkable. No splenomegaly. ADRENALS: Unremarkable. No mass. KIDNEYS AND URETERS: Unremarkable. No solid mass. No hydronephrosis. STOMACH AND BOWEL: Distended small bowel with differential air-fluid levels measuring up to 3.4 cm, concerning for partial small bowel obstruction with possible transition point in the right lower abd ominal quadrant. No pneumoperitoneum. No mucosal thickening. PELVIS: APPENDIX: No findings to suggest acute appendicitis. BLADDER: Unremarkable. No mass. REPRODUCTIVE: Unremarkable as visualized. ABDOMEN and PELVIS: INTRAPERITONEAL SPACE: See above. BONES/JOINTS: Degenerative disc disease throughout the lumbar spine. Degenerative facet arthropath y throughout the lumbar spine, most prominent in the lower lumbar spine. No acute fracture. No disl ocation. SOFT TISSUES: Inguinal hernias, bilaterally. VASCULATURE: Scattered calcified atherosclerotic disease of aorta. No abdominal aortic aneurysm. LYMPH NODES: Unremarkable. No enlarged lymph nodes. OTHER FINDINGS: . . IMPRESSION: 1. Distended small bowel with differential air-fluid levels measuring up to 3.4 cm, concerning for p artial small bowel obstruction with possible transition point in the right lower abdominal quadrant. No pneumoperitoneum. 2. Cirrhosis with fatty infiltration and ascites. 3. Inguinal hernias, bilaterally.
[2024-06-21] MEDS: fentaNYL/PF 50MCG/1 ML 2ML syringe IV ONE (06:47)
[2024-06-21] MEDS: ringers solution, lacted 1,000 ML IV ONE (06:48)
[2024-06-21 07:08] LABS: BILIRUBIN,URINE NEGATIVE (Neg); CLARITY,URINE SLIGHTLY CLOUDY (Clear); COLOR,URINE YELLOW (Yellow); GLUCOSE, URINE NEGATIVE (Neg); KETONES,URINE NEGATIVE (Neg); LEUKOCYTE ESTERASE ,URINE NEGATIVE (Neg); NITRITES, URINE NEGATIVE (Neg); OCCULT BLOOD,URINE TRACE-INTACT (Neg); PH,URINE 7.5 (4.8-8.0); PROTEIN,URINE NEGATIVE (Neg)
[2024-06-21 07:13] LABS: UA COLLECTION TYPE CLN CATCH MIDSTREAM
[2024-06-21 07:19] LABS: AMORPHOUS PHOSPHATES 2+; RBC,URINE 0-2 /HPF (0-2); SQUAMOUS EPITHELIAL CELL,UR FEW /LPF (FEW); WBC,URINE 0-4 /HPF (0-4)
[2024-06-21 07:21] LABS: BACTERIA,URINE FEW /HPF (Neg)
--- NOTE | 2024-06-21 07:24 | ELECTROCARDIOGRAPH REPORT ---
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 Chandan Briseno Measurements Intervals [place] Rate: 93 P: 0 [place]: 0 QRS: 40 QRSD: 82 T: -75 QT: 351 QTc: 437 Interpretive Statements Atrial fibrillation Low voltage, precordial leads Borderline T abnormalities, diffuse leads Electronically Signed On 06-21-2024 17:20:[address] Chandan Briseno Please click the below link to view image of tracing.
[2024-06-21 07:31] LABS: URINE AMPHETAMINE SCREEN NEGATIVE (Neg); URINE BARBITUATE SCREEN NEGATIVE (Neg); URINE BENZODIAZEPINES SCREEN NEGATIVE (Neg); URINE CANNABINOID SCREEN POSITIVE (Neg); URINE COCAINE SCREEN NEGATIVE (Neg); URINE METHADONE SCREEN NEGATIVE (Neg); URINE OPIATE SCREEN NEGATIVE (Neg); URINE PHENCYCLIDINE SCREEN NEGATIVE (Neg)
--- NOTE | 2024-06-21 07:53 | RADIOLOGY REPORT ---
CHEST RADIOGRAPH Indication: ng placement Technique: Single frontal view of the chest was obtained Comparison: DI CHEST,SINGLE VIEW on DOS: 04/10/24, DI CHEST,SINGLE VIEW on DOS: 04/09/24, DI CHEST,SING LE VIEW on DOS: 04/08/24, DI CHEST,SINGLE VIEW on DOS: 02/22/24, DI CHEST,SINGLE VIEW on DOS: 03/18/23 FINDINGS: Lines and Tubes: NG tube in stomach. Left pacemaker. Lungs: No focal consolidation. Pleura: No effusion. No pneumothorax. Cardiomediastinal contours: Cardiomegaly. Bones: No acute osseous abnormality. IMPRESSION: No acute cardiopulmonary disease.
[2024-06-21] MEDS ORDERED: magnesium Cl slow-release 64mg tablet PO PRN (10:20)
[2024-06-21] MEDS ORDERED: metoclopramide 5 mg/ml inj IV PRN (10:20)
[2024-06-21] MEDS ORDERED: magnesium sulf-water 2g/50mL 50 ML IV PRN (10:20)
[2024-06-21] MEDS ORDERED: potassium Cl 20 mEq SR tablet PO PRN ×2 (10:20)
[2024-06-21] MEDS ORDERED: acetaminophen 325mg tablet PO PRN (10:20)
[2024-06-21] MEDS ORDERED: magnesium sulf-water 4G/100mL 100 ML IV PRN (10:20)
[2024-06-21] MEDS ORDERED: potassium Cl 40MEQ/1/2NS 520ml 520 ML IV PRN (10:20)
[2024-06-21] MEDS ORDERED: mag hydrox/Alum hydrox/simeth 30ml oral suspension PO PRN (10:20)
[2024-06-21] MEDS: normal saline 1000ml 1,000 ML IV SCH (10:43)
--- NOTE | 2024-06-21 10:59 | HISTORY AND PHYSICAL-Residence ---
History & Physical Providers to CC Resident Creating Document: TITA MALAVE JESIKA ~ History of Present Illness Primary Medical Doctor: MOR Reason for Admit\Complaint: PAIN ABDOMEN History of Present Illness 83-year-old male with past medical history of atrial fibrillation, hypertension, status post pacemaker, hyperlipidemia, COPD, CHF presented to the ER with abdominal pain. He endorses abdominal pain which was started at 1:00 a.m. on today, diffuse, started around the belly button and then it spread to the both lower abdomen, sharp, burning in nature, rated eight to 9/10 initially at home and then 2/10 after coming to ER, not radiating, no aggravating and relieving factors. He ate the dinner, slept until 1:00 a.m. and then woke up with severe sharp abdominal pain. Complained of abdominal distention, could not able to eat and swallow the food. Could not able to poop in the morning. He had one large bowel movement before coming here. Endorses nausea and without vomiting. He endorses palpitations of the night which is irregularly regular nature. He is able to pee normally . He denied chest pain, shortness of breath, fever, heartburn, indigestion, dyspepsia, acid reflux. He endorses rash over the bilateral upper extremities which was treated with freezing solution by kaiako kura kaupapa maori and now it turned to black color rash. Discussed code status with the patient & patient wants to be full code Allergies: Coded Allergies: gabapentin (Verified Adverse Reaction, Unknown, HALLUCINATIONS, 06/21/24) Home Medications Home Medications Active Reported Prednisone* (Prednisone) 5 Mg Tablet 4 Tab PO DAILY Gabapentin 100 Mg Capsule 3 Cap PO DAILY 30 Days Augmentin 875-125 Tablet (Amoxicillin/Clavulanate Potassium) 1 Each Tablet 1 Tab PO Q12H started 04/09/24 for 5 days for infection Toprol Xl* (Metoprolol Succinate) 100 Mg Tab.sr.24h 1 Tab PO DAILY Lasix (Furosemide) 20 Mg Tablet 1 Tab PO BID 30 Days Eliquis (Apixaban) 5 Mg Tablet 1 Tab PO Q12H 30 Days Folic Acid* (Folic Acid) Y Tab 1 Tab PO DAILY 30 Days Vitamin B-1 (Thiamine HCl) 50 Mg Tablet 2 Tab PO DAILY 30 Days Quetiapine Fumarate 25 Mg Tablet 1 Tab PO HS Crestor* (Rosuvastatin Calcium) 20 Mg Tablet 1 Tab PO DAILY 30 Days Past Medical History Past Medical History ATRIAL FIBRILLATION HYPERLIPIDEMIA CARDIAC PACEMAKER ESSENTIAL HYPERTENSION COPD CARCINOID TUMOR COLON CANCER ERYTHEMA MIGRANS- LYME DISEASE ALCOHOL USE DISORDER, ALCOHOL DEPENDENCE CHF HEART FAILURE WITH PRESERVED EJECTION FRACTION GI BLEED GASTRITIS PTSD Past Surgical History Surgical History Comment appendectomy, cancer surgery, colectomy, orthopedic surgeries, pacemaker, tonsillectomy Past Social History Social History Comment Fairly independent Walks without any assistance Alcohol: He was a heavy drinker, drinks a bottle for three days, he quit two year ago . Smoking: Quit greater than 1 year Alcohol Use: Alcoholic Drug Use: None Lives with: Alone Lives In: Home Occupation: retired ROS Constitutional: Reports: no symptoms reported Eyes: Reports: no symptoms reported ENT: Reports: no symptoms reported Respiratory: Reports: no symptoms reported Gastrointestinal: Reports: see HPI Genitourinary: Reports: no symptoms reported Male Genitalia: Reports: no symptoms reported Neurological: Reports: no symptoms reported Musculoskeletal: Reports: no symptoms reported Integumentary: Reports: no symptoms reported Allergic/Immunologic: Reports: no symptoms reported Endocrine: Reports: no symptoms reported Psychiatric: Reports: no symptoms reported Exam Vitals: Vital Signs Date Time Temp Pulse Resp B/P (MAP) Pulse Ox O2 Delivery O2 Flow Rate FiO2 06/21/24 10:24 97.6 80 15 152/83 (106) 99 0 General: GENERAL: Awake, alert, oriented, GCS 15, no apparent distress, non-toxic appearing, answers questions, follows commands appropriately. HEENT: Atraumatic, normocephalic, pupils equal, extraocular muscles intact, sclerae anicteric, mucus membranes moist, oropharynx is clear, no stridor. NECK: supple, full active range of motion, trachea midline, no thyromegaly, no lymphadenopathy, no JVD. CARDIOVASCULAR: regular rate/rhythm, no murmurs/gallops/rubs, Pulses are 2+ in all extremities and symmetric. Capillary refill less than 2 seconds. PULMONARY: Nonlabored, good air movement ,no respiratory distress, speaking in full sentences, clear to auscultation bilaterally, no wheezing, no ronchi, no rales, no accessory muscle use. GASTROINTESTINAL: Soft, distended, diffuse tender more over the left iliac fossa then other regions. Bowel sounds are not heard., no organomegaly, no pulsatile masses, no CVA tenderness. NEUROLOGIC: Lucid with normal mental status. Normal facial symmetry. Moves all extremities symmetrically and with purpose. No truncal ataxia. Speech is fluid without evidence of dysarthria or aphasia, no focal deficits appreciated. MUSCULOSKELETAL: There is full range of motion of all extremities. There is no joint pain or joint swelling or joint erythema. There is no muscle pain or tenderness or swelling. EXTREMITIES: warm, well-perfused, no cyanosis, no clubbing, no edema, no acute deformities. Skin: warm, dry, black color rash over the bilateral upper extremity. or lesions, no jaundice, no petechiae orpurpura. No ecchymosis. PSYCHIATRIC: Normal affect, normal insight, normal concentration Diagnostic Data Last Recorded Lab Results: 06/21/24 0248 06/21/24 0248 Advance Care Planning Advanced Care planning: Add on additional 30 min Additional Plan Small-bowel obstruction White blood counts are elevated, lactic acid is elevated Ordered procalcitonin, Blood pressure is at 130s Patient received Zofran, pantoprazole, Gastrografin oral solution, 1 L of ringer lactate, magnesium sulfate, 1 L of normal saline Contrast CT 1. Distended small bowel with differential air-fluid levels measuring up to 3.4 cm, concerning for partial small bowel obstruction with possible transition point in the right lower abdominal quadrant. No pneumoperitoneum. 2. Cirrhosis with fatty infiltration and ascites. 3. Inguinal hernias, bilaterally Dr. Dockery consulted on-call surgeon and surgeon recommended for conservative management with the NG tube. Patient is currently on IV fluids, normal saline at the rate of 100 mL/hour, ondansetron p.r.n., Dilaudid p.r.n. Ordered 1 L of IV normal saline bolus If patient is not improving, we may consult the surgeon again. Atrial fibrillation with RVR Initially the heart rate was in 120s and then went down to 80s with metoprolol IV We will continue to monitor heart rate via telemetry Troponins are negative LUCINA Likely secondary to renal tubular stasis Serum creatinine is 1.34 and his baseline is normal We will continue IV fluids at the rate of 100 mL/hour We will monitor renal functions and input and output Hyperbilirubinemia Alcoholic liver disease Possible cirrhosis of liver with ascites Serum bilirubin is 1.3 AST, ALT, ALP is normal Patient is on thiamine, folic acid Hyperlipidemia Ordered lipid panel On rosuvastatin 20 mg Currently held rosuvastatin Status post cardiac pacemaker Recent consultation with Dr. Alves confirmed that it is working & functional without any issues. Essential hypertension Blood pressures in 150s We will continue to monitor blood pressure Patient is on hydralazine 10 mg q.6 H p.r.n. COPD No active symptoms. Not on any home inhalers Alcohol use disorder, Patient is on thiamine, folic acid and lorazepam Heart failure with preserved ejection fraction Patient is on home medications of furosemide and metoprolol We will start after medication reconciliation and once patient stabilized with small-bowel obstruction. GI bleed history Gastritis Received one dose of 40 mg IV pantoprazole Patient is on pantoprazole 40 mg IV once a day PTSD Patient is on home medications of quetiapine We will start after medication reconciliation Code status: Full code Diet: NPO Tubes and lines: IV lines, nasogastric tube PT: Ordered Prognosis: Guarded TITA ANANDA RESIDENT Date of Service: June 21, 2024 Billing Provider: YOLANDA SUN MD Common Visit Codes: 35620-[id number] INP/OBS CARE (HIGH) Secondary Visit Codes: 96104-FMWERNJD CARE PLAN 30 MINUTES MYKEKEENANTITA, RES June 21, 2024 10:59 YOLANDA SUN MD June 22, 2024 21:28
[2024-06-21 11:33] LABS: APTT 30 SECONDS (22-32); INR 1.1 INR; PROTHROMBIN TIME 11.1 SECONDS (9.0-12.0)
[2024-06-21] MEDS: normal saline 1000ml 1,000 ML IV ONE (12:05)
[2024-06-21] MEDS ORDERED: hydrALAZINE 20mg/ml inj. IV PRN (12:10)
[2024-06-21] MEDS ORDERED: LORazepam 2 mg/ml vial IV PRN (12:15)
[2024-06-21 13:04] LABS: CHOL/HDL RATIO 3.8 (0.00-4.99); CHOLESTEROL 172 MG/DL (0-200); HDL CHOLESTEROL 45 MG/DL (35-60); LDL CHOLESTEROL 96 MG/DL (50-100); PRO BRAIN NATRIURETIC PEPTIDE 1574 PG/ML (0-450); TRIGLYCERIDES 214 MG/DL (20-135)
[2024-06-21] MEDS: ondansetron/PF 4mg/2ml inj IV PRN (14:08)
[2024-06-21 14:35] LABS: HEMOGLOBIN A1C 5.7 % (4.5-6.2)
[2024-06-21] MEDS: folic acid 1mg/0.2ml inj IV ONE (14:57)
[2024-06-21 16:05] VITALS: BP 137/80; PULSE 95; RESP 20; TEMP 99.3; O2SAT 97
[2024-06-21] MEDS: HYDROmorphone/PF 0.2 MG/ML SYRINGE IV PRN (16:32)
[2024-06-21 18:00] VITALS: BP 135/78; PULSE 82; RESP 18; TEMP 97.9; O2SAT 97
[2024-06-21] MEDS: K and/or MAG REPLACEMENT MC SCH (19:53)
[2024-06-21] MEDS: docusate sod 100mg capsule PO SCH (19:58)
[2024-06-21] MEDS: thiamine 100mg/ml 2ml inj. IM SCH (19:58)
[2024-06-21] MEDS: magnesium hydroxide 30ml (MOM) UD suspension PO PRN (19:58)
[2024-06-21 22:00] VITALS: BP 133/71; PULSE 89; RESP 18; TEMP 97.4; O2SAT 95
[2024-06-22] VITALS (8 sets, daily range): BP systolic 98–149; BP diastolic 64–87; PULSE 72–103; RESP 15–22; TEMP 97.3–98.1; O2SAT 94–98
[2024-06-22 05:42] LABS: BASOPHILS % (AUTO) 0.2 % (0-1); HEMOGLOBIN 15.5 g/dl (14.0-17.9); LYMPHOCYTES # (AUTO) 0.6 X10'3 (1.1-4.8); MONOCYTES # (AUTO) 0.4 X10'3 (0-0.9); RED CELL DISTRIBUTION WIDTH 14.7 % (11.5-14.5)
[2024-06-22 05:44] LABS: EOSINOPHILS % (AUTO) 0.2 % (0-6); HEMATOCRIT 46.1 % (42.0-52.0); MEAN CORPUSCULAR HEMOGLOBIN 30.5 PG (27.0-31.0); MEAN CORPUSCULAR HGB CONC 33.6 g/dL (33.0-36.5); MEAN CORPUSCULAR VOLUME 90.9 FL (78-98); MONOCYTES % (AUTO) 5.5 % (2-12); NEUTROPHILS % (AUTO) 85.1 % (42-75); RED BLOOD COUNT 5.07 X10'6 (4.70-6.10)
[2024-06-22 05:46] LABS: ALANINE AMINOTRANSFERASE 15 U/L (12-78); ALBUMIN 3.8 G/DL (3.4-5.0); ALBUMIN/GLOBULIN RATIO 1.4 (1.1-1.5); ALKALINE PHOSPHATASE 76 IU/L (46-116); ANION GAP 8 (8-16); ASPARTATE AMINO TRANSFERASE 23 U/L (10-37); BLOOD UREA NITROGEN 18 MG/DL (7-18); BUN/CREATININE RATIO 14.4 (10.0-20.0); CHLORIDE 105 MMOL/L (99-107); CREATININE 1.25 MG/DL (0.60-1.10); GLUCOSE 143 MG/DL (70-104); SODIUM 143 MMOL/L (135-145); TOTAL CARBON DIOXIDE 29.6 MMOL/L (24-32); TOTAL PROTEIN 6.6 G/DL (6.4-8.2); eCRCL 51 ML/MIN; eGFR 55 ML/MIN
[2024-06-22] MEDS: pantoprazole 40 MG vial IV SCH (07:32)
[2024-06-22 08:47] LABS: HEMOGLOBIN 15.3 g/dl (14.0-17.9); MEAN CORPUSCULAR HEMOGLOBIN 30.8 PG (27.0-31.0); MEAN CORPUSCULAR HGB CONC 33.7 g/dL (33.0-36.5)
[2024-06-22 08:49] LABS: HEMATOCRIT 45.2 % (42.0-52.0); MEAN CORPUSCULAR VOLUME 91.2 FL (78-98); RED BLOOD COUNT 4.96 X10'6 (4.70-6.10); WHITE BLOOD COUNT 6.6 X10'3 (4.5-11.0)
[2024-06-22 08:51] LABS: MEAN PLATELET VOLUME 9.2 FL (7.4-10.4); PLATELET COUNT 102.3 X10'3 (140-440)
[2024-06-22] MEDS: thiamine 100mg/ml 2ml inj. IV SCH (10:38)
--- NOTE | 2024-06-22 18:41 | PROGRESS NOTE- Residence ---
Progress Note - Resident Providers to CC Resident Creating Document: TITA MALAVE, JESIKA ~ Antibiotic Timeout Antibiotic Ordered?: Yes Subjective Seen and examined the patient at bedside. Patient is not progressing much with conservative management. And we contacted Dr. Hardwick again on today. Objective Vital Signs Date Time Temp Pulse Resp B/P (MAP) Pulse Ox O2 Delivery O2 Flow Rate FiO2 06/22/24 16:09 97.3 102 18 140/83 (102) 96 Room Air 06/21/24 20:00 0.0 Result Diagram: 06/22/24 0801 06/22/24 0515 GENERAL: Awake, alert, oriented, GCS 15, no apparent distress, non-toxic appearing, answers questions, follows commands appropriately. HEENT: Atraumatic, normocephalic, pupils equal, extraocular muscles intact, sclerae anicteric, mucus membranes moist, oropharynx is clear, no stridor. NECK: supple, full active range of motion, trachea midline, no thyromegaly, no lymphadenopathy, no JVD. CARDIOVASCULAR: regular rate/rhythm, no murmurs/gallops/rubs, Pulses are 2+ in all extremities and symmetric. Capillary refill less than 2 seconds. PULMONARY: Nonlabored, good air movement ,no respiratory distress, speaking in full sentences, clear to auscultation bilaterally, no wheezing, no ronchi, no rales, no accessory muscle use. GASTROINTESTINAL: Soft, distended, diffuse tender more over the left iliac fossa then other regions. Bowel sounds are not heard., no organomegaly, no pulsatile masses, no CVA tenderness. NEUROLOGIC: Lucid with normal mental status. Normal facial symmetry. Moves all extremities symmetrically and with purpose. No truncal ataxia. Speech is fluid without evidence of dysarthria or aphasia, no focal deficits appreciated. MUSCULOSKELETAL: There is full range of motion of all extremities. There is no joint pain or joint swelling or joint erythema. There is no muscle pain or tenderness or swelling. EXTREMITIES: warm, well-perfused, no cyanosis, no clubbing, no edema, no acute deformities. Skin: warm, dry, black color rash over the bilateral upper extremity. or lesions, no jaundice, no petechiae orpurpura. No ecchymosis. PSYCHIATRIC: Normal affect, normal insight, normal concentration Coagulation Studies Laboratory Tests Test 06/21/24 10:53 Prothrombin Time 11.1 SECONDS (9.0-12.0) INR International Normalized Ratio 1.1 INR Activated Partial Thromboplast Time 30 SECONDS (22-32) Coagulation Comments Advance Care Planning Advanced Care plannin - 30 Minutes Assessment Assessment 83-year-old male with past medical history of atrial fibrillation, hypertension, status post pacemaker, hyperlipidemia, COPD, CHF presented to the ER with abdominal pain. He endorses abdominal pain which was started at 1:00 a.m. on today, diffuse, started around the belly button and then it spread to the both lower abdomen, sharp, burning in nature, rated eight to 9/10 initially at home and then 2/10 after coming to ER, not radiating, no aggravating and relieving factors. He ate the dinner, slept until 1:00 a.m. and then woke up with severe sharp abdominal pain. Complained of abdominal distention, could not able to eat and swallow the food. Could not able to poop in the morning. He had one large bowel movement before coming here. Endorses nausea and without vomiting. He endorses palpitations of the night which is irregularly regular nature. He is able to pee normally . He denied chest pain, shortness of breath, fever, heartburn, indigestion, dyspepsia, acid reflux. He endorses rash over the bilateral upper extremities which was treated with freezing solution by anode crew supervisor and now it turned to black color rash. Admitted the patient for small bowel obstruction and atrial fibrillation with a RVR. Plan Plan Small-bowel obstruction White blood counts are elevated, lactic acid is elevated Ordered procalcitonin, Blood pressure is at 130s Patient received Zofran, pantoprazole, Gastrografin oral solution, 1 L of ringer lactate, magnesium sulfate, 1 L of normal saline Contrast CT 1. Distended small bowel with differential air-fluid levels measuring up to 3.4 cm, concerning for partial small bowel obstruction with possible transition point in the right lower abdominal quadrant. No pneumoperitoneum. 2. Cirrhosis with fatty infiltration and ascites. 3. Inguinal hernias, bilaterally Dr. Dockery consulted on-call surgeon and surgeon recommended for conservative management with the NG tube. Patient is currently on IV fluids, normal saline at the rate of 100 mL/hour, ondansetron p.r.n., Dilaudid p.r.n. Ordered 1 L of IV normal saline bolus If patient is not improving, we may consult the surgeon again. 06/22/2024 Patient is not improving that much with conservative management of IV fluids and again we consulted Dr. Hardwick (left a text). Patient is passing little bit of gas and not passing stool. We are continuing thiamine, ondansetron p.r.n., Dilaudid p.r.n., and IV normal saline. Atrial fibrillation with RVR Initially the heart rate was in 120s and then went down to 80s with metoprolol IV We will continue to monitor heart rate via telemetry Troponins are negative 06/22/2024: Heart rate is controlled Started on metoprolol 50 mg p.o. LUCINA Likely secondary to renal tubular stasis Serum creatinine is 1.34 and his baseline is normal We will continue IV fluids at the rate of 100 mL/hour We will monitor renal functions and input and output 06/22/2024: Serum creatinine is improving and downtrended to 1.25. And on 100 mL/hour normal saline Hyperbilirubinemia Alcoholic liver disease Possible cirrhosis of liver with ascites Serum bilirubin is 1.3 AST, ALT, ALP is normal Patient is on thiamine, folic acid 06/22/2024: We will continue thiamine, folic acid Hyperlipidemia Ordered lipid panel On rosuvastatin 20 mg Currently held rosuvastatin 06/22/2024: LDL is 96. We held the rosuvastatin Status post cardiac pacemaker Recent consultation with Dr. Alves confirmed that it is working & functional without any issues. Essential hypertension Blood pressures in 150s We will continue to monitor blood pressure Patient is on hydralazine 10 mg q.6 H p.r.n. 06/22/2024: Blood pressure is 140 /80, pulse is 102. We will continue hydralazine 10 mg q.6 H p.r.n. COPD No active symptoms. Not on any home inhalers Alcohol use disorder, Patient is on thiamine, folic acid and lorazepam 06/22/2024: We will continue thiamine, folic acid, lorazepam Heart failure with preserved ejection fraction Patient is on home medications of furosemide and metoprolol We will start after medication reconciliation and once patient stabilized with small-bowel obstruction. 06/22/2024- patient is in NPO and we did not started the home medications of furosemide . GI bleed history Gastritis Received one dose of 40 mg IV pantoprazole Patient is on pantoprazole 40 mg IV once a day PTSD Patient is on home medications of quetiapine We will start after medication reconciliation Code status: Full code Diet: NPO Tubes and lines: IV lines, nasogastric tube PT: Ordered Prognosis: Guarded TITARASHEED MALAVE IM RESIDENT Date of Service: June 22, 2024 Billing Provider: YOLANDA SUN MD Common Visit Codes: [id number] INP/OBS CARE(HIGH) TITA MALAVE, [facility] June 22, 2024 18:41 YOLANDA SUN MD June 22, 2024 21:29
[2024-06-22] MEDS: metoprolol tartrate 50mg tablet PO ONE (20:00)
[2024-06-23] VITALS (7 sets, daily range): BP systolic 101–156; BP diastolic 74–102; PULSE 71–104; RESP 15–18; TEMP 97–98.1; O2SAT 94–100
[2024-06-23 06:23] LABS: ALANINE AMINOTRANSFERASE 16 U/L (12-78); ALBUMIN 3.3 G/DL (3.4-5.0); ALBUMIN/GLOBULIN RATIO 1.3 (1.1-1.5); ALKALINE PHOSPHATASE 60 IU/L (46-116); ANION GAP 7 (8-16); ASPARTATE AMINO TRANSFERASE 21 U/L (10-37); BILIRUBIN,TOTAL 1.3 MG/DL (0.1-1.0); BLOOD UREA NITROGEN 19 MG/DL (7-18); BUN/CREATININE RATIO 19.6 (10.0-20.0); CHLORIDE 107 MMOL/L (99-107); CREATININE 0.97 MG/DL (0.60-1.10); GLUCOSE 93 MG/DL (70-104); MAGNESIUM 2.2 MG/DL (1.5-2.4); POTASSIUM 3.8 MMOL/L (3.5-5.1); SODIUM 144 MMOL/L (135-145); TOTAL CARBON DIOXIDE 29.7 MMOL/L (24-32); TOTAL PROTEIN 5.8 G/DL (6.4-8.2); eCRCL 65 ML/MIN; eGFR 74 ML/MIN
[2024-06-23 08:21] LABS: BASOPHILS % (AUTO) 0.3 % (0-1); EOSINOPHILS # (AUTO) 0.1 X10'3 (0-0.9); EOSINOPHILS % (AUTO) 0.8 % (0-6); HEMATOCRIT 45.2 % (42.0-52.0); HEMOGLOBIN 15.1 g/dl (14.0-17.9); LYMPHOCYTES # (AUTO) 1.1 X10'3 (1.1-4.8); LYMPHOCYTES % (AUTO) 16.4 % (21-51); MEAN CORPUSCULAR HGB CONC 33.4 g/dL (33.0-36.5); MEAN CORPUSCULAR VOLUME 92.7 FL (78-98); MONOCYTES # (AUTO) 0.4 X10'3 (0-0.9); MONOCYTES % (AUTO) 6.5 % (2-12); NEUTROPHILS # (AUTO) 5.1 X10'3 (1.8-7.7); RED BLOOD COUNT 4.87 X10'6 (4.70-6.10); RED CELL DISTRIBUTION WIDTH 15.4 % (11.5-14.5); WHITE BLOOD COUNT 6.7 X10'3 (4.5-11.0)
[2024-06-23 08:29] LABS: MEAN PLATELET VOLUME 9.7 FL (7.4-10.4); PLATELET COUNT 133 X10'3 (140-440)
--- NOTE | 2024-06-23 18:52 | PROGRESS NOTE- Residence ---
Progress Note - Resident Providers to CC Resident Creating Document: JAKOB JACKSON RES ~ Antibiotic Timeout Antibiotic Ordered?: No Subjective Patient stated that he has passed some gas and had some bowel movement this morning and last night. His pain is little bit getting better and soft now. Patient still having the NG tube. Dr. Mccray was requested for the consultation and recommended for the follow up CT abdomen and pelvis. Stated that he is starving and dry mouth with water soaked cotton ball. Objective Vital Signs Date Time Temp Pulse Resp B/P (MAP) Pulse Ox O2 Delivery O2 Flow Rate FiO2 06/23/24 15:00 97.3 91 16 151/102 (118) 94 Room Air 06/21/24 20:00 0.0 Result Diagram: 06/23/24 0701 06/23/24 0539 Vitals were stable at the moment. General: Well alert, well oriented, not confused, not agitated, not in acute distress, well cooperated during the physical. HEENT: NG tube in Situ, Conjunctive are pink, sclerae clear, no icterus, pupil is equal in both sides, reactive to light, no ear discharge, no pharyngeal erythema or an edema, mouth and lips are dry. Neck: Supple, no JVD, no lymphadenopathy and thyromegaly. Lungs:Equal air entry on both lungs, no additional sounds Heart: S1-S2 regular sinus rhythm and, regular rate, no gallops, no rubs, no murmurs Abdomen: No visible peristalsis, Bowel sounds present S sluggish, soft, slightly tender diffusely, no guarding, no rigidity Extremities: No obvious deformities, no pitting edema bilaterally, capillary refill intact, able to wiggle toes both sides, peripheral pulsations are intact on both sides CORE BLOWER: No focal neurological deficits, no motor and sensory weakness in all 4 extremities, could move all 4 extremities Musculoskeletal: No joint swelling, deformities, inflammations, and no scoliosis and back tenderness Skin: No active skin lesions and rashes Coagulation Studies Laboratory Tests Test 06/21/24 10:53 Prothrombin Time 11.1 SECONDS (9.0-12.0) INR International Normalized Ratio 1.1 INR Activated Partial Thromboplast Time 30 SECONDS (22-32) Coagulation Comments Assessment Assessment 83-year-old male with past medical history of atrial fibrillation, hypertension, status post pacemaker, hyperlipidemia, COPD, CHF presented to the ER with abdominal pain. He endorses abdominal pain which was started at 1:00 a.m. on today, diffuse, started around the belly button and then it spread to the both lower abdomen, sharp, burning in nature, rated eight to 9/10 initially at home and then 2/10 after coming to ER, not radiating, no aggravating and relieving factors. He ate the dinner, slept until 1:00 a.m. and then woke up with severe sharp abdominal pain. Complained of abdominal distention, could not able to eat and swallow the food. Could not able to poop in the morning. He had one large bowel movement before coming here. Endorses nausea and without vomiting. He endorses palpitations of the night which is irregularly regular nature. He is able to pee normally . He denied chest pain, shortness of breath, fever, heartburn, indigestion, dyspepsia, acid reflux. He endorses rash over the bilateral upper extremities which was treated with freezing solution by power plant operations manager and now it turned to black color rash. Admitted the patient for small bowel obstruction and atrial fibrillation with a RVR. Plan Plan # Small-bowel obstruction White blood counts are elevated, lactic acid is elevated Ordered procalcitonin, Blood pressure is at 130s Patient received Zofran, pantoprazole, Gastrografin oral solution, 1 L of ringer lactate, magnesium sulfate, 1 L of normal saline Contrast CT 1. Distended small bowel with differential air-fluid levels measuring up to 3.4 cm, concerning for partial small bowel obstruction with possible transition point in the right lower abdominal quadrant. No pneumoperitoneum. 2. Cirrhosis with fatty infiltration and ascites. 3. Inguinal hernias, bilaterally Dr. Dockery consulted on-call surgeon and surgeon recommended for conservative management with the NG tube. Patient is currently on IV fluids, normal saline at the rate of 100 mL/hour, ondansetron p.r.n., Dilaudid p.r.n. Ordered 1 L of IV normal saline bolus If patient is not improving, we may consult the surgeon again. 06/22/2024 Patient is not improving that much with conservative management of IV fluids and again we consulted Dr. Hardwick (left a text). Patient is passing little bit of gas and not passing stool. We are continuing thiamine, ondansetron p.r.n., Dilaudid p.r.n., and IV normal saline. 06/23/2024 Dr. Zelaya was requested for consultation and recommended for the CT abdomen and pelvis as follow up, which was ordered with overnight prep oral contrast Patient nasogastric tube will be clamped and advance his diet to light clear liquid if he can not tolerate the pain nausea and vomiting for 4-6 hours after clamping # Atrial fibrillation with RVR Initially the heart rate was in 120s and then went down to 80s with metoprolol IV We will continue to monitor heart rate via telemetry Troponins are negative 06/22/2024: Heart rate is controlled Started on metoprolol 50 mg p.o. 06/23/2024: Heart rate was stabilized around 70s, continue current medication. # LUCINA # Likely secondary to renal tubular stasis Serum creatinine is 1.34 and his baseline is normal We will continue IV fluids at the rate of 100 mL/hour We will monitor renal functions and input and output 06/22/2024: Serum creatinine is improving and downtrended to 1.25. And on 100 mL/hour normal saline 06/23/2024: Significant improved in creatinine 0.97 compared from yesterday, continue monitoring and IV fluids # Hyperbilirubinemia # Alcoholic liver disease # Possible cirrhosis of liver with ascites Serum bilirubin is 1.3 AST, ALT, ALP is normal Patient is on thiamine, folic acid 06/22/2024: We will continue thiamine, folic acid 06/23/2024: Show some improvement in bilirubin with today 1.3, continue current management and monitoring. # Hyperlipidemia Ordered lipid panel On rosuvastatin 20 mg Currently held rosuvastatin 06/22/2024: LDL is 96. We held the rosuvastatin 06/23/2024: We will consider to resume rosuvastatin once the liver function is stabilized four LDL 96 #Status post cardiac pacemaker Recent consultation with Dr. Alves confirmed that it is working & functional without any issues. # Essential hypertension Blood pressures in 150s We will continue to monitor blood pressure Patient is on hydralazine 10 mg q.6 H p.r.n. 06/22/2024: Blood pressure is 140 /80, pulse is 102. We will continue hydralazine 10 mg q.6 H p.r.n. 06/23/2024: Continue current medications and blood pressures is stabilized around 140/80 mm Hg. # COPD No active symptoms. Not on any home inhalers # Alcohol use disorder, Patient is on thiamine, folic acid and lorazepam 06/22/2024: We will continue thiamine, folic acid, lorazepam 06/23/2024: Continue alcohol withdrawal protocol with supplemental vitamins. # Heart failure with preserved ejection fraction Patient is on home medications of furosemide and metoprolol We will start after medication reconciliation and once patient stabilized with small-bowel obstruction. 06/22/2024- patient is in NPO and we did not started the home medications of furosemide . 06/23/2024: We will continue oral medication once the patient tolerate the enteral feeding. GI bleed history Gastritis Received one dose of 40 mg IV pantoprazole Patient is on pantoprazole 40 mg IV once a day PTSD Patient is on home medications of quetiapine We will start after medication reconciliation Code status: Full code Diet: NPO Tubes and lines: IV lines, nasogastric tube PT: Ordered Prognosis: Guarded Disposition: Continue medical management, monitor abdominal pain with nausea and vomiting after NG tube was clamped, follow up with the CT abdomen and pelvis with oral contrast prepped overnight, PT eval and DC plan. Resident MD attestation: Patient was seen, examined and discussed with attending MD, Dr. Lisa JACKSON MD Internal Medicine Resident, PGY2 [facility] Date of Service: June 23, 2024 Billing Provider: YOLANDA SUN MD Common Visit Codes: [id number] INP/OBS CARE(HIGH) JAKOB JACKSON RES June 23, 2024 18:52 YOLANDA SUN MD June 23, 2024 20:48
[2024-06-23] MEDS ORDERED: IOHEXOL 12MG/ML oral solution 1,000 ML BOTTLE-COMPOUND-RX PO PRN (21:00)
[2024-06-23] MEDS: diatr meglu/diatrizoate 30ml oral sol.-(3 dose) bottle PO SCH (21:11)
[2024-06-24] VITALS (8 sets, daily range): BP systolic 132–157; BP diastolic 79–102; PULSE 61–90; RESP 14–21; TEMP 97–98.2; O2SAT 96–99
[2024-06-24 06:53] LABS: BASOPHILS % (AUTO) 0.3 % (0-1); EOSINOPHILS # (AUTO) 0.1 X10'3 (0-0.9); HEMATOCRIT 44.8 % (42.0-52.0); HEMOGLOBIN 15.1 g/dl (14.0-17.9); LYMPHOCYTES # (AUTO) 0.7 X10'3 (1.1-4.8); LYMPHOCYTES % (AUTO) 11.2 % (21-51); MEAN CORPUSCULAR HEMOGLOBIN 30.8 PG (27.0-31.0); MEAN CORPUSCULAR HGB CONC 33.8 g/dL (33.0-36.5); MEAN CORPUSCULAR VOLUME 91.1 FL (78-98); MONOCYTES # (AUTO) 0.6 X10'3 (0-0.9); MONOCYTES % (AUTO) 8.5 % (2-12); NEUTROPHILS # (AUTO) 5.3 X10'3 (1.8-7.7); RED BLOOD COUNT 4.92 X10'6 (4.70-6.10); RED CELL DISTRIBUTION WIDTH 14.8 % (11.5-14.5); WHITE BLOOD COUNT 6.7 X10'3 (4.5-11.0)
[2024-06-24 06:57] LABS: ALANINE AMINOTRANSFERASE 15 U/L (12-78); ALBUMIN 3.3 G/DL (3.4-5.0); ALBUMIN/GLOBULIN RATIO 1.2 (1.1-1.5); ALKALINE PHOSPHATASE 65 IU/L (46-116); ANION GAP 13 (8-16); ASPARTATE AMINO TRANSFERASE 13 U/L (10-37); BILIRUBIN,TOTAL 1.4 MG/DL (0.1-1.0); BLOOD UREA NITROGEN 13 MG/DL (7-18); BUN/CREATININE RATIO 18.8 (10.0-20.0); CHLORIDE 103 MMOL/L (99-107); CREATININE 0.69 MG/DL (0.60-1.10); GLUCOSE 96 MG/DL (70-104); MAGNESIUM 1.9 MG/DL (1.5-2.4); POTASSIUM 3.4 MMOL/L (3.5-5.1); SODIUM 140 MMOL/L (135-145); TOTAL CARBON DIOXIDE 24.2 MMOL/L (24-32); eCRCL 92 ML/MIN; eGFR > 90 ML/MIN
[2024-06-24 07:07] LABS: PLATELET COUNT 95 X10'3 (140-440)
[2024-06-24] MEDS ORDERED: HYDROcodone/acetaminophen 5mg/325mg tablet PO PRN (09:35)
[2024-06-24] MEDS ORDERED: HYDROmorphone inj. 0.5 MG/0.5 ML DISP.SYRIN IV PRN (09:35)
[2024-06-24] MEDS: HYDROmorphone 1 mg/ml syringe IV PRN (09:45)
[2024-06-24] MEDS ORDERED: potassium Cl 40MEQ/1/2NS 520ml 520 ML IV PRN (10:30)
[2024-06-24] MEDS ORDERED: magnesium Cl slow-release 64mg tablet PO PRN (10:35)
[2024-06-24] MEDS ORDERED: magnesium sulf-water 4G/100mL 100 ML IV PRN (10:35)
[2024-06-24] MEDS ORDERED: potassium Cl 20 mEq SR tablet PO PRN ×2 (10:35)
[2024-06-24] MEDS ORDERED: magnesium sulf-water 2g/50mL 50 ML IV PRN (10:35)
--- NOTE | 2024-06-24 11:36 | PROGRESS NOTE ---
Progress Note ID Providers to CC ~ Progress Note Progress Note: pt seen-ct pending-needs mesenteric doppler JORGE HUBBARD MD June 24, 2024 11:36
[2024-06-24] MEDS: potassium Cl 40MEQ/1/2NS 520ml 520 ML IV PRN (12:02)
--- NOTE | 2024-06-24 13:26 | PROGRESS NOTE- Residence ---
Progress Note - Resident Providers to CC Resident Creating Document: KOSTAS MALAVEJESIKA ~ Antibiotic Timeout Antibiotic Ordered?: No Subjective Seen and examined patient at bedside. Had 2 bowel movements on today and total of four till now. He complaining of aggravated abdominal pain 9/10 on today. Objective Vital Signs Date Time Temp Pulse Resp B/P (MAP) Pulse Ox O2 Delivery O2 Flow Rate FiO2 06/24/24 11:01 16 06/24/24 11:00 97.9 90 132/89 (103) 97 Room Air 06/24/24 08:15 0.0 Result Diagram: 06/24/24 0645 06/24/24 0550 GENERAL: Awake, alert, oriented, GCS 15, no apparent distress, non-toxic appearing, answers questions, follows commands appropriately. HEENT: Atraumatic, normocephalic, pupils equal, extraocular muscles intact, sclerae anicteric, mucus membranes moist, oropharynx is clear, no stridor. NECK: supple, full active range of motion, trachea midline, no thyromegaly, no lymphadenopathy, no JVD. CARDIOVASCULAR: regular rate/rhythm, no murmurs/gallops/rubs, Pulses are 2+ in all extremities and symmetric. Capillary refill less than 2 seconds. PULMONARY: Nonlabored, good air movement ,no respiratory distress, speaking in full sentences, clear to auscultation bilaterally, no wheezing, no ronchi, no rales, no accessory muscle use. GASTROINTESTINAL: Soft, distended, diffuse tenderness, more in left iliac fossa and left upper quadrant. Bowel sounds are not heard., no organomegaly, no pulsatile masses, no CVA tenderness. NEUROLOGIC: Lucid with normal mental status. Normal facial symmetry. Moves all extremities symmetrically and with purpose. No truncal ataxia. Speech is fluid without evidence of dysarthria or aphasia, no focal deficits appreciated. MUSCULOSKELETAL: There is full range of motion of all extremities. There is no joint pain or joint swelling or joint erythema. There is no muscle pain or tenderness or swelling. EXTREMITIES: warm, well-perfused, no cyanosis, no clubbing, no edema, no acute deformities. Skin: warm, dry, black color rash over the bilateral upper extremity. or lesions, no jaundice, no petechiae orpurpura. No ecchymosis. PSYCHIATRIC: Normal affect, normal insight, normal concentration Coagulation Studies Laboratory Tests Test 06/21/24 10:53 Prothrombin Time 11.1 SECONDS (9.0-12.0) INR International Normalized Ratio 1.1 INR Activated Partial Thromboplast Time 30 SECONDS (22-32) Coagulation Comments Advance Care Planning Advanced Care plannin - 30 Minutes Assessment Assessment 83-year-old male with past medical history of atrial fibrillation, hypertension, status post pacemaker, hyperlipidemia, COPD, CHF presented to the ER with abdominal pain. He endorses abdominal pain which was started at 1:00 a.m. on today, diffuse, started around the belly button and then it spread to the both lower abdomen, sharp, burning in nature, rated eight to 9/10 initially at home and then 2/10 after coming to ER, not radiating, no aggravating and relieving factors. He ate the dinner, slept until 1:00 a.m. and then woke up with severe sharp abdominal pain. Complained of abdominal distention, could not able to eat and swallow the food. Could not able to poop in the morning. He had one large bowel movement before coming here. Endorses nausea and without vomiting. He endorses palpitations of the night which is irregularly regular nature. He is able to pee normally . He denied chest pain, shortness of breath, fever, heartburn, indigestion, dyspepsia, acid reflux. He endorses rash over the bilateral upper extremities which was treated with freezing solution by consumer insight manager and now it turned to black color rash. Admitted the patient for small bowel obstruction and atrial fibrillation with a RVR. Plan Plan # Small-bowel obstruction White blood counts are elevated, lactic acid is elevated Ordered procalcitonin, Blood pressure is at 130s Patient received Zofran, pantoprazole, Gastrografin oral solution, 1 L of ringer lactate, magnesium sulfate, 1 L of normal saline Contrast CT 1. Distended small bowel with differential air-fluid levels measuring up to 3.4 cm, concerning for partial small bowel obstruction with possible transition point in the right lower abdominal quadrant. No pneumoperitoneum. 2. Cirrhosis with fatty infiltration and ascites. 3. Inguinal hernias, bilaterally Dr. Dockery consulted on-call surgeon and surgeon recommended for conservative management with the NG tube. Patient is currently on IV fluids, normal saline at the rate of 100 mL/hour, ondansetron p.r.n., Dilaudid p.r.n. Ordered 1 L of IV normal saline bolus If patient is not improving, we may consult the surgeon again. 06/22/2024 Patient is not improving that much with conservative management of IV fluids and again we consulted Dr. Hardwick (left a text). Patient is passing little bit of gas and not passing stool. We are continuing thiamine, ondansetron p.r.n., Dilaudid p.r.n., and IV normal saline. 06/23/2024 Dr. Zelaya was requested for consultation and recommended for the CT abdomen and pelvis as follow up, which was ordered with overnight prep oral contrast Patient nasogastric tube will be clamped and advance his diet to light clear liquid if he can not tolerate the pain nausea and vomiting for 4-6 hours after clamping : -addressedd the pain management with Dilaudid 0.5 mg for moderate pain, [place] five q.6 H p.r.n - CT angiography- IMPRESSION: 1. Increased left lower lobe atelectasis and trace bilateral pleural effusions. 2. Cardiomegaly and coronary artery disease. 3. Postoperative changes pacemaker and possibly also appendectomy. 4. Nodular hepatic margins suggestive of cirrhosis. There is associated borderline splenomegaly and low volume abdominopelvic ascites. 5. Cholelithiasis.Descending 6. And sigmoid colon diverticulosis without evidence of acute diverticulitis.Mild 7. Prostatic enlargement.Advanced 8. Lumbar degenerative disc disease with multilevel significant neural foraminal stenosis and multilevel moderate spinal canal stenosis. Recommend follow-up noncontrast MRI of the lumbar spine for better characterization, especially if the patient complains of lower extremity radicular symptoms. 9. No evidence of bowel obstruction or other acute process in the abdomen or pelvis. - mesenteric venous scan is taken- Pending results -NG tube is clamped. # Atrial fibrillation with RVR Initially the heart rate was in 120s and then went down to 80s with metoprolol IV We will continue to monitor heart rate via telemetry Troponins are negative 06/22/2024: Heart rate is controlled Started on metoprolol 50 mg p.o. 06/23/2024: Heart rate was stabilized around 70s, continue current medication. 06/24/2024 No new episodes of AFib and heart rate is controlled. # LUCINA # Likely secondary to renal tubular stasis Serum creatinine is 1.34 and his baseline is normal We will continue IV fluids at the rate of 100 mL/hour We will monitor renal functions and input and output 06/22/2024: Serum creatinine is improving and downtrended to 1.25. 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 06/24/2024: Serum bilirubin is over 1.4. Ordered portal vein ultrasound to rule out portal vein thrombosis # Hyperlipidemia Ordered lipid panel On rosuvastatin 20 mg Currently held rosuvastatin 06/22/2024: LDL is 96. We held the rosuvastatin 06/23/2024: We will consider to resume rosuvastatin once the liver function is stabilized four LDL 96 06/24/2024: Currently held rosuvastatin. We will restart after LFTs stabilized #Status post cardiac pacemaker Recent consultation with Dr. Alves confirmed that it is working & functional without any issues. # Essential hypertension Blood pressures in 150s We will continue to monitor blood pressure Patient is on hydralazine 10 mg q.6 H p.r.n. 06/22/2024: Blood pressure is 140 /80, pulse is 102. We will continue hydralazine 10 mg q.6 H p.r.n. 06/23/2024: Continue current medications and blood pressures is stabilized around 140/80 mm Hg. 06/24/2024: Blood pressure is in 130s. # COPD No active symptoms. Not on any home inhalers # Alcohol use disorder, Patient is on thiamine, folic acid and lorazepam 06/22/2024: We will continue thiamine, folic acid, lorazepam 06/23/2024: Continue alcohol withdrawal protocol with supplemental vitamins. 06/24/2024: Continue thiamine, folic acid, lorazepam as needed # Heart failure with preserved ejection fraction Patient is on home medications of furosemide and metoprolol We will start after medication reconciliation and once patient stabilized with small-bowel obstruction. 06/22/2024- patient is in NPO and we did not started the home medications of furosemide . 06/23/2024: We will continue oral medication once the patient tolerate the enteral feeding. 06/24/2024: We will restart his home medications on tomorrow GI bleed history Gastritis Received one dose of 40 mg IV pantoprazole Patient is on pantoprazole 40 mg IV once a day PTSD Patient is on home medications of quetiapine We will start after resuming Code status: Full code Diet: NPO Tubes and lines: IV lines, nasogastric tube PT: Ordered Prognosis: Guarded Disposition: Kostas Malave Internal Medicine Resident, PGY1 [facility] Date of Service: June 24, 2024 Billing Provider: YOLANDA SUN MD, VENKATESH, RES June 24, 2024 13:26
--- NOTE | 2024-06-24 14:09 | RADIOLOGY REPORT ---
EXAM: CT CT ABDOMEN PELVIS W/ ORAL CONTRAST HISTORY: Bowel obstruction and follow up CT for the changes COMPARISON: CT CT ABDOMEN PELVIS W/ IV ORAL CONTRAST on DOS: 06/21/24, CT CT ABDOMEN PELVIS W/ IV CON TRAST on DOS: 05/29/24, CT CT ABDOMEN PELVIS on DOS: 03/05/23, CT ABDOMEN PELVIS on DOS: 06/22/22 TECHNIQUE: Helical CT images of the abdomen and pelvis were performed with oral contrast and without IV contrast. Sagittal and coronal reformatted images were obtained. This CT exam was performed using 1 or more of the following dose reduction techniques: Automated exposure control, adjustment of the mA and/or kv according to patient size, or the use of iterative reconstruction techniques. Radiation Dose Information: CT Dose: CTDI volume is 30.76 mGy. Dose-length product is 1629.5 mGy*cm FINDINGS: CT abdomen: There is mild left lung base atelectasis, increased. There are trace bilateral pleural e ffusions, slightly larger on the left. The heart is enlarged. There are coronary artery calcificatio ns and partially visualized left chest pacemaker. NG tube is present with its tip at the level of th e GE junction. Hepatic margins are quite nodular. There is low volume upper abdominal ascites. Ther e is a small gallstone in the gallbladder neck. The spleen measures 12 cm longitudinal. The gallbladd er, pancreas, kidneys, and adrenal glands are unremarkable. No abdominal aortic aneurysm. There are atherosclerotic calcifications of the abdominal aorta and major branches. CT pelvis: No abnormal bowel dilatation or free air. There is low volume free fluid in the pelvis. T here are descending and sigmoid colon diverticula without evidence of acute diverticulitis. The appen keeley is not visualized, and there is no specific evidence of acute appendicitis. The prostate is mildl y enlarged. There are small bilateral fatty inguinal indirect hernias. There is advanced lumbar degen erative disc disease and facet arthropathy. There is mild thoracolumbar s shaped scoliosis. There is multilevel significant neural foraminal stenosis in the lumbar spine bilaterally. There is moderate spinal canal stenosis at L1-L2, L3-L4, and L4-L5. IMPRESSION: 1. Increased left lower lobe atelectasis and trace bilateral pleural effusions. 2. Cardiomegaly and coronary artery disease. 3. Postoperative changes pacemaker and possibly also appendectomy. 4. Nodular hepatic margins suggestive of cirrhosis. There is associated borderline splenomegaly and l ow volume abdominopelvic ascites. 5. Cholelithiasis.Descending 6. And sigmoid colon diverticulosis without evidence of acute diverticulitis.Mild 7. Prostatic enlargement.Advanced 8. Lumbar degenerative disc disease with multilevel significant neural foraminal stenosis and multile miriam moderate spinal canal stenosis. Recommend follow-up noncontrast MRI of the lumbar spine for bett er characterization, especially if the patient complains of lower extremity radicular symptoms. 9. No evidence of bowel obstruction or other acute process in the abdomen or pelvis.
--- NOTE | 2024-06-24 16:10 | VASCULAR REPORT ---
CLINICAL INFORMATION: Abdominal pain and nausea. TECHNIQUE: Duplex Doppler ultrasound was performed for the abdominal mesenteric arteries and other a ssociated abdominal arteries, using color flow doppler and spectral waveform analysis. COMPARISON: CT of the abdomen and pelvis dated 06/24/2024 FINDINGS: Examination is nondiagnostic. Unable to visualize the mesenteric arteries due to body cortez bitus and bowel gas. Unable to visualize the celiac artery, splenic artery, hepatic artery, SMA, or I MA. IMPRESSION: Nondiagnostic examination as described above.
--- NOTE | 2024-06-24 17:57 | VASCULAR REPORT ---
CLINICAL INFORMATION: Abdominal pain, cirrhosis. TECHNIQUE: Duplex doppler ultrasound was performed to evaluate the portal vein and hepatic veins. Co renzo-flow Doppler and spectral waveform analysis were performed. COMPARISON: US ULTRASOUND OF ABDOMEN on DOS: 10/19/22 FINDINGS: The main portal vein measures 0.6 cm in diameter, within normal limits. No thrombus visua lized in the main portal vein or right or left portal vein branches. Hepatic veins are also patent. F low visualized in the main portal vein and hepatic veins. Hepatopetal flow demonstrated in the artur l vein. Unable to visualized the main portal vein from the midline at the artur hepatis due to bowel gas. Flank approach was utilized. IMPRESSION: No evidence of portal vein thrombosis. Flow demonstrated in the main portal vein and hepatic veins.
[2024-06-25] VITALS (7 sets, daily range): BP systolic 127–170; BP diastolic 83–104; PULSE 87–106; RESP 12–16; TEMP 97.1–98; O2SAT 94–99
[2024-06-25 07:25] LABS: BASOPHILS % (AUTO) 0.3 % (0-1); EOSINOPHILS # (AUTO) 0.1 X10'3 (0-0.9); EOSINOPHILS % (AUTO) 1.4 % (0-6); HEMATOCRIT 45.7 % (42.0-52.0); HEMOGLOBIN 15.3 g/dl (14.0-17.9); LYMPHOCYTES # (AUTO) 0.7 X10'3 (1.1-4.8); LYMPHOCYTES % (AUTO) 12.7 % (21-51); MEAN CORPUSCULAR HEMOGLOBIN 30.6 PG (27.0-31.0); MEAN CORPUSCULAR HGB CONC 33.5 g/dL (33.0-36.5); MEAN CORPUSCULAR VOLUME 91.5 FL (78-98); MONOCYTES # (AUTO) 0.5 X10'3 (0-0.9); MONOCYTES % (AUTO) 8.9 % (2-12); NEUTROPHILS # (AUTO) 4.3 X10'3 (1.8-7.7); NEUTROPHILS % (AUTO) 76.7 % (42-75); RED CELL DISTRIBUTION WIDTH 15.3 % (11.5-14.5); WHITE BLOOD COUNT 5.6 X10'3 (4.5-11.0)
[2024-06-25 07:34] LABS: PLATELET COUNT 122 X10'3 (140-440)
[2024-06-25 07:41] LABS: ALANINE AMINOTRANSFERASE 14 U/L (12-78); ALBUMIN 3.2 G/DL (3.4-5.0); ALBUMIN/GLOBULIN RATIO 1.2 (1.1-1.5); ALKALINE PHOSPHATASE 61 IU/L (46-116); ANION GAP 9 (8-16); ASPARTATE AMINO TRANSFERASE 18 U/L (10-37); BILIRUBIN,TOTAL 1.4 MG/DL (0.1-1.0); BLOOD UREA NITROGEN 9 MG/DL (7-18); CHLORIDE 106 MMOL/L (99-107); GLUCOSE 94 MG/DL (70-104); MAGNESIUM 1.9 MG/DL (1.5-2.4); POTASSIUM 3.7 MMOL/L (3.5-5.1); SODIUM 140 MMOL/L (135-145); TOTAL CARBON DIOXIDE 25.3 MMOL/L (24-32); TOTAL PROTEIN 5.9 G/DL (6.4-8.2); eCRCL 70 ML/MIN; eGFR 81 ML/MIN
[2024-06-25] MEDS: HYDROcodone/acetaminophen 5mg/325mg tablet PO PRN (08:09)
--- NOTE | 2024-06-25 14:48 | PROGRESS NOTE ---
Progress Note ID Providers to CC ~ Progress Note Progress Note: sbo resolving-call if needed JORGE HUBBARD MD June 25, 2024 14:48
--- NOTE | 2024-06-25 17:57 | PROGRESS NOTE- Residence ---
Progress Note - Resident Providers to CC Resident Creating Document: FREEMAN MALAVEJESIKA IQBAL ~ Antibiotic Timeout Antibiotic Ordered?: No Subjective Seen and examined patient at bedside. Abdominal pain got improved a lot today but still having the pain . He had Had 2 bowel movements on today and total of six -eight bowel movements. Objective Vital Signs Date Time Temp Pulse Resp B/P (MAP) Pulse Ox O2 Delivery O2 Flow Rate FiO2 06/25/24 15:00 98.0 87 16 170/98 (122) 98 Room Air 06/24/24 08:15 0.0 Result Diagram: 06/25/24 0710 06/25/24 0628 GENERAL: Awake, alert, oriented, GCS 15, no apparent distress, non-toxic appearing, answers questions, follows commands appropriately. HEENT: Atraumatic, normocephalic, pupils equal, extraocular muscles intact, sclerae anicteric, mucus membranes moist, oropharynx is clear, no stridor. NECK: supple, full active range of motion, trachea midline, no thyromegaly, no lymphadenopathy, no JVD. CARDIOVASCULAR: regular rate/rhythm, no murmurs/gallops/rubs, Pulses are 2+ in all extremities and symmetric. Capillary refill less than 2 seconds. PULMONARY: Nonlabored, good air movement ,no respiratory distress, speaking in full sentences, clear to auscultation bilaterally, no wheezing, no ronchi, no rales, no accessory muscle use. GASTROINTESTINAL: Soft, distended, diffuse tenderness, more in left iliac fossa and left upper quadrant. Bowel sounds are not heard., no organomegaly, no pulsatile masses, no CVA tenderness. NEUROLOGIC: Lucid with normal mental status. Normal facial symmetry. Moves all extremities symmetrically and with purpose. No truncal ataxia. Speech is fluid without evidence of dysarthria or aphasia, no focal deficits appreciated. MUSCULOSKELETAL: There is full range of motion of all extremities. There is no joint pain or joint swelling or joint erythema. There is no muscle pain or tenderness or swelling. EXTREMITIES: warm, well-perfused, no cyanosis, no clubbing, no edema, no acute deformities. Skin: warm, dry, black color rash over the bilateral upper extremity. or lesions, no jaundice, no petechiae orpurpura. No ecchymosis. PSYCHIATRIC: Normal affect, normal insight, normal concentration Coagulation Studies Laboratory Tests Test 06/21/24 10:53 Prothrombin Time 11.1 SECONDS (9.0-12.0) INR International Normalized Ratio 1.1 INR Activated Partial Thromboplast Time 30 SECONDS (22-32) Coagulation Comments Advance Care Planning Advanced Care plannin - 30 Minutes Assessment Assessment 83-year-old male with past medical history of atrial fibrillation, hypertension, status post pacemaker, hyperlipidemia, COPD, CHF presented to the ER with abdominal pain. He endorses abdominal pain which was started at 1:00 a.m. on today, diffuse, started around the belly button and then it spread to the both lower abdomen, sharp, burning in nature, rated eight to 9/10 initially at home and then 2/10 after coming to ER, not radiating, no aggravating and relieving factors. He ate the dinner, slept until 1:00 a.m. and then woke up with severe sharp abdominal pain. Complained of abdominal distention, could not able to eat and swallow the food. Could not able to poop in the morning. He had one large bowel movement before coming here. Endorses nausea and without vomiting. He endorses palpitations of the night which is irregularly regular nature. He is able to pee normally . He denied chest pain, shortness of breath, fever, heartburn, indigestion, dyspepsia, acid reflux. He endorses rash over the bilateral upper extremities which was treated with freezing solution by freelance recruiter and now it turned to black color rash. Admitted the patient for small bowel obstruction and atrial fibrillation with a RVR. Plan Plan # Small-bowel obstruction White blood counts are elevated, lactic acid is elevated Ordered procalcitonin, Blood pressure is at 130s Patient received Zofran, pantoprazole, Gastrografin oral solution, 1 L of ringer lactate, magnesium sulfate, 1 L of normal saline Contrast CT 1. Distended small bowel with differential air-fluid levels measuring up to 3.4 cm, concerning for partial small bowel obstruction with possible transition point in the right lower abdominal quadrant. No pneumoperitoneum. 2. Cirrhosis with fatty infiltration and ascites. 3. Inguinal hernias, bilaterally Dr. Dockery consulted on-call surgeon and surgeon recommended for conservative management with the NG tube. Patient is currently on IV fluids, normal saline at the rate of 100 mL/hour, ondansetron p.r.n., Dilaudid p.r.n. Ordered 1 L of IV normal saline bolus If patient is not improving, we may consult the surgeon again. 06/22/2024 Patient is not improving that much with conservative management of IV fluids and again we consulted Dr. Hardwick (left a text). Patient is passing little bit of gas and not passing stool. We are continuing thiamine, ondansetron p.r.n., Dilaudid p.r.n., and IV normal saline. 06/23/2024 Dr. Zelaya was requested for consultation and recommended for the CT abdomen and pelvis as follow up, which was ordered with overnight prep oral contrast Patient nasogastric tube will be clamped and advance his diet to light clear liquid if he can not tolerate the pain nausea and vomiting for 4-6 hours after clamping : -addressedd the pain management with Dilaudid 0.5 mg for moderate pain, [place] five q.6 H p.r.n - CT angiography- IMPRESSION: 1. Increased left lower lobe atelectasis and trace bilateral pleural effusions. 2. Cardiomegaly and coronary artery disease. 3. Postoperative changes pacemaker and possibly also appendectomy. 4. Nodular hepatic margins suggestive of cirrhosis. There is associated borderline splenomegaly and low volume abdominopelvic ascites. 5. Cholelithiasis.Descending 6. And sigmoid colon diverticulosis without evidence of acute diverticulitis.Mild 7. Prostatic enlargement.Advanced 8. Lumbar degenerative disc disease with multilevel significant neural foraminal stenosis and multilevel moderate spinal canal stenosis. Recommend follow-up noncontrast MRI of the lumbar spine for better characterization, especially if the patient complains of lower extremity radicular symptoms. 9. No evidence of bowel obstruction or other acute process in the abdomen or pelvis. - mesenteric venous scan is taken- Pending results -NG tube is clamped. 06/25/2024: Nothing concerns for surgery per Dr. Hardwick as mesenteric vascular scan is inconclusive. Small bowel obstruction is improving. Pending clearance from Dr. Hardwick # Atrial fibrillation with RVR Initially the heart rate was in 120s and then went down to 80s with metoprolol IV We will continue to monitor heart rate via telemetry Troponins are negative 06/22/2024: Heart rate is controlled Started on metoprolol 50 mg p.o. 06/23/2024: Heart rate was stabilized around 70s, continue current medication. 06/24/2024 No new episodes of AFib and heart rate is controlled. 06/25/2024: Heart rate is stabilized and not in new episode of AFib and currently were containing metoprolol 50 mg p.o. # LUCINA # Likely secondary to renal tubular stasis Serum creatinine is 1.34 and his baseline is normal We will continue IV fluids at the rate of 100 mL/hour We will monitor renal functions and input and output 06/22/2024: Serum creatinine is improving and downtrended to 1.25. 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 06/24/2024: Serum bilirubin is over 1.4. Ordered portal vein ultrasound to rule out portal vein thrombosis 06/25/2024: Portal vein ultrasound ruled out portal venous thrombosis and mesenteric vascular scan inconclusive # Hyperlipidemia Ordered lipid panel On rosuvastatin 20 mg Currently held rosuvastatin 06/22/2024: LDL is 96. We held the rosuvastatin 06/23/2024: We will consider to resume rosuvastatin once the liver function is stabilized four LDL 96 06/24/2024: Currently held rosuvastatin. We will restart after LFTs stabilized 06/25/2024: Held rosuvastatin #Status post cardiac pacemaker Recent consultation with Dr. Alves confirmed that it is working & functional without any issues. # Essential hypertension Blood pressures in 150s We will continue to monitor blood pressure Patient is on hydralazine 10 mg q.6 H p.r.n. 06/22/2024: Blood pressure is 140 /80, pulse is 102. We will continue hydralazine 10 mg q.6 H p.r.n. 06/23/2024: Continue current medications and blood pressures is stabilized around 140/80 mm Hg. 06/24/2024: Blood pressure is in 130s. 06/25/2024: Blood pressure is in 150s& and on hydralazine 10 mg q.6 H p.r.n. # COPD No active symptoms. Not on any home inhalers # Alcohol use disorder, Patient is on thiamine, folic acid and lorazepam 06/22/2024: We will continue thiamine, folic acid, lorazepam 06/23/2024: Continue alcohol withdrawal protocol with supplemental vitamins. 06/24/2024: Continue thiamine, folic acid, lorazepam as needed 06/25/2024: No withdrawal symptoms, continuing thiamine, folic acid, lorazepam p.r.n. # Heart failure with preserved ejection fraction Patient is on home medications of furosemide and metoprolol We will start after medication reconciliation and once patient stabilized with small-bowel obstruction. 06/22/2024- patient is in NPO and we did not started the home medications of furosemide . 06/23/2024: We will continue oral medication once the patient tolerate the enteral feeding. 06/24/2024: We will restart his home medications on tomorrow 06/25/2024: Started metoprolol 50 mg GI bleed history Gastritis Received one dose of 40 mg IV pantoprazole Patient is on pantoprazole 40 mg IV once a day PTSD Patient is on home medications of quetiapine We will start the medications on tomorrow once regular diet is alert Code status: Full code Diet: Full liquid diet Tubes and lines: IV lines, PT: Ordered Prognosis: Guarded Disposition: Anticipate discharge tomorrow Kostas Malave Internal Medicine Resident, PGY1 [facility] Date of Service: June 25, 2024 Billing Provider: MONTY MITCHELL MD Common Visit Codes: [id number] INP/OBS CARE(HIGH) KOSTAS MALAVE, JESIKA June 25, 2024 17:57 MONTY MITCHELL MD June 26, 2024 08:49
--- NOTE | 2024-06-25 19:24 | Visit Coding Note ---
Date of Service: June 25, 2024 Billing Provider: MONTY MITCHELL MD Common Visit Codes: [id number] INP/OBS CARE(HIGH) MONTY MITCHELL MD June 25, 2024 19:24
[2024-06-25] MEDS: metoprolol succinate 25mg (24-HOUR) SR. Tablet PO SCH (20:38)
[2024-06-26 06:59] LABS: BASOPHILS % (AUTO) 0.4 % (0-1); EOSINOPHILS # (AUTO) 0.1 X10'3 (0-0.9); HEMOGLOBIN 15.2 g/dl (14.0-17.9); LYMPHOCYTES % (AUTO) 15.9 % (21-51); MEAN CORPUSCULAR HEMOGLOBIN 30.6 PG (27.0-31.0); MEAN CORPUSCULAR HGB CONC 33.8 g/dL (33.0-36.5); MEAN CORPUSCULAR VOLUME 90.5 FL (78-98); MEAN PLATELET VOLUME 10.7 FL (7.4-10.4); MONOCYTES # (AUTO) 0.6 X10'3 (0-0.9); MONOCYTES % (AUTO) 9.7 % (2-12); NEUTROPHILS # (AUTO) 4.6 X10'3 (1.8-7.7); RED BLOOD COUNT 4.97 X10'6 (4.70-6.10); RED CELL DISTRIBUTION WIDTH 15.1 % (11.5-14.5); WHITE BLOOD COUNT 6.4 X10'3 (4.5-11.0)
[2024-06-26 07:00] VITALS: BP 128/104; PULSE 72; RESP 14; TEMP 97.7; O2SAT 99
[2024-06-26 07:03] LABS: PLATELET COUNT 132 X10'3 (140-440)
[2024-06-26 07:30] LABS: ALANINE AMINOTRANSFERASE 13 U/L (12-78); ALBUMIN 3.4 G/DL (3.4-5.0); ALBUMIN/GLOBULIN RATIO 1.2 (1.1-1.5); ALKALINE PHOSPHATASE 64 IU/L (46-116); ANION GAP 6 (8-16); ASPARTATE AMINO TRANSFERASE 16 U/L (10-37); BILIRUBIN,TOTAL 1.3 MG/DL (0.1-1.0); BLOOD UREA NITROGEN 10 MG/DL (7-18); BUN/CREATININE RATIO 10.5 (10.0-20.0); CALCIUM 8.7 MG/DL (8.5-10.1); CHLORIDE 105 MMOL/L (99-107); CREATININE 0.95 MG/DL (0.60-1.10); GLUCOSE 99 MG/DL (70-104); SODIUM 138 MMOL/L (135-145); TOTAL CARBON DIOXIDE 26.8 MMOL/L (24-32); TOTAL PROTEIN 6.3 G/DL (6.4-8.2); eCRCL 67 ML/MIN; eGFR 76 ML/MIN
[2024-06-26] MEDS ORDERED: DOCU100C40 PO (10:21)
[2024-06-26] MEDS ORDERED: ACET-1008 PO (10:23)
[2024-06-26] MEDS ORDERED: POLY17PO10 PO (10:57)
[2024-06-26 11:00] VITALS: BP 144/97; PULSE 80; RESP 13; TEMP 96.9; O2SAT 98
--- NOTE | 2024-06-26 17:02 | DISCHARGE SUMMARY-Residence ---
Discharge Summary Providers to CC Resident Creating Document: TITA MALAVE, RES ~ Discharge Summary Admission Diagnosis: A FIB WITH RVR, SMALL BOWEL OBSTRUCTION Hospital Course DATE OF ADMISSION: 06/21/2024 DATE OF DISCHARGE: 06/26/[address] on 06/21/2024 EXAM: CT Abdomen and Pelvis With Intravenous Contrast CLINICAL INDICATION: Upper abdominal pain ORAL AND IV CONTRAST TECHNIQUE: Axial computed tomography images of the abdomen and pelvis with intravenous contrast. This CT exam was performed using one or more of the following dose reduction techniques: automated exposure control, adjustment of the mA and/or kV according to patient size, and/or use of iterative reconstruction technique. CONTRAST: COMPARISON: CT CT ABDOMEN PELVIS W/ IV CONTRAST on DOS: 05/29/24, CT CT ABDOMEN PELVIS on DOS: 03/05/23, CT ABDOMEN PELVIS on DOS: 06/22/22 FINDINGS: LUNG BASES: Unremarkable. No mass. No consolidation. ABDOMEN: LIVER: Cirrhosis with fatty infiltration and ascites. GALLBLADDER AND BILE DUCTS: Unremarkable. No calcified stones. No ductal dilation. PANCREAS: Unremarkable. No mass. No ductal dilation. SPLEEN: Unremarkable. No splenomegaly. ADRENALS: Unremarkable. No mass. KIDNEYS AND URETERS: Unremarkable. No solid mass. No hydronephrosis. STOMACH AND BOWEL: Distended small bowel with differential air-fluid levels measuring up to 3.4 cm, concerning for partial small bowel obstruction with possible transition point in the right lower abdominal quadrant. No pneumoperit oneum. No mucosal thickening. PELVIS: APPENDIX: No findings to suggest acute appendicitis. BLADDER: Unremarkable. No mass. REPRODUCTIVE: Unremarkable as visualized. ABDOMEN and PELVIS: INTRAPERITONEAL SPACE: See above. BONES/JOINTS: Degenerative disc disease throughout the lumbar spine. Degenerative facet arthropathy throughout the lumbar spine, most prominent in the lower lumbar spine. No acute fracture. No dislocation. SOFT TISSUES: Inguinal hernias, bilaterally. VASCULATURE: Scattered calcified atherosclerotic disease of aorta. No abdominal aortic aneurysm. LYMPH NODES: Unremarkable. No enlarged lymph nodes. OTHER FINDINGS: . . IMPRESSION: 1. Distended small bowel with differential air-fluid levels measuring up to 3.4 cm, concerning for partial small bowel obstruction with possible transition point in the right lower abdominal quadrant. No pneumoperitoneum. 2. Cirrhosis with fatty infiltration and ascites. 3. Inguinal hernias, bilaterally. Chest x-ray on 06/21/[address] Left pacemaker. Cardiomegaly Mesenteric ultrasound on 06/24/2024 FINDINGS: Examination is nondiagnostic. Unable to visualize the mesenteric arteries due to body habitus and bowel gas. Unable to visualize the celiac artery, splenic artery, hepatic artery, SMA, or PROSPER. IMPRESSION: Nondiagnostic examination as described above. Abdominal pelvis CT on 06/24/2024 EXAM: CT CT ABDOMEN PELVIS W/ ORAL CONTRAST HISTORY: Bowel obstruction and follow up CT for the changes COMPARISON: CT CT ABDOMEN PELVIS W/ IV ORAL CONTRAST on DOS: 06/21/24, CT CT ABDOMEN PELVIS W/ IV CONTRAST on DOS: 05/29/24, CT CT ABDOMEN PELVIS on DOS: 03/05/23, CT ABDOMEN PELVIS on DOS: 06/22/22 TECHNIQUE: Helical CT images of the abdomen and pelvis were performed with oral contrast and without IV contrast. Sagittal and coronal reformatted images were obtained. This CT exam was performed using 1 or more of the following dose reduction techniques: Automated exposure control, adjustment of the mA and/or kv according to patient size, or the use of iterative reconstruction techniques. Radiation Dose Information: CT Dose: CTDI volume is 30.76 mGy. Dose-length product is 1629.5 mGy*cm FINDINGS: CT abdomen: There is mild left lung base atelectasis, increased. There are trace bilateral pleural effusions, slightly larger on the left. The heart is enlarged. There are coronary artery calcifications and partially visualized left chest pacemaker. NG tube is present with its tip at the level of the GE junction. Hepatic margins are quite nodular. There is low volume upper abdominal ascites. There is a small gallstone in the gallbladder neck. The spleen measures 12 cm longitudinal. The gallbladder, pancreas, kidneys, and adrenal glands are unremarkable. No abdominal aortic aneurysm. There are atherosclerotic calcifications of the abdominal aorta and major branches. CT pelvis: No abnormal bowel dilatation or free air. There is low volume free fl uid in the pelvis. There are descending and sigmoid colon diverticula without evidence of acute diverticulitis. The appendix is not visualized, and there is no specific evidence of acute appendicitis. The prostate is mildly enlarged. There are small bilateral fatty inguinal indirect hernias. There is advanced lumbar degenerative disc disease and facet arthropathy. There is mild t horacolumbar s shaped scoliosis. There is multilevel significant neural foraminal stenosis in the lumbar spine bilaterally. There is moderate spinal canal stenosis at L1-L2, L3-L4, and L4-L5. IMPRESSION: 1. Increased left lower lobe atelectasis and trace bilateral pleural effusions. 2. Cardiomegaly and coronary artery disease. 3. Postoperative changes pacemaker and possibly also appendectomy. 4. Nodular hepatic margins suggestive of cirrhosis. There is associated borderline splenomegaly and low volume abdominopelvic ascites. 5. Cholelithiasis.Descending 6. And sigmoid colon diverticulosis without evidence of acute divertic ulitis.Mild 7. Prostatic enlargement.Advanced 8. Lumbar degenerative disc disease with multilevel significant neural foraminal stenosis and multilevel moderate spinal canal stenosis. Recommend follow-up noncontrast MRI of the lumbar spine for better characterization, especially if the patient complains of lower extremity radicular symptoms. 9. No evidence of bowel obstruction or other acute process in the abdomen or pelvis. Portal vein ultrasound Ruled out portal vein thrombosis Discharge Diagnosis\Comment: Small-bowel obstruction Atrial fibrillation with RVR LUCINA secondary to renal tubular stasis Hyperbilirubinemia Cirrhosis of liver , alcohol use and ascites Hyperlipidemia Essential hypertension Status post cardiac pacemaker Alcohol use disorder Heart failure with preserved ejection fraction PTSD Gastritis Operations\Procedures: None Consultants: Dr. Hardwick Complications: None Condition on DC: Stable New Medications: Docusate Sodium (Docusate Sodium) 100 Mg Caps 1 CAP PO BID for CONSTIPATION for 5 Days, #10 CAP Polyethylene Glycol 3350* (Miralax*) 1 Packet Packet 1 PACKET PO HS for 30 Days, #30 PACKET hold for persistant loose stools Continued Medications: Acetaminophen (Tylenol) 325 Mg Tablet 1 TAB PO Q4HPRN PRN for pain or fever for 24 Days, #100 TAB Amox Tr/Potassium Clavulanate (Augmentin 875-125 Tablet) 1 Each Tablet 1 TAB PO Q12H, TAB started 04/09/24 for 5 days for infection Apixaban (Eliquis) 5 Mg Tablet 1 TAB PO Q12H for 30 Days, #60 TAB Folic Acid* (Folic Acid*) Y Tab 1 TAB PO DAILY for 30 Days, #30 TAB Furosemide (Lasix) 20 Mg Tablet 1 TAB PO BID for 30 Days, #30 TAB 0 Refills Gabapentin (Gabapentin) 100 Mg Capsule 3 CAP PO DAILY for 30 Days, #90 CAP 0 Refills Metoprolol Succinate* (Toprol Xl*) 100 Mg Tab.sr.24h 1 TAB PO DAILY Prednisone* (Prednisone*) 5 Mg Tablet 4 TAB PO DAILY, TAB Quetiapine Fumarate (Quetiapine Fumarate) 25 Mg Tablet 1 TAB PO HS for AGITATION Rosuvastatin Calcium* (Crestor*) 20 Mg Tablet 1 TAB PO DAILY for 30 Days, #30 TAB Thiamine HCl (Vitamin B-1) 50 Mg Tablet 2 TAB PO DAILY for 30 Days, #60 TAB 0 Refills Discharge Summary: HPI AT THE TIME OF ADMISSION 83-year-old male with past medical history of atrial fibrillation, hypertension, status post pacemaker, hyperlipidemia, COPD, CHF presented to the ER with abdominal pain. He endorses abdominal pain which was started at 1:00 a.m. on today, diffuse, started around the belly button and then it spread to the both lower abdomen, sharp, burning in nature, rated eight to 9/10 initially at home and then 2/10 after coming to ER, not radiating, no aggravating and relieving factors. He ate the dinner, slept until 1:00 a.m. and then woke up with severe sharp abdominal pain. Complained of abdominal distention, could not able to eat and swallow the food. Could not able to poop in the morning. He had one large bowel movement before coming here. Endorses nausea and without vomiting. He endorses palpitations of the night which is irregularly regular nature. He is able to pee normally . He denied chest pain, shortness of breath, fever, heartburn, indigestion, dyspepsia, acid reflux. He endorses rash over the bilateral upper extremities which was treated with freezing solution by tender labor and now it turned to black color rash. Discussed code status with the patient & patient wants to be full code COURSE IN THE HOSPITAL 83-year-old male admitted for atrial fibrillation with RVR and small bowel obstruction. White blood counts, lactic acid is elevated. Patient received Zofran, pantoprazole, Gastrografin oral solution, 1 L of ringer lactate, magnesium sulfate, 1 L of normal saline in ER. Contrast CT showed partial small bowel obstruction with possible transition point in the right lower abdominal quadrant and bilateral inguinal hernias. Consulted Dr. Hardwick and he recommended for conservative management with NG tube suctioning, IV fluids, thi amine ondansetron, Dilaudid and patient received normal saline at the rate of 100 mL/hour after 1 L of IV normal saline bolus. Dr. Hardwick was requested again for consultation as the patient was not improved with the conservative management and he recommended for CT abdomen pelvis with overnight prep oral contrast. Patient is improved during the hospital stay. We advised the pain management with the Dilaudid, [place] p.r.n. CT angiography showed cardiomegaly and coronary artery disease, cirrhosis with splenomegaly with ascites, Cholelithiasis ,Descending and sigmoid colon diverticulosis with advanced prostate enlargement, lumbar degenerative disc disease with multilevel significant neural foraminal stenosis and multilevel moderate spinal canal stenosis. Mesenteric scan is inconclusive. Atrial fibrillation with a RVR during the time of admission is initially treated with metoprolol and went down to 80s and we continued metoprolol 50 mg p.o.. Troponins were negative. LUCINA secondary to renal tubular acidosis with serum creatinine 1.3 is noted and patient received IV fluids of normal saline 100 mL/hour and then patient's serum creatinine improved to normal at the time of discharge. Patient is with cirrhosis of liver with ascites, alcohol etiology hyperbilirubinemia is noted. He needs to follow up with break out man in the outpatient for cirrhosis. Serum bilirubin is 1.3 an AST ALT ALP is normal. Patient received thiamine, folic acid. Portal venous scan ruled out portal vein thrombus. Patient improved with abdominal pain and passed the bowel movements. LDL is 96 and we have rosuvastatin because of bad liver numbers. Patient is with cardiac pacemaker care and she is consulting Dr. Alves and does not have any issues during his last visit with Dr. Alves. Hypertension, blood pressures are maintained with hydralazine p.r.n. patient was not detox protocol for alcohol use disorder. We held Lasix in view of small- bowel obstruction and patient was on metoprolol. Received pantoprazole for her previous history of gastritis. Patient is on quetiapine for PTSD. Examination at the time of discharge Vital Signs Date Time Temp Pulse Resp B/P (MAP) Pulse Ox O2 Delivery O2 Flow Rate FiO2 06/26/24 11:00 96.9 80 13 144/97 (113) 98 Room Air 06/24/24 08:15 0.0 GENERAL: Awake, alert, oriented, GCS 15, no apparent distress, non-toxic appearing, answers questions, follows commands appropriately. HEENT: Atraumatic, normocephalic, pupils equal, extraocular muscles intact, sclerae anicteric, mucus membranes moist, oropharynx is clear, no stridor. NECK: supple, full active range of motion, trachea midline, no thyromegaly, no lymphadenopathy, no JVD. CARDIOVASCULAR: regular rate/rhythm, no murmurs/gallops/rubs, Pulses are 2+ in all extremities and symmetric. Capillary refill less than 2 seconds. PULMONARY: Nonlabored, good air movement ,no respiratory distress, speaking in full sentences, clear to auscultation bilaterally, no wheezing, no ronchi, no rales, no accessory muscle use. GASTROINTESTINAL: Soft, distended, no tenderness. Burnett bowel sounds, no organomegaly, no pulsatile masses, no CVA tenderness. NEUROLOGIC: Lucid with normal mental status. Normal facial symmetry. Moves all extremities symmetrically and with purpose. No truncal ataxia. Speech is fluid without evidence of dysarthria or aphasia, no focal deficits appreciated. MUSCULOSKELETAL: There is full range of motion of all extremities. There is no joint pain or joint swelling or joint erythema. There is no muscle pain or tenderness or swelling. EXTREMITIES: warm, well-perfused, no cyanosis, no clubbing, no edema, no acute deformities. Skin: warm, dry, black color rash over the bilateral upper extremity. or lesions, no jaundice, no petechiae orpurpura. No ecchymosis. PSYCHIATRIC: Normal affect, normal insight, normal concentration. Laboratory Tests Test 06/25/24 06:28 06/25/24 07:10 06/26/24 06:42 Sodium Level 140 MMOL/L 138 MMOL/L Potassium Level 3.7 MMOL/L 4.0 MMOL/L Chloride Level 106 MMOL/L 105 MMOL/L Carbon Dioxide Level 25.3 MMOL/L 26.8 MMOL/L Anion Gap 9 6 Blood Urea Nitrogen 9 MG/DL 10 MG/DL Creatinine 0.90 MG/DL 0.95 MG/DL Estimated GFR/1.73 m2 81 ML/MIN 76 ML/MIN BUN/Creatinine Ratio 10.0 10.5 Glucose Level 94 MG/DL 99 MG/DL Calcium Level 8.0 MG/DL 8.7 MG/DL Magnesium Level 1.9 MG/DL Total Bilirubin 1.4 MG/DL 1.3 MG/DL Aspartate Amino Transf (AST/SGOT) 18 U/L 16 U/L Alanine Aminotransferase (ALT/SGPT) 14 U/L 13 U/L Alkaline Phosphatase 61 IU/L 64 IU/L Total Protein 5.9 G/DL 6.3 G/DL Albumin 3.2 G/DL 3.4 G/DL Globulin 2.7 G/DL 2.9 G/DL Albumin/Globulin Ratio 1.2 1.2 Chemistry Comments White Blood Count 5.6 X10'3 6.4 X10'3 Red Blood Count 5.00 X10'6 4.97 X10'6 Hemoglobin 15.3 g/dl 15.2 g/dl Hematocrit 45.7 % 45.0 % Mean Corpuscular Volume 91.5 FL 90.5 FL Mean Corpuscular Hemoglobin 30.6 PG 30.6 PG Mean Corpuscular Hemoglobin Concent 33.5 g/dL 33.8 g/dL Red Cell Distribution Width 15.3 % 15.1 % Platelet Count 122 X10'3 132 X10'3 Mean Platelet Volume 10.0 FL 10.7 FL Neutrophils (%) (Auto) 76.7 % 72.0 % Lymphocytes (%) (Auto) 12.7 % 15.9 % Monocytes (%) (Auto) 8.9 % 9.7 % Eosinophils (%) (Auto) 1.4 % 2.0 % Basophils (%) (Auto) 0.3 % 0.4 % Neutrophils # (Auto) 4.3 X10'3 4.6 X10'3 Lymphocytes # (Auto) 0.7 X10'3 1.0 X10'3 Monocytes # (Auto) 0.5 X10'3 0.6 X10'3 Eosinophils # (Auto) 0.1 X10'3 0.1 X10'3 Basophils # (Auto) 0.0 X10'3 0.0 X10'3 CBC Comment Discharge advice FOLLOW UP WITH PRIMARY CARE PHYSICIAN IN ONE WEEK. READ ABOUT ADVERSE EFFECTS OF THE MEDICATION. CALL 911 OR VISIT THE ER IF EMERGENCY. Continue New Medications: Docusate Sodium 100 Mg Caps Polyethylene Glycol 3350* (Miralax*) 1 Packet Packet hold for persistant loose stools Continued Medications: Acetaminophen (Tylenol) 325 Mg Tablet Amox Tr/Potassium Clavulanate (Augmentin 875-125 Tablet) 1 Each Tablet started 04/09/24 for 5 days for infection Apixaban (Eliquis) 5 Mg Tablet Folic Acid* Y Tab Furosemide (Lasix) 20 Mg Tablet Gabapentin 100 Mg Capsule Metoprolol Succinate* (Toprol Xl*) 100 Mg Tab.sr.24h Prednisone* 5 Mg Tablet Quetiapine Fumarate 25 Mg Tablet Rosuvastatin Calcium* (Crestor*) 20 Mg Tablet Thiamine HCl (Vitamin B-1) 50 Mg Tablet *Problems/Diagnosis: (1) Lumbar degenerative disc disease (2) Neural foraminal stenosis of lumbar spine (3) Lumbar stenosis (4) LUCINA (acute kidney injury) (5) Hyperbilirubinemia (6) Alcoholic liver disease (7) Cirrhosis of liver (8) Ascites (9) Alcohol use disorder (10) Heart failure with preserved ejection fraction (11) Atrial fibrillation with rapid ventricular response Status: Acute (12) Benign essential HTN Status: Acute (13) Small bowel obstruction Status: Acute (14) Epigastric abdominal pain Status: Acute (15) Nausea vomiting and diarrhea Status: Acute (16) Transaminitis Status: Acute (17) Cirrhosis (18) PTSD (post-traumatic stress disorder) Status: Acute (19) GI bleed Status: Acute (20) CHF (congestive heart failure) Status: Acute (21) Small bowel obstruction Total Time Spent on D/C: > 30 Minutes Date of Service: June 26, 2024 Billing Provider: MONTY MITCHELL MD Common Visit Codes: 25837-TTM/OBS DISCH DAY >30min TITA MALAVE, JESIKA June 26, 2024 16:26 MONTY MITCHELL MD June 26, 2024 19:14
== END 2024-06-26 13:14 | disposition home health service (06) | DRG 388 ==
LOC: ER 02:30 → ED HOLD 07:15 → PCU 3S 15:46
PROVIDERS: ADMIT Internal Medicine; ATTEND Internal Medicine
PROC: BW211ZZ Computerized Tomography (CT Scan) of Abdomen and Pelvis using Low Osmolar Contrast (ICD-10-PCS; principal; 2024-06-21)
PROC: 0D9670Z Drainage of Stomach with Drainage Device, Via Natural or Artificial Opening (ICD-10-PCS; 2024-06-21)
PROC: BW211ZZ Computerized Tomography (CT Scan) of Abdomen and Pelvis using Low Osmolar Contrast (ICD-10-PCS; 2024-06-24)
DX: K56.609 Unspecified intestinal obstruction, unspecified as to partial versus complete obstruction (principal); N17.0 Acute kidney failure with tubular necrosis; I50.30 Unspecified diastolic (congestive) heart failure; R18.8 Other ascites; F41.9 Anxiety disorder, unspecified; E78.00 Pure hypercholesterolemia, unspecified; F32.A Depression, unspecified; I48.91 Unspecified atrial fibrillation; E80.6 Other disorders of bilirubin metabolism; F43.10 Post-traumatic stress disorder, unspecified; K70.9 Alcoholic liver disease, unspecified; J44.9 Chronic obstructive pulmonary disease, unspecified; F10.21 Alcohol dependence, in remission; I11.0 Hypertensive heart disease with heart failure; K74.60 Unspecified cirrhosis of liver; Z88.8 Allergy status to other drugs, medicaments and biological substances; Z79.01 Long term (current) use of anticoagulants; Z79.899 Other long term (current) drug therapy; Z90.49 Acquired absence of other specified parts of digestive tract; Z85.038 Personal history of other malignant neoplasm of large intestine; Z95.0 Presence of cardiac pacemaker
CPT/HCPCS: 36415; 71045; 74176; 74177; 80053; 80061; 80305; 80320; 81001; 83036; 83605; 83690; 83735; 83880; 84145; 84484; 85025; 85027; 85610; 85730; 87081; 93005; 93975; 99291; A6258; G0378; J1171; J2405; J2470; J3010; J3411; J3480; J3490; J7030; J7040; J7120; Q9963; Q9967

== ENCOUNTER 2024-11-20 17:31 | Emergency (ER) | payer OTHER, MEDICARE, BC ==
[~2024-11-20] VITALS: Ht 177.8 cm; Wt 102.0 kg
[~2024-11-20 17:31] MED LIST changes: +ACET-1008 PO; +DOCU100C40 PO
[2024-11-20 17:37] VITALS: TEMP 98.5
[2024-11-20 18:14] LABS: CREATININE 1.06 MG/DL (0.60-1.10); TOTAL CARBON DIOXIDE 30.5 MMOL/L (24-32); eCRCL 54 ML/MIN; eGFR 67 ML/MIN
--- NOTE | 2024-11-20 18:59 | Physician Documentation ---
History of Present Illness ~ Chief Complaint: Constipation Stated Complaint: ABD PAIN CONSTIPATION Time Seen by MD: 18:53 Primary Medical Doctor: MOR Mode of Arrival: EMS HPI Patient presents to the emergency room for evaluation of abdominal pain distention and problems pooping. Patient continues to have very small bowel movements and had one in the emergency room albeit small. He states he has been this way for the past couple of weeks. She takes nothing for constipation. Denies taking pain medications. He was seen at the [place] that has instructed to come in to be evaluated. He is also feeling generally weak and shaky. He does have history of small-bowel obstruction in June of this year Medication Reconciliation Allergies: Coded Allergies: gabapentin (Verified Adverse Reaction, Unknown, HALLUCINATIONS, 11/20/24) Scheduled Amox Tr/Potassium Clavulanate (Augmentin 875-125 Tablet), 1 TAB PO Q12H, ( Reported) Apixaban (Eliquis), 1 TAB PO Q12H, (Reported) Docusate Sodium (Docusate Sodium), 1 CAP PO BID Folic Acid* (Folic Acid*), 1 TAB PO DAILY, (Reported) Furosemide (Lasix), 1 TAB PO BID, (Reported) Gabapentin (Gabapentin), 3 CAP PO DAILY, (Reported) Metoprolol Succinate* (Toprol Xl*), 1 TAB PO DAILY, (Reported) Prednisone* (Prednisone*), 4 TAB PO DAILY, (Reported) Quetiapine Fumarate (Quetiapine Fumarate), 1 TAB PO HS, (Reported) Rosuvastatin Calcium* (Crestor*), 1 TAB PO DAILY, (Reported) Thiamine HCl (Vitamin B-1), 2 TAB PO DAILY, (Reported) Scheduled PRN Acetaminophen (Tylenol), 1 TAB PO Q4HPRN PRN for pain or fever, (Reported) Past Medical History Past Medical History: Arrhythmia, Atrial Fibrillation, High Cholesterol, Hypert ension, Bronchitis, COPD, Pneumonia, Bowel Obstruction, Diverticulitis, Anemia, Colon Cancer, Anxiety, Depression Past Surgical History: appendectomy, cancer surgery, colectomy, orthopedic surgeries, pacemaker, tonsillectomy Alcohol Use: Alcoholic Drug Use: none Lives with: Alone Lives In: Home Occupation: retired Review of Systems ROS All review of systems negative except as per HPI Physical Exam Vital Signs: Temperature: 98.5, Source: Temporal, Heart Rate: 70, Respiratory Rate: 18, BP: 142/81, Pulse Oximetry: 99, Weight: 102.000 Oxygen Flow Rate: 0 Physical Exam General: Patient is awake, alert, oriented x4 in no acute distress Head: Normocephalic and atraumatic. Eyes: Conjunctival normal. EOMI. PERRL. ENT: Mucous membranes moist. Neck: Supple, trachea is midline. Chest: Clear to auscultation bilaterally without rales, rhonchi, or wheezes. There is no accessory muscle use or retractions. Cardiac: RRR without murmurs, gallops, or rubs. Abd: Soft, distended. Diffuse tenderness to palpation. No peritonitis Progress Results/Orders Results/Orders Orders - FRANCISCO J BOWEN MD Abdomen,Single View(Kub) (11/20/24 19:15) Completed Orders - FRANCISCO J BOWEN MD Abdomen,Single View(Kub) (11/20/24 19:15) Procalcitonin (11/20/24 19:07) Vital Signs 11/20/24 11/20/24 11/20/24 17:37 17:40 19:18 Temp 98.5 Pulse 70 69 Resp 18 17 B/P (MAP) 142/81 150/88 (108) Pulse Ox 99 98 O2 Flow Rate 0 Laboratory Tests Test 11/20/24 17:50 11/20/24 18:46 11/20/24 18:54 CBC Comment Sodium Level 141 Potassium Level 4.1 Chloride Level 101 Carbon Dioxide Level 30.5 Anion Gap 10 Blood Urea Nitrogen 29 H Creatinine 1.06 Estimated GFR/1.73 m2 67 BUN/Creatinine Ratio 27.4 H Glucose Level 90 Calcium Level 9.4 Total Bilirubin 0.6 Aspartate Amino Transf (AST/SGOT) 21 Alanine Aminotransferase (ALT/SGPT) 29 Alkaline Phosphatase 74 Total Protein 7.2 Albumin 3.9 Globulin 3.3 Albumin/Globulin Ratio 1.2 Lipase 42 Procalcitonin < 0.05 Chemistry Comments White Blood Count 5.8 Red Blood Count 4.30 L Hemoglobin 13.6 L Hematocrit 40.1 L Mean Corpuscular Volume 93.1 Mean Corpuscular Hemoglobin 31.7 H Mean Corpuscular Hemoglobin Concent 34.0 Red Cell Distribution Width 15.6 H Platelet Count 152 Mean Platelet Volume 10.8 H Neutrophils (%) (Auto) 67.1 Lymphocytes (%) (Auto) 21.1 Monocytes (%) (Auto) 8.0 Eosinophils (%) (Auto) 3.0 Basophils (%) (Auto) 0.8 Neutrophils # (Auto) 3.9 Lymphocytes # (Auto) 1.2 Monocytes # (Auto) 0.5 Eosinophils # (Auto) 0.2 Basophils # (Auto) 0.0 Urine Specimen Description Voided Urine Color Yellow Urine Clarity Clear Urine pH 7.0 Urine Specific [place] 1.010 Urine Protein Negative Urine Glucose (UA) Negative Urine Ketones Negative Urine Occult Blood Negative Urine Nitrite Negative Urine Bilirubin Negative Urine Urobilinogen 1.0 Urine Leukocyte Esterase Negative Urine Culture Indicated Not ind Volume Urine Centrifuged 10 ml Urine Comment Medical Decision Making Findings Patient presents to the emergency room with abdominal fullness and complaints of constipation. Differentials include but are not limited to constipation, small- bowel obstruction, intra-abdominal infection, dehydration therefore emergent labs and imaging ordered. X-ray is reassuring for no obstruction. Patient has had bowel movement in the emergency room. Given reassuring labs and history and he had not feel patient requires CT scan at this time. We will treat for constipation with ER precautions discussed. Departure Disposition: HOME / SELF CARE / HOMELESS Impression: Primary Impression: Constipation Condition: Stable Discharge Instructions: Constipation, Adult Additional Instructions: Increase constipation medications until having regular bowel movements. Drink plenty of water Referrals: NO PRIMARY CARE PROVIDER (PCP) Prescriptions Polyethylene Glycol 3350 (Miralax) 17 Gram/Dose Powder 17 GM PO DAILY for constipation, #527 GM 0 Refills increase by 2-3 scoops daily until having regular BM. Must drink with plenty of water. Avoid if diarrhea Prov: FRANCISCO J BOWEN MD 11/20/24 Bisacodyl (Dulcolax) 5 Mg Tablet.dr 4 TAB PO ONCE for constipation for 1 Day, #4 TAB 0 Refills Prov: FRANCISCO J BOWEN MD 11/20/24 Education Educated: Patient Educated regarding: diagnosis, treatment, need for follow up Signature Scribe Signature: No scribe Attestation: The note accurately reflects work and decisions made by me.Francisco J Bowen MD 11/20/24 20:12 FRANCISCO J BOWEN MD Nov 20, 2024 18:59
[2024-11-20 19:00] LABS: MEAN PLATELET VOLUME 10.8 FL (7.4-10.4); RED CELL DISTRIBUTION WIDTH 15.6 % (11.5-14.5)
[2024-11-20 19:50] LABS: LEUKOCYTE ESTERASE ,URINE NEGATIVE (Neg); NITRITES, URINE NEGATIVE (Neg); OCCULT BLOOD,URINE NEGATIVE (Neg)
[2024-11-20 19:52] LABS: UA COLLECTION TYPE VOIDED
--- NOTE | 2024-11-20 19:53 | RADIOLOGY REPORT ---
CLINICAL HISTORY: suspected obstruction TECHNIQUE: Single view of the abdomen was obtained. COMPARISON: CT CT ABDOMEN PELVIS W/ ORAL CONTRAST on DOS: 06/24/24, CT CT ABDOMEN PELVIS W/ IV ORAL CONTRAST on DOS: 06/21/24, CT CT ABDOMEN PELVIS W/ IV CONTRAST on DOS: 05/29/24, CT CT ABDOMEN PELVIS on DOS: 03/05/23, US ULTRASOUND OF ABDOMEN on DOS: 10/19/22 FINDINGS: The bowel gas pattern is nonobstructive. There is no evidence for free air. The imaged lung bases demonstrate pacer wires. IMPRESSION: Nonobstructive bowel gas pattern.
[2024-11-20] MEDS ORDERED: BISA-78 PO (20:12)
[2024-11-20] MEDS ORDERED: POLY119P2 PO (20:12)
[2024-11-20 20:14] VITALS: BP 155/95; PULSE 74; RESP 16; O2SAT 98
[2024-11-20] MEDS: bisacodyl 5mg tablet.DR PO ONE (20:22)
== END 2024-11-20 20:33 | disposition home or self-care (01) ==
LOC: ER 17:32
DX: K59.00 Constipation, unspecified (principal); J44.9 Chronic obstructive pulmonary disease, unspecified; I48.91 Unspecified atrial fibrillation; I10 Essential (primary) hypertension; D64.9 Anemia, unspecified; F41.9 Anxiety disorder, unspecified; F32.A Depression, unspecified; E78.00 Pure hypercholesterolemia, unspecified; Z85.038 Personal history of other malignant neoplasm of large intestine; Z90.49 Acquired absence of other specified parts of digestive tract; Z95.0 Presence of cardiac pacemaker; Z90.89 Acquired absence of other organs; Z88.8 Allergy status to other drugs, medicaments and biological substances; Z87.01 Personal history of pneumonia (recurrent); Z79.899 Other long term (current) drug therapy; Z60.2 Problems related to living alone
CPT/HCPCS: 36415; 74018; 80053; 81003; 83690; 84145; 85025; 99284

== ENCOUNTER 2025-02-06 08:48 | Inpatient (IN) | payer OTHER, MEDICARE, BC ==
[~2025-02-06] VITALS: Ht 185.4 cm; Wt 97.1 kg
[~2025-02-06 08:48] MED LIST changes: +BISA-78 PO; +POLY119P2 PO
--- NOTE | 2025-02-06 09:33 | Physician Documentation ---
History of Present Illness ~ General Chief Complaint: Abdominal Pain w/vomiting Stated Complaint: ABD PAIN Time Seen by MD: 09:01 Primary Medical Doctor: MOR Mode of Arrival: EMS, Stretcher History of Present Illness Initial Comments CC: Abdominal pain with the associated nausea, vomiting and diarrhea HPI: The patient is an 84-year-old male with past medical history of diverticulitis and bowel obstruction (June 2024) brought in by ambulance from home to the ED for evaluation of worsening abdominal pain with nausea, vomiting and diarrhea for the past week. Patient reports that his abdominal pain and N/V/D has been ongoing for the past year but within the past week he has been a feeling swollen and blocked" in his lower abdomen. He locates the pain to be in his lower abdomen but reports that pain is worse in his left lower quadrant. Food does not make it better or worse. He has not noticed any black or bloody stools. Patient is complaint to his daily medications and denies any recent traveling or antibiotic use. EMS gave the patient Tylenol and fluids on route. ROS: Constitutional: Negative for fever and chills. HENT: Negative for sore throat and rhinorrhea. Eyes: Negative for pain and redness. Respiratory: Negative for cough and SOB. Cardiovascular: Negative for chest pain and palpitations. Gastrointestinal: Positive for abdominal pain, diarrhea, nausea and vomiting. . Genitourinary: Negative for dysuria and hematuria. Musculoskeletal: Negative for acute back pain and acute neck pain. Skin: Negative for rash and pruritus. Neurological: Negative for acute numbness or weakness. PMH: See past medical history tab Medication Reconciliation Allergies: Coded Allergies: gabapentin (Verified Adverse Reaction, Unknown, HALLUCINATIONS, 02/06/25) Scheduled Amox Tr/Potassium Clavulanate (Augmentin 875-125 Tablet), 1 TAB PO Q12H, (Reported) Apixaban (Eliquis), 1 TAB PO Q12H, (Reported) Bisacodyl (Dulcolax), 4 TAB PO ONCE Docusate Sodium (Docusate Sodium), 1 CAP PO BID Folic Acid* (Folic Acid*), 1 TAB PO DAILY, (Reported) Furosemide (Lasix), 1 TAB PO BID, (Reported) Gabapentin (Gabapentin), 3 CAP PO DAILY, (Reported) Metoprolol Succinate* (Toprol Xl*), 1 TAB PO DAILY, (Reported) Polyethylene Glycol 3350 (Miralax), 17 GM PO DAILY Prednisone* (Prednisone*), 4 TAB PO DAILY, (Reported) Quetiapine Fumarate (Quetiapine Fumarate), 1 TAB PO HS, (Reported) Rosuvastatin Calcium* (Crestor*), 1 TAB PO DAILY, (Reported) Thiamine HCl (Vitamin B-1), 2 TAB PO DAILY, (Reported) Scheduled PRN Acetaminophen (Tylenol), 1 TAB PO Q4HPRN PRN for pain or fever, (Reported) Past Medical History Past Medical History: Arrhythmia, Atrial Fibrillation, High Cholesterol, Hypertension, Bronchitis, COPD, Pneumonia, Bowel Obstruction, Diverticulitis, Anemia, Anxiety, Depression Past Surgical History: appendectomy, cancer surgery, colectomy, orthopedic surgeries, pacemaker, tonsillectomy Alcohol Use: Alcoholic Drug Use: none Lives with: Alone Lives In: Home Occupation: retired Physical Exam Physical Exam Vital Signs: Temperature: 97.7, Source: Oral, Heart Rate: 72, Respiratory Rate: 19, BP: 124/75, Pulse Oximetry: 99, Weight: 97.100 Oxygen Flow Rate: 0 Physical Exam General: Awake , no distress. Verbal Head: No trauma Eyes: Nl lids Nl conjunctiva. No eye discharge ENT: Mucous membranes Nl. Lips Nl. No lesions Neck: Supple. No JVD. No visible mass Resp: Rate normal. No respiratory distress. No retractions. Normal air flow. No wheezes, rhonchi, or rales. Heart: Regular rhythm. No murmur. No rub Abdomen: Tenderness to palpation in the left upper quadrant and left lower quadrant. Soft. Nontender. No guarding. No rebound Musc/skeletal: No calf or popliteal tenderness. No edema Skin: The patient has right lower quadrant and midline scar. No rash. No petechiae. Not diaphoretic Neuro: Alert, oriented. Normal speech Progress Progress Note 1350: Consulted with hospitalist, Dr. Cha, regarding the patient's case. He kindly accepts the patient for admission at this time. The patient initially felt improved got up felt lightheaded had more diarrhea did not feel well going home. Results/Orders Results/Orders Orders - RAE ANDRADE MD Chest,Single View (02/06/25 09:34) Page Hospitalist (02/06/25 13:32) Fill Out Med Reconciliation (02/06/25 13:32) Page Hospitalist (02/06/25 13:32) Fill Out Med Reconciliation (02/06/25 13:32) Completed Orders - RAE ANDRADE MD Lipase (02/06/25 09:00) CMP (02/06/25 09:00) Chest,Single View (02/06/25 09:34) Electrocardiogram (02/06/25 09:34) Direct Bili (02/06/25 09:45) Iohexol 300mg/Ml 100ml Inj. (Omnipaque-3 (02/06/25 10:46) Ua W/Microscopic, Cult If Ind (02/06/25 12:12) Vital Signs 02/06/25 02/06/25 02/06/25 02/06/25 08:50 09:01 10:42 12:07 Temp 97.7 97.7 97.7 Pulse 72 77 78 Resp 17 19 14 14 B/P (MAP) 124/75 134/75 (94) 129/71 (90) Pulse Ox 99 99 99 O2 Flow Rate 0 0 0 Laboratory Tests Test 02/06/25 09:45 02/06/25 11:23 02/06/25 12:12 CBC Comment Sodium Level 139 Potassium Level 4.3 Chloride Level 106 Carbon Dioxide Level 23.9 L Anion Gap 9 Blood Urea Nitrogen 23 H Creatinine 1.04 Estimated GFR/1.73 m2 68 BUN/Creatinine Ratio 22.1 H Glucose Level 111 H Calcium Level 9.3 Total Bilirubin 0.9 Direct Bilirubin 0.2 Aspartate Amino Transf (AST/SGOT) 19 Alanine Aminotransferase (ALT/SGPT) 15 Alkaline Phosphatase 57 Total Protein 6.8 Albumin 4.0 Globulin 2.8 Albumin/Globulin Ratio 1.4 Lipase 51 Chemistry Comments White Blood Count 5.2 Red Blood Count 4.78 Hemoglobin 14.6 Hematocrit 43.9 Mean Corpuscular Volume 92.0 Mean Corpuscular Hemoglobin 30.6 Mean Corpuscular Hemoglobin Concent 33.3 Red Cell Distribution Width 13.8 Platelet Count 120 L Mean Platelet Volume 11.1 H Neutrophils (%) (Auto) 77.1 H Lymphocytes (%) (Auto) 15.7 L Monocytes (%) (Auto) 5.6 Eosinophils (%) (Auto) 0.7 Basophils (%) (Auto) 0.9 Neutrophils # (Auto) 4.0 Lymphocytes # (Auto) 0.8 L Monocytes # (Auto) 0.3 Eosinophils # (Auto) 0.0 Basophils # (Auto) 0.0 Urine Specimen Description Cln catch midstream Urine Color Yellow Urine Clarity Slightly cloudy Urine pH 8.5 Urine Specific [place] 1.010 Urine Protein Negative Urine Glucose (UA) Negative Urine Ketones Negative Urine Occult Blood Negative Urine Nitrite Negative Urine Bilirubin Negative Urine Urobilinogen 0.2 Urine Leukocyte Esterase Negative Urine RBC None seen Urine WBC 0-4 Urine Squamous Epithelial Cells Few Urine Amorphous Phosphates 2+ Urine Bacteria None seen Urine Culture Indicated Not ind Volume Urine Centrifuged 10 ml Urine Comment EKG/XRAY/CT/US/VASC/MRI EKG : Additional Comment EKGs shows occasional paced beats so sinus rate of 73 normal axis nonspecific T- wave inversions no STEMI or STEMI equivalent Chest X-Ray : Interpreted By: radiologist Views: 1 VIEW Additional Comments CHEST RADIOGRAPH INDICATION: sob TECHNIQUE: Single frontal view of the chest was obtained COMPARISON: DI CHEST,SINGLE VIEW on DOS: 11/06/24, DI CHEST,SINGLE VIEW on DOS: 06/21/24, DI CHEST,SINGLE VIEW on DOS: 04/10/24, DI CHEST,SINGLE VIEW on DOS: 04/09/24, DI CHEST,SINGLE VIEW on DOS: 04/08/24 FINDINGS: Lines and Tubes: Left pacemaker Lungs: No focal consolidation. Pleura: No effusion. No pneumothorax. Cardiomediastinal contours: Unremarkable Bones: No acute osseous abnormality. IMPRESSION: No acute cardiopulmonary disease. : Interpreted By: radiologist CT: abdomen/pelvis Impression NDICATION: Abdominal pain for 1 year, nausea and diarrhea TECHNIQUE: CT axial images of the abdomen and pelvis are obtained with intravenous contrast. Coronal and sagittal reformats were obtained. Radiation Dose Information: CTDI volume is 28. mGy. Dose-length product is 1489 mGy*cm COMPARISON: None FINDINGS: Lung bases demonstrate atelectasis. Adrenal glands unremarkable. 8 mm Splenic hypervascular lesion. This 6 mm splenic hypodense lesion. 1 cm splenic hypodense lesion. Pancreas unremarkable. Cholelithiasis. Cirrhotic morphology liver. No hydronephrosis. Right renal cysts up to 1 cm. Stomach is partially distended. Small bowel loops are normal in caliber. Postsurgical changes small bowel within the anterior midabdomen.m Enlarged mesenteric lymph nodes up to 15 mm. Colonic diverticular disease. Moderate volume stool in the colon. Abdominal aortic atherosclerotic disease. Bladder partially distended. No free pelvic fluid. No inguinal lymphadenopathy. [id number] bilateral sacroiliac degenerative joint disease. Moderate thoracolumbar degenerative disc disease. Thoracolumbar dextrocurvature. IMPRESSION: Cirrhotic morphology liver. Moderate volume stool in the colon. Colonic diverticular disease. Atherosclerotic disease. Splenic hypodense lesions as well as hypervascular lesion as described. Recommend multiphasic MRI abdomen to further evaluate . Cholelithiasis. Enlarged mesenteric lymph nodes up to 15 mm which can be secondary to mesenteric adenitis. Other considerations would include other infectious, inflammatory, neoplastic processes. RHANGER ASSISTANT Electronically Signed by:EVARISTO PENNY MD Date & Time: 02/06/25 1237 Dictated by: EVARISTO PENNY MD Dictation date and time: 02/06/25 1215 Medical Decision Making Additional information obtaine: N/A Findings The patient is an 84-year-old male with past medical history of diverticulitis and bowel obstruction (June 2024) brought in by ambulance from home to the ED for evaluation of worsening abdominal pain with nausea, vomiting and diarrhea for the past week. Patient reports that his abdominal pain and N/V/D has been ongoing for the past year but within the past week he has been a feeling swollen and blocked" in his lower abdomen. He locates the pain to be in his lower abdomen but reports that pain is worse in his left lower quadrant. Food does not make it better or worse. He has not noticed any black or bloody stools. Patient is complaint to his daily medications and denies any recent traveling or antibiotic use. EMS gave the patient Tylenol and fluids on route. MDM: Limited: (2 points from category 1 or one discussion with independent historian). Moderate: one of the following (3 points from category 1, or independent interpretations of tests performed by another physician/QHP: (ct,ecg,rad karen,rhythm strip,or comparing xray to prior), or discussion of tests or management with other professionals (not including [facility] ER doc/PA or family members.) High: (2 of 3 from : category 1 (3 points), independent interpretation of tests performed by another physician/QHP, and discussion of tests or management). Prior ER notes reviewed: Category 1: Number of Tests ordered or reviewed: >3 Number of Independent Historians: 0 Non [facility] ER notes reviewed: 2 1. The patient's last visit on 11/2024 2. Resident note from admission in 09/2024 3. Category 2: I independently interpreted the: Chest x-ray, CT, EKG Category 3: Discussion with other professionals: Dr. Yancey SEP-1 EXEMPTION: Sep- bundle not applicable because a bacterial infection has not been identified and any vital sign and/or laboratory abnormalities are felt not to be due to sepsis at this time. SOCIAL DETERMINANTS OF HEALTH Problems related to: ( )Challenges with access to Primary Care or Outpatient Speciality Care ( )Psychosocial circumstances such as mental health issues ( )Social environment: such as violence or substance abuse ( )Housing and economic circumstances: such as homelessness ( )Employment and unemployment: such as recently loss of employment ( )Occupational exposures or injuries: ( )Accessing ED outside of normal PCP hours ( )Language barrier: ( )Primary support group, including family circumstances: Prescription Management: Rx strength meds given in ED: Saline New Prescriptions: ( )I have reviewed the patient's medications and I do not recommend any changes at this time. (Applies only if checked) Testing or interventions considered: MRI to evaluate splenic lesions not immediately available or emergent considered antibiotics we will hold at this time. Differential includes but is not limited to: Small-bowel obstruction diverticulitis cholecystitis Differential Diagnosis See MDM Departure Time of Disposition: 13:55 Disposition: 09 ADMITTED INPATIENT Admitted to Inpatient Unit: yes, to hospitalist Impression: Primary Impression: Abdominal pain Additional Impressions: Diarrhea Lightheadedness Generalized weakness Acute gastroenteritis Condition: Fair Referrals: NO PRIMARY CARE PROVIDER (PCP) Education Educated: Patient Educated regarding: diagnosis, treatment Signature Scribe Signature: Scribed for Rae Andrade MD by Leatha Valadez . 02/06/25 09:34 Attestation: Scribed for Rae Andrade MD by Rae Andrade . 02/06/25 14:08 RAE ANDRADE MD Feb 06, 2025 09:33 LEATHA LUDWIG Feb 06, 2025 09:39
--- NOTE | 2025-02-06 09:50 | ELECTROCARDIOGRAPH REPORT ---
[facility] Test Date: 2025-02-06 Test Time: 09:49:49 Pat Name: ALCIDES SHEA Department: [facility] Patient ID: [facility]-[id number] Room: [place] [address] Gender: M Biomass Facilitator: : 1940 Requested By: RAE CABEZAS Order Number: [id number] Reading MD: Dr. Chandan Briseno Measurements Intervals [place] Rate: 73 P: 0 PA: 0 QRS: 37 QRSD: 95 T: -50 QT: 386 QTc: 426 Interpretive Statements Afib/flut and V-paced complexes No further rhythm analysis attempted due to paced rhythm Low voltage, precordial leads Nonspecific T abnormalities, diffuse leads Baseline wander in lead(s) V2 Electronically Signed On 02-06-2025 20:02:[address] Chandan Briseno Please click the below link to view image of tracing.
--- NOTE | 2025-02-06 10:11 | RADIOLOGY REPORT ---
CHEST RADIOGRAPH INDICATION: sob TECHNIQUE: Single frontal view of the chest was obtained COMPARISON: DI CHEST,SINGLE VIEW on DOS: 11/06/24, DI CHEST,SINGLE VIEW on DOS: 06/21/24, DI CHEST,SINGLE VIEW on DOS: 04/10/24, DI CHEST,SINGLE VIEW on DOS: 04/09/24, DI CHEST,SINGLE VIEW on DOS: 04/08/24 FINDINGS: Lines and Tubes: Left pacemaker Lungs: No focal consolidation. Pleura: No effusion. No pneumothorax. Cardiomediastinal contours: Unremarkable Bones: No acute osseous abnormality. IMPRESSION: No acute cardiopulmonary disease.
[2025-02-06 10:27] LABS: CREATININE 1.04 MG/DL (0.60-1.10); TOTAL CARBON DIOXIDE 23.9 MMOL/L (24-32); eCRCL 60 ML/MIN; eGFR 68 ML/MIN
[2025-02-06] MEDS ORDERED: iohexol 300mg/ml 100ml inj. ONE ×2 (10:46→22:30)
[2025-02-06 11:42] LABS: MEAN PLATELET VOLUME 11.1 FL (7.4-10.4); RED CELL DISTRIBUTION WIDTH 13.8 % (11.5-14.5)
[2025-02-06 12:36] LABS: LEUKOCYTE ESTERASE ,URINE NEGATIVE (Neg); NITRITES, URINE NEGATIVE (Neg); OCCULT BLOOD,URINE NEGATIVE (Neg)
--- NOTE | 2025-02-06 12:37 | RADIOLOGY REPORT ---
INDICATION: Abdominal pain for 1 year, nausea and diarrhea TECHNIQUE: CT axial images of the abdomen and pelvis are obtained with intravenous contrast. Coronal and sagittal reformats were obtained. Radiation Dose Information: CTDI volume is 28. mGy. Dose-length product is 1489 mGy*cm COMPARISON: None FINDINGS: Lung bases demonstrate atelectasis. Adrenal glands unremarkable. 8 mm Splenic hypervascular lesion. This 6 mm splenic hypodense lesion. 1 cm splenic hypodense lesion. Pancreas unremarkable. Cholelithiasis. Cirrhotic morphology liver. No hydronephrosis. Right renal cysts up to 1 cm. Stomach is partially distended. Small bowel loops are normal in caliber. Postsurgical changes small bowel within the anterior midabdomen.m Enlarged mesenteric lymph nodes up to 15 mm. Colonic diverticular disease. Moderate volume stool in the colon. Abdominal aortic atherosclerotic disease. Bladder partially distended. No free pelvic fluid. No inguinal lymphadenopathy. [id number] bilateral sacroiliac degenerative joint disease. Moderate thoracolumbar degenerative disc disease. Thoracolumbar dextrocurvature. IMPRESSION: Cirrhotic morphology liver. Moderate volume stool in the colon. Colonic diverticular disease. Atherosclerotic disease. Splenic hypodense lesions as well as hypervascular lesion as described. Recommend multiphasic MRI abdomen to further evaluate . Cholelithiasis. Enlarged mesenteric lymph nodes up to 15 mm which can be secondary to mesenteric adenitis. Other considerations would include other infectious, inflammatory, neoplastic processes. IED BEHAVIOR SCIENCE SPECIALIST [place]
[2025-02-06 12:46] LABS: UA COLLECTION TYPE CLN CATCH MIDSTREAM
[2025-02-06 12:47] LABS: AMORPHOUS PHOSPHATES 2+
[2025-02-06 12:48] LABS: SQUAMOUS EPITHELIAL CELL,UR FEW /LPF (FEW)
[2025-02-06] MEDS ORDERED: magnesium sulf-water 2g/50mL 50 ML IV PRN (14:10)
[2025-02-06] MEDS ORDERED: potassium Cl 20 mEq SR tablet PO PRN ×2 (14:10)
[2025-02-06] MEDS ORDERED: potassium Cl 40MEQ/1/2NS 520ml 520 ML IV PRN (14:10)
[2025-02-06] MEDS ORDERED: mag hydrox/Alum hydrox/simeth 30ml oral suspension PO PRN (14:10)
[2025-02-06] MEDS ORDERED: magnesium sulf-water 4G/100mL 100 ML IV PRN (14:10)
[2025-02-06] MEDS ORDERED: bisacodyl 10mg suppository rectal RC PRN (14:10)
[2025-02-06 14:29] LABS: ETHANOL < 10 MG/DL (<10)
--- NOTE | 2025-02-06 15:59 | HISTORY AND PHYSICAL ---
History & Physical Providers to CC ~ History of Present Illness Reason for Admit\Complaint: Abdominal pain with intermittent diarrhea times several weeks History of Present Illness This is a 84-year-old male who has a fair to semi poor historian who presents to ED with a several week history of intermittent abdominal pain mostly in the lower abdomen region with intermittent diarrhea. The patient has a picture of his bowel movement from yesterday which was normal and large he did experience fever and chills a few nights ago he notices that his abdominal pain is worse later in the day. The patient had a couple episodes of diarrhea this morning he knows over the past couple of weeks he has had increased urinary urgency. The patient has labs are unremarkable including a CBC and a metabolic panel. The patient has not alcohol level less than 10- the patient urinalysis is negative for UTI. CT scan of the abdomen and pelvis demonstrates cirrhosis, a splenic hypodense lesion as well as hypervascular lesions recommendations of multiphasic MRI of the abdomen. And cholelithiasis as well as enlarged mesenteric lymph nodes measuring up to 15 mm. Started the patient on Cipro and Flagyl IV antibiotics I have also ordered a abdominal ultrasound to evaluate for cholecystitis. Note the patient has not drank alcohol in over a year Allergies: Coded Allergies: gabapentin (Verified Adverse Reaction, Unknown, HALLUCINATIONS, 02/06/25) Home Medications Home Medications Active Reported Tylenol (Acetaminophen) 325 Mg Tablet 1 Tab PO Q4HPRN PRN 24 Days Prednisone* (Prednisone) 5 Mg Tablet 4 Tab PO DAILY Gabapentin 100 Mg Capsule 3 Cap PO DAILY 30 Days Augmentin 875-125 Tablet (Amoxicillin/Clavulanate Potassium) 1 Each Tablet 1 Tab PO Q12H started 04/09/24 for 5 days for infection Toprol Xl* (Metoprolol Succinate) 100 Mg Tab.sr.24h 1 Tab PO DAILY Lasix (Furosemide) 20 Mg Tablet 1 Tab PO BID 30 Days Eliquis (Apixaban) 5 Mg Tablet 1 Tab PO Q12H 30 Days Folic Acid* (Folic Acid) Y Tab 1 Tab PO DAILY 30 Days Vitamin B-1 (Thiamine HCl) 50 Mg Tablet 2 Tab PO DAILY 30 Days Quetiapine Fumarate 25 Mg Tablet 1 Tab PO HS Crestor* (Rosuvastatin Calcium) 20 Mg Tablet 1 Tab PO DAILY 30 Days Past Medical History Past Medical History ATRIAL FIBRILLATION HYPERLIPIDEMIA CARDIAC PACEMAKER ESSENTIAL HYPERTENSION COPD CARCINOID TUMOR COLON CANCER ERYTHEMA MIGRANS- LYME DISEASE ALCOHOL USE DISORDER, ALCOHOL DEPENDENCE HEART FAILURE WITH PRESERVED EJECTION FRACTION GI BLEED GASTRITIS PTSD Past Surgical History Surgical History Comment appendectomy, cancer surgery, colectomy, orthopedic surgeries, pacemaker, tonsillectomy Past Social History Social History Comment Lifelong nonsmoker, history of heavy alcohol use alcohol use disorder sober x1 year, smokes marijuana at night for insomnia otherwise does not use any illicit drugs. Full code status ROS ROS Except for positives in the HPI the rest of the 14 point review systems is negative Exam Vitals: Vital Signs Date Time Temp Pulse Resp B/P (MAP) Pulse Ox O2 Delivery O2 Flow Rate FiO2 02/06/25 14:29 97.7 75 14 138/92 (107) 99 0 General: Gen. No acute distress alert and oriented 4 Lungs clear to ascultation bilaterally, no wheezes rales or rhonchi appreciated Heart normal sinus rhythm no murmurs rubs or clicks noted Abdomen mildly distended, significant right upper quadrant tenderness, bowel sounds are normoactive Lower extremities no clubbing cyanosis, nor edema appreciated bilaterally Diagnostic Data Last Recorded Lab Results: 02/06/25 1123 02/06/25 0945 Advance Care Planning Advanced Care plannin - 30 Minutes Problems: (1) Abdominal pain Status: Acute Additional Plan # acute on chronic abdominal pain with a acute diarrhea # history of colon cancer with a partial colectomy # gallstones seen on CT scan of the abdomen # splenic hypodense lesions as well as hypervascular lesions # diverticular disease seen on CT scan A CT scan of the abdomen and pelvis with IV and quick oral contrast prep has been ordered for further evaluation especially in light of the fact the patient has a acute diarrhea and has a history of colon cancer may require a colonoscopy Abdominal ultrasound for further evaluation of gallstones and gallbladder evaluation IV metronidazole and IV Ciprofloxacillin treat for possible diverticulitis plus Culturelle probiotic Stool studies for stool culture # atrial fibrillation Await med reconciliation # hyperlipidemia # chronic HFpEF # hypertension Awaiting med reconciliation # history of alcohol use disorder with significant DTs The patient is states he has been sober for a year Alcohol withdrawal protocol is ordered # DVT prophylaxis SCDs I spent a total of 17 minutes on reviewing various resuscitative measures/ ACP with the patient at the time of admission. The patient has decided on full code status Date of Service: Feb 06, 2025 Billing Provider: RHONDA CLAY DO Common Visit Codes: 04304-[id number] INP/OBS CARE (HIGH) Secondary Visit Codes: 17092-[id number] CARE PLAN 30 MINUTES RHONDA CLAY DO Feb 06, 2025 15:59
[2025-02-06] MEDS: diatr meglu/diatrizoate 30ml oral sol.-(3 dose) bottle PO SCH (17:08)
[2025-02-06] MEDS: normal saline 1000ml 1,000 ML IV SCH (17:08)
[2025-02-06] MEDS: metroNIDAZOLE-Flagyl 500mg/NS 100 ML IV SCH (17:08)
--- NOTE | 2025-02-06 17:17 | RADIOLOGY REPORT ---
TECHNIQUE: Real-time ultrasound imaging of the abdomen was performed with grayscale and color Doppler. INDICATION: significant right upper quadrant abdomenal pain on palpation COMPARISON: VASC VL PORTAL on DOS: 06/24/24, US ULTRASOUND OF ABDOMEN on DOS: 10/19/22 FINDINGS: Technically limited examination due to bowel gas. Liver measures 18.4 cm. It is increased in echogenicity and echotexture without focal mass. Liver capsule nodular morphology. Portal vein is normal in caliber and demonstrates normal hepatopetal flow. Gallbladder demonstrates cholelithiasis and sludge. There is no pericholecystic fluid. The wall thickness is normal. The common bile duct measures 6 mm. No intrahepatic biliary ductal dilatation. The right kidney measures 9.7 cm. There is no hydronephrosis or sonographic evidence of nephrolithiasis. Right renal cyst measuring 1 cm. The visualized portion of the pancreas is unremarkable. IMPRESSION: Cirrhotic morphology liver and hepatomegaly. Cholelithiasis and sludge.
[2025-02-06 17:31] LABS: INFLUENZA TYPE A ANTIGEN RAPID NEGATIVE (Negative)
[2025-02-06 17:32] LABS: INFLUENZA TYPE B ANTIGEN RAPID NEGATIVE (Negative)
[2025-02-06 19:00] VITALS: BP 144/83; PULSE 78; RESP 16; TEMP 97.8; O2SAT 99
[2025-02-06] MEDS: docusate sod 100mg capsule PO SCH (19:55)
[2025-02-06] MEDS: K and/or MAG REPLACEMENT MC SCH (19:59)
[2025-02-06 20:00] VITALS: RESP 18; O2SAT 96
[2025-02-06] MEDS: ciprofloxacin lact 400MG/200ML 200 ML IV SCH (20:00)
[2025-02-06 22:00] VITALS: BP 135/85; PULSE 90; RESP 16; TEMP 97.8; O2SAT 97
[2025-02-07 04:15] LABS: MEAN PLATELET VOLUME 8.9 FL (7.4-10.4); RED CELL DISTRIBUTION WIDTH 13.6 % (11.5-14.5)
[2025-02-07 04:22] LABS: CREATININE 0.88 MG/DL (0.60-1.10); PHOSPHORUS 2.6 MG/DL (2.3-4.5); TOTAL CARBON DIOXIDE 24.6 MMOL/L (24-32); eCRCL 71 ML/MIN; eGFR 83 ML/MIN
[2025-02-07] MEDS ORDERED: HYDROcodone/acetaminophen 10/325mg tab PO PRN (05:55)
[2025-02-07] MEDS ORDERED: HYDROcodone/acetaminophen 5mg/325mg tablet PO PRN (05:55)
[2025-02-07] MEDS: ondansetron/PF 4mg/2ml inj IV PRN (05:58)
[2025-02-07 06:00] VITALS: BP 149/87; PULSE 100; RESP 20; TEMP 97.8; O2SAT 99
[2025-02-07 10:00] VITALS: BP_SYST 138; BP_SYST 149; BP_DIAS 106; BP_DIAS 87; PULSE 100; PULSE 102; RESP 18; RESP 20; TEMP 97.8; TEMP 98.1; O2SAT 99
--- NOTE | 2025-02-07 10:26 | RADIOLOGY REPORT ---
CLINICAL HISTORY: Abdominal pain and diarrhea history colon cancer TECHNIQUE: CT of the chest, abdomen, and pelvis was performed with IV contrast. Coronal and sagittal reformatted images were performed for better depiction of the anatomy. This exam was performed according to our departmental dose optimization program. Up-to-date CT equipment and radiation dose reduction techniques are utilized as appropriate. CTDI 28 DLP 2439 COMPARISON: CT CHEST ABDOMEN PELVIS IV CON on DOS: 02/06/25, CT CT ABDOMEN PELVIS W/ IV ORAL CONTRAST on DOS: 06/21/24, CT CT ABDOMEN PELVIS W/ IV CONTRAST on DOS: 05/29/24, CT CT ABDOMEN PELVIS on DOS: 03/05/23, CT ABDOMEN PELVIS on DOS: 06/22/22 FINDINGS: CHEST: The thoracic aorta is normal in course and caliber. There are mild aortic atherosclerotic calcifications. The heart is normal in size. No pericardial effusion is seen. There are aortic valvular and 3-vessel coronary artery calcifications. There is a dual lead left chest wall pacing device. No enlarged mediastinal, hilar, or axillary lymph node is present. The central airways are patent. There is no bronchiectasis. There is no suspicious pulmonary nodule or area of consolidation. There are mild linear atelectatic changes at both lung bases. There is no pleural effusion present. ABDOMEN/PELVIS: The pancreas, adrenal glands, left kidney, bladder, and prostate gland are unremarkable. A hypodense splenic lesion is too small to adequately characterize. There is a 7 mm hypervascular splenic lesion, which could represent a small hemangioma. The liver is cirrhotic in morphology with nodular contour. There is diffuse hepatic steatosis. There are small right renal cysts. There is a tiny amount of sludge versus layering stones. The abdominal aorta is normal in course and caliber. There are moderate to advanced aortic calcifications. There is no free intraperitoneal air or fluid. There is no enlarged abdominal or pelvic lymph node. There is a top-normal mesenteric lymph node measuring 9 mm in short axis. There is no bowel wall thickening or dilatation. The appendix is normal. There is colonic diverticulosis, moderate to severe at the sigmoid segment. BONES: No acute osseous abnormality is evident. IMPRESSION: No convincing CT evidence for metastatic disease in the chest, abdomen, or pelvis. 3-vessel coronary artery and aortic valvular calcifications. Top-normal mesenteric lymph node measuring 9 mm in short axis. Hepatic steatosis with cirrhosis. Colonic diverticulosis, moderate to advanced at the sigmoid segment. Tiny gallstones versus trace layering sludge. Hypervascular and hypodense splenic lesions, not well evaluated on this study. Statistically, they are most likely benign.
[2025-02-07 18:00] VITALS: BP 155/80; PULSE 87; RESP 16; TEMP 97.4; O2SAT 97
[2025-02-07 20:00] VITALS: RESP 18; O2SAT 96
--- NOTE | 2025-02-07 20:12 | PROGRESS NOTE ---
Daily Progress Note Providers to CC ~ Antibiotic Timeout Antibiotic Ordered?: Yes Subjective When I spoke with the patient he did informed me that he had an colonoscopy within the past three months with Dr. Peace salvage diver which was unremarkable however a biopsy was obtained a contrast CT scan today with IV and oral contrast that has no convincing evidence for metastatic disease which is reassuring the patient does have hepatic steatosis and that has hyper vascular and hypodense splenic lesions not well evaluated on this study and was assessed were likely benign as well. The patient did have loose stool with a chunks of solid material in the toilet I did inform him that the patient had oral CT contrast which will cause some runny stools and that is I was not concerned at this juncture. Objective Vital Signs Date Time Temp Pulse Resp B/P (MAP) Pulse Ox O2 Delivery O2 Flow Rate FiO2 02/07/25 10:00 98.1 102 18 138/106 (117) 99 Room Air 02/07/25 07:40 0.0 Result Diagram: 02/07/2531802/07/25318 Gen. No acute distress alert and oriented Lungs clear to ascultation bilaterally, no wheezes rales or rhonchi appreciated Heart normal sinus rhythm no murmurs rubs or clicks noted Abdomen mildly distended nontender bowel sounds are normoactive Lower extremities no clubbing cyanosis, nor edema appreciated bilaterally Problem\Assessment\Plan Problems/Diagnosis: (1) Abdominal pain # acute on chronic abdominal pain with a acute diarrhea # history of colon cancer with a partial colectomy # gallstones seen on CT scan of the abdomen # splenic hypodense lesions as well as hypervascular lesions # diverticular disease seen on CT scan A CT scan of the abdomen and pelvis with IV and quick oral contrast prep has been ordered for further evaluation especially in light of the fact the patient has a acute diarrhea and has a history of colon cancer may require a colonoscopy Abdominal ultrasound for further evaluation of gallstones and gallbladder evaluation IV metronidazole and IV Ciprofloxacillin treat for possible diverticulitis plus Culturelle probiotic Stool studies for stool culture 02/07 When I spoke with the patient he did informed me that he had an colonoscopy within the past three months with Dr. Peace salvage diver which was unremarkable however a biopsy was obtained a contrast CT scan today with IV and oral contrast that has no convincing evidence for metastatic disease which is reassuring the patient does have hepatic steatosis and that has hyper vascular and hypodense splenic lesions not well evaluated on this study and was assessed were likely benign as well. The patient did have loose stool with a chunks of solid material in the toilet I did inform him that the patient had oral CT contrast which will cause some runny stools and that is I was not concerned at this juncture. # permanent atrial fibrillation Continue Apixaban Continue Metoprolol succinate # hyperlipidemia # chronic HFpEF Continue p.o. furosemide Continue metoprolol # hypertension Under acceptable control continue to monitor # history of alcohol use disorder with significant DTs The patient is states he has been sober for a year Alcohol withdrawal protocol is ordered # DVT prophylaxis SCDs Date of Service: Feb 07, 2025 Billing Provider: RHONDA CLAY DO Common Visit Codes: [id number] INP/OBS CARE(HIGH) RHONDA CLAY DO Feb 07, 2025 20:12
[2025-02-07 22:00] VITALS: BP 113/79; PULSE 79; RESP 18; TEMP 98.1; O2SAT 98
[2025-02-08 05:00] VITALS: BP 128/78; PULSE 91; RESP 16; TEMP 97.7; O2SAT 97
[2025-02-08 06:38] LABS: MEAN PLATELET VOLUME 10.9 FL (7.4-10.4); RED CELL DISTRIBUTION WIDTH 13.7 % (11.5-14.5)
[2025-02-08 06:46] LABS: CREATININE 1.06 MG/DL (0.60-1.10); PHOSPHORUS 2.6 MG/DL (2.3-4.5); TOTAL CARBON DIOXIDE 25.7 MMOL/L (24-32); eCRCL 59 ML/MIN; eGFR 67 ML/MIN
[2025-02-08] MEDS: metoprolol succinate 25mg (24-HOUR) SR. Tablet PO SCH (09:40)
[2025-02-08 10:00] VITALS: BP 134/85; PULSE 80; RESP 19; TEMP 98.1; O2SAT 98
[2025-02-08 13:05] LABS: C DIFF ANTIGEN NEGATIVE (NEGATIVE); C DIFF SPECIMEN=DIARRHEA? ACCEPTABLE; C DIFFICILE TOXINS A&B NEGATIVE (Neg)
[2025-02-08] MEDS ORDERED: APIX2.5T PO (14:32)
--- NOTE | 2025-02-08 20:26 | DISCHARGE SUMMARY ---
Discharge Summary Providers to CC ~ Discharge Summary Admission Diagnosis: Gastroenteritis Hospital Course DATE OF ADMISSION: 02/06/2025 DATE OF DISCHARGE: 02/08/2025 Discharge Diagnosis\\Comment: Acute on chronic abdominal pain with acute diarrhea secondary to gastroenteritis possibly bacterial Gallstones asymptomatic Diverticular disease without acute diverticulitis Permanent atrial fibrillation Thrombocytopenia Chronic HFpEF Hypertension Operations\\Procedures: None Consultants: None Complications: None Condition on DC: Stable New Medications: Apixaban (Eliquis) 2.5 Mg Tablet 1 TAB PO Q12H for 30 Days, #60 TAB 1 Refill Continued Medications: Acetaminophen (Tylenol) 325 Mg Tablet 1 TAB PO Q4HPRN PRN for pain or fever for 24 Days, #100 TAB Folic Acid* (Folic Acid*) Y Tab 1 TAB PO DAILY for 30 Days, #30 TAB Furosemide (Lasix) 20 Mg Tablet 1 TAB PO BID for 30 Days, #30 TAB 0 Refills Gabapentin (Gabapentin) 100 Mg Capsule 3 CAP PO DAILY for 30 Days, #90 CAP 0 Refills Metoprolol Succinate* (Toprol Xl*) 100 Mg Tab.sr.24h 1 TAB PO DAILY Prednisone* (Prednisone*) 5 Mg Tablet 4 TAB PO DAILY, TAB Quetiapine Fumarate (Quetiapine Fumarate) 25 Mg Tablet 1 TAB PO HS for AGITATION Rosuvastatin Calcium* (Crestor*) 20 Mg Tablet 1 TAB PO DAILY for 30 Days, #30 TAB Thiamine HCl (Vitamin B-1) 50 Mg Tablet 2 TAB PO DAILY for 30 Days, #60 TAB 0 Refills Discontinued Medications: Amox Tr/Potassium Clavulanate (Augmentin 875-125 Tablet) 1 Each Tablet 1 TAB PO Q12H, TAB started 04/09/24 for 5 days for infection Apixaban (Eliquis) 5 Mg Tablet 1 TAB PO Q12H for 30 Days, #60 TAB Discharge Summary: I admitted the patient with the following HPI:This is a 84-year-old male who has a fair to semi poor historian who presents to ED with a several week history of intermittent abdominal pain mostly in the lower abdomen region with intermittent diarrhea. The patient has a picture of his bowel movement from yesterday which was normal and large he did experience fever and chills a few nights ago he notices that his abdominal pain is worse later in the day. The patient had a couple episodes of diarrhea this morning he knows over the past couple of weeks he has had increased urinary urgency. The patient has labs are unremarkable including a CBC and a metabolic panel. The patient has not alcohol level less than 10- the patient urinalysis is negative for UTI. CT scan of the abdomen and pelvis demonstrates cirrhosis, a splenic hypodense lesion as well as hypervascular lesions recommendations of multiphasic MRI of the abdomen. And cholelithiasis as well as enlarged mesenteric lymph nodes measuring up to 15 mm. Started the patient on Cipro and Flagyl IV antibiotics I have also ordered a abdominal ultrasound to evaluate for cholecystitis. Note the patient has not drank alcohol in over a year. A CT scan of the chest abdomen and pelvis with oral and IV contrast demonstrated the following findings: "No convincing CT evidence for metastatic disease in the chest, abdomen, or pelvis. 3-vessel coronary artery and aortic valvular calcifications. Top-normal mesenteric lymph node measuring 9 mm in short axis. Hepatic steatosis with cirrhosis. Colonic diverticulosis, moderate to advanced at the sigmoid segment. Tiny gallstones versus trace layering sludge. Hypervascular and hypodense splenic lesions, not well evaluated on this study. Statistically, they are most likely benign." The patient felt significantly improved on the morning of the his symptoms were likely secondary to gastroenteritis possibly bacterial the patient is afebrile with a a normal white blood cell count. The patient takes apixaban for DVT and stroke prophylaxis due to atrial fibrillation the patient did have a downtrending platelet count however his platelet count on admission was [id number] in his downtrend on day discharge [id number] that is I decreased the patient is apixaban dose from 5 mg b.i.d. to 2.5 mg b.i.d. on discharge and sent a new prescription off to the patient's pharmacy. The patient is home medications were continued no other changes and his chronic conditions including HFpEF and atrial fibrillation were controlled during hospitalization. Gen. No acute distress alert and oriented 4 Lungs clear to ascultation bilaterally, no wheezes rales or rhonchi appreciated Heart normal sinus rhythm no murmurs rubs or clicks noted Abdomen soft nontender bowel sounds are normoactive Lower extremities no clubbing cyanosis, nor edema appreciated bilaterally The patient felt ready to be discharged and was medically cleared to be discharged on 02/08/2025 The patient was seen and evaluated on day of discharge. Time spent on discharge 35 minutes *Problems/Diagnosis: (1) Abdominal pain Status: Acute Total Time Spent on D/C: > 30 Minutes Date of Service: Feb 08, 2025 Billing Provider: RHONDA CLAY DO Common Visit Codes: [id number]/OBS DISCH DAY >30min RHONDA CLAY DO Feb 08, 2025 20:26
== END 2025-02-08 15:30 | disposition home or self-care (01) | DRG 372 ==
LOC: ER 08:49 → ED HOLD 14:18 → SUR 3N 15:10
PROVIDERS: ADMIT Family Medicine; ATTEND Family Medicine
PROC: BW211ZZ Computerized Tomography (CT Scan) of Abdomen and Pelvis using Low Osmolar Contrast (ICD-10-PCS; principal; 2025-02-06)
PROC: BW251ZZ Computerized Tomography (CT Scan) of Chest, Abdomen and Pelvis using Low Osmolar Contrast (ICD-10-PCS; 2025-02-06)
DX: A04.8 Other specified bacterial intestinal infections (principal); I48.21 Permanent atrial fibrillation; D69.6 Thrombocytopenia, unspecified; I50.32 Chronic diastolic (congestive) heart failure; Z79.01 Long term (current) use of anticoagulants; K74.60 Unspecified cirrhosis of liver; I11.0 Hypertensive heart disease with heart failure; J44.9 Chronic obstructive pulmonary disease, unspecified; F10.20 Alcohol dependence, uncomplicated; F32.A Depression, unspecified; D73.89 Other diseases of spleen; E78.00 Pure hypercholesterolemia, unspecified; F41.9 Anxiety disorder, unspecified; K80.20 Calculus of gallbladder without cholecystitis without obstruction; G47.00 Insomnia, unspecified; G89.29 Other chronic pain; F43.10 Post-traumatic stress disorder, unspecified; Z88.8 Allergy status to other drugs, medicaments and biological substances; Z79.899 Other long term (current) drug therapy; Z90.49 Acquired absence of other specified parts of digestive tract; Z95.0 Presence of cardiac pacemaker; Z85.038 Personal history of other malignant neoplasm of large intestine
CPT/HCPCS: 36415; 71045; 71260; 74177; 76700; 80048; 80053; 80320; 81001; 82248; 82607; 83690; 83735; 84100; 85025; 87045; 87046; 87081; 87324; 87449; 87804; 89055; 93005; 96365; 99285; A6449; G0378; J0744; J2405; J3490; J7030; J7512; Q9963; Q9967